=== PATIENT | female | born 1970 | race African-American/Black ===

== ENCOUNTER 2017-02-19 15:00 | Emergency (ER) | payer MEDICARE, MEDICAID ==
--- NOTE | 2017-02-19 15:51 | ER Document Report ---
ED Medical Screen (RME) - General Chief Complaint: Arm Pain Stated Complaint: LEFT ARM PAIN Time Seen by Provider: 02/19/17 15:47 Mode of Arrival: Ambulatory Information source: Patient Notes: 46-year-old female with end-stage renal disease with an AV shunt in her left arm who was last dialyzed on Wednesday. Patient presents to the emergency room with sharp pain to the left shoulder and arm. Patient denies any fever. The patient states that the pain started approximately a day to day and a half ago. She states that it is worse with movement and palpation of the arm. TRAVEL OUTSIDE OF THE [place] IN LAST 30 DAYS: No - Related Data Allergies/Adverse Reactions: No Known Allergies Allergy (Unverified 02/19/17 15:07) Past Medical History - Social History Frequency of alcohol use: None Drug Abuse: None - Past Medical History Cardiac Medical History: Reports: Hx Congestive Heart Failure, Hx Hypertension Endocrine Medical History: Reports: Hx Diabetes Mellitus Type 2 Renal/ Medical History: Reports: Hx End Stage Renal Disease. Denies: Hx Peritoneal Dialysis Physical Exam - Vital signs Vitals: Temp Pulse Resp BP Pulse Ox 97.7 F 81 16 147/73 H 95 02/19/17 15:06 02/19/17 15:06 02/19/17 15:06 02/19/17 15:06 02/19/17 15:06 Course - Vital Signs Vital signs: Temp Pulse Resp BP Pulse Ox 97.7 F 81 16 147/73 H 95 02/19/17 15:06 02/19/17 15:06 02/19/17 15:06 02/19/17 15:06 02/19/17 15:06
--- NOTE | 2017-02-19 16:35 | ER Document Report ---
ED Extremity Problem, Upper - General Mode of Arrival: Ambulatory Information source: Patient TRAVEL OUTSIDE OF THE [place] IN LAST 30 DAYS: No - HPI Patient complains to provider of: Pain <HUY KIM - Last Filed: 02/19/17 19:55> <CHINO GARCIAS - Last Filed: 02/19/17 21:47> - General Chief Complaint: Arm Pain Stated Complaint: LEFT ARM PAIN Time Seen by Provider: 02/19/17 15:47 Notes: Patient is a 46-year-old female with end-stage renal disease presenting to the emergency department for sharp pain to her left shoulder and arm. Patient has an AV shunt in her left arm and was last dialyzed on Wednesday. Patient denies any fever. Patient's pain was onset yesterday and worsened today. Patient's pain is exacerbated with movement and her pain is worse in her shoulder than her arm. Patient has no known drug allergies. (HUY KIM) - Related Data Allergies/Adverse Reactions: No Known Allergies Allergy (Verified 02/19/17 19:27) Past Medical History - General Information source: Patient - Social History Smoking Status: Former Smoker Cigarette use (# per day): No Chew tobacco use (# tins/day): No Frequency of alcohol use: None Drug Abuse: None Family History: None Patient has suicidal ideation: No Patient has homicidal ideation: No - Past Medical History Cardiac Medical History: Reports: Hx Congestive Heart Failure, Hx Hypertension Endocrine Medical History: Reports: Hx Diabetes Mellitus Type 2 Renal/ Medical History: Reports: Hx End Stage Renal Disease Surgical Hx: Negative <HUY KIM - Last Filed: 02/19/17 19:55> Review of Systems - Review of Systems Constitutional: No symptoms reported EENT: No symptoms reported Cardiovascular: No symptoms reported Respiratory: No symptoms reported Gastrointestinal: No symptoms reported Genitourinary: No symptoms reported Female Genitourinary: No symptoms reported Musculoskeletal: See HPI, Muscle pain Skin: No symptoms reported Hematologic/Lymphatic: No symptoms reported Neurological/Psychological: No symptoms reported -: Yes All other systems reviewed and negative <HUY KIM - Last Filed: 02/19/17 19:55> Physical Exam - Vital signs Interpretation: Normal <HUY KIM - Last Filed: 02/19/17 19:55> <CHINO GARCIAS - Last Filed: 02/19/17 21:47> - Vital signs Vitals: Temp Pulse Resp BP Pulse Ox 97.7 F 81 16 147/73 H 95 02/19/17 15:06 02/19/17 15:06 02/19/17 15:06 02/19/17 15:06 02/19/17 15:06 - Notes Notes: GENERAL: Alert, interacts well. No acute distress. HEAD: Normocephalic, atraumatic. EYES: Appear normal. Pupils equal, round, and reactive to light. ENT: Moist mucus membranes, tongue midline. NECK: Full range of motion. Supple. Trachea midline. LUNGS: Clear to auscultation bilaterally, no wheezes, rales, or rhonchi. No respiratory distress. HEART: Regular rate and rhythm. No murmurs, gallops, or rubs. ABDOMEN: Soft, non-tender. Non-distended. Normal bowel sounds. EXTREMITIES: Tenderness to palpation over the left humerus and left shoulder. Positive bruit in the left arm. Pain with range of motion to the left shoulder. No edema. NEUROLOGICAL: Alert and oriented x3. Normal speech. No focal neurological deficits. GSC 15. PSYCH: Normal affect, normal mood. SKIN: Warm, dry, normal turgor. No rashes or lesions noted. (HUY KIM) Course - Laboratory Result Diagrams: 02/19/17 18:43 02/19/17 18:43 <HUY KIM - Last Filed: 02/19/17 19:55> - Laboratory Result Diagrams: 02/19/17 18:43 02/19/17 18:43 - Diagnostic Test Radiology reviewed: Reports reviewed <CHINO GARCIAS - Last Filed: 02/19/17 21:47> - Re-evaluation Re-evalutation: 02/19/17 19:15 Reevaluated patient at this time. Discussed imaging and Doppler study results with patient. (HUY KIM) 02/19/17 Patient with no acute findings on imaging. No DVT. Fistula is functioning well. Patient has reproducible pain. Blood work is at baseline. Patient will be discharged home with pain medication. She is to follow-up with her doctor. Return if any worsening or concerning symptoms. Stable for discharge. (CHINO GARCIAS) - Vital Signs Vital signs: Temp Pulse Resp BP Pulse Ox 97.6 F 81 20 147/84 H 97 02/19/17 20:18 02/19/17 20:18 02/19/17 20:18 02/19/17 20:18 02/19/17 20:18 - Laboratory Laboratory results interpreted by me: 02/19/17 02/19/17 02/19/17 18:43 18:43 18:43 WBC 10.9 H Hgb 11.3 L Hct 35.5 L MCHC 31.9 L RDW 14.3 H Seg Neutrophils % 80.2 H Lymphocytes % 10.0 L Absolute Neutrophils 8.7 H PT 16.7 H Potassium 5.8 H Carbon Dioxide 16 L Anion Gap 25 H BUN 102 H Creatinine 13.25 H Est GFR ( Amer) 4 L Est GFR (Non-Af Amer) 3 L Calcium 8.1 L Direct Bilirubin 0.7 H AST 41 H Alkaline Phosphatase 172 H Total Protein 9.0 H Discharge <HUY KIM - Last Filed: 02/19/17 19:55> <CHINO GARCIAS - Last Filed: 02/19/17 21:47> - Discharge Clinical Impression: Shoulder pain, left Qualifiers: Chronicity: acute Qualified Code(s): M25.512 - Pain in left shoulder Condition: Stable Disposition: HOME, SELF-CARE Instructions: Arm Pain, Nonspecific ([facility]), Shoulder Injury ([facility]) Additional Instructions: Please go to dialysis as scheduled in the morning. Prescriptions: Ondansetron [Zofran Odt 4 mg Tablet] 1 - 2 tab PO Q4H PRN #15 tab.rapdis PRN Reason: For Nausea/Vomiting Oxycodone HCl/Acetaminophen [Percocet 5-325 mg Tablet] 1 - 2 tab PO Q4H PRN #15 tablet PRN Reason: Referrals: ANGELA WOLFE MD [Primary Care Provider] - Follow up in 3-5 days Scribe Attestation: 02/19/17 21:47 I personally performed the services described in the documentation, reviewed and edited the documentation which was dictated to the scribe in my presence, and it accurately records my words and actions. (CHINO GARCIAS) Scribe Documentation - Scribe Written by Scribe:: Tammie Daily, 02/19/2017 19:02 acting as scribe for :: Parag <HUY KIM - Last Filed: 02/19/17 19:55>
--- NOTE | 2017-02-19 17:00 | RADIOLOGY REPORT (SQ) ---
EXAM DESCRIPTION: CHEST SINGLE VIEW COMPLETED DATE/TIME: 02/19/2017 4:50 pm REASON FOR STUDY: pain COMPARISON: October 2009 EXAM PARAMETERS: NUMBER OF VIEWS: One view. TECHNIQUE: Single frontal radiographic view of the chest acquired. RADIATION DOSE: NA LIMITATIONS: Patient has made a shallow inspiration. FINDINGS: LUNGS AND PLEURA: No opacities, masses or pneumothorax. No pleural effusion. MEDIASTINUM AND HILAR STRUCTURES: No masses. Contour normal. HEART AND VASCULAR STRUCTURES: The cardiac silhouette is enlarged and unchanged in configuration. Th ere is pulmonary vascular congestion. BONES: No acute findings. HARDWARE: None in the chest. OTHER: No other significant finding. IMPRESSION: Cardiomegaly with pulmonary vascular congestion. Other findings as noted above. TECHNICAL DOCUMENTATION: JOB ID: [id number]
--- NOTE | 2017-02-19 17:01 | RADIOLOGY REPORT (SQ) ---
EXAM DESCRIPTION: HUMERUS LEFT COMPLETED DATE/TIME: 02/19/2017 4:50 pm REASON FOR STUDY: left arm pain COMPARISON: None. NUMBER OF VIEWS: Two views. TECHNIQUE: Two radiographic images were acquired of the left humerus to include elbow and shoulder i n at least one projection. LIMITATIONS: None. FINDINGS: MINERALIZATION: Normal. BONES: No acute fracture or dislocation. No worrisome bone lesions. SOFT TISSUES: No obvious swelling or foreign body. OTHER: No other significant finding. IMPRESSION: NEGATIVE STUDY OF THE LEFT HUMERUS. NO RADIOGRAPHIC EVIDENCE OF ACUTE INJURY. TECHNICAL DOCUMENTATION: JOB ID: [id number] [employer]- All Rights Reserved
[2017-02-19] MEDS ORDERED: OXYCODONE-ACETAMINOPHEN 5-325 MG TABLET PO ONE (17:24)
--- NOTE | 2017-02-19 18:32 | RADIOLOGY REPORT (SQ) ---
EXAM DESCRIPTION: VENOUS UNILATERAL UPPER COMPLETED DATE/TIME: 02/19/2017 6:19 pm REASON FOR STUDY: left arm pain COMPARISON: None. TECHNIQUE: Dynamic and static rm scale and color images acquired of the left arm venous system. Se lected spectral images acquired with additional compression and augmentation maneuvers. The contralat eral subclavian vein and internal jugular vein were also imaged. Images stored on PACS. LIMITATIONS: None. FINDINGS: INTERNAL JUGULAR VEIN: Normal phasicity, compression, augmentation. No visualized echogeni c material on rm scale. No defects on color images. Comparison opposite side normal. SUBCLAVIAN VEIN: Normal compression, augmentation. No visualized echogenic material on rm scale. No defects on color images. AXILLARY VEIN: Normal compression, augmentation. No visualized echogenic material on rm scale. No d efects on color images. BRACHIAL VEIN: Normal compression, augmentation. No visualized echogenic material on rm scale. No d efects on color images. BASILIC VEIN: Normal compression, augmentation. No visualized echogenic material on rm scale. No de fects on color images. CEPHALIC VEIN: Normal compression, augmentation. No visualized echogenic material on rm scale. No d efects on color images. OTHER: Brachiocephalic AV fistula is patent. Brachial artery proximal to the fistula measures 2.3 m/ sec. The radial and ulnar arteries measure 0.4 m/sec and in 0.2 m/sec respectively. CONTRALATERAL SUBCLAVIAN VEIN AND INTERNAL JUGULAR VEIN: Normal phasicity, compression and augmentation. No visualized echogenic material on rm scale. No de fects on color images. IMPRESSION: No evidence for DVT.Brachiocephalic AV fistula is patent. TECHNICAL DOCUMENTATION: JOB ID: [id number] [employer]- All Rights Reserved
[2017-02-19] MEDS ORDERED: ONDANSETRON 4 MG TAB.RAPDIS PO ONE (18:38)
[2017-02-19 18:52] LABS: ABSOLUTE BASOPHILS # (AUTO) 0.1 10^3/uL (0.0-0.2); ABSOLUTE EOSINOPHILS # (AUTO) 0.2 10^3/uL (0.0-0.6); ABSOLUTE LYMPHOCYTES (AUTO) 1.1 10^3/uL (0.5-4.7); ABSOLUTE MONOCYTES (AUTO) 0.7 10^3/uL (0.1-1.4); ABSOLUTE NEUT (AUTO) 8.7 10^3/uL (1.7-8.2); BASOPHILS % (AUTO) 1.4 % (0-2); HEMATOCRIT 35.5 % (36.0-47.0); HEMOGLOBIN 11.3 g/dL (12.0-15.5); HGB HCT DIFFERENCE -1.6; MEAN CORPUSCULAR HEMOGLOBIN 29.9 pg (27.0-33.4); MEAN CORPUSCULAR HGB CONC 31.9 g/dL (32.0-36.0); MEAN CORPUSCULAR VOLUME 94 fl (80-97); MONOCYTES % (AUTO) 6.4 % (3-13); RED BLOOD COUNT 3.79 10^6/uL (3.72-5.28); RED CELL DISTRIBUTION WIDTH 14.3 % (11.5-14.0); SEGMENTED NEUTROPHILS % (AUTO) 80.2 % (42-78); WHITE BLOOD COUNT 10.9 10^3/uL (4.0-10.5)
[2017-02-19 19:05] LABS: PARTIAL THROMBOPLASTIN TIME 35.2 SEC (23.5-35.8); PROTHROMBIN TIME 16.7 SEC (11.4-15.4)
[2017-02-19 19:07] LABS: ALANINE AMINOTRANSFERASE 34 U/L (9-52); ALBUMIN 4.5 g/dL (3.5-5.0); ALKALINE PHOSPHATASE 172 U/L (38-126); ASPARTATE AMINO TRANSFERASE 41 U/L (14-36); BILIRUBIN,DIRECT 0.7 mg/dL (0.0-0.4); BILIRUBIN,TOTAL 0.7 mg/dL (0.2-1.3); BLOOD UREA NITROGEN 102 mg/dL (7-20); CALCIUM 8.1 mg/dL (8.4-10.2); CHLORIDE 98 mmol/L (98-107); GLUCOSE 98 mg/dL (75-110); POTASSIUM 5.8 mmol/L (3.6-5.0)
--- NOTE | 2017-02-19 19:12 | EKG REPORT ---
SEVERITY:- ABNORMAL ECG - SINUS RHYTHM LEFT AXIS DEVIATION ABNORMAL T, CONSIDER ISCHEMIA, LATERAL LEADS : Confirmed by: Bubba Brito MD 19-Feb-2017 19:11:49
[2017-02-19 19:13] LABS: CREATININE RESULT 13.25 mg/dL (0.52-1.25)
[2017-02-19 19:15] LABS: CARBON DIOXIDE 16 mmol/L (22-30); SODIUM 139.2 mmol/L (137-145)
[2017-02-19 19:16] LABS: ANION GAP 25 (5-19)
[2017-02-19 20:21] VITALS: BP 147/84
== END 2017-02-19 20:30 | disposition home or self-care (01) ==
LOC: ER 15:00
DX: M25.512 Pain in left shoulder (principal); M79.602 Pain in left arm; I13.2 Hypertensive heart and chronic kidney disease with heart failure and with stage 5 chronic kidney disease, or end stage renal disease; E11.22 Type 2 diabetes mellitus with diabetic chronic kidney disease; N18.6 End stage renal disease; I50.9 Heart failure, unspecified; Z99.2 Dependence on renal dialysis; Z87.891 Personal history of nicotine dependence
CPT/HCPCS: 93005; 99284; 36415; 85025; 85610; 85730; 80053; 84484; 93971; 71010; 73060; 93010; A9270 ×2; S0119

== ENCOUNTER 2017-05-07 18:06 | Emergency (ER) | payer MEDICARE, MEDICAID ==
--- NOTE | 2017-05-07 18:47 | ER Document Report ---
ED Medical Screen (RME) - General Chief Complaint: Urinary Problem Stated Complaint: LEG PAIN Time Seen by Provider: 05/07/17 18:40 Notes: This 46-year-old dialysis patient reports blood in the urine for 1 month, chronic bilateral lower leg pain for which she goes to physical therapy, decreasing urine output over time, and when I tried to find out specifically why she came to the emergency room today, she stated "today my stomach kind of hurts". She is concerned that it may be her gallbladder giving her trouble, however she did have a laparoscopic cholecystectomy perhaps a month ago in [place]. She indicates the pain is all the way across her mid abdomen. I have greeted and performed a rapid initial assessment of this patient. A comprehensive ED assessment and evaluation of the patient, analysis of test results and completion of the medical decision making process will be conducted by additional ED providers. TRAVEL OUTSIDE OF THE [place] IN LAST 30 DAYS: No - Related Data Allergies/Adverse Reactions: No Known Allergies Allergy (Verified 05/07/17 18:11) Past Medical History - Social History Chew tobacco use (# tins/day): No Frequency of alcohol use: None Drug Abuse: None - Past Medical History Cardiac Medical History: Reports: Hx Congestive Heart Failure, Hx Hypertension Endocrine Medical History: Reports: Hx Diabetes Mellitus Type 2 Renal/ Medical History: Reports: Hx End Stage Renal Disease. Denies: Hx Peritoneal Dialysis Past Surgical History: Reports: Hx Cholecystectomy Physical Exam - Vital signs Vitals: Temp Pulse Resp BP Pulse Ox 98.4 F 89 18 126/64 H 97 05/07/17 18:08 05/07/17 18:08 05/07/17 18:08 05/07/17 18:08 05/07/17 18:08 Course - Vital Signs Vital signs: Temp Pulse Resp BP Pulse Ox 98.4 F 89 18 126/64 H 97 05/07/17 18:08 05/07/17 18:08 05/07/17 18:08 05/07/17 18:08 05/07/17 18:08
--- NOTE | 2017-05-07 19:43 | ER Document Report ---
ED General - General Chief Complaint: Urinary Problem Stated Complaint: LEG PAIN Time Seen by Provider: 05/07/17 18:40 Notes: Patient is a 46-year-old female with past medical history of chronic kidney disease with dialysis dependence who presents with a multitude of vague complaints. Patient is a very difficult historian has difficulty explaining why she came to the emergency department today. She complains of bilateral lower extremity pain which has been present for at least the past 3-4 months and she is currently following with a primary care doctor for this complaint. She states this is not why she came to the emergency department. She also complains of hematuria although it is very difficult to determine whether or not she actually means hematuria versus vaginal bleeding or rectal bleeding. She simply states "it happens every time I go to the bathroom". When I try to clarify with the patient whether or not she means she is having blood in her urine versus vaginal bleeding or rectal bleeding she appears confused and is unable to clarify which of the sources of bleeding she believes is occurring. She denies a history of similar symptoms in the past. This is been ongoing for at least the past 6 weeks. Nothing is new or different today. She does note that she has of lower abdominal cramping pain that is dull, mild and constant. Nothing improves or worsens that pain. She only makes urine approximately 1-2 times daily and does not feel she will build urinate tonight. She is uncertain when her last menstrual period was. TRAVEL OUTSIDE OF THE [place] IN LAST 30 DAYS: No - Related Data Allergies/Adverse Reactions: No Known Allergies Allergy (Verified 05/07/17 18:11) Past Medical History - General Information source: Patient - Social History Smoking Status: Former Smoker Chew tobacco use (# tins/day): No Frequency of alcohol use: None Drug Abuse: None Lives with: Spouse/Significant other Family History: Reviewed & Not Pertinent - Past Medical History Cardiac Medical History: Reports: Hx Congestive Heart Failure, Hx Hypertension Endocrine Medical History: Reports: Hx Diabetes Mellitus Type 2 Renal/ Medical History: Reports: Hx End Stage Renal Disease. Denies: Hx Peritoneal Dialysis Past Surgical History: Reports: Hx Cholecystectomy Review of Systems - Review of Systems Notes: Constitutional: Negative for fever. HENT: Negative for sore throat. Eyes: Negative for visual changes. Cardiovascular: Negative for chest pain. Respiratory: Negative for shortness of breath. Gastrointestinal: Positive for lower abdominal pain Genitourinary: Positive for possible vaginal bleeding versus hematuria Musculoskeletal: Negative for back pain. Skin: Negative for rash. Neurological: Negative for headaches, weakness or numbness. 10 point ROS negative except as marked above and in HPI. Physical Exam - Vital signs Vitals: Temp Pulse Resp BP Pulse Ox 98.4 F 89 18 126/64 H 97 05/07/17 18:08 05/07/17 18:08 05/07/17 18:08 05/07/17 18:08 05/07/17 18:08 Interpretation: Normal Notes: PHYSICAL EXAMINATION: GENERAL: Well-appearing, well-nourished and in no acute distress. HEAD: Atraumatic, normocephalic. EYES: Pupils equal round and reactive to light, extraocular movements intact, sclera anicteric, conjunctiva are normal. ENT: nares patent, oropharynx clear without exudates. Moist mucous membranes. NECK: Normal range of motion, supple without lymphadenopathy LUNGS: Breath sounds clear to auscultation bilaterally and equal. No wheezes rales or rhonchi. HEART: Regular rate and rhythm without murmurs ABDOMEN: Soft, mild tenderness in the suprapubic region otherwise no focal abdominal tenderness, rebound or guarding. EXTREMITIES: Normal range of motion, no pitting or edema. No cyanosis. NEUROLOGICAL: No focal neurological deficits. Moves all extremities spontaneously and on command. PSYCH: Normal mood, normal affect. SKIN: Warm, Dry, normal turgor, no rashes or lesions noted. Course - Re-evaluation Re-evalutation: 05/07/17 19:42 Patient presents with multiple complaints none of which appear to be an acute life-threatening emergency. Patient is unable to clarify for me the source of her bleeding but I suspect based on her history is likely vaginal she makes minimal urine and likely will be unable to provide a urine sample here in the emergency department due to her oliguria. Will proceed with a pelvic examination to better clarify the source of bleeding as well as a vaginal ultrasound. Will also obtain basic laboratories to evaluate for any degree of anemia. 05/07/17 21:06 Patient has not been able to urinate and I expect that she will be unable to do so she makes minimal to no urine through the day. The source of her bleeding is not from her urethra. Pelvic exam demonstrates a mild amount of vaginal bleeding. Transvaginal ultrasound was completed to evaluate for possible mass and is noted to be normal. Given patient's elevated risk for a hypercoagulable state at baseline secondary to her dialysis dependence and chronic kidney disease, I am not comfortable starting an estrogen based hormone therapy to regulate her cycle at this time. I have been referred to the [facility] for definitive management. The remainder of her laboratories are at her baseline. No evidence of significant anemia. She remains hemodynamic within normal limits. At this time will discharge with return precautions and follow-up recommendations. Verbal discharge instructions given a the bedside and opportunity for questions given. Medication warnings reviewed. Patient is in agreement with this plan and has verbalized understanding of return precautions and the need for primary care follow-up in the next 24-72 hours. - Vital Signs Vital signs: Temp Pulse Resp BP Pulse Ox 98.4 F 89 18 126/64 H 97 05/07/17 18:08 05/07/17 18:08 05/07/17 18:08 05/07/17 18:08 05/07/17 18:08 - Laboratory Result Diagrams: 05/07/17 19:54 05/07/17 19:54 Laboratory results interpreted by me: 05/07/17 05/07/17 19:54 19:54 Hgb 11.6 L Hct 34.3 L RDW 14.8 H Plt Count 148 L Chloride 95 L BUN 58 H Creatinine 8.20 H Est GFR ( Amer) 6 L Est GFR (Non-Af Amer) 5 L Glucose 123 H Direct Bilirubin 0.7 H Alkaline Phosphatase 166 H Total Protein 8.8 H Discharge - Discharge Clinical Impression: Dysfunctional uterine bleeding Condition: Good Disposition: HOME, SELF-CARE Additional Instructions: You were seen today for dysfunctional uterine bleeding. This is when you have vaginal bleeding and abdominal cramping off of your normal menstrual cycle. You need to follow-up with [facility] or your primary care physician the next 1-3 days. Return immediately if you worsening pain, you began bleeding through more than 2 pads per hour for more than 3 hours, you pass out, have persistent vomiting, develop a fever greater than 100.4F, or any other symptoms that are concerning to you. Referrals: NAMRATA KING MD [ACTIVE STAFF] - Follow up as needed
[2017-05-07 20:04] LABS: ABSOLUTE BASOPHILS # (AUTO) 0.1 10^3/uL (0.0-0.2); ABSOLUTE EOSINOPHILS # (AUTO) 0.2 10^3/uL (0.0-0.6); ABSOLUTE LYMPHOCYTES (AUTO) 1.6 10^3/uL (0.5-4.7); ABSOLUTE MONOCYTES (AUTO) 0.9 10^3/uL (0.1-1.4); ABSOLUTE NEUT (AUTO) 6.3 10^3/uL (1.7-8.2); BASOPHILS % (AUTO) 1.2 % (0-2); EOSINOPHILS % (AUTO) 2.3 % (0-6); HEMATOCRIT 34.3 % (36.0-47.0); HEMOGLOBIN 11.6 g/dL (12.0-15.5); HGB HCT DIFFERENCE 0.5; LYMPHOCYTES % (AUTO) 17.1 % (13-45); MEAN CORPUSCULAR HEMOGLOBIN 30.7 pg (27.0-33.4); MEAN CORPUSCULAR HGB CONC 33.9 g/dL (32.0-36.0); MEAN CORPUSCULAR VOLUME 91 fl (80-97); MONOCYTES % (AUTO) 9.6 % (3-13); RED BLOOD COUNT 3.79 10^6/uL (3.72-5.28); RED CELL DISTRIBUTION WIDTH 14.8 % (11.5-14.0); SEGMENTED NEUTROPHILS % (AUTO) 69.8 % (42-78); WHITE BLOOD COUNT 9.1 10^3/uL (4.0-10.5)
[2017-05-07 20:20] LABS: ALANINE AMINOTRANSFERASE 25 U/L (9-52); ALBUMIN 4.4 g/dL (3.5-5.0); ALKALINE PHOSPHATASE 166 U/L (38-126); ANION GAP 19 (5-19); ASPARTATE AMINO TRANSFERASE 26 U/L (14-36); BILIRUBIN,DIRECT 0.7 mg/dL (0.0-0.4); BILIRUBIN,TOTAL 0.7 mg/dL (0.2-1.3); BLOOD UREA NITROGEN 58 mg/dL (7-20); CALCIUM 9.1 mg/dL (8.4-10.2); CARBON DIOXIDE 25 mmol/L (22-30); CHLORIDE 95 mmol/L (98-107); GLUCOSE 123 mg/dL (75-110); LIPASE 141.8 U/L (23-300); SODIUM 138.8 mmol/L (137-145); TOTAL PROTEIN 8.8 g/dL (6.3-8.2)
--- NOTE | 2017-05-07 20:44 | RADIOLOGY REPORT (SQ) ---
EXAM DESCRIPTION: U/S NON OB PEL TV W/DOPPLER COMPLETED DATE/TIME: 05/07/2017 8:36 pm REASON FOR STUDY: vaginal bleeding, persistent, eval mass COMPARISON: None. TECHNIQUE: Dynamic and static grayscale images acquired of the pelvis via transvaginal approach and recorded on PACS. Additional selected color Doppler and spectral images recorded. LIMITATIONS: None. FINDINGS: UTERUS: Contour normal. No mass. ENDOMETRIAL STRIPE: No focal or generalized thickening. No masses. CERVIX: No nabothian cysts. RIGHT OVARY: No abnormal masses. RIGHT OVARY DOPPLER: Normal arterial vascular flow without evidence for torsion. LEFT OVARY: Ovary not visualized. LEFT OVARY DOPPLER: Ovary not visualized. FREE FLUID: None noted. OTHER: No other significant finding. MEASUREMENTS: UTERUS: 12.3 x 4.5 x 2.4 cm ENDOMETRIAL STRIPE: 4 mm. RIGHT OVARY: 3.1 x 3.3 x 5.0 cm. LEFT OVARY: Not visualized. IMPRESSION: NORMAL TRANSVAGINAL PELVIC ULTRASOUND. LEFT OVARY NOT VISUALIZED. TECHNICAL DOCUMENTATION: JOB ID: [id number]- All Rights Reserved
[2017-05-07 21:17] VITALS: BP 122/71
[2017-05-07] MEDS ORDERED: MORPHINE SULFATE IR 15 MG TABLET PO ONE (21:23)
== END 2017-05-07 21:29 | disposition home or self-care (01) ==
LOC: ER 18:06
DX: N93.8 Other specified abnormal uterine and vaginal bleeding (principal); R10.30 Lower abdominal pain, unspecified; M79.604 Pain in right leg; M79.605 Pain in left leg; I12.0 Hypertensive chronic kidney disease with stage 5 chronic kidney disease or end stage renal disease; E11.22 Type 2 diabetes mellitus with diabetic chronic kidney disease; N18.6 End stage renal disease; Z99.2 Dependence on renal dialysis
CPT/HCPCS: 99284; 36415; 83690; 85025; 80053; 76830; 93976; A9270

== ENCOUNTER 2017-10-03 15:09 | Emergency (ER) | payer MEDICARE, MEDICAID ==
--- NOTE | 2017-10-03 15:16 | ER Document Report ---
ED General - General Mode of Arrival: Medic Information source: Patient TRAVEL OUTSIDE OF THE [place] IN LAST 30 DAYS: No <MATILDAHUGH A - Last Filed: 10/03/17 18:47> <ANGELA LITTLE - Last Filed: 10/03/17 19:00> - General Chief Complaint: Altered Mental Status Stated Complaint: bowel obstruction Time Seen by Provider: 10/03/17 15:15 - HPI Notes: 46-year-old female with a history of chronic kidney disease with dialysis dependence who presents with , they have EMS history of abdominal pain. Her EMS she was lethargic and difficult to arouse, that she vomited 3 times today. Patient is a poor historian. Patient reports she has right upper and left upper quadrant pain. Patient appears to be confused at time of interview. Patient reports that she did not go to her dialysis appointment yesterday. Patient is unable to see how long she has been having the abdominal pain for. Unable to give a exact rate of her pain. Patient is speaking in partial sentences. (HUGH GREY) - Related Data Allergies/Adverse Reactions: No Known Allergies Allergy (Verified 05/07/17 18:11) Past Medical History - General Information source: Patient - Social History Smoking Status: Unknown if Ever Smoked Family History: Reviewed & Not Pertinent - Past Medical History Cardiac Medical History: Reports: Hx Congestive Heart Failure, Hx Hypertension Endocrine Medical History: Reports: Hx Diabetes Mellitus Type 2 Renal/ Medical History: Reports: Hx End Stage Renal Disease. Denies: Hx Peritoneal Dialysis Past Surgical History: Reports: Hx Cholecystectomy <MATILDAHUGH A - Last Filed: 10/03/17 18:47> Review of Systems - Review of Systems Constitutional: No symptoms reported EENT: No symptoms reported Cardiovascular: No symptoms reported Respiratory: No symptoms reported Gastrointestinal: See HPI Genitourinary: No symptoms reported Female Genitourinary: No symptoms reported Musculoskeletal: No symptoms reported Skin: No symptoms reported Hematologic/Lymphatic: No symptoms reported Neurological/Psychological: See HPI, Confusion <MATILDAHUGH A - Last Filed: 10/03/17 18:47> Physical Exam <HUGH GREY - Last Filed: 10/03/17 18:47> <ANGELA LITTLE - Last Filed: 10/03/17 19:00> - Vital signs Vitals: Temp Resp BP Pulse Ox 97.8 F 22 H 155/95 H 100 10/03/17 15:15 10/03/17 15:15 10/03/17 15:15 10/03/17 15:15 - Notes Notes: PHYSICAL EXAMINATION: GENERAL: Well-appearing, well-nourished and in no acute distress. HEAD: Atraumatic, normocephalic. EYES: Pupils equal round and reactive to light, extraocular movements intact, conjunctiva are normal. ENT: Nares patent, oropharynx clear without exudates. Moist mucous membranes. NECK: Normal range of motion, supple without lymphadenopathy LUNGS: Breath sounds clear to auscultation bilaterally and equal. No wheezes rales or rhonchi. HEART: Regular rate and rhythm without murmurs ABDOMEN: RUQ, RLQ tenderness on palpation. No guarding, no rebound. No masses appreciated. Female : deferred Musculoskeletal: Normal range of motion, no pitting or edema. No cyanosis. NEUROLOGICAL: Unable to determine the president, month. Able to list the year and she is at the present time . speech clear, normal gait. Normal sensory, motor exams PSYCH: Normal mood, normal affect. SKIN: Warm, Dry, normal turgor, no rashes or lesions noted. (HUGH GREY) Course - EKG Interpretation by Me EKG shows normal: Sinus rhythm Rate: Normal When compared to previous EKG there are: Previous EKG unavailable <HUGH GREY - Last Filed: 10/03/17 18:47> <ANGELA LITTLE - Last Filed: 10/03/17 19:00> - Re-evaluation Re-evalutation: Patient unable to tell me the month, president could tell me the year and that there are at the hospital. Pain CT of the head, negative for any acute findings. Chest x-ray shows cardiomegaly with venous congestion. labs have been delayed in being drawn due to not being able to obtain access due to excessive scarring, unable to access left arm due to left AV fistula. The abdomen pelvis without contrast shows noted hepatomegaly and mild ascites. 1847 -IV access obtained in right IJ, labs were obtained at that time. still awaiting for urinalysis. (HUGH GREY) - Vital Signs Vital signs: Temp Pulse Resp BP Pulse Ox 97.8 F 82 15 155/95 H 100 10/03/17 15:15 10/03/17 15:52 10/03/17 16:00 10/03/17 15:52 10/03/17 16:00 Procedures - Additional Procedures EXT. JUGULAR V. CANNULATION Time performed: 18:40 Additional Procedures: IV insertion <ANGELA LITTLE - Last Filed: 10/03/17 19:00> - Additional Procedures EXT. JUGULAR V. CANNULATION Notes: 10/03/17 18:59 R. EXTERNAL JUGULAR VEIN CANNULATED WITH 18ga ANGIOCATH, LABS DRAWN, CANNULA FLUSHED & SECURED. PATIENT TOLERATED WELL. (ANGELA LITTLE) Discharge <HUGH GREY - Last Filed: 10/03/17 18:47> <ANGELA LITTLE - Last Filed: 10/03/17 19:00> - Discharge Referrals: KAREN ASTORGA PA-C [Primary Care Provider] - Follow up as needed
[2017-10-03] MEDS ORDERED: NORMAL SALINE 1000 ML 1,000 ML IV PRN (15:19)
[2017-10-03] MEDS ORDERED: PROMETHAZINE HCL INJ 25 MG/1 ML VIAL IV ONE (15:20)
--- NOTE | 2017-10-03 16:29 | RADIOLOGY REPORT (SQ) ---
EXAM DESCRIPTION: CT HEAD WITHOUT COMPLETED DATE/TIME: 10/03/2017 4:11 pm REASON FOR STUDY: AMS COMPARISON: None. TECHNIQUE: Axial images acquired through the brain without intravenous contrast. Images reviewed wi th bone, brain and subdural windows. Images stored on PACS. All CT scanners at this facility use dose modulation, iterative reconstruction, and/or weight based d osing when appropriate to reduce radiation dose to as low as reasonably achievable (ALARA). [facility]: Dose Right [facility]: CareDose [facility]: Dose Right [facility]: Teradose 4D [facility]: Smart [place] RADIATION DOSE: CT Rad equipment meets quality standard of care and radiation dose reduction techniq ues were employed. CTDIvol: 64.6 mGy. DLP: 1292 mGy-cm. mGy. LIMITATIONS: None. FINDINGS: VENTRICLES: Normal size and contour. CEREBRUM: No masses. No hemorrhage. No midline shift. No evidence for acute infarction. Normal gra y/white matter differentiation. No areas of low density in the white matter. CEREBELLUM: No masses. No hemorrhage. No alteration of density. No evidence for acute infarction. EXTRAAXIAL SPACES: No fluid collections. No masses. ORBITS AND GLOBE: No intra- or extraconal masses. Normal contour of globe without masses. CALVARIUM: No fracture. PARANASAL SINUSES: No fluid or mucosal thickening. SOFT TISSUES: No mass or hematoma. OTHER: No other significant finding. IMPRESSION: No acute intracranial findings. EVIDENCE OF ACUTE STROKE: NO. COMMENT: Quality ID # [id number]: Final reports with documentation of one or more dose reduction techniques (e.g., Automated exposure control, adjustment of the mA and/or kV according to patient size, use of iterative reconstruction technique) TECHNICAL DOCUMENTATION: JOB ID: [id number] [place]-72 2010 [employer]- All Rights Reserved
--- NOTE | 2017-10-03 16:55 | RADIOLOGY REPORT (SQ) ---
EXAM DESCRIPTION: CHEST SINGLE VIEW COMPLETED DATE/TIME: 10/03/2017 4:44 pm REASON FOR STUDY: lethargy COMPARISON: 02/19/2017. NUMBER OF VIEWS: One view. TECHNIQUE: Single frontal radiographic view of the chest acquired. LIMITATIONS: None. FINDINGS: LUNGS AND PLEURA: No opacities, masses or pneumothorax. No pleural effusion. MEDIASTINUM AND HILAR STRUCTURES: No masses. Contour normal. HEART AND VASCULAR STRUCTURES: Cardiac enlargement with mild central vascular congestion. BONES: No acute findings. HARDWARE: None in the chest. OTHER: No other significant finding. IMPRESSION: Cardiac enlargement with mild central vascular congestion. TECHNICAL DOCUMENTATION: JOB ID: [id number] [employer]- All Rights Reserved
--- NOTE | 2017-10-03 17:50 | RADIOLOGY REPORT (SQ) ---
EXAM DESCRIPTION: CT ABD/PELVIS NO ORAL OR IV COMPLETED DATE/TIME: 10/03/2017 5:38 pm REASON FOR STUDY: RLQ RUQ abd pain COMPARISON: 2010. TECHNIQUE: CT scan of the abdomen and pelvis performed without intravenous or oral contrast. Images reviewed with lung, soft tissue, and bone windows. Reconstructed coronal and sagittal MPR images revi ewed. All images stored on PACS. All CT scanners at this facility use dose modulation, iterative reconstruction, and/or weight based d osing when appropriate to reduce radiation dose to as low as reasonably achievable (ALARA). [facility]: Dose Right [facility]: CareDose [facility]: Dose Right [facility]: Teradose 4D [facility]: Smart [place] RADIATION DOSE: CT Rad equipment meets quality standard of care and radiation dose reduction techniq ues were employed. CTDIvol: 19.8 mGy. DLP: 1059 mGy-cm.mGy. LIMITATIONS: None. FINDINGS: LOWER CHEST: Cardiomegaly with trace pleural fluid suggested on the right. Motion artifac t and subsegmental atelectasis. NON-CONTRASTED LIVER, SPLEEN, ADRENALS: Hepatosplenomegaly. Spleen 14 cm craniocaudal. Liver up to almost 23 cm craniocaudal. Trace perihepatic ascites. No adrenal mass. PANCREAS: No masses. No peripancreatic inflammatory changes. GALLBLADDER: No identified stones by CT criteria. No inflammatory changes to suggest cholecystitis. RIGHT KIDNEY AND URETER: Vascular calcification. No gross mass or obstruction. LEFT KIDNEY AND URETER: Vascular calcification. No gross mass or obstruction. AORTA AND RETROPERITONEUM: Dense aortic and branch vessel atherosclerotic calcification. No aneurysm . No retroperitoneal mass. BOWEL AND PERITONEAL CAVITY: No obvious masses or inflammatory changes. No free fluid. APPENDIX: Not reliably identified. No evidence of appendicitis. PELVIS, BLADDER, AND ABDOMINAL WALL:No abnormal masses. No free fluid. Bladder normal. BONES: No significant findings. OTHER: No other significant finding. IMPRESSION: 1. Hepatomegaly and mild ascites. 2. Cardiomegaly with trace pleural fluid. TECHNICAL DOCUMENTATION: JOB ID: [id number] Quality ID # [id number]: Final reports with documentation of one or more dose reduction techniques (e.g., Au tomated exposure control, adjustment of the mA and/or kV according to patient size, use of iterative reconstruction technique) 2010 [employer]- All Rights Reserved
--- NOTE | 2017-10-03 18:33 | EKG REPORT ---
SEVERITY:- ABNORMAL ECG - SINUS RHYTHM LEFT AXIS DEVIATION ABNORMAL T, CONSIDER ISCHEMIA, LATERAL LEADS BORDERLINE PROLONGED QT INTERVAL : Confirmed by: Merna Ontiveros 03-Oct-2017 18:32:53
[2017-10-03 19:08] LABS: ABSOLUTE BASOPHILS # (AUTO) 0.1 10^3/uL (0.0-0.2); ABSOLUTE EOSINOPHILS # (AUTO) 0.1 10^3/uL (0.0-0.6); ABSOLUTE LYMPHOCYTES (AUTO) 0.7 10^3/uL (0.5-4.7); ABSOLUTE MONOCYTES (AUTO) 0.8 10^3/uL (0.1-1.4); ABSOLUTE NEUT (AUTO) 4.8 10^3/uL (1.7-8.2); BASOPHILS % (AUTO) 1.2 % (0-2); HEMATOCRIT 26.5 % (36.0-47.0); HEMOGLOBIN 8.6 g/dL (12.0-15.5); MEAN CORPUSCULAR HEMOGLOBIN 30.1 pg (27.0-33.4); MEAN CORPUSCULAR HGB CONC 32.5 g/dL (32.0-36.0); MEAN CORPUSCULAR VOLUME 93 fl (80-97); MONOCYTES % (AUTO) 12.7 % (3-13); PLATELET COUNT 175 10^3/uL (150-450); RED BLOOD COUNT 2.87 10^6/uL (3.72-5.28); RED CELL DISTRIBUTION WIDTH 17.3 % (11.5-14.0); SEGMENTED NEUTROPHILS % (AUTO) 73.1 % (42-78); TOTAL CELLS COUNTED % (AUTO) 100 %; WHITE BLOOD COUNT 6.6 10^3/uL (4.0-10.5)
[2017-10-03 19:36] LABS: ALANINE AMINOTRANSFERASE 19 U/L (9-52); ALKALINE PHOSPHATASE 178 U/L (38-126); ANION GAP 16 (5-19); ASPARTATE AMINO TRANSFERASE 21 U/L (14-36); BILIRUBIN,DIRECT 1.7 mg/dL (0.0-0.4); BILIRUBIN,TOTAL 1.9 mg/dL (0.2-1.3); BLOOD UREA NITROGEN 45 mg/dL (7-20); C-REACTIVE PROTEIN 34.8 mg/L (<10.0); CALCIUM 9.3 mg/dL (8.4-10.2); CARBON DIOXIDE 24 mmol/L (22-30); CHLORIDE 96 mmol/L (98-107); CREATINE KINASE 60 U/L (30-135); GLUCOSE 90 mg/dL (75-110); LIPASE 36.7 U/L (23-300); POTASSIUM 4.1 mmol/L (3.6-5.0); SODIUM 135.7 mmol/L (137-145); TOTAL PROTEIN 7.9 g/dL (6.3-8.2)
[2017-10-03 19:37] LABS: ACETAMINOPHEN < 10 ug/mL (10-30); SALICYLATE < 1.0 mg/dL (2.0-20.0)
[2017-10-03 19:40] LABS: TROPONIN I 0.026 ng/mL
--- NOTE | 2017-10-03 21:30 | RADIOLOGY REPORT (SQ) ---
EXAM DESCRIPTION: U/S ABDOMEN LTD W/DOPPLER COMPLETED DATE/TIME: 10/03/2017 9:16 pm REASON FOR STUDY: elevated bili NV abdominal pain COMPARISON: CT from earlier. TECHNIQUE: Dynamic and static grayscale images acquired of the abdomen and recorded on PACS. Additio nal selected color Doppler and spectral images recorded. LIMITATIONS: None. FINDINGS: PANCREAS: Not seen. LIVER: No masses. Echotexture normal. LIVER VASCULATURE: Incidental cyst measuring just over 5 cm. No worrisome lesion. GALLBLADDER: No stones. Normal wall thickness. No pericholecystic fluid. ULTRASOUND-DETECTED LAMA'S SIGN: Negative. INTRAHEPATIC DUCTS AND COMMON DUCT: CBD and intrahepatic ducts normal caliber. No filling defects. INFERIOR VENA CAVA: Normal flow. AORTA: No aneurysm. RIGHT KIDNEY: Normal size. Normal echogenicity. No solid or suspicious masses. No hydronephrosis. No calcifications. PERITONEAL AND RIGHT PLEURAL SPACE: No ascites or effusions. OTHER: No other significant findings. IMPRESSION: No acute or suspicious right upper quadrant abnormality. Normal gallbladder. No duct d ilatation. TECHNICAL DOCUMENTATION: JOB ID: [id number] [employer]- All Rights Reserved
[2017-10-03] MEDS ORDERED: ONDANSETRON HCL INJ/PF 4 MG/2 ML SDV IV ONE (21:46)
--- NOTE | 2017-10-03 21:46 | EKG REPORT ---
SEVERITY:- ABNORMAL ECG - SINUS RHYTHM BORDERLINE LEFT AXIS DEVIATION ABNORMAL T, CONSIDER ISCHEMIA, LATERAL LEADS : Confirmed by: Merna Ontiveros 03-Oct-2017 21:46:09
[2017-10-04] MEDS ORDERED: PROMETHAZINE HCL 25 MG SUPP.RECT PR ONE (00:25)
[2017-10-04 05:37] LABS: ANION GAP 17 (5-19); BLOOD UREA NITROGEN 49 mg/dL (7-20); CALCIUM 9.4 mg/dL (8.4-10.2); CARBON DIOXIDE 24 mmol/L (22-30); CHLORIDE 96 mmol/L (98-107); GLUCOSE 83 mg/dL (75-110); POTASSIUM 4.3 mmol/L (3.6-5.0); SODIUM 137.3 mmol/L (137-145)
[2017-10-04] MEDS ORDERED: METOCLOPRAMIDE HCL INJ/PF 10 MG/2 ML SDV IV ONE (08:31)
[2017-10-04 13:20] VITALS: BP 120/64
== END 2017-10-04 13:32 | disposition home or self-care (01) ==
LOC: ER 15:09
DX: R10.84 Generalized abdominal pain (principal); G89.29 Other chronic pain; R11.2 Nausea with vomiting, unspecified; R16.0 Hepatomegaly, not elsewhere classified; R18.8 Other ascites; I12.0 Hypertensive chronic kidney disease with stage 5 chronic kidney disease or end stage renal disease; E11.22 Type 2 diabetes mellitus with diabetic chronic kidney disease; N18.6 End stage renal disease; Z99.2 Dependence on renal dialysis; Z91.15 Patient's noncompliance with renal dialysis; R41.0 Disorientation, unspecified; I51.7 Cardiomegaly; L90.5 Scar conditions and fibrosis of skin; Z90.49 Acquired absence of other specified parts of digestive tract
CPT/HCPCS: 93005; 99285; 96374; 96375; 36415; 87040; 82962; 82140; 82550; 83605; 83690; 80307 ×2; 85025; 86140; 87077; 80048; 80053; 84484; 87186; 83880; 71045; 76705; 93976; 70450; 74176; 93010; J2765; A9270; J2405; C1751; J3490

== ENCOUNTER 2017-10-11 01:09 | Emergency (ER) | payer MEDICARE, MEDICAID ==
--- NOTE | 2017-10-11 01:29 | ER Document Report ---
ED General - General Stated Complaint: NAUSEA Time Seen by Provider: 10/11/17 01:14 Notes: Patient is a 46-year-old female who is apparently sent in by her brother who is her support clerk. He sent her here because he wants her to be sent to a snf. Patient's primary care doctors I follow papers a snf and I just went here back to be placed in snf. She has history of end-stage renal disease. She had dialysis yesterday. She says dialysis went normally. She is chronic abdominal pain and body pain which she says is unchanged. She has chronic nausea which again is unchanged. She denies any new symptoms whatsoever. She denies any fevers. She denies any chest pain. TRAVEL OUTSIDE OF THE [place] IN LAST 30 DAYS: No - Related Data Allergies/Adverse Reactions: No Known Allergies Allergy (Verified 10/04/17 05:32) Past Medical History - Social History Smoking Status: Unknown if Ever Smoked Frequency of alcohol use: None Drug Abuse: None Family History: Reviewed & Not Pertinent - Past Medical History Cardiac Medical History: Reports: Hx Congestive Heart Failure, Hx Hypertension Endocrine Medical History: Reports: Hx Diabetes Mellitus Type 2 Renal/ Medical History: Reports: Hx End Stage Renal Disease. Denies: Hx Peritoneal Dialysis Past Surgical History: Reports: Hx Cholecystectomy Review of Systems - Review of Systems Notes: My Normal Review Basic REVIEW OF SYSTEMS: CONSTITUTIONAL : Denies fever, chills, or sweats. Denies recent illness. EENT: Denies eye, ear, throat, or mouth pain or symptoms. Denies nasal or sinus congestion. RESPIRATORY: Intermittent difficulty breathing which patient says is unchanged and she says she has felt this way for over a year. GASTROINTESTINAL: Chronic abdominal pain. Some nausea. GENITOURINARY: Has dialysis Wednesday. Hand Rug Cleaner is Dr. Ivan. MUSCULOSKELETAL: Fistula right upper extremity. SKIN: Denies rash or skin lesions. NEUROLOGICAL: Denies altered mental status or loss of consciousness. Denies headache. Denies weakness or paralysis or loss of use of either side. Denies problems with gait or speech. Denies sensory or motor loss. ALL OTHER SYSTEMS REVIEWED AND NEGATIVE. Physical Exam - Vital signs Vitals: Temp Pulse Resp BP Pulse Ox 97.5 F 93 20 168/90 H 99 10/11/17 01:29 10/11/17 01:29 10/11/17 01:29 10/11/17 01:29 10/11/17 01:29 - Notes Notes: General Appearance: Well nourished, alert, cooperative, no acute distress, mild obvious discomfort. Went into the room the patient is resting comfortably not appear to be in any pain. When I start asking her if she has pain she starts moaning and says she has pain everywhere even though she appeared to not be in any pain whatsoever when I entered the room. Vitals: reviewed, See vital signs table. Head: no swelling or tenderness to the head Eyes: PERRL, EOMI, Conjuctiva clear Mouth: No decreasd moisture Lungs: No wheezing, No rales, No rhonci, No accessory muscle use, good air exchange bilaterally. Heart: Normal rate, Regular rythm, No murmur, no rub Abdomen: Normal BS, soft, No rigidity, mild diffuse abdominal tenderness palpation. Extremities: Patient has a right lower extremity amputation. Left lower extremity has just trace edema. Patient complains of pain no matter where I touch over her extremities. Skin: warm, dry, appropriate color, no rash Neuro: speech clear, oriented x 3, normal affect, responds appropriately to questions. Patient is able answer all my questions appropriately. She has no obvious cranial nerve deficits on exam. She is able to move her upper extremities her left lower extremity without difficulty. Course - Re-evaluation Re-evalutation: 10/11/17 03:10 Patient laboratory evaluation is unremarkable. Since she has been here she has been resting comfortably in bed without any concerns or complaints. The only time she has complaints is 1 you ask about pain and that she starts moaning saying she has pain but as soon as you take your attention away from that question she again looks like she is completely pain-free and looks well. She is in no distress. She has no difficulty breathing. Her lung reid are clear. I did call and speak with her brother using phone number [phone]. Her brother says that during the day she is fine to check she sleeps in a day but that night when she is awake she says that she has pain and and says she has difficulty breathing and wants come to the ER. The brother himself feels that she most likely start again attention as at nighttime there is no on awake and she he says that she is trying to keep them up. The mother says there is a socially responsible investment adviser that in conjunction with the patient's physician is trying to get her snf placement. The patient herself is also aware of this and told me this herself. I informed her brother at this time I do not have anything that would be an admittable diagnosis for her. She is clinically stable and is well-appearing. I feel she is safe to be discharged back home. Patient's brother agrees with plan and she will be discharged back to his care. Dictation of this chart was performed using voice recognition software; therefore, there may be some unintended grammatical errors. - Vital Signs Vital signs: Temp Pulse Resp BP Pulse Ox 97.5 F 93 20 168/90 H 99 10/11/17 01:29 10/11/17 01:29 10/11/17 01:29 10/11/17 01:29 10/11/17 01:29 - Laboratory Result Diagrams: 10/11/17 02:15 10/11/17 02:15 Laboratory results interpreted by me: 10/11/17 10/11/17 02:15 02:15 RBC 3.41 L Hgb 10.2 L Hct 31.7 L RDW 17.2 H Seg Neutrophils % 78.8 H Lymphocytes % 10.0 L Chloride 92 L Anion Gap 22 H BUN 23 H Creatinine 6.75 H Est GFR ( Amer) 8 L Est GFR (Non-Af Amer) 7 L Glucose 113 H Total Bilirubin 1.7 H Direct Bilirubin 1.5 H Alkaline Phosphatase 160 H Total Protein 8.8 H Discharge - Discharge Clinical Impression: Abdominal pain, chronic, generalized Condition: Good Disposition: HOME, SELF-CARE Additional Instructions: Please follow up with your doctor in 2-3 days for reevaluation. Please return to the ER if you have fevers,difficulty breathing, or feel unwell.
[2017-10-11 02:41] LABS: ABSOLUTE BASOPHILS # (AUTO) 0.1 10^3/uL (0.0-0.2); ABSOLUTE EOSINOPHILS # (AUTO) 0.1 10^3/uL (0.0-0.6); ABSOLUTE LYMPHOCYTES (AUTO) 0.7 10^3/uL (0.5-4.7); ABSOLUTE MONOCYTES (AUTO) 0.6 10^3/uL (0.1-1.4); ABSOLUTE NEUT (AUTO) 5.8 10^3/uL (1.7-8.2); ALANINE AMINOTRANSFERASE 20 U/L (9-52); ALBUMIN 4.6 g/dL (3.5-5.0); ALKALINE PHOSPHATASE 160 U/L (38-126); ASPARTATE AMINO TRANSFERASE 21 U/L (14-36); BASOPHILS % (AUTO) 1.2 % (0-2); BILIRUBIN,DIRECT 1.5 mg/dL (0.0-0.4); BILIRUBIN,TOTAL 1.7 mg/dL (0.2-1.3); BLOOD UREA NITROGEN 23 mg/dL (7-20); CALCIUM 9.8 mg/dL (8.4-10.2); EOSINOPHILS % (AUTO) 1.6 % (0-6); GLUCOSE 113 mg/dL (75-110); HEMATOCRIT 31.7 % (36.0-47.0); HEMOGLOBIN 10.2 g/dL (12.0-15.5); MEAN CORPUSCULAR HEMOGLOBIN 29.9 pg (27.0-33.4); MEAN CORPUSCULAR HGB CONC 32.2 g/dL (32.0-36.0); MEAN CORPUSCULAR VOLUME 93 fl (80-97); MONOCYTES % (AUTO) 8.4 % (3-13); PLATELET COUNT 186 10^3/uL (150-450); RED BLOOD COUNT 3.41 10^6/uL (3.72-5.28); RED CELL DISTRIBUTION WIDTH 17.2 % (11.5-14.0); SEGMENTED NEUTROPHILS % (AUTO) 78.8 % (42-78); TOTAL CELLS COUNTED % (AUTO) 100 %; TOTAL PROTEIN 8.8 g/dL (6.3-8.2); WHITE BLOOD COUNT 7.4 10^3/uL (4.0-10.5)
[2017-10-11 02:56] LABS: ANION GAP 22 (5-19)
[2017-10-11 02:57] LABS: CARBON DIOXIDE 26 mmol/L (22-30); CHLORIDE 92 mmol/L (98-107); POTASSIUM 3.8 mmol/L (3.6-5.0)
[2017-10-11] MEDS ORDERED: ACETAMINOPHEN 325 MG TABLET PO ONE (05:17)
[2017-10-11] MEDS ORDERED: ONDANSETRON 4 MG TAB.RAPDIS PO ONE (05:17)
--- NOTE | 2017-10-11 06:44 | RADIOLOGY REPORT (SQ) ---
EXAM DESCRIPTION: CHEST SINGLE VIEW COMPLETED DATE/TIME: 10/11/2017 1:48 am REASON FOR STUDY: dyspnea COMPARISON: AP chest 10/03/2017, 02/19/2017, 10/29/2009 EXAM PARAMETERS: NUMBER OF VIEWS: One view. TECHNIQUE: Single frontal radiographic view of the chest acquired. RADIATION DOSE: NA LIMITATIONS: None. FINDINGS: LUNGS AND PLEURA: No opacities, masses or pneumothorax. No pleural effusion. MEDIASTINUM AND HILAR STRUCTURES: No masses. Contour normal. HEART AND VASCULAR STRUCTURES: Stable marked cardiomegaly. BONES: No acute findings. HARDWARE: None in the chest. OTHER: No other significant finding. IMPRESSION: Marked cardiomegaly. No pulmonary edema or pleural effusions TECHNICAL DOCUMENTATION: JOB ID: [id number] [employer]- All Rights Reserved Reading location - IP/workstation name: [email or web address]
[2017-10-11 08:11] VITALS: BP 156/89
== END 2017-10-11 08:10 | disposition home or self-care (01) ==
LOC: ER 01:09
DX: G89.29 Other chronic pain (principal); R10.84 Generalized abdominal pain; I12.0 Hypertensive chronic kidney disease with stage 5 chronic kidney disease or end stage renal disease; E11.22 Type 2 diabetes mellitus with diabetic chronic kidney disease; N18.6 End stage renal disease; Z99.2 Dependence on renal dialysis; R11.0 Nausea; Z90.49 Acquired absence of other specified parts of digestive tract
CPT/HCPCS: 99285; 36415; 85025; 80053; 71045; A9270 ×2; S0119

== ENCOUNTER 2017-10-13 04:49 | Emergency (ER) | payer MEDICARE, MEDICAID ==
[2017-10-13] MEDS ORDERED: HYDROXYZINE PAMOATE 50 MG CAPSULE PO ONE (05:19)
[2017-10-13] MEDS ORDERED: PREDNISONE 20 MG TABLET PO ONE (05:21)
--- NOTE | 2017-10-13 05:27 | ER Document Report ---
ED Skin Rash/Insect Bite/Abscs - General Chief Complaint: Rash Stated Complaint: POSSIBLE RASH Time Seen by Provider: 10/13/17 04:54 Mode of Arrival: Ambulatory Information source: Patient Cannot obtain history due to: Mentally challenged TRAVEL OUTSIDE OF THE [place] IN LAST 30 DAYS: No - HPI Patient complains to provider of: Skin rash/lesion. No: Tender/swollen area, Insect bite, Spider bite, Insect sting Onset: This morning Onset/Duration: Gradual Quality of pain: Burning Notes: Patient is a 46-year-old female presents emergency department with report of rash onset yesterday by report on the extremities and trunk region that is causing the patient not to be able to sleep due to itching. By report, no family members have had a similar rash, but the patient does have a history of end-stage renal disease and goes to dialysis regularly. The patient denies any difficulty breathing or chest pain or fever or cough. She is unaware of any new medications. - Related Data Allergies/Adverse Reactions: No Known Allergies Allergy (Verified 10/04/17 05:32) Past Medical History - General Information source: Patient - Social History Smoking Status: Never Smoker Frequency of alcohol use: None Drug Abuse: None Lives with: Family Family History: Reviewed & Not Pertinent - Past Medical History Cardiac Medical History: Reports: Hx Congestive Heart Failure, Hx Hypertension Endocrine Medical History: Reports: Hx Diabetes Mellitus Type 2 Renal/ Medical History: Reports: Hx End Stage Renal Disease. Denies: Hx Peritoneal Dialysis Past Surgical History: Reports: Hx Cholecystectomy Review of Systems - Review of Systems Notes: REVIEW OF SYSTEMS: CONSTITUTIONAL : Denies fever, chills, or sweats. Denies recent illness. EENT: Denies eye, ear, throat, or mouth pain or symptoms. Denies nasal or sinus congestion or discharge. Denies throat, tongue, or mouth swelling or difficulty swallowing. CARDIOVASCULAR: Denies chest pain. Denies palpitations or racing or irregular heart beat. Denies ankle edema. RESPIRATORY: Denies cough, cold, or chest congestion. Denies shortness of breath, difficulty breathing, or wheezing. GASTROINTESTINAL: Denies abdominal pain or distention. Denies nausea, vomiting , or diarrhea. Denies blood in vomitus, stools, or per rectum. Denies black, tarry stools. Denies constipation. GENITOURINARY: Denies difficulty urinating, painful urination, burning, frequency, blood in urine, or discharge. FEMALE GENITOURINARY: Denies vaginal bleeding, heavy or abnormal periods, irregular periods. Denies vaginal discharge or odor. MUSCULOSKELETAL: Denies back or neck pain or stiffness. Denies joint pain or swelling. SKIN: Reports skin rash on the patient. HEMATOLOGIC : Denies easy bruising or bleeding. LYMPHATIC: Denies swollen, enlarged glands. NEUROLOGICAL: Denies confusion or altered mental status. Denies passing out or loss of consciousness. Denies dizziness or lightheadedness. Denies headache. Denies weakness or paralysis or loss of use of either side. Denies problems with gait or speech. Denies sensory loss, numbness, or tingling. Denies seizures. PSYCHIATRIC: Denies anxiety or stress. Denies depression, suicidal ideation, or homicidal ideation. ALL OTHER SYSTEMS REVIEWED AND NEGATIVE. Dictation was performed using [employer] voice recognition software Physical Exam - Vital signs Vitals: Temp Pulse Resp BP Pulse Ox 98.5 F 90 20 147/84 H 100 10/13/17 05:17 10/13/17 05:17 10/13/17 05:17 10/13/17 05:17 10/13/17 05:17 - Notes Notes: PHYSICAL EXAMINATION: GENERAL: Well-appearing, well-nourished and in no acute distress. HEAD: Atraumatic, normocephalic. EYES: Pupils equal round and reactive to light, extraocular movements intact, conjunctiva are normal. ENT: Nares patent, oropharynx clear without exudates. Moist mucous membranes. NECK: Normal range of motion, supple without lymphadenopathy LUNGS: Breath sounds clear to auscultation bilaterally and equal. No wheezes rales or rhonchi. HEART: Regular rate and rhythm without murmurs ABDOMEN: Soft, nontender, nondistended abdomen. No guarding, no rebound. No masses appreciated. Obese. Female : deferred Musculoskeletal: Normal range of motion, no pitting or edema. No cyanosis. Right BKA. NEUROLOGICAL: Cranial nerves grossly intact. Normal speech, normal gait. Normal sensory, motor exams PSYCH: Normal mood, normal affect. SKIN: Warm, Dry, normal turgor, no rashes or lesions noted. Stage II decubitus 1.5 cm right heel without evidence for infection. Patient has what appears to be scabies lesions on both elbows and underneath the breast regions and scattered along the lower abdomen. There is no evidence for cellulitis. There is no purulence or drainage or evidence for abscess. No discharge or vesicular component to these papular areas with very minimal erythema. Course - Re-evaluation Re-evalutation: 10/13/17 06:18 Patient was requesting medication for pain, mentioning Percocet by name. Likewise I contacted the patient's family at home and was speaking with the patient's [id number] who also requested medications for pain for the patient , as well as making a mention of needing pain medications for herself. Patient was given Tylenol. Findings fit for scabies, and the patient will need appropriate exposure control in the household and other family members may need treatment. No evidence for Infectious etiology or systemic abnormality or complications from end-stage renal disease. - Vital Signs Vital signs: Temp Pulse Resp BP Pulse Ox 98.5 F 90 20 147/84 H 100 10/13/17 05:17 10/13/17 05:17 10/13/17 05:17 10/13/17 05:17 10/13/17 05:17 Discharge - Discharge Clinical Impression: Scabies Condition: Stable Disposition: HOME, SELF-CARE Instructions: Scabies ([facility]) Additional Instructions: Apply Elimite cream from head to toe (avoid eyes, nose, mouth) and wash off after 12 hours. Repeat in one week. The house and possibly other family members also need treatment for scabies. Take Hydroxyzine as needed for itching. Cut fingernails closely to prevent spread of the scabies. Prescriptions: Hydroxyzine HCl 50 mg PO Q6HP PRN #30 tablet PRN Reason: Permethrin [Elimite] 60 gm TP ONCE PRN #1 cream.gm. PRN Reason:
[2017-10-13] MEDS ORDERED: ACETAMINOPHEN 325 MG TABLET PO ONE (05:52)
[2017-10-13 09:51] VITALS: BP 138/72
== END 2017-10-13 09:51 | disposition home or self-care (01) ==
LOC: ER 04:49
DX: B86 Scabies (principal); I12.0 Hypertensive chronic kidney disease with stage 5 chronic kidney disease or end stage renal disease; N18.6 End stage renal disease; Z99.2 Dependence on renal dialysis; I50.9 Heart failure, unspecified
CPT/HCPCS: 99283; A9270 ×3; J7512

== ENCOUNTER 2017-10-16 20:17 | Emergency (ER) | payer MEDICARE, MEDICAID ==
--- NOTE | 2017-10-16 23:02 | ER Document Report ---
ED General - General Chief Complaint: Abdominal Distention Stated Complaint: LEG PAIN Time Seen by Provider: 10/16/17 22:07 Cannot obtain history due to: Mentally challenged Notes: Patient is a 46-year-old female well-known to me who presents for the fourth time since 10/03 with complaints of abdominal pain and leg pain. Patient has a history of chronic abdominal pain and leg pain and does note to me today that it is the same as usual. She describes it as a constant, throbbing, generalized abdominal pain. Nothing improves or worsens the pain. She states that this pain is been present "forever". She also complains of bilateral lower extremity pain. She again notes that this is been present "forever. When initially go to assess the patient she is sleeping soundly and have to wake her to do my assessment. History is otherwise limited secondary to patient 's baseline cognitive impairment. TRAVEL OUTSIDE OF THE [place] IN LAST 30 DAYS: No - Related Data Allergies/Adverse Reactions: No Known Allergies Allergy (Verified 10/16/17 22:23) Past Medical History - General Information source: Patient, [facility] Records - Social History Smoking Status: Never Smoker Frequency of alcohol use: None Drug Abuse: None Lives with: Family Family History: Reviewed & Not Pertinent - Past Medical History Cardiac Medical History: Reports: Hx Congestive Heart Failure, Hx Hypertension Endocrine Medical History: Reports: Hx Diabetes Mellitus Type 2 Renal/ Medical History: Reports: Hx End Stage Renal Disease. Denies: Hx Peritoneal Dialysis Past Surgical History: Reports: Hx Cholecystectomy Review of Systems - Review of Systems Notes: Constitutional: Negative for fever. HENT: Negative for sore throat. Eyes: Negative for visual changes. Cardiovascular: Negative for chest pain. Respiratory: Negative for shortness of breath. Gastrointestinal: Positive for chronic abdominal pain Genitourinary: Negative for dysuria. Musculoskeletal: Positive for bilateral lower extremity pain Skin: Negative for rash. Neurological: Negative for headaches, weakness or numbness. 10 point ROS negative except as marked above and in HPI. Physical Exam - Vital signs Vitals: Temp Pulse Resp BP Pulse Ox 99.0 F 103 H 20 163/80 H 96 10/16/17 20:27 10/16/17 20:27 10/16/17 20:27 10/16/17 20:27 10/16/17 20:27 Interpretation: Tachycardic - Resolved at time of my assessment Notes: PHYSICAL EXAMINATION: GENERAL: Chronically ill in appearance but no different than prior assessments. Appears in no distress. HEAD: Atraumatic, normocephalic. EYES: Pupils equal round and reactive to light, extraocular movements intact, sclera anicteric, conjunctiva are normal. ENT: nares patent, oropharynx clear without exudates. Moderately dry mucous membranes. NECK: Normal range of motion, supple without lymphadenopathy LUNGS: Breath sounds clear to auscultation bilaterally and equal. No wheezes rales or rhonchi. HEART: Regular rate and rhythm without murmurs ABDOMEN: Soft, generalized abdominal tenderness to palpation without any focality. No rebound or guarding. EXTREMITIES: Trace edema in the left lower extremity, right BKA, no cyanosis. NEUROLOGICAL: No focal neurological deficits. Moves all extremities spontaneously and on command. PSYCH: Baseline impaired cognitive functioning. Anxious SKIN: Warm, Dry, normal turgor, no rashes or lesions noted. Course - Re-evaluation Re-evalutation: 10/16/17 22:58 Patient presents with her chronic abdominal pain and chronic leg pain. Patient is well known to me and most staff here in the ED. She chronically has abdominal pain and leg pain, admits that nothing is new or different today. In the span of the last 10 days patient has had a CT of abdomen pelvis, and ultrasound of her gallbladder, 4 sets of laboratories all of which have been unremarkable without any evidence of acute pathology. I do not see an indication to repeat labs or imaging today as this has already been done in some combination 4 times in ten days without any evidence of worrisome pathology. The patient's vitals are within acceptable limits. She does have mild hypertension. She is no longer tachycardic at time of my reassessment. I do not suspect acute appendicitis, mesenteric ischemia, bowel perforation, bowel obstruction, or any other life-threatening pathology based on her repeatedly normal assessments and the fact the patient is sleeping when I go to assess her. She only complains of abdominal pain approximately 1 to minutes after waking up. At this time will discharge with return precautions and follow -up recommendations. Verbal discharge instructions given a the bedside and opportunity for questions given. Medication warnings reviewed. Patient is in agreement with this plan and has verbalized understanding of return precautions and the need for primary care follow-up in the next 24-72 hours. - Vital Signs Vital signs: Temp Pulse Resp BP Pulse Ox 99.1 F 96 16 152/84 H 95 10/16/17 23:14 10/16/17 23:14 10/16/17 23:14 10/16/17 23:14 10/16/17 23:14 - EKG Interpretation by Me Additional EKG results interpreted by me: 10/16/17 23:05 Sinus tachycardia. Rate 103. No ST elevations or depressions. T-wave inversions in V6 unchanged from prior. Discharge - Discharge Clinical Impression: Chronic generalized abdominal pain Chronic leg pain Qualifiers: Laterality: bilateral Qualified Code(s): M79.604 - Pain in right leg Condition: Stable Disposition: HOME, SELF-CARE Additional Instructions: Please return to the emergency room immediately if you experience any concerning symptoms including high fevers, severe headache, chest pain, difficulty breathing, abdominal pain, slurred speech, numbness or weakness in your arms or legs, or any other symptom that concerns you. Referrals: KAREN ASTORGA PA-C [Primary Care Provider] - Follow up as needed
[2017-10-16] MEDS ORDERED: HALOPERIDOL 2 MG TABLET PO ONE (23:05)
[2017-10-16 23:16] VITALS: BP 152/84
--- NOTE | 2017-10-17 07:39 | EKG REPORT ---
SEVERITY:- ABNORMAL ECG - SINUS TACHYCARDIA LEFT AXIS DEVIATION ABNORMAL T, CONSIDER ISCHEMIA, LATERAL LEADS : Confirmed by: Bubba Brito MD 17-Oct-2017 07:38:39
== END 2017-10-16 23:40 | disposition home or self-care (01) ==
LOC: ER 20:17
DX: G89.29 Other chronic pain (principal); R10.84 Generalized abdominal pain; M79.604 Pain in right leg; M79.605 Pain in left leg; I12.0 Hypertensive chronic kidney disease with stage 5 chronic kidney disease or end stage renal disease; E11.22 Type 2 diabetes mellitus with diabetic chronic kidney disease; N18.6 End stage renal disease; R00.0 Tachycardia, unspecified
CPT/HCPCS: 93005; 99284; 93010; A9270; J3490

== ENCOUNTER → 2017-12-01 | Outpatient (CLI) | payer MEDICARE, MEDICAID ==
--- NOTE | 2017-12-02 07:45 | XCELERA REPORT ---
[address] [address] Lower Extremity Arterial Evaluation Name: MICKIE SHARP Age: 47 yrs Gender: Female : 1970 Patient Status: Outpatient Patient Location: Study Date: 12/01/2017 10:58 AM Procedure: A color flow and duplex scan of the lower extremity arteries was performed on the left with velocity and waveform analysis. Reason For Study: LEFT LEG PVD Ordering Physician: SENA KAYE Performed By: Salvatore Wilson Measurements and Calculations Right Left CLAIMS ADJUDICATOR PSV 131.2 cm/sec Prox PFA PSV -228.8 cm/sec Prox SFA PSV 9.2 cm/sec Mid SFA PSV 18.9 cm/sec Dist SFA PSV -108.7 cm/sec Prox Pop A PSV 65.3 cm/sec Dist SADE PSV 32.0 cm/sec Dist PER DIEM REGISTERED NURSE PSV 18.7 cm/sec Kaiden Pedis PSV 46.0 cm/sec Left Side Arterial Evaluation Normal velocity and triphasic waveforms noted in the Common Femoral artery. Increased velocity in the Deep Femoral. Monophasic from the Femoral to the infrageniculate vessels. With reduced velocities. 50-99 % stenosis at the Femoral artery. Ankle Brachial index was not done, pain. Interpretation Summary Severe hemodynamically significant lesions in the left lower extremity only, on duplex imaging, at rest. : SENA KAYE > Sena Kaye
== END ==
LOC: SP 10:24
PROVIDERS: ATTEND Surgery
DX: I73.9 Peripheral vascular disease, unspecified (principal)
CPT/HCPCS: 93926

== ENCOUNTER → 2017-12-06 | Outpatient (CLI) | payer MEDICARE, MEDICAID ==
--- NOTE | 2017-12-06 10:04 | RADIOLOGY REPORT (SQ) ---
EXAM DESCRIPTION: CT LT LOWER EXTREMITY WITHOUT COMPLETED DATE/TIME: 12/06/2017 8:52 am REASON FOR STUDY: M86.172 OTHER ACUTE OSTEOMYELITIS, LEFT ANKLE AND FOOT M86.172 OTHER ACUTE OSTEOM YELITIS, LEFT ANKLE AND FOOT COMPARISON: None. TECHNIQUE: Axial imaging performed through the left foot and ankle with reformatted coronal and sagi ttal imaging windowed for bone and soft tissues. Images saved to PACS. 3D IMAGING: Were 3D images as MIP, SSD, or volume rendering performed at the work station? Yes. All CT scanners at this facility use dose modulation, iterative reconstruction, and/or weight based d osing when appropriate to reduce radiation dose to as low as reasonably achievable (ALARA). [facility]: Dose Right [facility]: CareDose [facility]: Dose Right [facility]: Teradose 4D [facility]: GreenWizard LIMITATIONS: None. RADIATION DOSE: CT Rad equipment meets quality standard of care and radiation dose reduction techniq ues were employed. CTDIvol: 4.6 mGy. DLP: 136 mGy-cm. mGy. FINDINGS: SOFT TISSUES: Diffuse subcutaneous edema with forefoot cellulitis dependent portion of the left heel. Diffuse vascular calcifications. BONES: No active periosteal reaction. No cortical breakthrough. MINERALIZATION: Osteopenia. OTHER: No other significant finding. IMPRESSION: Peripheral vascular disease and cellulitis. No evidence of osteomyelitis. TECHNICAL DOCUMENTATION: JOB ID: [id number] Quality ID # [id number]: Final reports with documentation of one or more dose reduction techniques (e.g., Au tomated exposure control, adjustment of the mA and/or kV according to patient size, use of iterative reconstruction technique) 2010 [employer]- All Rights Reserved Reading location - IP/workstation name: [email or web address]
== END ==
LOC: RAD 08:46
PROVIDERS: ATTEND Nurse Practitioner Acute Care
DX: M86.172 Other acute osteomyelitis, left ankle and foot (principal); I73.9 Peripheral vascular disease, unspecified; L03.116 Cellulitis of left lower limb

== ENCOUNTER 2018-10-17 07:01 | Emergency (ER) | payer MEDICARE, MEDICAID ==
--- NOTE | 2018-10-17 07:23 | ER Document Report ---
ED General - General Stated Complaint: VOMITING Time Seen by Provider: 10/17/18 07:09 Primary Care Provider: Marjorie IVAN MD [Primary Care Provider] - Follow up as needed TRAVEL OUTSIDE OF THE [place] IN LAST 30 DAYS: No - HPI Notes: Patient is a 47-year-old female that presents to the emergency department for chief complaint of nausea vomiting and body pain. Patient reports 3 days of nausea and vomiting. She denies any diarrhea or constipation. She states she has recently moved from [facility] and has not had her dialysis since Wednesday, 6 days ago. Patient states that her muscles hurt diffusely across her body. She does have a rash which she states is unchanged and has been there for the last 6 years. She denies any associated fevers or chills. She denies any chest pain or difficulty breathing. Patient states she has seen Dr. Ivan when she was at [place] previously and is in the process of getting all of her dialysis set up in [place]. Past Medical History: End-stage renal disease on dialysis, congestive heart failure Past Surgical History: Right BKA Social History: Denies tobacco and drug use Family History: Reviewed and noncontributory for presenting illness Allergies: Reviewed, see documented allergy list. REVIEW OF SYSTEMS: CONSTITUTIONAL : No fever No chills No diaphoresis No recent illness EENT: No vision changes No congestion No sore throat CARDIOVASCULAR: No chest pain No palpitations RESPIRATORY: No shortness of breath No cough No difficulty breathing GASTROINTESTINAL: abdominal pain nausea vomiting No diarrhea GENITOURINARY: No dysuria No hematuria No difficulty urinating MUSCULOSKELETAL: No back pain leg pain arm pain SKIN: No rashes No lesions LYMPHATIC: No swollen, enlarged glands. NEUROLOGICAL: No lightheadedness No headache No weakness No paresthesias PSYCHIATRIC: No anxiety No depression PHYSICAL EXAMINATION: Vital signs reviewed, nursing noted reviewed. GENERAL: Well-appearing, well-nourished and in no acute distress. HEAD: Atraumatic, normocephalic. EYES: Eyes appear normal, extraocular movements intact, sclera anicteric, conjunctiva are normal. ENT: nares patent, oropharynx clear without exudates. Moist mucous membranes. NECK: Normal range of motion, supple without lymphadenopathy LUNGS: Breath sounds clear to auscultation bilaterally and equal. No wheezes rales or rhonchi. HEART: Regular rate and rhythm without murmurs ABDOMEN: Soft, nontender, normoactive bowel sounds. No rebound, guarding, or rigidity. No masses appreciated. EXTREMITIES: Diffuse tenderness in upper and lower extremities. +2 pitting edema in lower extremities. Left upper extremity fistula with normal bruit and thrill NEUROLOGICAL: No focal neurological deficits. Moves all extremities spontaneously Motor and sensory grossly intact on exam. PSYCH: Normal mood, normal affect. SKIN: Warm, Dry, normal turgor, diffuse macular rash on face and entire body that is dry with no erythema or drainage - Related Data Allergies/Adverse Reactions: No Known Allergies Allergy (Verified 10/16/17 22:23) Past Medical History - Social History Smoking Status: Never Smoker Family History: CAD, DM, Hypertension, Reviewed & Not Pertinent - Past Medical History Cardiac Medical History: Reports: Hx Congestive Heart Failure, Hx Hypercholesterolemia, Hx Hypertension Denies: Hx Coronary Artery Disease, Hx Heart Attack Pulmonary Medical History: Reports: Hx Asthma Denies: Hx Bronchitis, Hx COPD, Hx Pneumonia Neurological Medical History: Denies: Hx Cerebrovascular Accident, Hx Seizures Endocrine Medical History: Reports: Hx Diabetes Mellitus Type 1, Hx Diabetes Mellitus Type 2 Renal/ Medical History: Reports: Hx End Stage Renal Disease, Hx Hemodialysis. Denies: Hx Peritoneal Dialysis Musculoskeletal Medical History: Denies Hx Arthritis Past Surgical History: Reports: Hx Cholecystectomy, Hx Orthopedic Surgery - Right BKA, Hx Vascular Surgery - fistula placement, Other - Amputation right lower extremity - Immunizations Hx Diphtheria, Pertussis, Tetanus Vaccination: Yes Physical Exam - Vital signs Vitals: Pulse Ox 97 10/17/18 07:07 Course - Re-evaluation Re-evalutation: 10/17/18 07:22 Vitals reviewed. Nursing notes reviewed. Patient placed on telemetry monitoring. Her EKG was reviewed and shows new T wave inversions and V2 through V6, and aVL compared to prior. 10/17/18 09:21 Patient's EKG changes were discussed with Dr. Thompson. He believes these T wave inversions and slight depression are chronic for her and are more pronounced today because of her acute bradycardia. Her troponin has been previously elevated and is at her baseline. She is complaining of pain all over but not specifically chest pain. She did receive aspirin while in the emergency room. He does not feel any further cardiac evaluation is indicated for her given EKG and presentation. I did discuss patient's care with Dr. Ivan who states we are unable to provide dialysis at this facility today. Patient will be transferred to [facility] for dialysis and treatment of her hyperkalemia. 10/17/18 10:28 Patient's care was discussed with Dr. Hassan, nephrology at [facility] who will arrange for patient to receive dialysis today. Patient will be admitted to Dr. Hobson, hospitalist, for further management. Patient in agreement with plan of care and stable for transportation Laboratory 10/17/18 10/17/18 10/17/18 07:37 07:37 07:37 WBC 8.9 RBC 2.99 L Hgb 9.6 L Hct 28.9 L MCV 97 MCH 32.1 MCHC 33.2 RDW 14.8 H Plt Count 181 Seg Neutrophils % 79.6 H Lymphocytes % 10.0 L Monocytes % 7.7 Eosinophils % 1.6 Basophils % 1.1 Absolute Neutrophils 7.1 Absolute Lymphocytes 0.9 Absolute Monocytes 0.7 Absolute Eosinophils 0.1 Absolute Basophils 0.1 VBG pH 7.35 VBG pCO2 45.4 VBG HCO3 24.4 VBG Base Excess -1.4 Sodium 142.1 Potassium 5.9 H Chloride 99 Carbon Dioxide 25 Anion Gap 18 BUN 68 H Creatinine 10.94 H Est GFR ( Amer) 5 L Est GFR (Non-Af Amer) 4 L Glucose 98 Calcium 8.9 Total Bilirubin 1.7 H Direct Bilirubin 1.5 H Neonat Total Bilirubin Not Reportable Neonat Direct Bilirubin Not Reportable Neonat Indirect Bili Not Reportable AST 27 ALT 11 Alkaline Phosphatase 222 H Troponin I Total Protein 8.6 H Albumin 4.5 Lipase 33.6 10/17/18 07:37 WBC RBC Hgb Hct MCV MCH MCHC RDW Plt Count Seg Neutrophils % Lymphocytes % Monocytes % Eosinophils % Basophils % Absolute Neutrophils Absolute Lymphocytes Absolute Monocytes Absolute Eosinophils Absolute Basophils VBG pH VBG pCO2 VBG HCO3 VBG Base Excess Sodium Potassium Chloride Carbon Dioxide Anion Gap BUN Creatinine Est GFR ( Amer) Est GFR (Non-Af Amer) Glucose Calcium Total Bilirubin Direct Bilirubin Neonat Total Bilirubin Neonat Direct Bilirubin Neonat Indirect Bili AST ALT Alkaline Phosphatase Troponin I 0.064 Total Protein Albumin Lipase Chest X-Ray 10/17/18 07:10 IMPRESSION: No acute findings. Moderate cardiac enlargement. - Vital Signs Vital signs: Temp Pulse Resp BP Pulse Ox 98.4 F 20 146/75 H 98 10/17/18 09:00 10/17/18 10:01 10/17/18 10:01 10/17/18 10:01 - Laboratory Result Diagrams: 10/17/18 07:37 10/17/18 07:37 Laboratory results interpreted by me: 10/17/18 10/17/18 07:37 07:37 RBC 2.99 L Hgb 9.6 L Hct 28.9 L RDW 14.8 H Seg Neutrophils % 79.6 H Lymphocytes % 10.0 L Potassium 5.9 H BUN 68 H Creatinine 10.94 H Est GFR ( Amer) 5 L Est GFR (Non-Af Amer) 4 L Total Bilirubin 1.7 H Direct Bilirubin 1.5 H Alkaline Phosphatase 222 H Total Protein 8.6 H - EKG Interpretation by Me Additional EKG results interpreted by me: 10/17/18 07:23 Interpreted by myself 0713: Normal sinus rhythm, rate 76, left axis, T wave inversions V2 through V6, aVF, aVL, lead II, no ST elevation Discharge - Discharge Clinical Impression: Hyperkalemia, Acute electrocardiogram changes, Myalgia, Nausea Condition: Stable Disposition: [facility] Referrals: Marjorie IVAN MD [Primary Care Provider] - Follow up as needed
[2018-10-17] MEDS ORDERED: CALCIUM GLUCONATE 1000 MG/10 ML INJ IV ONE (07:25)
--- NOTE | 2018-10-17 07:55 | RADIOLOGY REPORT (SQ) ---
EXAM DESCRIPTION: XR CHEST 1 VIEW COMPLETED DATE/TME: 10/17/2018 07:10 CLINICAL HISTORY: 47 years Female, cough COMPARISON: 02/19/17 NUMBER OF VIEWS/TECHNIQUE: 1/AP FINDINGS: Adequate lung volume, clear parenchyma, moderately enlarged cardiac silhouette, and intact bony thorax. IMPRESSION: No acute findings. Moderate cardiac enlargement.
[2018-10-17 08:05] LABS: VENOUS BLOOD BASE EXCESS -1.4 mmol/L; VENOUS BLOOD HCO3 24.4 mmol/L (20-32); VENOUS BLOOD PCO2 45.4 mmHg (35-63); VENOUS BLOOD PH 7.35 (7.30-7.42)
[2018-10-17 08:15] LABS: ABSOLUTE BASOPHILS # (AUTO) 0.1 10^3/uL (0.0-0.2); ABSOLUTE EOSINOPHILS # (AUTO) 0.1 10^3/uL (0.0-0.6); ABSOLUTE LYMPHOCYTES (AUTO) 0.9 10^3/uL (0.5-4.7); ABSOLUTE MONOCYTES (AUTO) 0.7 10^3/uL (0.1-1.4); ABSOLUTE NEUT (AUTO) 7.1 10^3/uL (1.7-8.2); BASOPHILS % (AUTO) 1.1 % (0-2); EOSINOPHILS % (AUTO) 1.6 % (0-6); HEMATOCRIT 28.9 % (36.0-47.0); HEMOGLOBIN 9.6 g/dL (12.0-15.5); MEAN CORPUSCULAR HEMOGLOBIN 32.1 pg (27.0-33.4); MEAN CORPUSCULAR HGB CONC 33.2 g/dL (32.0-36.0); MEAN CORPUSCULAR VOLUME 97 fl (80-97); MONOCYTES % (AUTO) 7.7 % (3-13); PLATELET COUNT 181 10^3/uL (150-450); RED BLOOD COUNT 2.99 10^6/uL (3.72-5.28); RED CELL DISTRIBUTION WIDTH 14.8 % (11.5-14.0); SEGMENTED NEUTROPHILS % (AUTO) 79.6 % (42-78); TOTAL CELLS COUNTED % (AUTO) 100 %; WHITE BLOOD COUNT 8.9 10^3/uL (4.0-10.5)
[2018-10-17 08:22] LABS: ALANINE AMINOTRANSFERASE 11 U/L (9-52); ALBUMIN 4.5 g/dL (3.5-5.0); ALKALINE PHOSPHATASE 222 U/L (38-126); ANION GAP 18 (5-19); ASPARTATE AMINO TRANSFERASE 27 U/L (14-36); BILIRUBIN,DIRECT 1.5 mg/dL (0.0-0.4); BILIRUBIN,TOTAL 1.7 mg/dL (0.2-1.3); BLOOD UREA NITROGEN 68 mg/dL (7-20); CALCIUM 8.9 mg/dL (8.4-10.2); CARBON DIOXIDE 25 mmol/L (22-30); CHLORIDE 99 mmol/L (98-107); GLUCOSE 98 mg/dL (75-110); LIPASE 33.6 U/L (23-300); SODIUM 142.1 mmol/L (137-145); TOTAL PROTEIN 8.6 g/dL (6.3-8.2)
[2018-10-17 08:26] LABS: POTASSIUM 5.9 mmol/L (3.6-5.0)
[2018-10-17] MEDS ORDERED: SODIUM POLYSTYRENE SULFONATE 15 GM/60 ML PO ONE (08:41)
[2018-10-17] MEDS ORDERED: ASPIRIN 81 MG TABLET, CHEWABLE PO ONE (08:41)
[2018-10-17] MEDS ORDERED: PROMETHAZINE HCL INJ 25 MG/1 ML VIAL IV ONE (08:41)
[2018-10-17] MEDS ORDERED: MORPHINE SULFATE 10 MG/ML INJ IV ONE ×2 (08:41→19:14)
[2018-10-17] MEDS ORDERED: DEXTROSE 50%-WATER 25 GM/50 ML DISP.SYRIN IV ONE (08:41)
[2018-10-17] MEDS ORDERED: INSULIN REG, HUMAN 100 UNIT/ML 3 ML VIAL (PYX) SUBCUT ONE (08:41)
[2018-10-17] MEDS ORDERED: ALBUTEROL SULFATE 0.083% NEB 2.5 MG/3 ML AMPUL NEB ONE (09:28)
--- NOTE | 2018-10-17 12:59 | EKG REPORT ---
SEVERITY:- ABNORMAL ECG - SINUS ARRHYTHMIA, RATE 60-87 LEFT AXIS DEVIATION ABNORMAL T, CONSIDER ISCHEMIA, LATERAL LEADS : Confirmed by: Joslyn Thompson MD 17-Oct-2018 12:58:52
--- NOTE | 2018-10-17 21:44 | EKG REPORT ---
SEVERITY:- ABNORMAL ECG - SINUS RHYTHM BORDERLINE LEFT AXIS DEVIATION ABNORMAL T, CONSIDER ISCHEMIA, LATERAL LEADS BORDERLINE PROLONGED QT INTERVAL : Confirmed by: Joslyn Thompson MD 17-Oct-2018 21:44:07
[2018-10-17] MEDS ORDERED: DIPHENHYDRAMINE HCL 50 MG/ML VIAL IV ONE (22:29)
[2018-10-17] MEDS: HYDROCODONE/ACETAMINOPHEN 5-325 MG TABLET PO PRN (22:43)
[2018-10-18 02:27] LABS: ANION GAP 17 (5-19); BLOOD UREA NITROGEN 73 mg/dL (7-20); CALCIUM 8.6 mg/dL (8.4-10.2); CARBON DIOXIDE 23 mmol/L (22-30); CHLORIDE 101 mmol/L (98-107); GLUCOSE 109 mg/dL (75-110); POTASSIUM 5.3 mmol/L (3.6-5.0)
[2018-10-18 08:14] LABS: ABSOLUTE BASOPHILS # (AUTO) 0.1 10^3/uL (0.0-0.2); ABSOLUTE EOSINOPHILS # (AUTO) 0.2 10^3/uL (0.0-0.6); ABSOLUTE LYMPHOCYTES (AUTO) 0.6 10^3/uL (0.5-4.7); ABSOLUTE MONOCYTES (AUTO) 0.6 10^3/uL (0.1-1.4); ABSOLUTE NEUT (AUTO) 6.3 10^3/uL (1.7-8.2); EOSINOPHILS % (AUTO) 2.5 % (0-6); HEMATOCRIT 30.1 % (36.0-47.0); HEMOGLOBIN 10.1 g/dL (12.0-15.5); LYMPHOCYTES % (AUTO) 7.6 % (13-45); MEAN CORPUSCULAR HEMOGLOBIN 31.8 pg (27.0-33.4); MEAN CORPUSCULAR HGB CONC 33.6 g/dL (32.0-36.0); MEAN CORPUSCULAR VOLUME 95 fl (80-97); MONOCYTES % (AUTO) 7.7 % (3-13); PLATELET COUNT 166 10^3/uL (150-450); RED BLOOD COUNT 3.17 10^6/uL (3.72-5.28); RED CELL DISTRIBUTION WIDTH 14.7 % (11.5-14.0); SEGMENTED NEUTROPHILS % (AUTO) 81.2 % (42-78); TOTAL CELLS COUNTED % (AUTO) 100 %; WHITE BLOOD COUNT 7.8 10^3/uL (4.0-10.5)
[2018-10-18 08:28] LABS: ALANINE AMINOTRANSFERASE 22 U/L (9-52); ALBUMIN 4.5 g/dL (3.5-5.0); ALKALINE PHOSPHATASE 212 U/L (38-126); ANION GAP 19 (5-19); ASPARTATE AMINO TRANSFERASE 26 U/L (14-36); BILIRUBIN,DIRECT 1.3 mg/dL (0.0-0.4); BILIRUBIN,TOTAL 1.5 mg/dL (0.2-1.3); BLOOD UREA NITROGEN 77 mg/dL (7-20); CALCIUM 8.6 mg/dL (8.4-10.2); CARBON DIOXIDE 25 mmol/L (22-30); CHLORIDE 98 mmol/L (98-107); GLUCOSE 84 mg/dL (75-110); POTASSIUM 5.9 mmol/L (3.6-5.0); TOTAL PROTEIN 8.4 g/dL (6.3-8.2)
--- NOTE | 2018-10-18 10:25 | EKG REPORT ---
SEVERITY:- ABNORMAL ECG - SINUS RHYTHM LEFT AXIS DEVIATION ABNORMAL T, CONSIDER ISCHEMIA, LATERAL LEADS BORDERLINE PROLONGED QT INTERVAL : Confirmed by: Joslyn Thompson MD 18-Oct-2018 10:24:26
[2018-10-18] MEDS ORDERED: INSULIN REG, HUMAN 100 UNIT/ML 3 ML VIAL (PYX) IV ONE (13:40)
[2018-10-18] MEDS ORDERED: SODIUM POLYSTYRENE SULFONATE 15 GM/60 ML NG ONE (13:40)
[2018-10-18] MEDS ORDERED: DEXTROSE 50%-WATER 25 GM/50 ML DISP.SYRIN IV ONE (13:40)
--- NOTE | 2018-10-18 13:42 | ER Document Report ---
Doctor's Note Notes: 10/18/18 13:41 Patient interviewed and examined. She primarily came here because she was nauseous and vomiting. She is no longer nauseated or vomiting. She is eating and drinking here. She understands she needs dialysis. I understand she is awaiting a bed for that. Heart is regular rate and rhythm, lungs are clear to auscultation bilaterally. AV fistula in left arm, palpable thrill. Neurovascularly intact. Plan here is to continue to monitor. Her potassium is elevated again at 5.9. We did attempt multiple times to obtain her outpatient dialysis today and were unsuccessful. Will treat with Kayexalate, insulin, glucose. We are in contact with Dr. Ivan to set up outpatient dialysis for tomorrow morning or to transfer the patient as necessary.
[2018-10-18] MEDS: HYDROCODONE/ACETAMINOPHEN 5-325 MG TABLET PO PRN ×2 (15:20→22:27)
[2018-10-18] MEDS ORDERED: LIDOCAINE 1% INJ-PF (10 MG/ML) 30 ML SDV ONE ×2 (17:08→17:35)
--- NOTE | 2018-10-18 17:36 | PDOC CONSULTATION ---
Consultation Consult Date: 10/18/18 Consult reason:: need IV acess History of Present Illness Admission Date/PCP: Marjorie RAVI MD Patient complains of: need IV access History of Present Illness: MICKIE SHARP is a 47 year old female with ESRD, on HD, with hyperkalemia, in need ov IV access for the administration of IV insulin and meds. Past Medical History Cardiac Medical History: Reports: Congestive Heart Failure, Hyperlipidema, Hypertension Denies: Coronary Artery Disease, Myocardial Infarction Pulmonary Medical History: Reports: Asthma Denies: Bronchitis, Chronic Obstructive Pulmonary Disease (COPD), Pneumonia Neurological Medical History: Denies: Seizures Endocrine Medical History: Reports: Diabetes Mellitus Type 1, Diabetes Mellitus Type 2 Renal/ Medical History: Reports: End Stage Renal Disease Musculoskeltal Medical History: Denies: Arthritis Hematology: Reports: Anemia Past Surgical History Past Surgical History: Reports: Cholecystectomy, Orthopedic Surgery - Right BKA, Vascular Surgery - fistula placement, Other - Amputation right lower extremity Social History Smoking Status: Never Smoker Frequency of Alcohol Use: None Hx Recreational Drug Use: No Drugs: None Hx Prescription Drug Abuse: No Family History Family History: CAD, DM, Hypertension, Reviewed & Not Pertinent Parental Family History Reviewed: No Children Family History Reviewed: No Sibling(s) Family History Reviewed.: No Medication/Allergy Home Medications: Ondansetron [Zofran Odt 4 mg Tablet] 1 - 2 tab PO Q4H PRN #15 tab.rapdis 02/19/17 Oxycodone HCl/Acetaminophen [Percocet 5-325 mg Tablet] 1 - 2 tab PO Q4H PRN #15 tablet 02/19/17 Albuterol Sulfate [Proair HFA] 1 puff IH Q4HP PRN 08/26/17 Amlodipine Besylate [Norvasc 5 mg Tablet] 5 mg PO DAILY 08/26/17 Aspirin [Aspirin 81 mg Chewable Tablet] 81 mg PO DAILY 08/26/17 Carvedilol [Coreg 25 mg Tablet] 25 mg PO Q12 08/26/17 Cyclobenzaprine HCl [Flexeril 5 mg Tablet] 5 mg PO TID 08/26/17 Diazepam [Valium 5 mg Tablet] 5 mg PO BID 08/26/17 Folic Acid/Vitamin B Comp W-C [Renavit Tablet] 0.8 mg PO DAILY 08/26/17 Gabapentin [Neurontin 100 mg Capsule] 100 mg PO Q8 08/26/17 Medroxyprogesterone Acet [Provera 10 mg Tablet] 10 mg PO DAILY 08/26/17 Ondansetron HCl [Zofran 4 mg Tablet] 4 mg PO BIDP PRN 08/26/17 Sevelamer HCl [Renagel] 2,400 mg PO MEALS 08/26/17 Sevelamer HCl [Renagel] 800 mg PO ASDIR PRN 08/26/17 Hydromorphone HCl [Dilaudid 2 mg Tablet] 1 mg PO Q8 PRN 3 Days #7 tablet 08/31/17 Neomy Sulf/Polymyx B Sulf/Hc [Cortisporin Ear Suspension] 4 drop OT QID #1 bottle 09/12/17 Famotidine [Pepcid 20 mg Tablet] 20 mg PO BID #12 tablet 10/08/17 Ondansetron [Zofran Odt 4 mg Tablet] 1 - 2 tab PO Q4H PRN #15 tab.rapdis 10/08/17 Hydroxyzine HCl 50 mg PO Q6HP PRN #30 tablet 10/13/17 Permethrin [Elimite] 60 gm TP ONCE PRN #1 cream.gm. 10/13/17 Allergies/Adverse Reactions: No Known Allergies Allergy (Verified 10/16/17 22:23) Physical Exam Vital Signs: Temp Pulse Resp BP Pulse Ox 97.9 F 16 124/78 96 10/17/18 14:20 10/18/18 16:00 10/18/18 11:38 10/18/18 16:00 Intake & Output 10/17/18 10/18/18 10/19/18 06:59 06:59 06:59 Weight 104.5 kg General appearance: PRESENT: no acute distress Head exam: PRESENT: atraumatic Eye exam: PRESENT: EOMI Mouth exam: PRESENT: neck supple Teeth exam: PRESENT: poor dentation Neck exam: PRESENT: full ROM Respiratory exam: PRESENT: clear to auscultation ezequiel Cardiovascular exam: PRESENT: RRR GI/Abdominal exam: PRESENT: soft, other - obese Extremities exam: PRESENT: full ROM Musculoskeletal exam: PRESENT: full ROM, other - R BKA Results Laboratory Results: 10/18/18 07:53 10/18/18 07:53 10/17/18 10/18/1819 20:42 07:53 07:53 WBC 7.8 RBC 3.17 L Hgb 10.1 L Hct 30.1 L MCV 95 MCH 31.8 MCHC 33.6 RDW 14.7 H Plt Count 166 Seg Neutrophils % 81.2 H Lymphocytes % 7.6 L Monocytes % 7.7 Eosinophils % 2.5 Basophils % 1.0 Absolute Neutrophils 6.3 Absolute Lymphocytes 0.6 Absolute Monocytes 0.6 Absolute Eosinophils 0.2 Absolute Basophils 0.1 Sodium 141.0 142.0 Potassium 5.3 H 5.9 H Chloride 101 98 Carbon Dioxide 23 25 Anion Gap 17 19 BUN 73 H 77 H Creatinine 11.64 H 12.06 H Est GFR ( Amer) 4 L 4 L Est GFR (Non-Af Amer) 4 L 3 L Glucose 109 84 Calcium 8.6 8.6 Total Bilirubin 1.5 H AST 26 ALT 22 Alkaline Phosphatase 212 H Total Protein 8.4 H Albumin 4.5 10/17/18 10/17/18 07:37 20:42 Troponin I 0.064 NT-Pro-B Natriuret Pep [id number] H Impressions: Chest X-Ray 10/17/18 07:10 IMPRESSION: No acute findings. Moderate cardiac enlargement. Assessment & Plan - Diagnosis (1) Need for intravenous access Is this a current diagnosis for this admission?: Yes - Plan Summary Plan Summary: A/ patient with ESRD on HD with hyperkalemia patient in need of IV access for meds/fluids P/ insertion of either subclavian or femoral vein CVL Procedure, risks, benefits, d/w patient, she understands and decides to proceed.
--- NOTE | 2018-10-18 18:14 | Operative Report ---
Nonrecallable Operative Report DATE OF SURGERY: 10/18/18 PREOPERATIVE DIAGNOSIS: need IV access. ESRD om HD. hyperkalemia POSTOPERATIVE DIAGNOSIS: same OPERATION: 1) Attempted right subclavian vein CVL placement. 2) Placement of left femoral vein CVL SURGEON: TIARA LAM ANESTHESIA: Local - 20 mL 1% lidocaine TISSUE REMOVED OR ALTERED: n/a COMPLICATIONS: none ESTIMATED BLOOD LOSS: < 10 mL INTRAOPERATIVE FINDINGS: blockage @ 20 mc at junction R SCV/SVC PROCEDURE: see dictation
[2018-10-18 19:28] LABS: ALANINE AMINOTRANSFERASE 21 U/L (9-52); ALBUMIN 4.3 g/dL (3.5-5.0); ALKALINE PHOSPHATASE 203 U/L (38-126); ASPARTATE AMINO TRANSFERASE 24 U/L (14-36); BILIRUBIN,DIRECT 1.1 mg/dL (0.0-0.4); BILIRUBIN,TOTAL 1.2 mg/dL (0.2-1.3); BLOOD UREA NITROGEN 78 mg/dL (7-20); CARBON DIOXIDE 22 mmol/L (22-30); CHLORIDE 97 mmol/L (98-107); GLUCOSE 97 mg/dL (75-110)
[2018-10-18 19:34] LABS: SODIUM 140.5 mmol/L (137-145)
[2018-10-18 19:38] LABS: ANION GAP 22 (5-19); POTASSIUM 4.8 mmol/L (3.6-5.0)
--- NOTE | 2018-10-19 01:13 | OPERATIVE REPORT E ---
Operative Report NAME: MICKIE SHARP : 1970 AGE: 47Y DATE OF SURGERY: 10/18/2018 ROOM: PREOPERATIVE DIAGNOSES: 1. End-stage renal disease on hemodialysis. 2. Need IV access for the administration of medication/drugs. POSTOPERATIVE DIAGNOSES: 1. End-stage renal disease on hemodialysis. 2. Need IV access for the administration of medication/drugs. PROCEDURE: 1. Attempted right subclavian central intravenous line. 2. Placement of left femoral vein central venous line. SURGEON: TIARA LAM M.D. INSPECTOR CONVEYOR LINE: None. BLOOD LOSS: Bleeding minimal. COMPLICATION: None. ANESTHESIA: Local, about 20 mL of 1% lidocaine without epinephrine. INDICATION AND FINDINGS: This is a 47-year-old -[place] female with end-stage renal disease for hemodialysis. In need of IV access because of her hyperkalemia for administration of medications to lower her potassium. DESCRIPTION OF PROCEDURE: The procedure was done in the emergency room. The patient was placed on an emergency room stretcher in the supine Trendelenburg position. The right side of the neck and chest prepped and draped in the usual fashion. The area just below the mid clavicle was infiltrated with lidocaine and the area just below the mid clavicle was then approached with #16 gauge with identification of the subclavian vein, a good blood return. A guidewire was inserted, however, this could not be advanced further than 20 cm. At this point the guidewire was withdrawn and reinserted; however, despite several attempts, it could not be advanced. At this point the needle was withdrawn, it was re-inserted again with good blood return from the right subclavian vein but the guidewire was advanced could not be advanced further 20 cm. At this point the procedure was aborted. The left groin was prepped and draped in the usual fashion. The left femoral artery could be palpated and following this, just near to this, the area was infiltrated with lidocaine. A 16 gauge needle was then use to easily cannulate the left superficial femoral vein. Guidewire was inserted through a needle, it was advanced in the superficial and deep femoral vein up to the iliac vein. The needle was removed. The insertion point of the guidewire dilated with a tissue dilator. This was then removed and triple-lumen catheter was inserted over the guidewire into the superficial and deep femoral vein in the external iliac vein. The guidewire was removed. The port to the triple-lumen catheter was then aspirated and flushed with normal saline without difficulty. The catheter was secured to the skin with sterile sutures, sterile dressings applied. DICTATING PHYSICIAN: TIARA LAM M.D. [id number] PHY#: [id number] ID: [id number] JOB#: [id number] ACCT: [id number] cc:TIARA LAM M.D. > MTDD
[2018-10-19] MEDS ORDERED: DIPHENHYDRAMINE HCL 25 MG CAPSULE PO ONE (03:31)
[2018-10-19 06:56] LABS: ALANINE AMINOTRANSFERASE 25 U/L (9-52); ALBUMIN 4.2 g/dL (3.5-5.0); ALKALINE PHOSPHATASE 200 U/L (38-126); ASPARTATE AMINO TRANSFERASE 22 U/L (14-36); BILIRUBIN,DIRECT 1.1 mg/dL (0.0-0.4); BILIRUBIN,TOTAL 1.2 mg/dL (0.2-1.3); BLOOD UREA NITROGEN 87 mg/dL (7-20); CALCIUM 7.4 mg/dL (8.4-10.2); GLUCOSE 121 mg/dL (75-110); POTASSIUM 5.4 mmol/L (3.6-5.0); TOTAL PROTEIN 7.8 g/dL (6.3-8.2)
[2018-10-19 07:02] LABS: ANION GAP 18 (5-19); CARBON DIOXIDE 24 mmol/L (22-30); CHLORIDE 99 mmol/L (98-107); SODIUM 141.1 mmol/L (137-145)
[2018-10-19 09:43] VITALS: BP 145/60
[2018-10-19] MEDS ORDERED: ACETAMINOPHEN 325 MG TABLET PO ONE (09:43)
--- NOTE | 2018-10-19 09:49 | ER Document Report ---
Doctor's Note Notes: 10/19/18 09:47 Patient interviewed and examined. She complains of chronic pain from her skin problems. She no longer has any nausea or vomiting. Ate breakfast this morning without difficulties. No pain at her central line site. She understands she is going to be transported to dialysis today. It was explained to her that she will be back on her normal Wednesday schedule after that. She asked for something for pain for her skin, but has no other acute complaints or concerns. Labs reviewed. Potassium only mildly elevated at 5.4. She will be dialyzed within the next 2 hours, no need for intervention at this time. Heart is regular rate and rhythm, lungs are clear to auscultation bilaterally. Abdomen is soft, nontender. Plan is to discharge patient. She will have transportation to outpatient dialysis, arranged by Dr. Ivan. She will resume her normal dialysis schedule after that. She is to return to the ED with worsening or new concerning symptoms.
== END 2018-10-19 10:45 | disposition home health service (06) ==
LOC: ER 07:01
DX: R11.2 Nausea with vomiting, unspecified (principal); E87.5 Hyperkalemia; M79.10 Myalgia, unspecified site; R94.31 Abnormal electrocardiogram [ECG] [EKG]; E78.00 Pure hypercholesterolemia, unspecified; E11.22 Type 2 diabetes mellitus with diabetic chronic kidney disease; I13.2 Hypertensive heart and chronic kidney disease with heart failure and with stage 5 chronic kidney disease, or end stage renal disease; N18.6 End stage renal disease; Z99.2 Dependence on renal dialysis; Z89.511 Acquired absence of right leg below knee
CPT/HCPCS: 93005 ×2; 96376; 99285; 96374; 96375; 36415; 82962; 83690; 85025; 80048; 80053; 84484; 82803; 83880; 71045; 93010 ×2; 36556; C1751; A9270 ×6; J0610; J3490; J1200; J2270; J2550; J1815

== ENCOUNTER 2018-10-23 03:55 | Emergency (ER) | payer MEDICARE, MEDICAID ==
[2018-10-23] MEDS ORDERED: OXYCODONE HCL IR 5 MG TABLET PO ONE (04:55)
[2018-10-23] MEDS ORDERED: ONDANSETRON 4 MG TAB.RAPDIS PO ONE (04:55)
--- NOTE | 2018-10-23 05:51 | RADIOLOGY REPORT (SQ) ---
EXAM DESCRIPTION: XR LUMBAR SPINE ANTEROPOSTERIOR, LATERAL, AND OBLIQUES COMPLETED DATE/TME: 10/23/2018 04:54 CLINICAL HISTORY: 47 years, Female, pain COMPARISON: None. NUMBER OF VIEWS: 5 TECHNIQUE: 5 view lumbar spine LIMITATIONS: None. FINDINGS: 5 lumbar type vertebral bodies. Height and alignment is preserved. Extensive vascular calcifications. Disc spaces in the lumbar spine are preserved. Sacroiliac joints are preserved. IMPRESSION: Vascular calcifications. Unremarkable lumbar spine copyright 2010 [employer]- All Rights Reserved
--- NOTE | 2018-10-23 06:02 | ER Document Report ---
HPI - HPI Patient complains to provider of: Lower back pain Time Seen by Provider: 10/23/18 04:34 Pain Level: 5 Context: Patient is a 47-year-old female presents to the emergency department for generalized lower back pain. Patient states on Wednesday she was trying to help herself from her bed onto her wheelchair when she slipped falling onto her lower back. Patient's to evaluate for your head, neck, upper back, loss of consciousness. Patient states she has had intermittent pain in her lower back since which is why she presents to the emergency department. Patient states at times the pain is "so severe I want to throw up." Past medical history: Renal failure with dialysis, right [id number] amputation, congestive heart failure Allergies: None Patient has dialysis Wednesday, Wednesday, Wednesday - CONSTITUTIONAL Constitutional: DENIES: Fever, Chills - REPRODUCTIVE Reproductive: DENIES: : Past Medical History - General Information source: Patient - Social History Smoking Status: Never Smoker Family History: CAD, DM, Hypertension, Reviewed & Not Pertinent Patient has suicidal ideation: No Patient has homicidal ideation: No - Past Medical History Cardiac Medical History: Reports: Hx Congestive Heart Failure, Hx Hypercholesterolemia, Hx Hypertension Denies: Hx Coronary Artery Disease, Hx Heart Attack Pulmonary Medical History: Reports: Hx Asthma Denies: Hx Bronchitis, Hx COPD, Hx Pneumonia Neurological Medical History: Denies: Hx Cerebrovascular Accident, Hx Seizures Endocrine Medical History: Reports: Hx Diabetes Mellitus Type 1, Hx Diabetes Mellitus Type 2 Renal/ Medical History: Reports: Hx End Stage Renal Disease, Hx Hemodialysis. Denies: Hx Peritoneal Dialysis Musculoskeletal Medical History: Denies Hx Arthritis Past Surgical History: Reports: Hx Cholecystectomy, Hx Orthopedic Surgery - Right BKA, Hx Vascular Surgery - fistula placement, Other - Amputation right lower extremity - Immunizations Hx Diphtheria, Pertussis, Tetanus Vaccination: Yes Vertical Provider Document - CONSTITUTIONAL Agree With Documented VS: Yes Notes: GENERAL: Alert, interacts well. No acute distress. HEAD: Normocephalic, atraumatic. EYES: Pupils equal, round, and reactive to light. Extraocular movements intact. ENT: Oral mucosa moist, tongue midline. NECK: Full range of motion. Supple. Trachea midline. LUNGS: Clear to auscultation bilaterally, no wheezes, rales, or rhonchi. No respiratory distress. HEART: Regular rate and rhythm. No murmur ABDOMEN: Soft, non-tender. Non-distended. Bowel sounds present in all 4 quadrants. EXTREMITIES: Moves all 3 extremities spontaneously. No edema. No cyanosis. Capillary refill less than 2 seconds bilateral upper extremities and left lower extremity. PMS present left lower extremity. BACK: no cervical, thoracic midline tenderness. No saddle anesthesia, normal distal neurovascular exam. Patient has pain lumbar spinal and paraspinal bilaterally. No CVA tenderness noted NEUROLOGICAL: Alert and oriented x3. Normal speech. cranial nerves II through XII grossly intact PSYCH: Normal affect, normal mood. SKIN: Warm, dry, normal turgor. - INFECTION CONTROL TRAVEL OUTSIDE OF THE [place] IN LAST 30 DAYS: No Course - Re-evaluation Re-evalutation: Patient's x-rays revealed no signs of abnormalities. Patient continues to deny any urinary or bowel incontinence or urinary retention. States she is a dialysis patient but has been able to urinate "my normal." Discussed with patient [id number] Tylenol for generalized pain and to follow-up with her primary care provider. Patient voices understanding is stable for discharge. - Vital Signs Vital signs: Temp Pulse Resp BP Pulse Ox 98.4 F 78 18 122/62 98 10/23/18 03:58 10/23/18 03:58 10/23/18 03:58 10/23/18 03:58 10/23/18 03:58 Discharge - Discharge Clinical Impression: Lumbar back pain Condition: Stable Disposition: HOME, SELF-CARE Instructions: Muscle Strain ([facility]), Low Back Pain ([facility]), Warm Packs ([facility]) Additional Instructions: As we discussed you have been seen and treated in the emergency department for an injury to your lower back. Your x-rays revealed no signs of abnormalities at this time. Please make sure you follow-up with your primary care provider or return to the emergency room for any other concerning symptoms. Referrals: Marjorie RAVI MD [Primary Care Provider] - Follow up as needed
[2018-10-23 06:33] VITALS: BP 124/66
== END 2018-10-23 06:33 | disposition home or self-care (01) ==
LOC: ER 03:55
DX: M54.5 Low back pain (principal); E78.00 Pure hypercholesterolemia, unspecified; E11.22 Type 2 diabetes mellitus with diabetic chronic kidney disease; I13.2 Hypertensive heart and chronic kidney disease with heart failure and with stage 5 chronic kidney disease, or end stage renal disease; I50.9 Heart failure, unspecified; N18.6 End stage renal disease; Z99.2 Dependence on renal dialysis; Z89.511 Acquired absence of right leg below knee; Z90.49 Acquired absence of other specified parts of digestive tract
CPT/HCPCS: 99283; 72110; A9270 ×2; S0119

== ENCOUNTER 2018-10-23 07:08 | Emergency (ER) | payer MEDICARE, MEDICAID ==
[2018-10-23 07:19] VITALS: BP 138/74
--- NOTE | 2018-10-23 08:16 | ER Document Report ---
ED ENT - General Chief Complaint: Nose Bleed Stated Complaint: NOSE BLEED Time Seen by Provider: 10/23/18 08:06 Primary Care Provider: Marjorie RAVI MD [Primary Care Provider] - Follow up as needed Mode of Arrival: Wheelchair Information source: Patient Notes: Patient is a 47-year-old female who was just discharged from this emergency department, in the That we paid for for her to go home when she started to have a small amount of blood come from her nose and so she asked if the cabdriver could bring her back. Patient is no longer bleeding, is holding a piece of gauze with only specks of blood on it. She was not seen here for nosebleed prior, rather for back pain after fall and had negative x-rays. She was given oxycodone just a few hours ago and states that she is still hurting. She denies any radiation down her legs of the pain, numbness or tingling, loss of bladder or bowel function. TRAVEL OUTSIDE OF THE [place] IN LAST 30 DAYS: No - Related Data Allergies/Adverse Reactions: No Known Allergies Allergy (Verified 10/23/18 07:11) Past Medical History - General Information source: Patient - Social History Smoking Status: Never Smoker Frequency of alcohol use: None Drug Abuse: None Family History: CAD, DM, Hypertension, Reviewed & Not Pertinent Patient has suicidal ideation: No Patient has homicidal ideation: No - Past Medical History Cardiac Medical History: Reports: Hx Congestive Heart Failure, Hx Hypercholesterolemia, Hx Hypertension Denies: Hx Coronary Artery Disease, Hx Heart Attack Pulmonary Medical History: Reports: Hx Asthma Denies: Hx Bronchitis, Hx COPD, Hx Pneumonia Neurological Medical History: Denies: Hx Cerebrovascular Accident, Hx Seizures Endocrine Medical History: Reports: Hx Diabetes Mellitus Type 1, Hx Diabetes Mellitus Type 2 Renal/ Medical History: Reports: Hx End Stage Renal Disease, Hx Hemodialysis. Denies: Hx Peritoneal Dialysis Musculoskeletal Medical History: Denies Hx Arthritis Past Surgical History: Reports: Hx Cholecystectomy, Hx Orthopedic Surgery - Right BKA, Hx Vascular Surgery - fistula placement, Other - Amputation right lower extremity - Immunizations Hx Diphtheria, Pertussis, Tetanus Vaccination: Yes Review of Systems - Review of Systems Constitutional: No symptoms reported EENT: See HPI Cardiovascular: No symptoms reported Respiratory: No symptoms reported Gastrointestinal: No symptoms reported Genitourinary: No symptoms reported Female Genitourinary: No symptoms reported Musculoskeletal: See HPI Skin: No symptoms reported Hematologic/Lymphatic: No symptoms reported Neurological/Psychological: No symptoms reported Physical Exam - Vital signs Vitals: Temp Pulse Resp BP Pulse Ox 97.9 F 83 16 138/74 H 99 10/23/18 07:17 10/23/18 07:17 10/23/18 07:17 10/23/18 07:17 10/23/18 07:17 - Notes Notes: PHYSICAL EXAMINATION: GENERAL: Appears much older than stated age, sitting in wheelchair, sleeping, in no acute distress. HEAD: Atraumatic, normocephalic. EYES: Pupils equal round and reactive to light, extraocular movements intact, sclera anicteric, conjunctiva are normal. ENT: ear canals without erythema or foreign body, TMs pearly jane with good bony landmarks, nares with small amount of dried blood in left nare, no active bleeding, no hematoma to either nare, oropharynx clear without exudates. Moist mucous membranes. NECK: Normal range of motion, supple without lymphadenopathy LUNGS: CTAB and equal. No wheezes rales or rhonchi. HEART: Regular rate and rhythm without murmurs ABDOMEN: Soft, no tenderness. No guarding, no rebound BACK: no vertebral tenderness, normal ROM but with pain to the lumbar area GI/: no CVA tenderness EXTREMITIES: Normal range of motion, no pitting edema. No cyanosis. NEUROLOGICAL: Cranial nerves grossly intact. Normal sensory/motor exams. PSYCH: Normal mood, normal affect. SKIN: Warm, Dry, normal turgor, no rashes or lesions noted Course - Re-evaluation Re-evalutation: 10/23/18 08:35 Patient takes a baby aspirin, otherwise no blood thinners. patient needs no intervention at this time, patient is stable for discharge. 10/23/18 08:35 - Vital Signs Vital signs: Temp Pulse Resp BP Pulse Ox 97.9 F 83 16 138/74 H 99 10/23/18 07:17 10/23/18 07:17 10/23/18 07:17 10/23/18 07:17 10/23/18 07:17 Discharge - Discharge Clinical Impression: Bleeding nose Condition: Stable Disposition: HOME, SELF-CARE Additional Instructions: Return immediately for any new or worsening symptoms. Follow up with primary care provider, call tomorrow to make followup appointment. Referrals: Marjorie RAVI MD [Primary Care Provider] - Follow up as needed
== END 2018-10-23 08:29 | disposition home or self-care (01) ==
LOC: ER 07:08
DX: R04.0 Epistaxis (principal); I50.9 Heart failure, unspecified; E11.22 Type 2 diabetes mellitus with diabetic chronic kidney disease; I13.2 Hypertensive heart and chronic kidney disease with heart failure and with stage 5 chronic kidney disease, or end stage renal disease; N18.6 End stage renal disease; Z99.2 Dependence on renal dialysis; E78.00 Pure hypercholesterolemia, unspecified; Z90.49 Acquired absence of other specified parts of digestive tract; Z89.511 Acquired absence of right leg below knee; Z79.82 Long term (current) use of aspirin
CPT/HCPCS: 99283

== ENCOUNTER 2018-11-04 00:46 | Emergency (ER) | payer MEDICARE, MEDICAID ==
[2018-11-04] MEDS ORDERED: FENTANYL CITRATE INJ/PF 100 MCG/2 ML AMPUL IV ONE (02:17)
[2018-11-04] MEDS ORDERED: ONDANSETRON HCL INJ/PF 4 MG/2 ML SDV IV ONE (02:17)
--- NOTE | 2018-11-04 02:18 | ER Document Report ---
ED General - General Chief Complaint: Abdominal Pain Stated Complaint: ABDOMINAL PAIN Time Seen by Provider: 11/04/18 01:54 Primary Care Provider: Marjorie RAVI MD [ACTIVE STAFF] - Follow up in 3-5 days Notes: Patient is a 47-year-old female with end-stage renal disease on dialysis that presents to the emergency department for chief complaint of abdominal cramping, nausea, vomiting and diarrhea. Patient reports that her symptoms started on Wednesday, mainly with diarrhea, and it progressed over the past several days, where she has had dry heaving, denies any blood in the stool or vomit. She did go to dialysis on Wednesday, she is due to go today on Wednesday. She denies having any chest pain, shortness of breath, difficulty breathing. Currently rates her pain as a 10/10, constant and aching in nature. Past Medical History: End-stage renal disease on dialysis, hypertension, peripheral vascular disease Past Surgical History: Right [id number] amputation, AV fistula Social History: Denies tobacco, alcohol or drug use. Family History: Reviewed and noncontributory for presenting illness Allergies: Reviewed, see documented allergy list. REVIEW OF SYSTEMS: Other than noted above, the 12 point review of systems was reviewed with the patient and were negative, all pertinent findings are included in the HPI. PHYSICAL EXAMINATION: Vital signs reviewed, nursing noted reviewed. GENERAL: Patient appears uncomfortable, wailing in the bed HEAD: Atraumatic, normocephalic. EYES: Eyes appear normal, extraocular movements intact, sclera anicteric, conjunctiva are normal. ENT: nares patent, oropharynx clear without exudates. Moist mucous membranes. NECK: Normal range of motion, supple without lymphadenopathy LUNGS: Breath sounds clear to auscultation bilaterally and equal. No wheezes rales or rhonchi. HEART: Regular rate and rhythm without murmurs ABDOMEN: Soft, obese, diffuse mild tenderness throughout, normoactive bowel sounds. No rebound, guarding, or rigidity. No masses appreciated. EXTREMITIES: Nontender, good range of motion, left lower extremity edema, chronic and unchanged per patient, AV fistula in the left upper extremity, positive bruit and thrill NEUROLOGICAL: No focal neurological deficits. Moves all extremities spontaneously Motor and sensory grossly intact on exam. PSYCH: Patient appears anxious, but answering questions appropriately SKIN: Warm, Dry, normal turgor, patient has calcinosis cutis, chronic for the patient TRAVEL OUTSIDE OF THE [place] IN LAST 30 DAYS: No - Related Data Allergies/Adverse Reactions: No Known Allergies Allergy (Verified 10/23/18 07:11) Past Medical History - Social History Smoking Status: Never Smoker Family History: CAD, DM, Hypertension, Reviewed & Not Pertinent - Past Medical History Cardiac Medical History: Reports: Hx Congestive Heart Failure, Hx Hypercholesterolemia, Hx Hypertension Denies: Hx Coronary Artery Disease, Hx Heart Attack Pulmonary Medical History: Reports: Hx Asthma Denies: Hx Bronchitis, Hx COPD, Hx Pneumonia Neurological Medical History: Denies: Hx Cerebrovascular Accident, Hx Seizures Endocrine Medical History: Reports: Hx Diabetes Mellitus Type 1, Hx Diabetes Mellitus Type 2 Renal/ Medical History: Reports: Hx End Stage Renal Disease, Hx Hemodialysis. Denies: Hx Peritoneal Dialysis Musculoskeletal Medical History: Denies Hx Arthritis Past Surgical History: Reports: Hx Cholecystectomy, Hx Orthopedic Surgery - Right BKA, Hx Vascular Surgery - fistula placement, Other - Amputation right lower extremity - Immunizations Hx Diphtheria, Pertussis, Tetanus Vaccination: Yes Physical Exam - Vital signs Vitals: Temp Pulse Resp BP Pulse Ox 97.3 F 84 18 135/83 H 98 11/04/18 01:09 11/04/18 01:09 11/04/18 01:09 11/04/18 01:09 11/04/18 01:09 Course - Re-evaluation Re-evalutation: Patient seen and examined vital signs reviewed. Laboratory data and imaging were ordered as appropriate for the patient's presenting symptoms and complaint, with consideration of any critical or life threatening conditions that may be associated with their obtained history and exam as noted above. Patient was treated with IV fentanyl, and Zofran, she was also ordered an amp of sodium bicarbonate, after blood work came back demonstrated a potassium mildly elevated at 5.3, and mild metabolic acidosis with a bicarb of 20, patient is due for dialysis today The rest the patient's blood work was consistent with her baseline The patient was re-evaluated and was improved, was asking to eat, and asking for a cab to get her home, will discharge the patient home, she will need dialysis today, and patient plans on going today at 11 AM, given a prescription for Zofran and tramadol advised to follow-up with her primary care Evaluation was most consistent with abdominal pain, mild hyperkalemia Results were discussed with the patient at this point, after careful consideration I feel that that patient can be discharged from the emergency department, the patient was educated treatments and reasons to return to the emergency department based on their presumed diagnosis as noted above, they were advised to followup with a primary care physician in 2-3 days. Patient was agreeable to plan of care. *Note is created using voice recognition software and may contain spelling, syntax or grammatical errors. Laboratory 11/04/18 11/04/18 03:24 03:24 WBC 8.5 RBC 3.10 L Hgb 9.7 L Hct 29.5 L MCV 95 MCH 31.4 MCHC 32.9 RDW 14.6 H Plt Count 150 Seg Neutrophils % 78.5 H Lymphocytes % 9.6 L Monocytes % 8.5 Eosinophils % 2.1 Basophils % 1.3 Absolute Neutrophils 6.6 Absolute Lymphocytes 0.8 Absolute Monocytes 0.7 Absolute Eosinophils 0.2 Absolute Basophils 0.1 Sodium 138.8 Potassium 5.3 H Chloride 102 Carbon Dioxide 20 L Anion Gap 17 BUN 58 H Creatinine 7.44 H Est GFR ( Amer) 7 L Est GFR (Non-Af Amer) 6 L Glucose 121 H Calcium 8.2 L Total Bilirubin 1.2 Direct Bilirubin 1.1 H Neonat Total Bilirubin Not Reportable Neonat Direct Bilirubin Not Reportable Neonat Indirect Bili Not Reportable AST 49 H ALT 34 Alkaline Phosphatase 214 H Total Protein 8.0 Albumin 3.8 Lipase 150.8 - Vital Signs Vital signs: Temp Pulse Resp BP Pulse Ox 97.3 F 84 18 135/83 H 98 11/04/18 01:09 11/04/18 01:09 11/04/18 01:09 11/04/18 01:09 11/04/18 01:09 - Laboratory Result Diagrams: 11/04/18 03:24 11/04/18 03:24 Laboratory results interpreted by me: 11/04/18 11/04/18 03:24 03:24 RBC 3.10 L Hgb 9.7 L Hct 29.5 L RDW 14.6 H Seg Neutrophils % 78.5 H Lymphocytes % 9.6 L Potassium 5.3 H Carbon Dioxide 20 L BUN 58 H Creatinine 7.44 H Est GFR ( Amer) 7 L Est GFR (Non-Af Amer) 6 L Glucose 121 H Calcium 8.2 L Direct Bilirubin 1.1 H AST 49 H Alkaline Phosphatase 214 H Procedures - Additional Procedures IV insertion Additional Procedures: IV insertion Notes: Ultrasound-guided IV was placed by myself, and the right antecubital fossa, p atient tolerated the procedure well. Discharge - Discharge Clinical Impression: Hyperkalemia, ESRD (end stage renal disease) Abdominal pain Qualifiers: Abdominal location: unspecified location Qualified Code(s): R10.9 - Unspecified abdominal pain Condition: Stable Disposition: HOME, SELF-CARE Instructions: Abdominal Pain ([facility]) Additional Instructions: Please go to your dialysis appointment today, he can take the medication as prescribed for pain, and the medication for nausea. Please follow-up with your primary care physician, if you have persistent pain or sign improving, please return to the emergency department sooner. Prescriptions: Ondansetron [Zofran Odt 4 mg Tablet] 1 tab PO Q8H PRN #15 tab.rapdis PRN Reason: For Nausea/Vomiting RX: Tramadol HCl [Ultram] 50 mg PO Q8H PRN #8 tablet PRN Reason: general pain Referrals: Marjorie RAVI MD [ACTIVE STAFF] - Follow up in 3-5 days
[2018-11-04 03:55] LABS: ABSOLUTE BASOPHILS # (AUTO) 0.1 10^3/uL (0.0-0.2); ABSOLUTE EOSINOPHILS # (AUTO) 0.2 10^3/uL (0.0-0.6); ABSOLUTE LYMPHOCYTES (AUTO) 0.8 10^3/uL (0.5-4.7); ABSOLUTE MONOCYTES (AUTO) 0.7 10^3/uL (0.1-1.4); ABSOLUTE NEUT (AUTO) 6.6 10^3/uL (1.7-8.2); BASOPHILS % (AUTO) 1.3 % (0-2); EOSINOPHILS % (AUTO) 2.1 % (0-6); HEMATOCRIT 29.5 % (36.0-47.0); HEMOGLOBIN 9.7 g/dL (12.0-15.5); LYMPHOCYTES % (AUTO) 9.6 % (13-45); MEAN CORPUSCULAR HEMOGLOBIN 31.4 pg (27.0-33.4); MEAN CORPUSCULAR HGB CONC 32.9 g/dL (32.0-36.0); MEAN CORPUSCULAR VOLUME 95 fl (80-97); MONOCYTES % (AUTO) 8.5 % (3-13); PLATELET COUNT 150 10^3/uL (150-450); RED CELL DISTRIBUTION WIDTH 14.6 % (11.5-14.0); SEGMENTED NEUTROPHILS % (AUTO) 78.5 % (42-78); TOTAL CELLS COUNTED % (AUTO) 100 %; WHITE BLOOD COUNT 8.5 10^3/uL (4.0-10.5)
[2018-11-04 04:07] LABS: ALANINE AMINOTRANSFERASE 34 U/L (9-52); ALBUMIN 3.8 g/dL (3.5-5.0); ALKALINE PHOSPHATASE 214 U/L (38-126); ANION GAP 17 (5-19); ASPARTATE AMINO TRANSFERASE 49 U/L (14-36); BILIRUBIN,DIRECT 1.1 mg/dL (0.0-0.4); BILIRUBIN,TOTAL 1.2 mg/dL (0.2-1.3); BLOOD UREA NITROGEN 58 mg/dL (7-20); CALCIUM 8.2 mg/dL (8.4-10.2); CARBON DIOXIDE 20 mmol/L (22-30); CHLORIDE 102 mmol/L (98-107); GLUCOSE 121 mg/dL (75-110); LIPASE 150.8 U/L (23-300); POTASSIUM 5.3 mmol/L (3.6-5.0); SODIUM 138.8 mmol/L (137-145)
[2018-11-04] MEDS ORDERED: SODIUM BICARBONATE 8.4% INJ 50 MEQ/50 ML DISP.SYRIN IV ONE (04:11)
[2018-11-04 05:16] VITALS: BP 137/68
== END 2018-11-04 05:15 | disposition home or self-care (01) ==
LOC: ER 00:46
DX: R10.9 Unspecified abdominal pain (principal); R10.817 Generalized abdominal tenderness; R11.2 Nausea with vomiting, unspecified; R19.7 Diarrhea, unspecified; I12.0 Hypertensive chronic kidney disease with stage 5 chronic kidney disease or end stage renal disease; N18.6 End stage renal disease; E11.22 Type 2 diabetes mellitus with diabetic chronic kidney disease; Z99.2 Dependence on renal dialysis; E11.51 Type 2 diabetes mellitus with diabetic peripheral angiopathy without gangrene; J45.909 Unspecified asthma, uncomplicated; E87.5 Hyperkalemia; E87.2 Acidosis; Z90.49 Acquired absence of other specified parts of digestive tract
CPT/HCPCS: 99284; 96374; 96375; 36415; 83690; 85025; 80053; J3010; J3490; J2405

== ENCOUNTER 2018-12-14 11:41 | Inpatient (IN) | payer MEDICARE, MEDICAID ==
[2018-12-14] MEDS ORDERED: ONDANSETRON HCL INJ/PF 4 MG/2 ML SDV IV ONE (12:26)
--- NOTE | 2018-12-14 12:30 | ER Document Report ---
ED Medical Screen (RME) - General Chief Complaint: Abdominal Pain Stated Complaint: VOMITING/DIARRHEA Time Seen by Provider: 12/14/18 12:19 Mode of Arrival: Medic Information source: Patient TRAVEL OUTSIDE OF THE [place] IN LAST 30 DAYS: No - HPI Patient complains to provider of: DIARRHEA, ABDO PAIN Notes: 12/14/18 12:27 Patient arrives via EMS with complaints of abdominal pain and diarrhea. The patient is a dialysis patient. She is due for dialysis today. She has been having diarrhea for the last 3 months. No recent travel, no known sick contacts. Exam Patient in no distress, nontoxic-appearing. Patient with poor hygiene smells of stool. Mild generalized abdominal tenderness to palpation. Plan CBC, CMP, lipase, stool cultures, C. difficile, CT abdomen pelvis. An initial examination was made on the patient as part of the triage process, and it was determined a more comprehensive evaluation was necessary. Initial labs were ordered and patient was transferred to another provider in the ED who assumed care and finished evaluation and plan. - Related Data Allergies/Adverse Reactions: No Known Allergies Allergy (Verified 10/23/18 07:11) Past Medical History - Social History Chew tobacco use (# tins/day): No Frequency of alcohol use: None Drug Abuse: None - Past Medical History Cardiac Medical History: Reports: Hx Congestive Heart Failure, Hx Hypercholesterolemia, Hx Hypertension Denies: Hx Coronary Artery Disease, Hx Heart Attack Pulmonary Medical History: Reports: Hx Asthma Denies: Hx Bronchitis, Hx COPD, Hx Pneumonia Neurological Medical History: Denies: Hx Cerebrovascular Accident, Hx Seizures Endocrine Medical History: Reports: Hx Diabetes Mellitus Type 1, Hx Diabetes Mellitus Type 2 Renal/ Medical History: Reports: Hx End Stage Renal Disease, Hx Hemodialysis, Hx Peritoneal Dialysis Musculoskeltal Medical History: Denies Hx Arthritis Past Surgical History: Reports: Hx Cholecystectomy, Hx Orthopedic Surgery - Right BKA, Hx Vascular Surgery - fistula placement, Other - Amputation right lower extremity - Immunizations Hx Diphtheria, Pertussis, Tetanus Vaccination: Yes History of Influenza Vaccine for 05/2017 - 10/2017 Season: Yes Influenza Administration Date for 05/2017 - 10/2017 Season: 04/16/17 Physical Exam - Vital signs Vitals: Temp Pulse Resp BP Pulse Ox 97.9 F 84 20 127/67 H 96 12/14/18 11:55 12/14/18 11:55 12/14/18 11:55 12/14/18 11:55 12/14/18 11:55 Course - Vital Signs Vital signs: Temp Pulse Resp BP Pulse Ox 97.9 F 84 20 127/67 H 96 12/14/18 11:55 12/14/18 11:55 12/14/18 11:55 12/14/18 11:55 12/14/18 11:55
[2018-12-14 13:22] LABS: ABSOLUTE BASOPHILS # (AUTO) 0.1 10^3/uL (0.0-0.2); ABSOLUTE EOSINOPHILS # (AUTO) 0.1 10^3/uL (0.0-0.6); ABSOLUTE LYMPHOCYTES (AUTO) 0.9 10^3/uL (0.5-4.7); ABSOLUTE MONOCYTES (AUTO) 0.7 10^3/uL (0.1-1.4); ABSOLUTE NEUT (AUTO) 7.2 10^3/uL (1.7-8.2); BASOPHILS % (AUTO) 0.6 % (0-2); EOSINOPHILS % (AUTO) 1.2 % (0-6); HEMATOCRIT 32.6 % (36.0-47.0); HEMOGLOBIN 10.6 g/dL (12.0-15.5); LYMPHOCYTES % (AUTO) 9.9 % (13-45); MEAN CORPUSCULAR HEMOGLOBIN 31.5 pg (27.0-33.4); MEAN CORPUSCULAR HGB CONC 32.6 g/dL (32.0-36.0); MEAN CORPUSCULAR VOLUME 97 fl (80-97); MONOCYTES % (AUTO) 8.2 % (3-13); PLATELET COUNT 159 10^3/uL (150-450); RED BLOOD COUNT 3.37 10^6/uL (3.72-5.28); RED CELL DISTRIBUTION WIDTH 15.2 % (11.5-14.0); SEGMENTED NEUTROPHILS % (AUTO) 80.1 % (42-78); TOTAL CELLS COUNTED % (AUTO) 100 %
[2018-12-14 13:43] LABS: ALANINE AMINOTRANSFERASE 26 U/L (9-52); ALBUMIN 4.2 g/dL (3.5-5.0); ALKALINE PHOSPHATASE 247 U/L (38-126); ASPARTATE AMINO TRANSFERASE 34 U/L (14-36); BILIRUBIN,DIRECT 1.6 mg/dL (0.0-0.4); BILIRUBIN,TOTAL 1.8 mg/dL (0.2-1.3); BLOOD UREA NITROGEN 67 mg/dL (7-20); CALCIUM 8.5 mg/dL (8.4-10.2); CARBON DIOXIDE 25 mmol/L (22-30); GLUCOSE 111 mg/dL (75-110); LIPASE 192.4 U/L (23-300); POTASSIUM 5.1 mmol/L (3.6-5.0); TOTAL PROTEIN 8.5 g/dL (6.3-8.2)
[2018-12-14 13:51] LABS: ANION GAP 19 (5-19); CHLORIDE 101 mmol/L (98-107); SODIUM 144.5 mmol/L (137-145)
--- NOTE | 2018-12-14 18:02 | ER Document Report ---
ED General - General Chief Complaint: Abdominal Pain Stated Complaint: VOMITING/DIARRHEA Time Seen by Provider: 12/14/18 12:19 Mode of Arrival: Medic Notes: Patient is a 48-year-old female with history of end-stage renal disease on dialysis that presents to the emergency department for chief complaint of abdominal pain, nausea, vomiting and diarrhea. Patient reports she is been having some the symptoms over the past few months, but her abdomen pain seemingly got worse today so she decided come the department. She states she is continued to have watery diarrhea, to the point where she is unable to get to dialysis today. She states the pain is mainly in her epigastric region right upper quadrant. She states prior to 3 months ago, she has not really had this pain. She denies any fevers, chills, night sweats, but has had several episodes of nausea vomiting, currently rates her pain as 9 out of 10, and describes it as an ache. Past Medical History: End-stage renal disease on dialysis, hypertension, hype rlipidemia, diabetes Past Surgical History: Dialysis fistula, right below the knee amputation Social History: Denies current tobacco, alcohol or drug use. Family History: Reviewed and noncontributory for presenting illness Allergies: Reviewed, see documented allergy list. REVIEW OF SYSTEMS: Other than noted above, the 12 point review of systems was reviewed with the patient and were negative, all pertinent findings are included in the HPI. PHYSICAL EXAMINATION: Vital signs reviewed, nursing noted reviewed. GENERAL: Patient appears uncomfortable on exam, but in no immediate distress. HEAD: Atraumatic, normocephalic. EYES: Eyes appear normal, extraocular movements intact, sclera anicteric, conjunctiva are normal. ENT: nares patent, oropharynx clear without exudates. Moist mucous membranes. NECK: Normal range of motion, supple without lymphadenopathy LUNGS: Breath sounds clear to auscultation bilaterally and equal. No wheezes rales or rhonchi. HEART: Regular rate and rhythm without murmurs ABDOMEN: Soft, tenderness to palpation in the right upper quadrant and epigastric region of the abdomen, normoactive bowel sounds. No rebound, guarding, or rigidity. No masses appreciated. EXTREMITIES: Right below-knee amputation, pulses intact distally bilaterally, otherwise range of motion is good, nontender to palpate NEUROLOGICAL: No focal neurological deficits. Moves all extremities spontaneously Motor and sensory grossly intact on exam. PSYCH: Normal mood, normal affect. SKIN: Warm, Dry, normal turgor, patient has innumerable calcific lesions to the skin, that have been present for a long time and chronic for the patient. TRAVEL OUTSIDE OF THE [place] IN LAST 30 DAYS: No - Related Data Allergies/Adverse Reactions: No Known Allergies Allergy (Verified 10/23/18 07:11) Past Medical History - General Information source: Patient - Social History Smoking Status: Unknown if Ever Smoked Chew tobacco use (# tins/day): No Frequency of alcohol use: None Drug Abuse: None Family History: CAD, DM, Hypertension, Reviewed & Not Pertinent Patient has suicidal ideation: No Patient has homicidal ideation: No - Past Medical History Cardiac Medical History: Reports: Hx Congestive Heart Failure, Hx Hypercholest erolemia, Hx Hypertension Denies: Hx Coronary Artery Disease, Hx Heart Attack Pulmonary Medical History: Reports: Hx Asthma Denies: Hx Bronchitis, Hx COPD, Hx Pneumonia Neurological Medical History: Denies: Hx Cerebrovascular Accident, Hx Seizures Endocrine Medical History: Reports: Hx Diabetes Mellitus Type 1, Hx Diabetes Mellitus Type 2 Renal/ Medical History: Reports: Hx End Stage Renal Disease, Hx Hemodialysis, Hx Peritoneal Dialysis Musculoskeletal Medical History: Denies Hx Arthritis Past Surgical History: Reports: Hx Orthopedic Surgery - Right BKA, Hx Vascular Surgery - fistula placement, Other - Amputation right lower extremity - Immunizations Hx Diphtheria, Pertussis, Tetanus Vaccination: Yes Physical Exam - Vital signs Vitals: Temp Pulse Resp BP Pulse Ox 97.9 F 84 20 127/67 H 96 12/14/18 11:55 12/14/18 11:55 12/14/18 11:55 12/14/18 11:55 12/14/18 11:55 Course - Re-evaluation Re-evalutation: Patient seen and examined vital signs reviewed. Laboratory data and imaging were ordered as appropriate for the patient's presenting symptoms and complaint, with consideration of any critical or life threatening conditions that may be associated with their obtained history and exam as noted above. Patient was treated with IV Zofran, IM Bentyl, and was given a small dose of IV fentanyl. Fluids were withheld as the patient is on dialysis. Results were reviewed when available and demonstrated slightly elevated bilirubin, alk phos is elevated but this appears to be chronic for this patient, she had no leukocytosis, CT of the abdomen and pelvis demonstrated possible mild thickness of the gallbladder, ultrasound was obtained afterwards, demonstrated some mild pericholecystic fluid, gallbladder wall thickening, and a common bile duct just over 6 mm. I did discuss this case with the general surgeon, Dr. Rivera, who came to see the patient, and recommended getting HIDA scan in the morning, and possible surgery tomorrow depending on the results. The patient was re-evaluated and was stable, still complaining of some pain, she was asking to eat, but I told her that she needs to be n.p.o. after midnight for possible surgery tomorrow. I did discuss this case with the field coil winder on- call, who states she will see her in the morning, and possible dialysis tomorrow, particular she is due to have surgery. Evaluation was most consistent with right upper quadrant abdominal pain, nausea, vomiting diarrhea, possible chronic cholecystitis. Results were discussed with the patient at this point after careful considera tion I feel that that patient should be admitted to the hospital. This was discussed with the patient that it is in the best interest for their care to be admitted for further evaluation and management. Patient agreed with this plan of care. A call was placed to the admitted physician, Dr. Pierce who graciously accepted the patient onto their service. *Note is created using voice recognition software and may contain spelling, syntax or grammatical errors. Laboratory 12/14/18 12/14/18 13:18 13:18 WBC 9.0 RBC 3.37 L Hgb 10.6 L Hct 32.6 L MCV 97 MCH 31.5 MCHC 32.6 RDW 15.2 H Plt Count 159 Seg Neutrophils % 80.1 H Lymphocytes % 9.9 L Monocytes % 8.2 Eosinophils % 1.2 Basophils % 0.6 Absolute Neutrophils 7.2 Absolute Lymphocytes 0.9 Absolute Monocytes 0.7 Absolute Eosinophils 0.1 Absolute Basophils 0.1 Sodium 144.5 Potassium 5.1 H Chloride 101 Carbon Dioxide 25 Anion Gap 19 BUN 67 H Creatinine 9.54 H Est GFR ( Amer) 5 L Est GFR (Non-Af Amer) 4 L Glucose 111 H Calcium 8.5 Total Bilirubin 1.8 H Direct Bilirubin 1.6 H Neonat Total Bilirubin Not Reportable Neonat Direct Bilirubin Not Reportable Neonat Indirect Bili Not Reportable AST 34 ALT 26 Alkaline Phosphatase 247 H Total Protein 8.5 H Albumin 4.2 Lipase 192.4 Abdomen/Pelvis CT 12/14/18 18:03 IMPRESSION: 1. Relatively chronic changes to include cardiomegaly and mild ascites with hepatosplenomegaly. Detailed as above. 2. Gallbladder is slightly thick-walled but this may be of no clinical si gnificance depending on clinical presentation (can be seen with liver disease and ascites in the absence of inflammatory process). If warranted, consider ultrasound. 3. Pronounced atherosclerosis. Abdomen Ultrasound 12/14/18 18:38 IMPRESSION: Coarsened echotexture to the liver suggesting cirrhotic change. No gallstones. The gallbladder wall is mildly thickened and there is a trace of pericholecystic fluid. However, there is also a small volume of ascites. The patient had pain with palpation over the right upper quadrant. Atrophic appearance to the right kidney copyright 2010 [employer]- All Rights Reserved - Vital Signs Vital signs: Temp Pulse Resp BP Pulse Ox 97.9 F 84 20 127/67 H 96 12/14/18 11:55 12/14/18 11:55 12/14/18 11:55 12/14/18 11:55 12/14/18 11:55 - Laboratory Result Diagrams: 12/14/18 13:18 12/14/18 13:18 Laboratory results interpreted by me: 12/14/18 12/14/18 13:18 13:18 RBC 3.37 L Hgb 10.6 L Hct 32.6 L RDW 15.2 H Seg Neutrophils % 80.1 H Lymphocytes % 9.9 L Potassium 5.1 H BUN 67 H Creatinine 9.54 H Est GFR ( Amer) 5 L Est GFR (Non-Af Amer) 4 L Glucose 111 H Total Bilirubin 1.8 H Direct Bilirubin 1.6 H Alkaline Phosphatase 247 H Total Protein 8.5 H - EKG Interpretation by Me Additional EKG results interpreted by me: EKG demonstrates sinus rhythm with a ventricular rate of 81 bpm, left axis deviation, QTC 469 ms, T wave inversions in 1, aVL, V4, V5 and V6, this is compared with prior EKG from 10/18/2017, without significant change. Discharge - Discharge Clinical Impression: Nausea vomiting and diarrhea, Hyperbilirubinemia, ESRD (end stage renal disease) on dialysis Abdominal pain Qualifiers: Abdominal location: right upper quadrant Qualified Code(s): R10.11 - Right upper quadrant pain Condition: Stable Disposition: ADMITTED INPATIENT Admitting Provider: Stan (Hospitalist) Unit Admitted: Medical Floor
[2018-12-14] MEDS ORDERED: DICYCLOMINE HCL INJ 20 MG/2 ML AMPULE IM ONE (18:03)
--- NOTE | 2018-12-14 18:35 | RADIOLOGY REPORT (SQ) ---
EXAM DESCRIPTION: CT ABD/PELVIS NO ORAL OR IV COMPLETED DATE/TIME: 12/14/2018 6:22 pm REASON FOR STUDY: abdominal pain COMPARISON: 10/03/2017 TECHNIQUE: CT scan of the abdomen and pelvis performed without intravenous or oral contrast. Images reviewed with lung, soft tissue, and bone windows. Reconstructed coronal and sagittal MPR images revi ewed. All images stored on PACS. All CT scanners at this facility use dose modulation, iterative reconstruction, and/or weight based d osing when appropriate to reduce radiation dose to as low as reasonably achievable (ALARA). [facility]: Dose Right [facility]: CareDose [facility]: Dose Right [facility]: Teradose 4D [facility]: Mevio RADIATION DOSE: mGy. LIMITATIONS: None. FINDINGS: LOWER CHEST: Cardiomegaly. Mild motion artifact. NON-CONTRASTED LIVER, SPLEEN, ADRENALS: No focal solid liver lesions detected. 24 cm craniocaudal, e nlarged. Mild perihepatic fluid. Probable loculated fluid in the falciform ligament. This is chron ic. Splenomegaly, 15 cm craniocaudal. No adrenal mass detected. PANCREAS: No masses. No peripancreatic inflammatory changes. GALLBLADDER: Possibly thick-walled, no calcified stones. RIGHT KIDNEY AND URETER: Heavy arterial calcification. No obstruction or mass. LEFT KIDNEY AND URETER: Similar findings to the right kidney. AORTA AND RETROPERITONEUM: Dense aortic calcification and calcified branch arteries. No aneurysm det ected. No retroperitoneal mass. BOWEL AND PERITONEAL CAVITY: No evidence of mechanical bowel obstruction. Mild ascites. No abnormal gas collections. APPENDIX: Not visualized. PELVIS, BLADDER, AND ABDOMINAL WALL:Mild free fluid. No pelvic mass identified. Regional heavy jamar rial calcification. BONES: No significant findings. OTHER: No other significant finding. IMPRESSION: 1. Relatively chronic changes to include cardiomegaly and mild ascites with hepatosplenomegaly. Deta iled as above. 2. Gallbladder is slightly thick-walled but this may be of no clinical significance depending on clin ical presentation (can be seen with liver disease and ascites in the absence of inflammatory process) . If warranted, consider ultrasound. 3. Pronounced atherosclerosis. TECHNICAL DOCUMENTATION: JOB ID: [id number] Quality ID # [id number]: Final reports with documentation of one or more dose reduction techniques (e.g., Au tomated exposure control, adjustment of the mA and/or kV according to patient size, use of iterative reconstruction technique) 2010 [employer]- All Rights Reserved Reading location - IP/workstation name: [email or web address]
--- NOTE | 2018-12-14 22:04 | RADIOLOGY REPORT (SQ) ---
EXAM DESCRIPTION: US ABDOMEN LIMITED COMPLETED DATE/TME: 12/14/2018 18:38 CLINICAL HISTORY: 48 years, Female, abdominal pain COMPARISON: CT from today's date TECHNIQUE: Limited right upper quadrant ultrasound LIMITATIONS: None. FINDINGS: Coarsened echotexture to the liver suggesting cirrhotic change. No gallstones. The patient had pain with palpation over the right upper quadrant. The gallbladder wall is mildly thickened at 4 mm. Trace of pericholecystic fluid. Simple appearing hepatic cyst noted measuring 6 x 5 cm. CBD measures 6.2 mm. Visualized pancreas, abdominal aorta, inferior vena cava, are unremarkable. Atrophic appearance to the right kidney. Small amount of ascites. IMPRESSION: Coarsened echotexture to the liver suggesting cirrhotic change. No gallstones. The gallbladder wall is mildly thickened and there is a trace of pericholecystic fluid. However, there is also a small volume of ascites. The patient had pain with palpation over the right upper quadrant. Atrophic appearance to the right kidney copyright 2010 [employer]- All Rights Reserved
[2018-12-14] MEDS ORDERED: FENTANYL CITRATE INJ/PF 100 MCG/2 ML AMPUL IV ONE (22:11)
--- NOTE | 2018-12-14 22:50 | PDOC CONSULTATION ---
Consultation Consult Date: 12/14/18 Consult reason:: r/o cholecystitis History of Present Illness Admission Date/PCP: 12/14/18 22:17 History of Present Illness: MICKIE SHARP is a 48 year old female with history of end-stage renal disease on dialysis that presents to the emergency department for chief complaint of abdominal pain, nausea, vomiting and diarrhea. Patient reports she is been having some the symptoms over the past few months, but her abdomen pain seemingly got worse today so she decided come the department. She states she is continued to have watery diarrhea she was not able to go to dialysis today and came to the er for her epigastric pain denies fatty food intolerance. denies radiation of the pain ct scan done in er and ultrasound done in er both neg for gallstones, and question of mild gallbladder wall thickening tender in epigastrium during ultz. Past Medical History Cardiac Medical History: Reports: Congestive Heart Failure, Hyperlipidema, Hype rtension Denies: Coronary Artery Disease, Myocardial Infarction Pulmonary Medical History: Reports: Asthma Denies: Bronchitis, Chronic Obstructive Pulmonary Disease (COPD), Pneumonia Neurological Medical History: Denies: Seizures Endocrine Medical History: Reports: Diabetes Mellitus Type 1, Diabetes Mellitus Type 2 Renal/ Medical History: Reports: End Stage Renal Disease Musculoskeltal Medical History: Denies: Arthritis Hematology: Reports: Anemia Past Surgical History Past Surgical History: Reports: Orthopedic Surgery - Right BKA, Vascular Surgery - fistula placement, Other - Amputation right lower extremity Social History Smoking Status: Unknown if Ever Smoked Frequency of Alcohol Use: None Hx Recreational Drug Use: No Drugs: None Hx Prescription Drug Abuse: No Family History Family History: CAD, DM, Hypertension, Reviewed & Not Pertinent Parental Family History Reviewed: No Children Family History Reviewed: NA Sibling(s) Family History Reviewed.: NA Medication/Allergy Home Medications: Ondansetron [Zofran Odt 4 mg Tablet] 1 - 2 tab PO Q4H PRN #15 tab.rapdis 02/19/17 Oxycodone HCl/Acetaminophen [Percocet 5-325 mg Tablet] 1 - 2 tab PO Q4H PRN #15 tablet 02/19/17 Albuterol Sulfate [Proair HFA] 1 puff IH Q4HP PRN 08/26/17 Amlodipine Besylate [Norvasc 5 mg Tablet] 5 mg PO DAILY 08/26/17 Aspirin [Aspirin 81 mg Chewable Tablet] 81 mg PO DAILY 08/26/17 Carvedilol [Coreg 25 mg Tablet] 25 mg PO Q12 08/26/17 Cyclobenzaprine HCl [Flexeril 5 mg Tablet] 5 mg PO TID 08/26/17 Diazepam [Valium 5 mg Tablet] 5 mg PO BID 08/26/17 Folic Acid/Vitamin B Comp W-C [Renavit Tablet] 0.8 mg PO DAILY 08/26/17 Gabapentin [Neurontin 100 mg Capsule] 100 mg PO Q8 08/26/17 Medroxyprogesterone Acet [Provera 10 mg Tablet] 10 mg PO DAILY 08/26/17 Ondansetron HCl [Zofran 4 mg Tablet] 4 mg PO BIDP PRN 08/26/17 Sevelamer HCl [Renagel] 2,400 mg PO MEALS 08/26/17 Sevelamer HCl [Renagel] 800 mg PO ASDIR PRN 08/26/17 Hydromorphone HCl [Dilaudid 2 mg Tablet] 1 mg PO Q8 PRN 3 Days #7 tablet 8 Neomy Sulf/Polymyx B Sulf/Hc [Cortisporin Ear Suspension] 4 drop OT QID #1 bottle 09/12/17 Famotidine [Pepcid 20 mg Tablet] 20 mg PO BID #12 tablet 10/08/17 Ondansetron [Zofran Odt 4 mg Tablet] 1 - 2 tab PO Q4H PRN #15 tab.rapdis 10/08/17 Hydroxyzine HCl 50 mg PO Q6HP PRN #30 tablet 10/13/17 Permethrin [Elimite] 60 gm TP ONCE PRN #1 cream.gm. 10/13/17 Ondansetron [Zofran Odt 4 mg Tablet] 1 tab PO Q8H PRN #15 tab.rapdis 11/04/18 Tramadol HCl [Ultram] 50 mg PO Q8H PRN #8 tablet 11/04/18 Allergies/Adverse Reactions: No Known Allergies Allergy (Verified 10/23/18 07:11) Review of Systems Constitutional: PRESENT: fatigue, weakness Eyes: ABSENT: visual disturbances Ears: ABSENT: hearing changes Breasts: PRESENT: other - no masses Cardiovascular: ABSENT: chest pain, dyspnea on exertion, edema, orthropnea, palpitations Respiratory: ABSENT: cough, hemoptysis Gastrointestinal: PRESENT: abdominal pain, diarrhea, nausea, vomiting Genitourinary: ABSENT: dysuria, hematuria Integumentary: PRESENT: lesions, pruritus, rash Neurological: ABSENT: abnormal gait, abnormal speech, confusion, dizziness, focal weakness, syncope Psychiatric: ABSENT: anxiety, depression, homidical ideation, suicidal ideation Endocrine: ABSENT: cold intolerance, heat intolerance, polydipsia, polyuria Hematologic/Lymphatic: ABSENT: easy bleeding, easy bruising Allergic/Immunologic: PRESENT: as per HPI Physical Exam Vital Signs: Temp Pulse Resp BP Pulse Ox 97.9 F 84 20 127/67 H 96 12/14/18 11:55 12/14/18 11:55 12/14/18 11:55 12/14/18 11:55 12/14/18 11:55 Intake & Output 12/13/18 12/14/18 12/15/18 06:59 06:59 06:59 Weight 90.2 kg General appearance: PRESENT: mild distress, obese Head exam: PRESENT: atraumatic Eye exam: PRESENT: conjunctiva pink, EOMI Ear exam: PRESENT: normal external ear exam Mouth exam: PRESENT: moist Teeth exam: PRESENT: poor dentation Neck exam: PRESENT: full ROM Respiratory exam: PRESENT: clear to auscultation ezequiel Cardiovascular exam: PRESENT: RRR Pulses: PRESENT: normal radial pulses, normal femoral pulses Musculoskeletal exam: PRESENT: other - 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 Neurological exam: PRESENT: alert, awake, oriented to person, oriented to place Psychiatric exam: PRESENT: anxious Skin exam: PRESENT: rash, other - 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 Results Laboratory Results: 12/14/18 13:18 12/14/18 13:18 12/14/18 12/14/18 13:18 13:18 WBC 9.0 RBC 3.37 L Hgb 10.6 L Hct 32.6 L MCV 97 MCH 31.5 MCHC 32.6 RDW 15.2 H Plt Count 159 Seg Neutrophils % 80.1 H Lymphocytes % 9.9 L Monocytes % 8.2 Eosinophils % 1.2 Basophils % 0.6 Absolute Neutrophils 7.2 Absolute Lymphocytes 0.9 Absolute Monocytes 0.7 Absolute Eosinophils 0.1 Absolute Basophils 0.1 Sodium 144.5 Potassium 5.1 H Chloride 101 Carbon Dioxide 25 Anion Gap 19 BUN 67 H Creatinine 9.54 H Est GFR ( Amer) 5 L Est GFR (Non-Af Amer) 4 L Glucose 111 H Calcium 8.5 Total Bilirubin 1.8 H AST 34 ALT 26 Alkaline Phosphatase 247 H Total Protein 8.5 H Albumin 4.2 Lipase 192.4 Impressions: Abdomen/Pelvis CT 12/14/18 18:03 IMPRESSION: 1. Relatively chronic changes to include cardiomegaly and mild ascites with hepatosplenomegaly. Detailed as above. 2. Gallbladder is slightly thick-walled but this may be of no clinical significance depending on clinical presentation (can be seen with liver disease and ascites in the absence of inflammatory process). If warranted, consider ultrasound. 3. Pronounced atherosclerosis. Abdomen Ultrasound 12/14/18 18:38 IMPRESSION: Coarsened echotexture to the liver suggesting cirrhotic change. No gallstones. The gallbladder wall is mildly thickened and there is a trace of pericholecystic fluid. However, there is also a small volume of ascites. The patient had pain with palpation over the right upper quadrant. Atrophic appearance to the right kidney copyright 2011 [employer]- All Rights Reserved Assessment & Plan - Diagnosis (1) Abdominal pain Qualifiers: Abdominal location: right upper quadrant Qualified Code(s): R10.11 - Right upper quadrant pain (2) Diabetes Qualifiers: Diabetes mellitus type: type 1 - Plan Summary Plan Summary: impression- 1.abdominal pain unclear etiol pt with diarrhea, nausea, vomiting' ct and ultz equivocal for cholecystitis min gallbladder wall thickening, no significant pericholecystic fluid 2. hyperkalemia 3.ESRD recommend, HIDA scan pt will be admitted to hospital for dialysis and obtain hida scan in am surgery will follow.
--- NOTE | 2018-12-14 22:58 | EKG REPORT ---
SEVERITY:- ABNORMAL ECG - SINUS RHYTHM LEFT AXIS DEVIATION ABNORMAL T, CONSIDER ISCHEMIA, LATERAL LEADS : Confirmed by: Merna Ontiveros 14-Dec-2018 22:57:29
[2018-12-15] MEDS ORDERED: MAGNESIUM HYDROXIDE SUSP 30 ML UDCUP PO PRN (01:06)
[2018-12-15] MEDS ORDERED: GLUCAGON,HUMAN RECOMB 1 MG INJ SUBCUT PRN (01:06)
[2018-12-15] MEDS ORDERED: DEXTROSE 50%-WATER 25 GM/50 ML DISP.SYRIN IV PRN ×2 (01:06)
[2018-12-15] MEDS ORDERED: ONDANSETRON HCL INJ/PF 4 MG/2 ML SDV IV PRN (01:06)
[2018-12-15] MEDS ORDERED: DEXTROSE 40% GEL 15 GM TUBE PO PRN ×2 (01:06)
[2018-12-15] MEDS ORDERED: MAG HYDROX/AL HYDROX/SIMETH SUSP 30 ML UDCUP PO PRN (01:06)
[2018-12-15] MEDS ORDERED: RINGERS SOLUTION,LACTATED 1,000 ML IV PRN (01:06)
[2018-12-15] MEDS ORDERED: MORPHINE SULFATE 10 MG/ML INJ IV PRN (02:52)
--- NOTE | 2018-12-15 04:27 | PDOC H&P ---
History of Present Illness Admission Date/PCP: 12/14/18 22:17 Patient complains of: Abdominal pain History of Present Illness: MICKIE SHARP is a 48 year old female who presented to the emergency room with a 3-month history of abdominal pain. Patient admits to increasingly more numerous and more severe episodes of right upper quadrant abdominal pain lasting for several hours and being of moderate to severe intensity accompanied by mild to moderate dyspepsia and moderate to severe loose stools/diarrhea without evidence of melena or hematochezia. She has not identified any aggravating or ameliorating factors for her abdominal pain and diarrhea. She denies similar episodes prior to the onset 3 months ago. The patient's most recent episode caused her to miss her dialysis appointment on the day of admission. That she presented to the emergency room where she was found to have an elevated alkaline phosphatase with abdominal ultrasound and CT scan scan findings consistent with a thickened gallbladder wall but with no evidence of cholelithiasis. A surgical consultation with Dr. Rivera was obtained by the emergency room physician and he feels that the patient should be admitted and have a HIDA scan performed to determine the need for surgery. Dr. Yang was also contacted by the emergency room physician and is willing to see the patient tomorrow and perform inpatient dialysis as necessary. Patient will therefore be admitted to the hospital for further evaluation and treatment. Past Medical History Cardiac Medical History: Reports: Congestive Heart Failure, Hyperlipidema, Hypertension Denies: Coronary Artery Disease, Myocardial Infarction Pulmonary Medical History: Reports: Asthma Denies: Bronchitis, Chronic Obstructive Pulmonary Disease (COPD), Pneumonia Neurological Medical History: Denies: Seizures Endocrine Medical History: Reports: Diabetes Mellitus Type 1, Obesity Denies: Diabetes Mellitus Type 2, Hyperthyroidism, Hypothyroidism Renal/ Medical History: Reports: Chronic Kidney Disease, End Stage Renal Disease - On on hemodialysis 3 days/week Denies: Nephrolithiasis Malignancy Medical History: Reports: None GI Medical History: Denies: Cirrhosis, Hepatitis Musculoskeltal Medical History: Denies: Arthritis, Gout Skin Medical History: Denies: Eczema, Psoriasis Psychiatric Medical History: Reports: Other - Diagnosed once with scabies, but the rash does not go away. Denies: Alcohol Dependency, Substance Abuse, Tobacco Dependency Traumatic Medical History: Reports: None Hematology: Reports: Anemia - Chronic anemia of end-stage renal disease Denies: Bleeding Tendencies Infectious Medical History: Reports: None Past Surgical History Past Surgical History: Reports: Orthopedic Surgery - Right BKA, Vascular Surgery - fistula placement for hemodialysis Social History Information Source: Patient Lives with: Spouse/Significant other Smoking Status: Former Smoker Frequency of Alcohol Use: None Hx Recreational Drug Use: No Drugs: None Hx Prescription Drug Abuse: No - Advance Directive Resuscitation Status: Full Code Surrogate healthcare decision maker:: Damon Longo Family History Family History: CAD, DM, Hypertension Parental Family History Reviewed: Yes Children Family History Reviewed: No Sibling(s) Family History Reviewed.: Yes Medication/Allergy Home Medications: Ondansetron [Zofran Odt 4 mg Tablet] 1 - 2 tab PO Q4H PRN #15 tab.rapdis 02/19/17 Oxycodone HCl/Acetaminophen [Percocet 5-325 mg Tablet] 1 - 2 tab PO Q4H PRN #15 tablet 02/19/17 Albuterol Sulfate [Proair HFA] 1 puff IH Q4HP PRN 08/26/17 Amlodipine Besylate [Norvasc 5 mg Tablet] 5 mg PO DAILY 08/26/17 Aspirin [Aspirin 81 mg Chewable Tablet] 81 mg PO DAILY 08/26/17 Carvedilol [Coreg 25 mg Tablet] 25 mg PO Q12 08/26/17 Cyclobenzaprine HCl [Flexeril 5 mg Tablet] 5 mg PO TID 08/26/17 Diazepam [Valium 5 mg Tablet] 5 mg PO BID 08/26/17 Folic Acid/Vitamin B Comp W-C [Renavit Tablet] 0.8 mg PO DAILY 08/26/17 Gabapentin [Neurontin 100 mg Capsule] 100 mg PO Q8 08/26/17 Medroxyprogesterone Acet [Provera 10 mg Tablet] 10 mg PO DAILY 08/26/17 Ondansetron HCl [Zofran 4 mg Tablet] 4 mg PO BIDP PRN 08/26/17 Sevelamer HCl [Renagel] 2,400 mg PO MEALS 08/26/17 Sevelamer HCl [Renagel] 800 mg PO ASDIR PRN 08/26/17 Hydromorphone HCl [Dilaudid 2 mg Tablet] 1 mg PO Q8 PRN 3 Days #7 tablet 08/31/17 Neomy Sulf/Polymyx B Sulf/Hc [Cortisporin Ear Suspension] 4 drop OT QID #1 bottle 09/12/17 Famotidine [Pepcid 20 mg Tablet] 20 mg PO BID #12 tablet 10/08/17 Ondansetron [Zofran Odt 4 mg Tablet] 1 - 2 tab PO Q4H PRN #15 tab.rapdis 10/08/17 Hydroxyzine HCl 50 mg PO Q6HP PRN #30 tablet 10/13/17 Permethrin [Elimite] 60 gm TP ONCE PRN #1 cream.gm. 10/13/17 Ondansetron [Zofran Odt 4 mg Tablet] 1 tab PO Q8H PRN #15 tab.rapdis 11/04/18 Tramadol HCl [Ultram] 50 mg PO Q8H PRN #8 tablet 11/04/18 Allergies/Adverse Reactions: No Known Allergies Allergy (Verified 10/23/18 07:11) Review of Systems Constitutional: ABSENT: anorexia, chills, fever(s) Eyes: ABSENT: visual disturbances, other - Eye pain Ears: ABSENT: hearing changes, other - Ear pain Nose, Mouth, and Throat: ABSENT: mouth pain, sore throat Cardiovascular: ABSENT: chest pain, palpitations Respiratory: ABSENT: cough, dyspnea Gastrointestinal: PRESENT: as per HPI, abdominal pain, diarrhea. ABSENT: constipation, hematochezia, melena, nausea, vomiting Genitourinary: PRESENT: other - End-stage renal disease on hemodialysis 3 times weekly. ABSENT: dysuria, hematuria Musculoskeletal: ABSENT: back pain, joint swelling, muscle weakness Integumentary: PRESENT: rash - Chronic rash over all extremities and torso. ABSENT: pruritus Neurological: ABSENT: confusion, convulsions, focal weakness, memory loss, syncope Psychiatric: ABSENT: anxiety, depression Endocrine: ABSENT: cold intolerance, heat intolerance Hematologic/Lymphatic: ABSENT: easy bleeding, easy bruising Physical Exam Vital Signs: Temp Pulse Resp BP Pulse Ox 97.9 F 84 20 127/67 H 96 12/14/18 11:55 12/14/18 11:55 12/14/18 11:55 12/14/18 11:55 12/14/18 11:55 Intake & Output 12/12/18 12/13/18 12/14/18 23:59 23:59 23:59 Weight 90.2 kg General appearance: PRESENT: no acute distress, cooperative, obese Head exam: PRESENT: atraumatic, normocephalic Eye exam: ABSENT: conjunctival injection, scleral icterus Ear exam: PRESENT: normal external ear exam. ABSENT: bleeding, drainage Mouth exam: PRESENT: dry mucosa, neck supple Neck exam: ABSENT: thyromegaly, tracheal deviation Respiratory exam: PRESENT: clear to auscultation ezequiel, symmetrical, unlabored Cardiovascular exam: PRESENT: RRR. ABSENT: clicks, gallop, rubs Pulses: PRESENT: normal radial pulses, normal dorsalis pedis pul Vascular exam: PRESENT: normal capillary refill. ABSENT: pallor GI/Abdominal exam: PRESENT: normal bowel sounds, soft, tenderness - Epigastric and right upper quadrant with moderate tenderness on deep palpation Rectal exam: PRESENT: deferred Extremities exam: PRESENT: other - Status post right BKA. ABSENT: joint swelling, pedal edema Musculoskeletal exam: ABSENT: deformity, dislocation, tenderness Neurological exam: PRESENT: alert, oriented to person, oriented to place, oriented to time, oriented to situation, CN II-XII grossly intact. ABSENT: motor sensory deficit Psychiatric exam: PRESENT: appropriate affect, normal mood Skin exam: PRESENT: dry, intact, rash - Chronic appearing papular rash with a generalized distribution on all extremities and the torso with a slightly scaly eczematous upper surface of the papules noted., warm. ABSENT: jaundice, urticaria Results Laboratory Results: 12/14/18 13:18 12/14/18 13:18 12/14/18 12/14/18 13:18 13:18 WBC 9.0 RBC 3.37 L Hgb 10.6 L Hct 32.6 L MCV 97 MCH 31.5 MCHC 32.6 RDW 15.2 H Plt Count 159 Seg Neutrophils % 80.1 H Lymphocytes % 9.9 L Monocytes % 8.2 Eosinophils % 1.2 Basophils % 0.6 Absolute Neutrophils 7.2 Absolute Lymphocytes 0.9 Absolute Monocytes 0.7 Absolute Eosinophils 0.1 Absolute Basophils 0.1 Sodium 144.5 Potassium 5.1 H Chloride 101 Carbon Dioxide 25 Anion Gap 19 BUN 67 H Creatinine 9.54 H Est GFR ( Amer) 5 L Est GFR (Non-Af Amer) 4 L Glucose 111 H Calcium 8.5 Total Bilirubin 1.8 H AST 34 ALT 26 Alkaline Phosphatase 247 H Total Protein 8.5 H Albumin 4.2 Lipase 192.4 Impressions: Abdomen/Pelvis CT 12/14/18 18:03 IMPRESSION: 1. Relatively chronic changes to include cardiomegaly and mild ascites with hepatosplenomegaly. Detailed as above. 2. Gallbladder is slightly thick-walled but this may be of no clinical significance depending on clinical presentation (can be seen with liver disease and ascites in the absence of inflammatory process). If warranted, consider ultrasound. 3. Pronounced atherosclerosis. Abdomen Ultrasound 12/14/18 18:38 IMPRESSION: Coarsened echotexture to the liver suggesting cirrhotic change. No gallstones. The gallbladder wall is mildly thickened and there is a trace of pericholecystic fluid. However, there is also a small volume of ascites. The patient had pain with palpation over the right upper quadrant. Atrophic appearance to the right kidney copyright 2011 [employer]- All Rights Reserved Assessment and Plan - Diagnosis (1) Abdominal pain Qualifiers: Abdominal location: right upper quadrant Qualified Code(s): R10.11 - Right upper quadrant pain Is this a current diagnosis for this admission?: Yes Plan: Patient requires further evaluation of her abdominal pain to include a HIDA scan to evaluate for gallbladder dysfunction. Daily CBC and metabolic profile studies will be obtained to follow her abdominal pain. Her pain will be treated with morphine sulfate 3 to 7.5 mg IV every 2 hours as needed on a sliding scale basis for pain. (2) Diabetes mellitus type 1 Qualifiers: Diabetes mellitus complication status: with unspecified complications Qualified Code(s): E10.8 - Type 1 diabetes mellitus with unspecified complications Is this a current diagnosis for this admission?: Yes Plan: Patient will be continued on her current diabetic regiment for initial therapy. Hemoglobin A1c will be obtained to evaluate the efficacy of her current therapy and appropriate changes will be made if required. (3) ESRD (end stage renal disease) Is this a current diagnosis for this admission?: Yes Plan: Patient will require inpatient dialysis tomorrow, as she missed her dialysis session today. Dr. Yang will be consulted for nephrology. (4) Hypertension Qualifiers: Hypertension type: unspecified Qualified Code(s): I10 - Essential (primary) hypertension Is this a current diagnosis for this admission?: Yes Plan: Patient be continued on her usual antihypertensive medical regimen. Her vital signs were monitored closely during her hospital course and changes will be made only as required. (5) Papular eczema Is this a current diagnosis for this admission?: Yes Plan: Patient has an extensive papular eczema and does not seem to have significant symptoms due to the problem. I would like to treat the probable symptomatic basis only. - Time Time Spent with patient: 25-34 minutes Medications reviewed and adjusted accordingly: Yes Anticipated discharge: Home - Inpatient Certification Based on my medical assessment, after consideration of the patient's comorbidities, presenting symptoms, or acuity I expect that the services needed warrant INPATIENT care.: Yes I certify that my determination is in accordance with my understanding of Medicare's requirements for reasonable and necessary INPATIENT services [42 CFR 412.3e].: Yes Medical Necessity: Significant Comorbidiites Make Outpatient Treatment Too R isky, Need Close Monitoring Due to Risk of Patient Decompensation, Need For IV Fluids, Need for Pain Control, Need for Surgery - Possible, Risk of Complication if Not Cared For in Hospital, Risk of Diagnosis Which Will Require Inpatient Eval/Care/Monitoring
[2018-12-15] MEDS: MORPHINE SULFATE 10 MG/ML INJ IV PRN ×3 (04:58→14:48)
[2018-12-15] MEDS: HEPARIN SOD (PORCINE) 5,000 UNIT/ML 1 ML SYRINGE SUBCUT SCH ×3 (04:59→22:49)
[2018-12-15] MEDS ORDERED: FAMOTIDINE INJ/PF 20 MG/2 ML SDV IV SCH (10:00)
[2018-12-15 10:13] LABS: ALANINE AMINOTRANSFERASE 21 U/L (9-52); ALBUMIN 4.1 g/dL (3.5-5.0); ALKALINE PHOSPHATASE 222 U/L (38-126); ASPARTATE AMINO TRANSFERASE 31 U/L (14-36); BILIRUBIN,DIRECT 1.4 mg/dL (0.0-0.4); BILIRUBIN,TOTAL 1.7 mg/dL (0.2-1.3); BLOOD UREA NITROGEN 77 mg/dL (7-20); CALCIUM 8.4 mg/dL (8.4-10.2); CARBON DIOXIDE 22 mmol/L (22-30); CHLORIDE 101 mmol/L (98-107); GLUCOSE 95 mg/dL (75-110); POTASSIUM 5.3 mmol/L (3.6-5.0); SODIUM 144.3 mmol/L (137-145); TOTAL PROTEIN 8.1 g/dL (6.3-8.2)
[2018-12-15 10:16] LABS: ANION GAP 21 (5-19)
--- NOTE | 2018-12-15 10:28 | PDOC CONSULTATION ---
Consultation Consult Date: 12/15/18 Attending physician:: DINA WEST Consult reason:: I was asked to see the patient to supervised dialysis in a patient who has ESRD and has missed dialysis yesterday with borderline hyperkalemia on presentation. History of Present Illness Admission Date/PCP: 12/14/18 22:17 History of Present Illness: MICKIE SHARP is a 48 year old female with history of ESRD on maintenance hemodialysis, hypertension, diabetes mellitus type 1, who presented to the emergency room yesterday because of progressively worsening right upper quadrant abdominal pain. She states that she is been experiencing this abdominal pain for 3 months but nothing has been done so far. She has seen her primary care physician for this. There is no history of melena no hematochezia. She also has nausea and vomiting. She denies any fever. In the emergency room she had a CT scan of the abdomen and abdominal ultrasound which showed gallbladder thickening. Surgery was consulted care of Dr. Rivera who recommended HIDA scan. This is scheduled to be done today. Patient has missed her dialysis yesterday because of above symptoms. Her last dialysis treatment was last Wednesday, 4 days ago. Currently she said she has slight shortness of breath but comfortable with oxygen with nasal cannula. Yesterday her potassium was 5.1, bicarbonate of 25 with BUN of 67 and creatinine of 9.54. Of note the patient just returned back to [place] about a month ago. She usually do her dialysis at [facility]. Today's labs showed creatinine of 10.67, BUN of 77 and potassium of 5.3 with bicarbonate of 22. Past Medical History Cardiac Medical History: Reports: CHF-Diastolic, Hyperlipidemia, Hypertension- primary Pulmonary Medical History: Reports: Asthma Endocrine Medical History: Reports: Diabetes Mellitus Type 1, Obesity Complications of Diabetes: Reports: None Renal/ Medical History: Reports: End Stage Renal Disease - On on hemodialysis 3 days/week Psychiatric Medical History: Reports: Other - Diagnosed once with scabies, but the rash does not go away. Hematology Medical History: Reports Anemia of Chronic Kidney Disease Past Surgical History Past Surgical History: Reports: Dialysis Access Surgery AVF, Orthopedic Surgery - Right BKA Social History Information Source: Patient, [facility] Records Lives with: Spouse/Significant other Smoking Status: Former Smoker Frequency of Alcohol Use: None Hx Recreational Drug Use: No Drugs: None Hx Prescription Drug Abuse: No - Advance Directive Resuscitation Status: Full Code Family History Family History: CAD, DM, Hypertension Parental Family History Reviewed: Yes Children Family History Reviewed: Yes Sibling(s) Family History Reviewed.: Yes Medication/Allergy Home Medications: Carvedilol [Coreg 25 mg Tablet] 25 mg PO Q12 12/15/18 Gabapentin [Neurontin 100 mg Capsule] 100 mg PO Q8 12/15/18 Hydromorphone HCl [Dilaudid 2 mg Tablet] 2 mg PO Q4HP PRN 12/15/18 Hydroxyzine HCl [Atarax 50 mg Tablet] 50 mg PO QIDP PRN 12/15/18 Allergies/Adverse Reactions: No Known Allergies Allergy (Verified 10/23/18 07:11) Review of Systems All systems: reviewed and no additional remarkable complaints except as stated Review of Systems: Constitutional: ABSENT: chills, fatigue, fever(s), headache(s), weight gain, weight loss Eyes: ABSENT: visual disturbances Ears: ABSENT: hearing changes Cardiovascular: ABSENT: chest pain, dyspnea on exertion, edema, orthropnea, palpitations Respiratory: ABSENT: cough, dyspnea, hemoptysis Gastrointestinal: ABSENT: constipation, hematemesis, hematochezia; admits abdominal pain, diarrhea nausea, and vomiting Genitourinary: ABSENT: dysuria, hematuria Musculoskeletal: ABSENT: joint swelling Integumentary: ABSENT: rash, wounds; admits pruritus and chronic skin lesions on her back and extremities Neurological: ABSENT: abnormal gait, abnormal speech, confusion, dizziness, focal weakness, numbness, syncope Psychiatric: ABSENT: anxiety, depression Endocrine: ABSENT: cold intolerance, heat intolerance, polydipsia, polyuria Hematologic/Lymphatic: ABSENT: easy bleeding, easy bruising, lymphadenopathy Physical Exam Vital Signs: Temp Pulse Resp BP Pulse Ox 98.0 F 81 18 128/73 H 94 12/15/18 08:00 12/15/18 08:00 12/15/18 08:00 12/15/18 08:00 12/15/18 08:00 Intake & Output 12/14/18 12/15/18 12/16/18 06:59 06:59 06:59 Weight 98.6 kg Exam: General appearance: No acute distress, cooperative, well-developed, well- nourished Head exam: PRESENT: atraumatic, normocephalic Eye exam: PRESENT: Conjunctiva slightly pale, EOMI, PERRLA. ABSENT: conjunctival injection, scleral icterus Mouth exam: PRESENT: moist, neck supple, tongue midline Neck exam: PRESENT: full ROM. ABSENT: carotid bruit, JVD, lymphadenopathy, thyromegaly Respiratory exam: PRESENT: Diminished breath clear to auscultation bilaterally. ABSENT: rales, rhonchi, stridor, wheezes Cardiovascular exam: PRESENT: RRR, +S1, +S2. ABSENT: systolic murmur Pulses: PRESENT: normal radial pulses, normal dorsalis pedis pulses GI/Abdominal exam: PRESENT: normal bowel sounds, soft. Positive diffuse t enderness however it is mostly severe on the right upper quadrant area of very mild palpation. ABSENT: guarding, mass Rectal exam: Deferred Extremities exam: PRESENT: full ROM. Right BKA ABSENT: calf tenderness, pedal edema Musculoskeletal: PRESENT: full ROM. ABSENT: deformity Neurological exam: PRESENT: alert, Awake, Oriented to person, Oriented to place, Oriented to time, reflexes normal, CN II-XII grossly intact. ABSENT: motor sensory deficit Psychiatric exam: PRESENT: appropriate affect, normal mood. ABSENT: homicidal ideation, suicidal ideation Skin exam: PRESENT: intact, dry, warm. She has chronic multiple papular nodular lesions on her upper and lower extremities as well as her back Results Laboratory Results: 12/14/18 13:18 12/14/18 13:18 12/14/18 12/14/18 13:18 13:18 WBC 9.0 RBC 3.37 L Hgb 10.6 L Hct 32.6 L MCV 97 MCH 31.5 MCHC 32.6 RDW 15.2 H Plt Count 159 Seg Neutrophils % 80.1 H Lymphocytes % 9.9 L Monocytes % 8.2 Eosinophils % 1.2 Basophils % 0.6 Absolute Neutrophils 7.2 Absolute Lymphocytes 0.9 Absolute Monocytes 0.7 Absolute Eosinophils 0.1 Absolute Basophils 0.1 Sodium 144.5 Potassium 5.1 H Chloride 101 Carbon Dioxide 25 Anion Gap 19 BUN 67 H Creatinine 9.54 H Est GFR ( Amer) 5 L Est GFR (Non-Af Amer) 4 L Glucose 111 H Calcium 8.5 Total Bilirubin 1.8 H AST 34 ALT 26 Alkaline Phosphatase 247 H Total Protein 8.5 H Albumin 4.2 Lipase 192.4 Labs- All tests 24 hr 12/14/18 12/14/1819 13:18 13:18 13:18 WBC 9.0 RBC 3.37 L Hgb 10.6 L Hct 32.6 L MCV 97 MCH 31.5 MCHC 32.6 RDW 15.2 H Plt Count 159 Seg Neutrophils % 80.1 H Lymphocytes % 9.9 L Monocytes % 8.2 Eosinophils % 1.2 Basophils % 0.6 Absolute Neutrophils 7.2 Absolute Lymphocytes 0.9 Absolute Monocytes 0.7 Absolute Eosinophils 0.1 Absolute Basophils 0.1 Sodium 144.5 Potassium 5.1 H Chloride 101 Carbon Dioxide 25 Anion Gap 19 BUN 67 H Creatinine 9.54 H Est GFR ( Amer) 5 L Est GFR (Non-Af Amer) 4 L Glucose 111 H POC Glucose Hemoglobin A1c % 5.4 Calcium 8.5 Total Bilirubin 1.8 H Direct Bilirubin 1.6 H Neonat Total Bilirubin Not Reportable Neonat Direct Bilirubin Not Reportable Neonat Indirect Bili Not Reportable AST 34 ALT 26 Alkaline Phosphatase 247 H Total Protein 8.5 H Albumin 4.2 Lipase 192.4 12/15/18 12/15/18 00:58 09:21 WBC RBC Hgb Hct MCV MCH MCHC RDW Plt Count Seg Neutrophils % Lymphocytes % Monocytes % Eosinophils % Basophils % Absolute Neutrophils Absolute Lymphocytes Absolute Monocytes Absolute Eosinophils Absolute Basophils Sodium 144.3 Potassium 5.3 H Chloride 101 Carbon Dioxide 22 Anion Gap 21 H BUN 77 H Creatinine 10.67 H Est GFR ( Amer) 5 L Est GFR (Non-Af Amer) 4 L Glucose 95 POC Glucose 117 H Hemoglobin A1c % Calcium 8.4 Total Bilirubin 1.7 H Direct Bilirubin 1.4 H Neonat Total Bilirubin Not Reportable Neonat Direct Bilirubin Not Reportable Neonat Indirect Bili Not Reportable AST 31 ALT 21 Alkaline Phosphatase 222 H Total Protein 8.1 Albumin 4.1 Lipase Impressions: Abdomen/Pelvis CT 12/14/18 18:03 IMPRESSION: 1. Relatively chronic changes to include cardiomegaly and mild ascites with hepatosplenomegaly. Detailed as above. 2. Gallbladder is slightly thick-walled but this may be of no clinical significance depending on clinical presentation (can be seen with liver disease and ascites in the absence of inflammatory process). If warranted, consider ultrasound. 3. Pronounced atherosclerosis. Abdomen Ultrasound 12/14/18 18:38 IMPRESSION: Coarsened echotexture to the liver suggesting cirrhotic change. No gallstones. The gallbladder wall is mildly thickened and there is a trace of pericholecystic fluid. However, there is also a small volume of ascites. The patient had pain with palpation over the right upper quadrant. Atrophic appearance to the right kidney copyright 2011 [employer]- All Rights Reserved Assessment & Plan - Diagnosis (1) Abdominal pain Qualifiers: Abdominal location: right upper quadrant Qualified Code(s): R10.11 - Right upper quadrant pain Is this a current diagnosis for this admission?: Yes Plan: She is still being worked up for the etiology. HIDA scan scheduled this morning. Surgery was consulted. (2) ESRD (end stage renal disease) Is this a current diagnosis for this admission?: Yes Plan: Patient missed her dialysis yesterday. Patient does not need any urgent hemodialysis treatment today. We will plan for her hemodialysis treatment tomorrow. (3) Hyperkalemia Is this a current diagnosis for this admission?: Yes Plan: Mild. No intervention needed at this time. (4) Anemia in chronic kidney disease (CKD) Is this a current diagnosis for this admission?: Yes (5) Diabetes mellitus type 1 Qualifiers: Diabetes mellitus complication status: with unspecified complications Qualified Code(s): E10.8 - Type 1 diabetes mellitus with unspecified complications Is this a current diagnosis for this admission?: Yes (6) Hypertension Qualifiers: Hypertension type: unspecified Qualified Code(s): I10 - Essential (primary) hypertension Is this a current diagnosis for this admission?: Yes Plan: Well-controlled. (7) Papular eczema Is this a current diagnosis for this admission?: Yes Plan: These are chronic lesions. According to the patient she has had skin biopsy but unknown for specific results. - Notes Notes: Thank you very much for this consultation. We will follow the patient with you. - Time Time Spent: 50 to 70 Minutes
[2018-12-15] MEDS: PANTOPRAZOLE SODIUM 40 MG VIAL IV SCH ×2 (11:05→22:49)
--- NOTE | 2018-12-15 12:05 | RADIOLOGY REPORT (SQ) ---
EXAM DESCRIPTION: NM HIDA SCAN COMPLETED DATE/TIME: 12/15/2018 11:02 am REASON FOR STUDY: RUQ pain COMPARISON: CT abdomen and pelvis 12/14/2018, 10/03/2017 Abdominal ultrasound 12/14/2018, 10/03/2017 RADIONUCLIDE AND DOSE: DOSAGE RADIONUCLIDE: 4.9 millicuries Tc99m Mebrofenin. DOSAGE MORPHINE: Not required. The route of agent administration: Intravenous TECHNIQUE: Serial imaging right upper quadrant up to 40 minutes following injection of radionuclide. Patient imaged AP and Right Lateral. LIMITATIONS: Please note that the patient was in too much pain to continue this study with dynamic p ost CCK imaging. Static hepatic biliary imaging up to 40 minutes was obtained. FINDINGS: LIVER: There is homogeneous liver uptake which persists up to 40 minutes. This indicates diffuse hepatocellular disease. INTRA-HEPATIC BILE DUCTS: Normal visualization COMMON BILE DUCT: Normal visualization GALLBLADDER: Normal visualization OTHER: No other significant finding. IMPRESSION: No scintigraphic evidence of cystic duct or common duct obstruction. Persistent hepatobiliary uptake in the liver and 40 minutes indicating hepatocellular dysfunction. TECHNICAL DOCUMENTATION: JOB ID: [id number] [employer]- All Rights Reserved Reading location - IP/workstation name: [email or web address]
[2018-12-15] MEDS ORDERED: NORMAL SALINE 1000 ML 1,000 ML IV PRN (12:16)
--- NOTE | 2018-12-15 13:45 | PDOC PROGRESS REPORT ---
Subjective Progress Note for:: 12/15/18 Subjective:: Patient complains of abdominal pain for weeks if not months. Patient returned from HIDA scan which showed no evidence of gallbladder dysfunction; there was retained tracer in the liver after 40 minutes suggesting hepatocellular dysfunction. Reason For Visit: ABDOMINAL PAIN Physical Exam Vital Signs: Temp Pulse Resp BP Pulse Ox 98.6 F 79 16 117/71 95 12/15/18 12:57 12/15/18 12:57 12/15/18 12:57 12/15/18 12:57 12/15/18 12:57 Intake & Output 12/14/18 12/15/18 12/16/18 06:59 06:59 06:59 Weight 98.6 kg General appearance: PRESENT: other - Patient is very difficult to assess; she is very excitable. There may be an element of cognitive and hearing impairment GI/Abdominal exam: PRESENT: other - The abdomen is diffusely tender; no rigidity; multiple calcinosis deposits. Results Laboratory Results: 12/14/18 13:18 12/15/18 09:21 12/14/18 12/15/18 13:18 09:21 Sodium 144.5 144.3 Potassium 5.1 H 5.3 H Chloride 101 101 Carbon Dioxide 25 22 Anion Gap 19 21 H BUN 67 H 77 H Creatinine 9.54 H 10.67 H Est GFR ( Amer) 5 L 5 L Est GFR (Non-Af Amer) 4 L 4 L Glucose 111 H 95 Calcium 8.5 8.4 Total Bilirubin 1.8 H 1.7 H AST 34 31 ALT 26 21 Alkaline Phosphatase 247 H 222 H Total Protein 8.5 H 8.1 Albumin 4.2 4.1 Lipase 192.4 Impressions: Abdomen/Pelvis CT 12/14/18 18:03 IMPRESSION: 1. Relatively chronic changes to include cardiomegaly and mild ascites with hepatosplenomegaly. Detailed as above. 2. Gallbladder is slightly thick-walled but this may be of no clinical significance depending on clinical presentation (can be seen with liver disease and ascites in the absence of inflammatory process). If warranted, consider ultrasound. 3. Pronounced atherosclerosis. Abdomen Ultrasound 12/14/18 18:38 IMPRESSION: Coarsened echotexture to the liver suggesting cirrhotic change. No gallstones. The gallbladder wall is mildly thickened and there is a trace of pericholecystic fluid. However, there is also a small volume of ascites. The patient had pain with palpation over the right upper quadrant. Atrophic appearance to the right kidney copyright 2011 [employer]- All Rights Reserved Hepatobiliary Scan Nuclear Medicine 12/15/18 00:00 IMPRESSION: No scintigraphic evidence of cystic duct or common duct obstruction. Persistent hepatobiliary uptake in the liver and 40 minutes indicating hepatocellular dysfunction. Assessment & Plan - Diagnosis (1) Abdominal pain Is this a current diagnosis for this admission?: Yes Plan: Impression: Subacute abdominal pain, poorly localized; extensive gastroenterologic work-up does not specifically localize a diseased organ. Gallbladder ultrasound suggested possible gallbladder wall thickening; HIDA scan demonstrates gallbladder functioning satisfactorily: Suspect mildly elevated LFTs secondary to hepatocellular dysfunction Recommendation: 1. No firm indication to remove the gallbladder at this time 2. Discussed with for histology; surgery will sign off; reconsult if needed.
[2018-12-15] MEDS: DOCUSATE SODIUM 100 MG CAPSULE PO SCH ×2 (14:44→18:00)
[2018-12-15] MEDS ORDERED: LEVETIRACETAM 500 MG/NACL-ISO 500 MG/100 ML RTUPB IV ONE (21:00)
--- NOTE | 2018-12-15 21:26 | PDOC PROGRESS REPORT ---
Subjective Progress Note for:: 12/15/18 Subjective:: The patient is sitting in the bed complaining of pain. She appears to be hard of hearing. She is somewhat restless consistent with her complaints. Reason For Visit: ABDOMINAL PAIN Physical Exam Vital Signs: Temp Pulse Resp BP Pulse Ox 98.6 F 79 16 117/71 95 12/15/18 12:57 12/15/18 12:57 12/15/18 12:57 12/15/18 12:57 12/15/18 12:57 Intake & Output 12/14/18 12/15/18 12/16/18 06:59 06:59 06:59 Weight 98.6 kg General appearance: PRESENT: mild distress, obese, well-developed Head exam: PRESENT: atraumatic, normocephalic Eye exam: PRESENT: conjunctiva pale Ear exam: PRESENT: normal external ear exam Respiratory exam: PRESENT: clear to auscultation ezequiel, symmetrical, unlabored. ABSENT: accessory muscle use, rales, rhonchi, wheezes Cardiovascular exam: PRESENT: RRR, +S1, +S2 GI/Abdominal exam: PRESENT: normal bowel sounds, soft, tenderness - Diffuse nonl ocalized tenderness across the abdomen. Rectal exam: PRESENT: deferred Gentrourinary exam: PRESENT: other Extremities exam: PRESENT: other - Right below-knee amputation Neurological exam: PRESENT: alert, awake, oriented to person, oriented to place, oriented to situation, other - Somewhat hard of hearing Psychiatric exam: PRESENT: anxious, flat affect. ABSENT: agitated Focused psych exam: PRESENT: restlessness. ABSENT: delusional Skin exam: PRESENT: other - Confluent hyperpigmented macular rash with occasional scaling diffusely present over extremities and torso. Results Laboratory Results: 12/14/18 13:18 12/15/18 09:21 12/15/18 09:21 Sodium 144.3 Potassium 5.3 H Chloride 101 Carbon Dioxide 22 Anion Gap 21 H BUN 77 H Creatinine 10.67 H Est GFR ( Amer) 5 L Est GFR (Non-Af Amer) 4 L Glucose 95 Calcium 8.4 Total Bilirubin 1.7 H AST 31 ALT 21 Alkaline Phosphatase 222 H Total Protein 8.1 Albumin 4.1 Impressions: Abdomen/Pelvis CT 12/14/18 18:03 IMPRESSION: 1. Relatively chronic changes to include cardiomegaly and mild ascites with hepatosplenomegaly. Detailed as above. 2. Gallbladder is slightly thick-walled but this may be of no clinical significance depending on clinical presentation (can be seen with liver disease and ascites in the absence of inflammatory process). If warranted, consider ultrasound. 3. Pronounced atherosclerosis. Abdomen Ultrasound 12/14/18 18:38 IMPRESSION: Coarsened echotexture to the liver suggesting cirrhotic change. No gallstones. The gallbladder wall is mildly thickened and there is a trace of pericholecystic fluid. However, there is also a small volume of ascites. The patient had pain with palpation over the right upper quadrant. Atrophic appearance to the right kidney copyright 2010 [employer]- All Rights Reserved Hepatobiliary Scan Nuclear Medicine 12/15/18 00:00 IMPRESSION: No scintigraphic evidence of cystic duct or common duct obstruction. Persistent hepatobiliary uptake in the liver and 40 minutes indicating hepa tocellular dysfunction. Assessment and Plan - Diagnosis (1) Abdominal pain Qualifiers: Abdominal location: generalized Qualified Code(s): R10.84 - Generalized abdominal pain Is this a current diagnosis for this admission?: Yes Plan: The patient did have a HIDA scan. It was negative for evidence of cholecystitis. There was cirrhotic change in the liver on ultrasound. Continue symptomatic treatment. (2) Diabetes mellitus type 1 Qualifiers: Diabetes mellitus complication status: with unspecified complications Qualified Code(s): E10.8 - Type 1 diabetes mellitus with unspecified complications Is this a current diagnosis for this admission?: Yes Plan: The patient is not on insulin. Her sugars in fact have been normal. We will continue fingersticks. We will loosen the restrictions on her diet but continue to monitor glucose levels. (3) ESRD (end stage renal disease) Is this a current diagnosis for this admission?: Yes Plan: The patient was seen by Dr. Yang. She had hemodialysis today. She will continue on Wednesday, Wednesday and Wednesday dialysis while an inpatient. (4) Anemia Qualifiers: Chronic kidney disease stage: on chronic dialysis Is this a current diagnosis for this admission?: Yes Plan: Patient's hemoglobin was 10.6. At this point she is not on erythropoietin. Continue to monitor hemoglobin. (5) Hypertension Qualifiers: Hypertension type: unspecified Qualified Code(s): I10 - Essential (primary) hypertension Is this a current diagnosis for this admission?: Yes Plan: Continue current antihypertensive regimen. (6) Papular eczema Is this a current diagnosis for this admission?: Yes Plan: Supportive care at this time. Patient does not complain of significant pruritus. Continue to monitor. (7) Seizure Is this a current diagnosis for this admission?: Yes Plan: Shortly after rounding I was contacted by the nurse. The patient exhibited seizure activity with tremulousness, eyes rolling into the back of the head and excess saliva. She exhibited a post ictal state. I started the patient on Keppra 500 mg daily with evening dosing and this will avoid the need for postdialysis doses. In addition I have ordered an EEG. She is on Dilaudid at home as well as gabapentin. She is getting morphine and so it is unlikely that it is related to medication withdrawal. Await results of the EEG. - Time Time Spent with patient: 25-34 minutes Medications reviewed and adjusted accordingly: Yes Anticipated discharge: Home
[2018-12-15] MEDS: CARVEDILOL 12.5 MG TABLET PO SCH (22:48)
[2018-12-15] MEDS: GABAPENTIN 100 MG CAPSULE PO SCH (22:49)
[2018-12-16] MEDS ORDERED: NORMAL SALINE 1000 ML 1,000 ML IV PRN (05:00)
[2018-12-16] MEDS: HEPARIN SOD (PORCINE) 5,000 UNIT/ML 1 ML SYRINGE SUBCUT SCH ×3 (06:07→21:52)
[2018-12-16] MEDS: GABAPENTIN 100 MG CAPSULE PO SCH ×3 (06:09→21:58)
[2018-12-16 06:50] LABS: ABSOLUTE BASOPHILS # (AUTO) 0.1 10^3/uL (0.0-0.2); ABSOLUTE EOSINOPHILS # (AUTO) 0.1 10^3/uL (0.0-0.6); ABSOLUTE LYMPHOCYTES (AUTO) 0.9 10^3/uL (0.5-4.7); ABSOLUTE MONOCYTES (AUTO) 0.6 10^3/uL (0.1-1.4); BASOPHILS % (AUTO) 1.1 % (0-2); EOSINOPHILS % (AUTO) 1.9 % (0-6); HEMATOCRIT 27.9 % (36.0-47.0); HEMOGLOBIN 9.2 g/dL (12.0-15.5); LYMPHOCYTES % (AUTO) 11.8 % (13-45); MEAN CORPUSCULAR HEMOGLOBIN 31.7 pg (27.0-33.4); MEAN CORPUSCULAR VOLUME 96 fl (80-97); MONOCYTES % (AUTO) 7.4 % (3-13); PLATELET COUNT 146 10^3/uL (150-450); RED CELL DISTRIBUTION WIDTH 15.4 % (11.5-14.0); SEGMENTED NEUTROPHILS % (AUTO) 77.8 % (42-78); TOTAL CELLS COUNTED % (AUTO) 100 %; WHITE BLOOD COUNT 7.7 10^3/uL (4.0-10.5)
[2018-12-16 07:24] LABS: ALANINE AMINOTRANSFERASE 25 U/L (9-52); ALBUMIN 3.8 g/dL (3.5-5.0); ALKALINE PHOSPHATASE 194 U/L (38-126); AMYLASE 81 U/L (30-110); ASPARTATE AMINO TRANSFERASE 25 U/L (14-36); BILIRUBIN,DIRECT 1.3 mg/dL (0.0-0.4); BILIRUBIN,TOTAL 1.3 mg/dL (0.2-1.3); BLOOD UREA NITROGEN 86 mg/dL (7-20); CALCIUM 7.5 mg/dL (8.4-10.2); GLUCOSE 94 mg/dL (75-110); POTASSIUM 5.7 mmol/L (3.6-5.0); TOTAL PROTEIN 7.6 g/dL (6.3-8.2)
[2018-12-16 07:28] LABS: CARBON DIOXIDE 19 mmol/L (22-30); CHLORIDE 98 mmol/L (98-107); SODIUM 137.5 mmol/L (137-145)
[2018-12-16 07:33] LABS: FREE T3 3.56 pg/mL (2.77-5.27); FREE T4 (FREE THYROXINE) 1.46 ng/dL (0.78-2.19)
[2018-12-16 07:34] LABS: ANION GAP 21 (5-19)
[2018-12-16 07:47] LABS: THYROID STIMULATING HORMONE 2.16 uIU/mL (0.47-4.68)
--- NOTE | 2018-12-16 09:45 | PDOC PROGRESS REPORT ---
Subjective Progress Note for:: 12/16/18 Subjective:: I am seeing the patient during dialysis this morning. She is sleepy but comfortable and tolerating dialysis well. She said her abdomen is still sore. This morning she denies any nausea and her pain. She said she had a couple bites of applesauce before dialysis. Last night she said she ate salad and she was able to keep them down. Her HIDA scan was negative so surgery has actually signed off and no surgical intervention is planned. Currently she is stable on dialysis so far no problems. Patient also informed me that she had skin biopsy of her skin lesions at one of the dermatology clinic here in [place] about a month or so ago. We will try to obtain the skin biopsy report. Reason For Visit: ABDOMINAL PAIN Physical Exam Vital Signs: Temp Pulse Resp BP Pulse Ox 97.7 F 86 16 111/67 96 12/15/18 15:30 12/15/18 15:30 12/15/18 15:30 12/15/18 15:30 12/15/18 15:30 Intake & Output 12/15/18 12/16/18 12/17/18 06:59 06:59 06:59 Intake Total 1558 Balance 1558 Weight 98.6 kg 99.7 kg Vitals on dialysis: Blood pressure one 1/56, heart rate of 63, blood flow rate of 450 mL/min and dialysate flow rate of 800 mL/min. Exam: General appearance: PRESENT: no acute distress, cooperative, well-developed, well-nourished Head exam: PRESENT: atraumatic, normocephalic Eye exam: PRESENT: conjunctiva slightly pale, PERRLA. ABSENT: scleral icterus Neck exam: ABSENT: JVD Respiratory exam: PRESENT: Diminished breath sounds. ABSENT: crackles, rales, rhonchi, unlabored, wheezes Cardiovascular exam: PRESENT: Regular rate rhythm -+S1, +S2. ABSENT: diastolic murmur, systolic murmur GI/Abdominal exam: PRESENT: normal bowel sounds, soft. ABSENT: guarding, mass, tenderness Extremities exam: ABSENT: No edema however her skin is very tight on her left leg, right BKA Neurological exam: PRESENT: alert, awake, oriented to person, place and time. Skin exam: PRESENT: dry, warm, positive diffuse and multiple papular grayish lesions on upper and lower extremities as well as her back Results Laboratory Results: 12/16/18 05:55 12/16/18 05:55 12/15/18 12/16/18 12/16/18 09:21 05:55 05:55 WBC 7.7 RBC 2.90 L Hgb 9.2 L Hct 27.9 L MCV 96 MCH 31.7 MCHC 33.0 RDW 15.4 H Plt Count 146 L Seg Neutrophils % 77.8 Lymphocytes % 11.8 L Monocytes % 7.4 Eosinophils % 1.9 Basophils % 1.1 Absolute Neutrophils 6.0 Absolute Lymphocytes 0.9 Absolute Monocytes 0.6 Absolute Eosinophils 0.1 Absolute Basophils 0.1 Sodium 144.3 137.5 Potassium 5.3 H 5.7 H Chloride 101 98 Carbon Dioxide 22 19 L Anion Gap 21 H 21 H BUN 77 H 86 H Creatinine 10.67 H 11.53 H Est GFR ( Amer) 5 L 4 L Est GFR (Non-Af Amer) 4 L 4 L Glucose 95 94 Calcium 8.4 7.5 L Magnesium 2.2 Total Bilirubin 1.7 H 1.3 AST 31 25 ALT 21 25 Alkaline Phosphatase 222 H 194 H Total Protein 8.1 7.6 Albumin 4.1 3.8 Amylase 81 Lipase 70.0 TSH Free T4 Free T3 pg/mL 12/16/18 05:55 WBC RBC Hgb Hct MCV MCH MCHC RDW Plt Count Seg Neutrophils % Lymphocytes % Monocytes % Eosinophils % Basophils % Absolute Neutrophils Absolute Lymphocytes Absolute Monocytes Absolute Eosinophils Absolute Basophils Sodium Potassium Chloride Carbon Dioxide Anion Gap BUN Creatinine Est GFR ( Amer) Est GFR (Non-Af Amer) Glucose Calcium Magnesium Total Bilirubin AST ALT Alkaline Phosphatase Total Protein Albumin Amylase Lipase TSH 2.16 Free T4 1.46 Free T3 pg/mL 3.56 Impressions: Abdomen/Pelvis CT 12/14/18 18:03 IMPRESSION: 1. Relatively chronic changes to include cardiomegaly and mild ascites with hepatosplenomegaly. Detailed as above. 2. Gallbladder is slightly thick-walled but this may be of no clinical significance depending on clinical presentation (can be seen with liver disease and ascites in the absence of inflammatory process). If warranted, consider ultrasound. 3. Pronounced atherosclerosis. Abdomen Ultrasound 12/14/18 18:38 IMPRESSION: Coarsened echotexture to the liver suggesting cirrhotic change. No gallstones. The gallbladder wall is mildly thickened and there is a trace of pericholecystic fluid. However, there is also a small volume of ascites. The patient had pain with palpation over the right upper quadrant. Atrophic appearance to the right kidney copyright 2011 [employer]- All Rights Reserved Hepatobiliary Scan Nuclear Medicine 12/15/18 00:00 IMPRESSION: No scintigraphic evidence of cystic duct or common duct obstruction. Persistent hepatobiliary uptake in the liver and 40 minutes indicating hepatocel lular dysfunction. Assessment & Plan - Diagnosis (1) ESRD (end stage renal disease) Is this a current diagnosis for this admission?: Yes Plan: We will do dialysis today for 3 hours, using the patient's AV fistula, with 2 potassium bath with 3.0 calcium, blood flow rate of 450 mL per minute, dialysate flow rate of 800 mL per minute, ultrafiltration 3 L as tolerated, no heparin and Procrit with 20,000 units during dialysis intravenously. Patient will be monitored throughout dialysis treatment and adjust therapy accordingly. (2) Abdominal pain Qualifiers: Abdominal location: generalized Qualified Code(s): R10.84 - Generalized abdominal pain Is this a current diagnosis for this admission?: Yes Plan: HIDA scan is negative. No surgical intervention planned. Clinically slowly improving. (3) Hyperkalemia Is this a current diagnosis for this admission?: Yes Plan: Dialysis today. (4) Anemia in chronic kidney disease (CKD) Is this a current diagnosis for this admission?: Yes Plan: Procrit will be given today at 20,000 units during dialysis. (5) Diabetes mellitus type 1 Qualifiers: Diabetes mellitus complication status: with unspecified complications Qu alified Code(s): E10.8 - Type 1 diabetes mellitus with unspecified complications Is this a current diagnosis for this admission?: Yes (6) Hypertension Qualifiers: Hypertension type: unspecified Qualified Code(s): I10 - Essential (primary) hypertension Is this a current diagnosis for this admission?: Yes (7) Papular eczema Is this a current diagnosis for this admission?: Yes Plan: We will try to get skin biopsy report. (8) Hypocalcemia Is this a current diagnosis for this admission?: Yes Plan: We will use a higher calcium bath during dialysis today. Monitor calcium level and replace with additional calcium if necessary after dialysis. - Time Time with patient: 15-25 minutes
[2018-12-16] MEDS: CARVEDILOL 12.5 MG TABLET PO SCH ×2 (10:00→21:51)
[2018-12-16] MEDS ORDERED: EPOETIN ALFA INJ 20000 UNIT/1 ML VIAL (RENAL) IV ONE (11:00)
[2018-12-16] MEDS: DOCUSATE SODIUM 100 MG CAPSULE PO SCH ×2 (15:19→18:00)
[2018-12-16] MEDS: PANTOPRAZOLE SODIUM 40 MG VIAL IV SCH ×2 (15:32→21:58)
[2018-12-16] MEDS: MORPHINE SULFATE 10 MG/ML INJ IV PRN ×2 (15:32→22:03)
--- NOTE | 2018-12-16 17:11 | NEURO WORKBENCH EEG REPORT ---
EEG Report Patient: Ivania Geronimo ID: [id number] Referring Doctor: Han Bojorquez Date: 12/16/2018 Reason for study: Evaluate Epileptiform activity Medications: Coreg, Colace, Procrit, Gabapentin, Ataraxx, Keppra, Morphine, Zofran, Protonix History: This is a 48 year old female with a history of HTN, CHF, Hypercholesterolemia, ESRD, and Anemia. This EEG was requested for evaluation of epileptiform activity. EEG Interpretation: This EEG was recorded during wakefulness and drowsiness. The awake EEG is characterized by a background of predominantly diffuse 8-10 Hz alpha and lower amplitude beta activity with prominent global myogenic artifact obscuring the record. There is a posterior dominant rhythm (PDR) of approximately 8-9 Hz. There are lower amplitudes in the right temporal-occipital and right parietal- occipital regions. Photic stimulation resulted in no significant photic driving, and there was no epileptiform activity elicited with photic stimulation. There were several brief periods lasting approximately 1 second of mixed delta- theta activity which was typically global, but more rarely more prominent on the over the left central region. This most likely represented a hypnogogic hypersynchrony or a drowsy phenomenon. There was no clear stage I or stage II sleep recorded. There were no epileptiform abnormalities (no sharp waves and no spikes). There were no seizures. The EKG showed a regular rhythm with typically 65-80 beats per minute, and rare ectopic beats not able to be further characterized well on a one channel EKG. EEG Impression: This EEG is within mildly abnormal due to mildly lower amplitudes in the right temporal-occipital and right parietal-occipital regions which is of unclear etiology. Amplitude asymmetries can be noted due to technical etiologies such as asymmetric scalp electrode placement. However, clinical correlation is needed and evaluation with imaging such as MRI of the brain may be considered. The minimal slowing noted was most likely consistent with a drowsiness. Note that there were significant limitations to the interpretation of this EEG due to very frequent and prominent, often rather global, myogenic artifact obscuring the recording. There was no epileptiform activity or seizures. A single normal routine EEG does not rule out the possibility of epilepsy. If there is high clinical suspicion for epilepsy, then additional EEG evaluation should be considered with a sleep- deprived EEG or more prolonged EEG monitoring. There were rare ectopic heart beats noted on the limited EKG. Clinical correlation and further work-up should be considered. INTERPRETING NEUROLOGIST: Micheal Tate MD [facility]ITALTeresa
[2018-12-16] MEDS: LEVETIRACETAM 500 MG/NACL-ISO 500 MG/100 ML RTUPB IV SCH (17:57)
[2018-12-16] MEDS ORDERED: LEVETIRACETAM 500 MG/NACL-ISO 500 MG/100 ML RTUPB IV SCH (18:00)
[2018-12-17] MEDS: HEPARIN SOD (PORCINE) 5,000 UNIT/ML 1 ML SYRINGE SUBCUT SCH ×3 (05:25→21:47)
[2018-12-17] MEDS: PANTOPRAZOLE SODIUM 40 MG VIAL IV SCH ×2 (09:45→21:47)
[2018-12-17] MEDS: DOCUSATE SODIUM 100 MG CAPSULE PO SCH ×2 (09:45→17:23)
[2018-12-17] MEDS: CARVEDILOL 12.5 MG TABLET PO SCH ×2 (09:46→21:47)
[2018-12-17] MEDS: MORPHINE SULFATE 10 MG/ML INJ IV PRN (11:10)
[2018-12-17] MEDS ORDERED: TRIAMCINOLONE ACETONIDE 0.1% CREAM 15 GM TOP PRN (12:26)
[2018-12-17] MEDS ORDERED: MORPHINE SULFATE 10 MG/ML INJ IV PRN ×3 (12:33→12:35)
[2018-12-17] MEDS: GABAPENTIN 100 MG CAPSULE PO SCH ×3 (12:50→21:46)
[2018-12-17] MEDS: HYDROXYZINE HCL 10 MG TABLET PO PRN ×2 (15:04→21:58)
[2018-12-17] MEDS: LEVETIRACETAM 500 MG/NACL-ISO 500 MG/100 ML RTUPB IV SCH (17:22)
[2018-12-17 18:05] LABS: ABSOLUTE BASOPHILS # (AUTO) 0.1 10^3/uL (0.0-0.2); ABSOLUTE EOSINOPHILS # (AUTO) 0.1 10^3/uL (0.0-0.6); ABSOLUTE LYMPHOCYTES (AUTO) 0.7 10^3/uL (0.5-4.7); ABSOLUTE MONOCYTES (AUTO) 0.8 10^3/uL (0.1-1.4); ABSOLUTE NEUT (AUTO) 5.8 10^3/uL (1.7-8.2); BASOPHILS % (AUTO) 0.7 % (0-2); EOSINOPHILS % (AUTO) 1.2 % (0-6); HEMATOCRIT 31.5 % (36.0-47.0); HEMOGLOBIN 10.3 g/dL (12.0-15.5); LYMPHOCYTES % (AUTO) 9.7 % (13-45); MEAN CORPUSCULAR HEMOGLOBIN 31.5 pg (27.0-33.4); MEAN CORPUSCULAR HGB CONC 32.7 g/dL (32.0-36.0); MEAN CORPUSCULAR VOLUME 96 fl (80-97); MONOCYTES % (AUTO) 10.3 % (3-13); PLATELET COUNT 159 10^3/uL (150-450); RED BLOOD COUNT 3.27 10^6/uL (3.72-5.28); RED CELL DISTRIBUTION WIDTH 15.4 % (11.5-14.0); SEGMENTED NEUTROPHILS % (AUTO) 78.1 % (42-78); TOTAL CELLS COUNTED % (AUTO) 100 %; WHITE BLOOD COUNT 7.5 10^3/uL (4.0-10.5)
[2018-12-17 18:22] LABS: ALANINE AMINOTRANSFERASE 23 U/L (9-52); ALBUMIN 4.1 g/dL (3.5-5.0); ALKALINE PHOSPHATASE 245 U/L (38-126); AMYLASE 80 U/L (30-110); ANION GAP 18 (5-19); ASPARTATE AMINO TRANSFERASE 23 U/L (14-36); BILIRUBIN,DIRECT 1.3 mg/dL (0.0-0.4); BILIRUBIN,TOTAL 1.4 mg/dL (0.2-1.3); BLOOD UREA NITROGEN 61 mg/dL (7-20); CALCIUM 7.9 mg/dL (8.4-10.2); CARBON DIOXIDE 24 mmol/L (22-30); CHLORIDE 99 mmol/L (98-107); GLUCOSE 176 mg/dL (75-110); LIPASE 70.5 U/L (23-300); SODIUM 140.7 mmol/L (137-145); TOTAL PROTEIN 8.4 g/dL (6.3-8.2)
--- NOTE | 2018-12-17 20:13 | PDOC PROGRESS REPORT ---
Subjective Progress Note for:: 12/16/18 Subjective:: The patient reports a significant amount of fecal incontinence at the end of dialysis this morning. She was quite embarrassed. In fact she states that she feels like she has to move her bowels at the time of this encounter. Reason For Visit: ABDOMINAL PAIN Physical Exam Vital Signs: Temp Pulse Resp BP Pulse Ox 97.9 F 74 18 111/56 L 98 12/16/18 17:07 12/16/18 17:07 12/16/18 17:07 12/16/18 17:07 12/16/18 17:07 Intake & Output 12/16/18 12/17/18 12/18/18 06:59 06:59 06:59 Intake Total 1558 1482 Output Total 3200 Balance 1558 -1718 Weight 99.7 kg 100 kg General appearance: PRESENT: cooperative, mild distress, morbidly obese, well- developed Head exam: PRESENT: atraumatic, normocephalic Eye exam: PRESENT: conjunctiva pale Ear exam: PRESENT: normal external ear exam Mouth exam: PRESENT: moist, tongue midline Teeth exam: PRESENT: poor dentation Respiratory exam: PRESENT: clear to auscultation ezequiel, symmetrical, unlabored. ABSENT: accessory muscle use, rales, rhonchi, wheezes Cardiovascular exam: PRESENT: RRR, +S1, +S2 GI/Abdominal exam: PRESENT: distended, guarding, normal bowel sounds, soft, tenderness - Diffuse nonfocal tenderness Rectal exam: PRESENT: deferred Gentrourinary exam: ABSENT: indwelling catheter Extremities exam: PRESENT: other - Right below-knee amputation. ABSENT: pedal edema Neurological exam: PRESENT: alert, awake, oriented to person, oriented to place, oriented to situation, other - Patient with hearing loss and developmental delay Psychiatric exam: PRESENT: flat affect. ABSENT: agitated, anxious Focused psych exam: ABSENT: delusional, restlessness Skin exam: PRESENT: other - Diffuse pigmented papular eruption over all body surfaces. Results Laboratory Results: 12/16/18 05:55 12/16/18 05:55 Impressions: Abdomen/Pelvis CT 12/14/18 18:03 IMPRESSION: 1. Relatively chronic changes to include cardiomegaly and mild ascites with hepatosplenomegaly. Detailed as above. 2. Gallbladder is slightly thick-walled but this may be of no clinical significance depending on clinical presentation (can be seen with liver disease and ascites in the absence of inflammatory process). If warranted, consider ultrasound. 3. Pronounced atherosclerosis. Abdomen Ultrasound 12/14/18 18:38 IMPRESSION: Coarsened echotexture to the liver suggesting cirrhotic change. No gallstones. The gallbladder wall is mildly thickened and there is a trace of pericholecystic fluid. However, there is also a small volume of ascites. The patient had pain with palpation over the right upper quadrant. Atrophic appearance to the right kidney copyright 2011 [employer]- All Rights Reserved Hepatobiliary Scan Nuclear Medicine 12/15/18 00:00 IMPRESSION: No scintigraphic evidence of cystic duct or common duct obstruction. Persistent hepatobiliary uptake in the liver and 40 minutes indicating hepatocellular dysfunction. Assessment and Plan - Diagnosis (1) Abdominal pain Qualifiers: Abdominal location: generalized Qualified Code(s): R10.84 - Generalized abdominal pain Is this a current diagnosis for this admission?: Yes Plan: Still unsure of etiology. They have not been able to collect a stool for C. difficile. She could have irritable bowel but this would not explain the coarse texture of the liver. She may benefit from outpatient evaluation by gastroenterology. Still not sure of the etiology for the distention and pain. (2) Diabetes mellitus type 1 Qualifiers: Diabetes mellitus complication status: with unspecified complications Qualified Code(s): E10.8 - Type 1 diabetes mellitus with unspecified complicati ons Is this a current diagnosis for this admission?: Yes Plan: The patient's glucose levels have been stable. She is not on insulin. And katelyn g to discontinue the Accu-Cheks and reflex glucose and dextrose supplements. (3) ESRD (end stage renal disease) Is this a current diagnosis for this admission?: Yes Plan: Continuing hemodialysis on Wednesday, Wednesday and Wednesday. (4) Anemia Qualifiers: Chronic kidney disease stage: on chronic dialysis Is this a current diagnosis for this admission?: Yes Plan: Management per nephrology. Hemoglobin appears to be stable. (5) Hypertension Qualifiers: Hypertension type: unspecified Qualified Code(s): I10 - Essential (primary) hypertension Is this a current diagnosis for this admission?: Yes Plan: Blood pressures have been good. We will continue her carvedilol at this time. (6) Papular eczema Is this a current diagnosis for this admission?: Yes Plan: Unsure of the etiology. Possibly related to her abnormal hepatic texture. Have sent off an PINO with reflex to check for autoimmune illnesses. (7) Seizure Is this a current diagnosis for this admission?: Yes Plan: The patient is now on Keppra 500 mg daily. The clinical presentation, per the nurses report, clearly suggest seizure including a postictal period. The EEG was not typical of seizure. I am going to continue the Keppra for the time being. - Time Time Spent with patient: 15-24 minutes Medications reviewed and adjusted accordingly: Yes
--- NOTE | 2018-12-17 20:24 | PDOC PROGRESS REPORT ---
Subjective Progress Note for:: 12/17/18 Subjective:: The nurses report that some of the papules on the patient's are bleeding. They also report slight hematuria. The patient is oliguric. The patient also complains about intense itching from her rash. Reason For Visit: ABDOMINAL PAIN Physical Exam Vital Signs: Temp Pulse Resp BP Pulse Ox 97.9 F 74 18 111/56 L 98 12/16/18 17:07 12/16/18 17:07 12/16/18 17:07 12/16/18 17:07 12/16/18 17:07 Intake & Output 12/16/18 12/17/18 12/18/18 06:59 06:59 06:59 Intake Total 1558 1482 Output Total 3200 Balance 1558 -1718 Weight 99.7 kg 100 kg General appearance: PRESENT: cooperative, hard of hearing, mild distress, morbidly obese Head exam: PRESENT: atraumatic, normocephalic Teeth exam: PRESENT: poor dentation Respiratory exam: PRESENT: clear to auscultation ezequiel, symmetrical, unlabored. ABSENT: rales, rhonchi, tachypnea, wheezes Cardiovascular exam: PRESENT: RRR, +S1, +S2 GI/Abdominal exam: PRESENT: distended, guarding, normal bowel sounds, soft, tenderness Gentrourinary exam: ABSENT: indwelling catheter Extremities exam: ABSENT: pedal edema Neurological exam: PRESENT: alert, awake, oriented to person, oriented to place, oriented to situation Psychiatric exam: PRESENT: flat affect. ABSENT: agitated, anxious Skin exam: PRESENT: other - It was difficult to position the patient to directly review the bleeding lesions. There are some excoriations as the patient complains about pruritus. Results Laboratory Results: 12/16/18 05:55 12/16/18 05:55 Impressions: Abdomen/Pelvis CT 12/14/18 18:03 IMPRESSION: 1. Relatively chronic changes to include cardiomegaly and mild ascites with hepatosplenomegaly. Detailed as above. 2. Gallbladder is slightly thick-walled but this may be of no clinical significance depending on clinical presentation (can be seen with liver disease and ascites in the absence of inflammatory process). If warranted, consider ultrasound. 3. Pronounced atherosclerosis. Abdomen Ultrasound 12/14/18 18:38 IMPRESSION: Coarsened echotexture to the liver suggesting cirrhotic change. No gallstones. The gallbladder wall is mildly thickened and there is a trace of pericholecystic fluid. However, there is also a small volume of ascites. The patient had pain with palpation over the right upper quadrant. Atrophic appearance to the right kidney copyright 2011 [employer]- All Rights Reserved Hepatobiliary Scan Nuclear Medicine 12/15/18 00:00 IMPRESSION: No scintigraphic evidence of cystic duct or common duct obstruction. Persistent hepatobiliary uptake in the liver and 40 minutes indicating hepatocellular dysfunction. Assessment and Plan - Diagnosis (1) Abdominal pain Qualifiers: Abdominal location: generalized Qualified Code(s): R10.84 - Generalized abdominal pain Is this a current diagnosis for this admission?: Yes Plan: Still unsure of the etiology. Will order some autoimmune studies as a work-up for the coarse liver texture. (2) ESRD (end stage renal disease) Is this a current diagnosis for this admission?: Yes Plan: Continue hemodialysis (3) Anemia Qualifiers: Chronic kidney disease stage: on chronic dialysis Is this a current diagnosis for this admission?: Yes Plan: Improved with erythropoietin (4) Hypertension Qualifiers: Hypertension type: unspecified Qualified Code(s): I10 - Essential (primary) hypertension Is this a current diagnosis for this admission?: Yes Plan: Blood pressures have been stable. No change in current regimen. (5) Papular eczema Is this a current diagnosis for this admission?: Yes Plan: Because of the intense pruritus I have ordered topical steroid cream. Dermatology notes have not arrived yet. (6) Seizure Is this a current diagnosis for this admission?: Yes Plan: Continue Keppra for the time being. The clinical event does suggest a seizure episode despite the negative EEG. (7) Diabetes mellitus type 1 Qualifiers: Diabetes mellitus complication status: with unspecified complications Qualified Code(s): E10.8 - Type 1 diabetes mellitus with unspecified complications Is this a current diagnosis for this admission?: No Plan: The patient has normal glucose readings without supplemental insulin. Clearly she does not have type 1 diabetes mellitus. - Time Time Spent with patient: 15-24 minutes Medications reviewed and adjusted accordingly: Yes
[2018-12-18 04:12] LABS: ABSOLUTE BASOPHILS # (AUTO) 0.1 10^3/uL (0.0-0.2); ABSOLUTE EOSINOPHILS # (AUTO) 0.1 10^3/uL (0.0-0.6); ABSOLUTE LYMPHOCYTES (AUTO) 0.9 10^3/uL (0.5-4.7); ABSOLUTE MONOCYTES (AUTO) 0.8 10^3/uL (0.1-1.4); ABSOLUTE NEUT (AUTO) 5.5 10^3/uL (1.7-8.2); EOSINOPHILS % (AUTO) 1.8 % (0-6); HEMATOCRIT 27.5 % (36.0-47.0); LYMPHOCYTES % (AUTO) 12.1 % (13-45); MEAN CORPUSCULAR HEMOGLOBIN 31.4 pg (27.0-33.4); MEAN CORPUSCULAR HGB CONC 32.7 g/dL (32.0-36.0); MEAN CORPUSCULAR VOLUME 96 fl (80-97); MONOCYTES % (AUTO) 10.7 % (3-13); PLATELET COUNT 132 10^3/uL (150-450); RED BLOOD COUNT 2.86 10^6/uL (3.72-5.28); RED CELL DISTRIBUTION WIDTH 15.1 % (11.5-14.0); SEGMENTED NEUTROPHILS % (AUTO) 74.4 % (42-78); TOTAL CELLS COUNTED % (AUTO) 100 %; WHITE BLOOD COUNT 7.4 10^3/uL (4.0-10.5)
[2018-12-18 04:40] LABS: ALANINE AMINOTRANSFERASE 19 U/L (9-52); ALBUMIN 3.5 g/dL (3.5-5.0); ALKALINE PHOSPHATASE 215 U/L (38-126); ANION GAP 19 (5-19); ASPARTATE AMINO TRANSFERASE 23 U/L (14-36); BILIRUBIN,DIRECT 1.2 mg/dL (0.0-0.4); BILIRUBIN,TOTAL 1.2 mg/dL (0.2-1.3); BLOOD UREA NITROGEN 66 mg/dL (7-20); CALCIUM 7.3 mg/dL (8.4-10.2); CARBON DIOXIDE 22 mmol/L (22-30); CHLORIDE 100 mmol/L (98-107); GLUCOSE 145 mg/dL (75-110); POTASSIUM 5.3 mmol/L (3.6-5.0); SODIUM 140.5 mmol/L (137-145); TOTAL PROTEIN 7.1 g/dL (6.3-8.2)
[2018-12-18] MEDS: HEPARIN SOD (PORCINE) 5,000 UNIT/ML 1 ML SYRINGE SUBCUT SCH (06:38)
[2018-12-18] MEDS: CARVEDILOL 12.5 MG TABLET PO SCH (11:27)
[2018-12-18] MEDS: GABAPENTIN 100 MG CAPSULE PO SCH (11:30)
[2018-12-18] MEDS: DOCUSATE SODIUM 100 MG CAPSULE PO SCH (11:31)
[2018-12-18 13:26] VITALS: BP 109/47
--- NOTE | 2018-12-18 16:47 | PDOC DISCHARGE SUMMARY ---
General - Admit/Disc Date/PCP Admission Date/Primary Care Provider: 12/14/18 22:17 Discharge Date: 12/18/18 - Discharge Diagnosis (1) Abdominal pain Is this a current diagnosis for this admission?: Yes Summary: The etiology of the patient's abdominal pain is not clear. HIDA scan was normal. Diagnostic imaging reveals hepatomegaly with coarse liver texture. The patient's total bilirubin and alkaline phosphatase were elevated on admission. Transaminases were normal. Surgery felt that there is no indication for cholecystectomy. The patient was still having abdominal pain but this is been going on for 3 months. She is sitting on the edge of the bed and I told her that she would need to see a rental sales representative to help figure out the etiology of her pain. They reported diarrhea and we are waiting for to obtain a specimen for C. difficile but the patient began passing formed stool. This makes the possibility of C. difficile extremely unlikely. The patient certainly could have an irritable bowel but this would require GI work-up as well. There is no indication of bowel swelling on the imaging studies. The patient has been eating fairly well. The exact etiology of her discomfort is unclear but anatomical abnormalities are present as outlined above. She should see gastroenterology as an outpatient. (2) ESRD (end stage renal disease) Is this a current diagnosis for this admission?: Yes Summary: The patient has end-stage renal disease and as an outpatient on Wednesday, and Wednesday. The patient has been receiving hemodialysis at this facility on Wednesday, Wednesday and Wednesday. Her BUN and creatinine are elevated with depressed GFR and poor urine output consistent with her diagnosis. She will return to her outpatient dialysis slot. (3) Anemia Is this a current diagnosis for this admission?: Yes Summary: She has anemia related to her chronic kidney disease. She received erythropoietin during her stay. (4) Hypertension Is this a current diagnosis for this admission?: Yes Summary: She is currently on carvedilol. Blood pressure is reasonably controlled. No changes to her treatment regimen. (5) Papular eczema Is this a current diagnosis for this admission?: Yes Summary: The patient has a pigmented papular eruption that is confluent over her body. She states that she has been to the deburr technician. She reports that the deburr technician told her it was related to her kidney disease. She is extremely pruritic. Moisturizer does not help. I ordered triamcinolone cream yesterday. She did not seem to feel that it was effective but it was only one day. I pr ovided prescriptions for Westcort hydrocortisone cream and EMLA cream as an outpatient. The hydrocortisone was ordered to be applied 3 times a day with the EMLA cream as needed. I did suggest that the EMLA cream to use for extreme itching. I suggested that the patient return to the deburr technician for other treatment suggestions. (6) Seizure Is this a current diagnosis for this admission?: Yes Summary: The nurse described an episode consistent with seizure 2 days ago. Keppra was administered. An EEG was performed but was negative for epileptiform activity. The patient would benefit from neurology follow-up as an outpatient. (7) Diabetes mellitus type 1 Is this a current diagnosis for this admission?: No Summary: During her stay the patient's glucoses were well controlled without any use of insulin. - Additional Information Resuscitation Status: Full Code Prescriptions: Hydrocortisone Valerate [Westcort] 15 gm TP Q8H PRN #45 cream.gm. PRN Reason: Lidocaine/Prilocaine [Emla Cream] 30 gm TP Q8H PRN #30 cream.gm. PRN Reason: Itching Home Medications: Carvedilol [Coreg 25 mg Tablet] 25 mg PO Q12 12/15/18 Gabapentin [Neurontin 100 mg Capsule] 100 mg PO Q8 12/15/18 Hydromorphone HCl [Dilaudid 2 mg Tablet] 2 mg PO Q4HP PRN 12/15/18 Hydroxyzine HCl [Atarax 50 mg Tablet] 50 mg PO QIDP PRN 12/15/18 Hydrocortisone Valerate [Westcort] 15 gm TP Q8H PRN #45 cream.gm. 12/18/18 Lidocaine/Prilocaine [Emla Cream] 30 gm TP Q8H PRN #30 cream.gm. 12/18/18 Ondansetron [Zofran Odt 4 mg Tablet] 1 - 2 tab PO Q4H PRN #15 tab.rapdis 12/18/18 History of Present Illness Patient complains of: Abdominal pain History of Present Illness: MICKIE SHARP is a 48 year old female who presents to the emergency room with a 3-month history of abdominal pain. Lately the episodes have been close together and the pain is been more severe. The pain is moderate to severe and is associated with dyspepsia and loose stools. Imaging in the emergency department revealed a thickened gallbladder wall and hepatomegaly with coarse texture. The patient is a hemodialysis patient and receives outpatient dialysis on Wednesday, and Wednesday. She is referred to the hospital service for admission for further work-up of the abdomen. Hospital Course Hospital Course: Follow-up with dermatology for rash try EMLA and triamcinolone or Benadryl Need to see a rental sales representative for changes in the liver. These are likely causing the pain. Gallbladder negative. The patient was seen by general surgery. She had a negative HIDA scan and so cholecystectomy was not indicated. She did have hepatomegaly with abnormal liver texture. It is difficult to know the exact etiology or when this process started. She did have an 6 mildly elevated bilirubin as well as an elevated alkaline phosphatase. Lipase was normal. She did not have an elevated white blood cell count. With the diarrhea and abdominal pain there was concern for C. difficile. It was difficult to obtain a specimen and the patient's stool began to be formed. The patient's rash seems to be more bothersome for her than anything else. The patient is stable. There is no risk of C. difficile. Gastroenterology is not available on the inpatient setting at this time. After discussion with the patient it is my plan to discharge her to home. She will continue with her current dialysis schedule. She should see a rental sales representative as well as her primary care physician. Physical Exam Vital Signs: Temp Pulse Resp BP Pulse Ox 98.4 F 61 18 110/45 L 100 12/18/18 08:00 12/18/18 08:00 12/18/18 08:00 12/18/18 08:00 12/18/18 08:00 Intake & Output 12/17/18 12/18/18 12/19/18 06:59 06:59 06:59 Intake Total 1482 1798 Output Total 3200 Balance -1718 1798 Weight 100 kg 100.2 kg General appearance: PRESENT: cooperative, mild distress - Constantly scratching her arms., well-developed Head exam: PRESENT: normocephalic Eye exam: PRESENT: conjunctiva pale Ear exam: PRESENT: normal external ear exam Mouth exam: PRESENT: moist, tongue midline Respiratory exam: PRESENT: clear to auscultation ezequiel, symmetrical, unlabored. ABSENT: rales, rhonchi, wheezes Cardiovascular exam: PRESENT: RRR, +S1, +S2 GI/Abdominal exam: PRESENT: normal bowel sounds, soft, tenderness - The patient reports diffuse nonfocal tenderness.. ABSENT: distended, guarding Rectal exam: PRESENT: deferred, other - Formed stool reported by nursing. Extremities exam: PRESENT: other - Old right below-knee amputation Neurological exam: PRESENT: alert, awake, oriented to person, oriented to place, oriented to situation, motor sensory deficit - Hard of hearing Psychiatric exam: PRESENT: anxious, other - Delayed development Skin exam: PRESENT: other - Chronic pigmented papular eruption covering the entire body. Results Laboratory Results: 12/18/18 03:47 12/18/18 03:47 12/17/18 12/17/18 12/18/18 17:45 17:45 03:47 WBC 7.5 7.4 RBC 3.27 L 2.86 L Hgb 10.3 L 9.0 L Hct 31.5 L 27.5 L MCV 96 96 MCH 31.5 31.4 MCHC 32.7 32.7 RDW 15.4 H 15.1 H Plt Count 159 132 L Seg Neutrophils % 78.1 H 74.4 Lymphocytes % 9.7 L 12.1 L Monocytes % 10.3 10.7 Eosinophils % 1.2 1.8 Basophils % 0.7 1.0 Absolute Neutrophils 5.8 5.5 Absolute Lymphocytes 0.7 0.9 Absolute Monocytes 0.8 0.8 Absolute Eosinophils 0.1 0.1 Absolute Basophils 0.1 0.1 Sodium 140.7 Potassium 5.0 Chloride 99 Carbon Dioxide 24 Anion Gap 18 BUN 61 H Creatinine 8.90 H Est GFR ( Amer) 6 L Est GFR (Non-Af Amer) 5 L Glucose 176 H Calcium 7.9 L Magnesium 2.2 Total Bilirubin 1.4 H AST 23 ALT 23 Alkaline Phosphatase 245 H Total Protein 8.4 H Albumin 4.1 Amylase 80 Lipase 70.5 12/18/18 03:47 WBC RBC Hgb Hct MCV MCH MCHC RDW Plt Count Seg Neutrophils % Lymphocytes % Monocytes % Eosinophils % Basophils % Absolute Neutrophils Absolute Lymphocytes Absolute Monocytes Absolute Eosinophils Absolute Basophils Sodium 140.5 Potassium 5.3 H Chloride 100 Carbon Dioxide 22 Anion Gap 19 BUN 66 H Creatinine 9.65 H Est GFR ( Amer) 5 L Est GFR (Non-Af Amer) 4 L Glucose 145 H Calcium 7.3 L Magnesium 2.2 Total Bilirubin 1.2 AST 23 ALT 19 Alkaline Phosphatase 215 H Total Protein 7.1 Albumin 3.5 Amylase Lipase Impressions: Abdomen/Pelvis CT 12/14/18 18:03 IMPRESSION: 1. Relatively chronic changes to include cardiomegaly and mild ascites with hepatosplenomegaly. Detailed as above. 2. Gallbladder is slightly thick-walled but this may be of no clinical significance depending on clinical presentation (can be seen with liver disease and ascites in the absence of inflammatory process). If warranted, consider ultrasound. 3. Pronounced atherosclerosis. Abdomen Ultrasound 12/14/18 18:38 IMPRESSION: Coarsened echotexture to the liver suggesting cirrhotic change. No gallstones. The gallbladder wall is mildly thickened and there is a trace of pericholecystic fluid. However, there is also a small volume of ascites. The patient had pain with palpation over the right upper quadrant. Atrophic appearance to the right kidney copyright 2011 [employer]- All Rights Reserved Hepatobiliary Scan Nuclear Medicine 12/15/18 00:00 IMPRESSION: No scintigraphic evidence of cystic duct or common duct obstruction. Persistent hepatobiliary uptake in the liver and 40 minutes indicating hepatocellular dysfunction. Qualifiers - * PATIENT BEING DISCHARGED WITH ANY OF THE FOLLOWING DIAGNOSIS: No Acute Heart Failure Is this a Heart Failure Patient?: No Plan Discharge Plan: As outlined above Time Spent: Greater than 30 Minutes
[2018-12-19 13:45] LABS: ANTINUCLEAR ANTIBODIES Negative (Negative)
== END 2018-12-18 13:30 | disposition home health service (06) | DRG 391 ==
LOC: ER 11:41 → EH 22:17 → 4N 12-15 01:35
PROVIDERS: ADMIT Emergency Medicine; ATTEND Emergency Medicine
PROC: 5A1D70Z Performance of Urinary Filtration, Intermittent, Less than 6 Hours Per Day (ICD-10-PCS; principal; 2018-12-16)
DX: R10.11 Right upper quadrant pain (principal); N18.6 End stage renal disease; I13.2 Hypertensive heart and chronic kidney disease with heart failure and with stage 5 chronic kidney disease, or end stage renal disease; I50.30 Unspecified diastolic (congestive) heart failure; Z68.41 Body mass index [BMI] 40.0-44.9, adult; E10.22 Type 1 diabetes mellitus with diabetic chronic kidney disease; R56.9 Unspecified convulsions; R16.0 Hepatomegaly, not elsewhere classified; E87.5 Hyperkalemia; E83.51 Hypocalcemia; E66.01 Morbid (severe) obesity due to excess calories; D63.1 Anemia in chronic kidney disease; L30.9 Dermatitis, unspecified; H91.90 Unspecified hearing loss, unspecified ear; J45.909 Unspecified asthma, uncomplicated; L94.2 Calcinosis cutis; R62.50 Unspecified lack of expected normal physiological development in childhood; R19.7 Diarrhea, unspecified; R10.84 Generalized abdominal pain; R11.2 Nausea with vomiting, unspecified; E78.5 Hyperlipidemia, unspecified; Z99.2 Dependence on renal dialysis; Z89.511 Acquired absence of right leg below knee; Z87.891 Personal history of nicotine dependence; Z83.3 Family history of diabetes mellitus; Z82.49 Family history of ischemic heart disease and other diseases of the circulatory system; Z79.82 Long term (current) use of aspirin
CPT/HCPCS: 36415; 74176; 76705; 78226; 80048; 80053; 80076; 82150; 82962; 83036; 83690; 83735; 84439; 84443; 84481; 85025; 86038; 93005; 93010; 95819; 96372; 96374; 99285; A9537; J0500; J1644; J1953; J2270; J2405; J3010; J3490; J7030; Q4081; Q9969; S0164

== ENCOUNTER 2018-12-18 13:52 | Emergency (ER) | payer MEDICARE, MEDICAID ==
[2018-12-18] MEDS ORDERED: ONDANSETRON 4 MG TAB.RAPDIS PO ONE (14:06)
--- NOTE | 2018-12-18 14:51 | ER Document Report ---
ED General - General Chief Complaint: Nausea Stated Complaint: UNRESPONSIVE Time Seen by Provider: 12/18/18 14:07 Primary Care Provider: BRITTANY JAUREGUI [Primary Care Provider] - Follow up as needed Mode of Arrival: Wheelchair Information source: Patient, Relative, [facility] Records Notes: 48-year-old female with end-stage renal disease, chronic abdominal pain, chronic anemia, type 1 diabetes, history of seizures presents as a medical emergency from the hospital lobby after being discharged today. APC was taking the patient down to her relative who was taking her home when she had a reported episode of vomiting and then her eyes rolled to the back of her head and patient was placed in the car which drove around to the ER entrance. Patient was wheeled into the department and was alert, awake and speaking. Currently complaining of nausea.Patient was admitted on December 14, 2018. During her ED course she was evaluated by nephrology, surgery. She had a normal HIDA scan. She was started on Keppra after a witnessed seizure by the nurse. TRAVEL OUTSIDE OF THE [place] IN LAST 30 DAYS: No - HPI Onset: Just prior to arrival Onset/Duration: Sudden Quality of pain: No pain Severity: None Associated symptoms: Nausea, Vomiting Exacerbated by: Denies Relieved by: Denies Similar symptoms previously: Yes Recently seen / treated by doctor: Yes - Recently discharged today - Related Data Allergies/Adverse Reactions: No Known Allergies Allergy (Verified 10/23/18 07:11) Past Medical History - General Information source: Patient, [facility] Records - Social History Smoking Status: Former Smoker Frequency of alcohol use: None Drug Abuse: None Lives with: Family Family History: CAD, DM, Hypertension Patient has suicidal ideation: No Patient has homicidal ideation: No - Past Medical History Cardiac Medical History: Reports: Hx Congestive Heart Failure, Hx Hypercholesterolemia, Hx Hypertension Denies: Hx Coronary Artery Disease, Hx Heart Attack Pulmonary Medical History: Reports: Hx Asthma Denies: Hx Bronchitis, Hx COPD, Hx Pneumonia Neurological Medical History: Denies: Hx Cerebrovascular Accident, Hx Seizures Endocrine Medical History: Reports: Hx Diabetes Mellitus Type 1. Denies: Hx Diabetes Mellitus Type 2, Hx Hyperthyroidism, Hx Hypothyroidism Renal/ Medical History: Reports: Hx End Stage Renal Disease - On on hemodialysis 3 days/week, Hx Hemodialysis, Hx Peritoneal Dialysis GI Medical History: Denies: Hx Cirrhosis, Hx Hepatitis Musculoskeletal Medical History: Denies Hx Arthritis, Denies Hx Gout Skin Medical History: Denies Hx Eczema, Denies Hx Psoriasis Infectious Medical History: Denies: Hx Hepatitis Past Surgical History: Reports: Hx Cholecystectomy, Hx Orthopedic Surgery - Right BKA, Hx Vascular Surgery - fistula placement for hemodialysis, Other - Amputation right lower extremity - Immunizations Hx Diphtheria, Pertussis, Tetanus Vaccination: Yes Review of Systems - Review of Systems Notes: REVIEW OF SYSTEMS: CONSTITUTIONAL : Denies fever, chills, or sweats. Denies recent illness. Denies weight loss, recent hospitalizations. EENT: Denies visual changes, eye pain. Denies sore throat, oral lesions, difficulty swallowing. CARDIOVASCULAR: Denies chest pain. Denies palpitations. Denies lower extremity edema. RESPIRATORY: Denies cough. Denies shortness of breath, wheezing. GASTROINTESTINAL: Denies abdominal pain or distention. +nausea, vomiting, denies diarrhea. Denies blood in vomitus, stools, or per rectum. Denies black, tarry stools. Denies constipation. GENITOURINARY: Denies difficulty urinating, painful urination, frequency, blood in urine, or vaginal discharge. MUSCULOSKELETAL: Denies back or neck pain or stiffness. Denies joint pain or swelling. SKIN: Denies rash, lesions or sores. HEMATOLOGIC : Denies easy bruising or bleeding. LYMPHATIC: Denies swollen glands. NEUROLOGICAL: Denies confusion or altered mental status. Denies loss of consciousness. Denies dizziness or lightheadedness. Denies headache. Denies weakness or paralysis. Denies problems difficulty with ambulation, slurred speech. Denies sensory loss, numbness, or tingling. Denies seizures. PSYCHIATRIC: Denies anxiety or stress. Denies depression, suicidal ideation, or homicidal ideation. Denies visual or auditory hallucinations. Physical Exam - Vital signs Vitals: Temp Pulse Resp BP Pulse Ox 98.2 F 60 18 96/53 L 90 L 12/18/18 13:59 12/18/18 13:59 12/18/18 13:59 12/18/18 13:59 12/18/18 13:59 - Notes Notes: PHYSICAL EXAMINATION: GENERAL: Well-appearing, well-nourished and in no acute distress. HEAD: Atraumatic, normocephalic. EYES: Pupils equal round and reactive to light, extraocular movements intact, conjunctiva are normal. ENT: Nares patent, oropharynx clear without exudates. Moist mucous membranes. NECK: Normal range of motion, supple without lymphadenopathy LUNGS: Breath sounds clear to auscultation bilaterally and equal. No wheezes rales or rhonchi. HEART: Regular rate and rhythm without murmurs ABDOMEN: Soft, nontender, nondistended abdomen. No guarding, no rebound. No masses appreciated. Female : deferred Musculoskeletal: Normal range of motion, no pitting or edema. No cyanosis. Right BKA NEUROLOGICAL: Cranial nerves grossly intact. Normal speech, normal gait. Normal sensory, motor exams. And O x3 PSYCH: Normal mood, normal affect. SKIN: Warm, Dry, normal turgor, no rashes or lesions noted. Course - Re-evaluation Re-evalutation: 12/18/18 17:26 Temp Pulse Resp BP Pulse Ox 98.2 F 60 18 105/68 90 L 12/18/18 13:59 12/18/18 13:59 12/18/18 13:59 12/18/18 14:45 12/18/18 13:59 48-year-old female with multiple medical problems presents as a medical emergency from the front [facility] of the hospital after being discharged after a 4- day admission. Upon my exam patient is alert, awake. Blood glucose 135. Complaining of nausea which Zofran was administered. Previous medical records and nursing notes reviewed. Hospital course reviewed. History of Present Illness Patient complains of: Abdominal pain History of Present Illness: MICKIE SHARP is a 48 year old female who presents to the emergency room with a 3-month history of abdominal pain. Lately the episodes have been close together and the pain is been more severe. The pain is moderate to severe and is associated with dyspepsia and loose stools. Imaging in the emergency department revealed a thickened gallbladder wall and hepatomegaly with coarse texture. The patient is a hemodialysis patient and receives outpatient dialysis on Wednesday, and Wednesday. She is referred to the hospital service for admission for further work-up of the abdomen. Hospital Course Hospital Course: Follow-up with dermatology for rash try EMLA and triamcinolone or Benadryl Need to see a community service officer coordinator for changes in the liver. These are likely causing the pain. Gallbladder negative. The patient was seen by general surgery. She had a negative HIDA scan and so cholecystectomy was not indicated. She did have hepatomegaly with abnormal liver texture. It is difficult to know the exact etiology or when this process started. She did have an 6 mildly elevated bilirubin as well as an elevated alkaline phosphatase. Lipase was normal. She did not have an elevated white blood cell count. With the diarrhea and abdominal pain there was concern for C. difficile. It was difficult to obtain a specimen and the patient's stool began to be formed. The patient's rash seems to be more bothersome for her than anything else. The patient is stable. There is no risk of C. difficile. Gastroenterology is not available on the inpatient setting at this time. After discussion with the patient it is my plan to discharge her to home. She will c ontinue with her current dialysis schedule. She should see a community service officer coordinator as well as her primary care physician. Patient was discharged home with recommendations to continue the medication pa tient was placed on during her hospital admission. Patient was evaluated and treated as appropriate for the patient's presenting symptoms and complaint, with consideration of any critical or life threatening conditions that may be associated with their obtained history and exam as noted above. All results were discussed with patient and her family member who is at the bedside. Patient provided the opportunity to ask questions, and express concerns. Patient was educated on treatments based on their presumed diagnosis as noted above. At this time we will discharge the patient with return prec autions and follow-up recommendations. Verbal discharge instructions given a the bedside. Medication warnings reviewed. Patient is in agreement with this plan and has verbalized understanding of return precautions. After careful consideration I feel that that patient can be safely discharged from the emergency department, they were advised to followup with a primary care physician in 2-3 days. Dictation on this chart was performed using voice recognition software and may result in unintended grammatical, spelling, syntax or errors. - Vital Signs Vital signs: Temp Pulse Resp BP Pulse Ox 98.2 F 60 18 105/68 90 L 12/18/18 13:59 12/18/18 13:59 12/18/18 13:59 12/18/18 14:45 12/18/18 13:59 Discharge - Discharge Clinical Impression: Nausea & vomiting Qualifiers: Vomiting type: unspecified Vomiting Intractability: non-intractable Qualified Code(s): R11.2 - Nausea with vomiting, unspecified Condition: Good Disposition: HOME, SELF-CARE Instructions: Vomiting ([facility]) Additional Instructions: Follow up with your [id number] hours for further care or return to the ED IMMEDIATELY if symptoms worsen or you have any concerns. If you cannot afford to follow up with your primary care physician a list of low cost clinics have been provided at the end of your discharge papers as well. Most prescribed medications have multiple side effects. The safest thing to do is when filling your prescription speak to your pharmacist regarding possible interactions with your normal home medications and over the counter medications such as Ibuprofen, Tylenol, Benadryl. If you experience any symptoms that cause you discomfort or concern you should discontinue the medication immediately and return to the emergency room or call your primary care physician. Prescriptions: Ondansetron [Zofran Odt 4 mg Tablet] 1 - 2 tab PO Q4H PRN #15 tab.rapdis PRN Reason: For Nausea/Vomiting Referrals: LOCALMD,NO [Primary Care Provider] - Follow up as needed
[2018-12-18 14:56] VITALS: BP 105/68
== END 2018-12-18 14:56 | disposition home or self-care (01) ==
LOC: ER 13:52
DX: R11.2 Nausea with vomiting, unspecified (principal); I13.2 Hypertensive heart and chronic kidney disease with heart failure and with stage 5 chronic kidney disease, or end stage renal disease; E10.22 Type 1 diabetes mellitus with diabetic chronic kidney disease; N18.6 End stage renal disease; I50.9 Heart failure, unspecified; Z99.2 Dependence on renal dialysis; Z87.891 Personal history of nicotine dependence; J45.909 Unspecified asthma, uncomplicated
CPT/HCPCS: 99284; 82962; A9270; S0119

== ENCOUNTER 2019-01-04 18:12 | Emergency (ER) | payer MEDICARE, MEDICAID ==
[2019-01-04] MEDS ORDERED: ONDANSETRON HCL INJ/PF 4 MG/2 ML SDV IV ONE (19:28)
--- NOTE | 2019-01-04 19:33 | ER Document Report ---
Addendum entered and electronically signed by GERTRUDIS SCHULER PA-C 01/04/19 19:35: Course - Re-evaluation Re-evalutation: 01/04/19 19:35 Pt was admitted to the hospital at the beginning of the month and came back to the ED after discharge on the . See notes. - Vital Signs Vital signs: Temp Pulse Resp BP Pulse Ox 98 F 77 22 H 132/62 H 94 01/04/19 18:17 01/04/19 18:17 01/04/19 19:22 01/04/19 18:17 01/04/19 18:17 Original Note: ED Medical Screen (RME) - General Chief Complaint: Vomiting/Diarrhea Stated Complaint: VOMITING/DIARRHEA Time Seen by Provider: 01/04/19 19:27 Primary Care Provider: BRITTANY JAUREGUI [Primary Care Provider] - Follow up as needed TRAVEL OUTSIDE OF THE [place] IN LAST 30 DAYS: No - HPI Notes: 01/04/19 19:29 Patient is a 48-year-old female with a history of congestive heart failure, hypertension, end-stage renal disease and on dialysis every Wednesday/Wednesday/Wednesday who presents complaining of nausea, vomiting, diarrhea, intermittent abdominal pains over the past 1 to 2 months. Patient states that she has not had dialysis completed in the last 4 to 5 days. Patient states that she has weakness associated. Denies TAFOYA, fever, neck pain, URI, CP, SOB, or rash. Patient states that she does not produce any urine. I have treated and performed a rapid initial assessment of this patient. A comprehensive ED assessment and evaluation of the patient, analysis of test results and completion of medical decision making process will be conducted by additional ED providers. PHYSICAL EXAMINATION: GENERAL: Well-appearing, well-nourished and in no acute distress. A&Ox4. Answers questions appropriately. LUNGS: diminished b/l. HEART: Regular rate and rhythm without murmurs, rubs, gallops. - Related Data Allergies/Adverse Reactions: No Known Allergies Allergy (Verified 01/04/19 18:13) Past Medical History - Past Medical History Cardiac Medical History: Reports: Hx Congestive Heart Failure, Hx Hypercholesterolemia, Hx Hypertension Denies: Hx Coronary Artery Disease, Hx Heart Attack Pulmonary Medical History: Reports: Hx Asthma Denies: Hx Bronchitis, Hx COPD, Hx Pneumonia Neurological Medical History: Denies: Hx Cerebrovascular Accident, Hx Seizures Endocrine Medical History: Reports: Hx Diabetes Mellitus Type 1. Denies: Hx Diabetes Mellitus Type 2, Hx Hyperthyroidism, Hx Hypothyroidism Renal/ Medical History: Reports: Hx End Stage Renal Disease - On on hemodialysis 3 days/week, Hx Hemodialysis, Hx Peritoneal Dialysis GI Medical History: Denies: Hx Cirrhosis, Hx Hepatitis Musculoskeltal Medical History: Denies Hx Arthritis, Denies Hx Gout Skin Medical History: Denies Hx Eczema, Denies Hx Psoriasis Infectious Medical History: Denies: Hx Hepatitis Past Surgical History: Reports: Hx Cholecystectomy, Hx Orthopedic Surgery - Right BKA, Hx Vascular Surgery - fistula placement for hemodialysis, Other - Amputation right lower extremity - Immunizations Hx Diphtheria, Pertussis, Tetanus Vaccination: Yes History of Influenza Vaccine for 05/2017 - 10/2017 Season: Yes Influenza Administration Date for 05/2017 - 10/2017 Season: 04/16/17 Physical Exam - Vital signs Vitals: Temp Pulse Resp BP Pulse Ox 98 F 77 24 H 132/62 H 94 01/04/19 18:17 01/04/19 18:17 01/04/19 18:17 01/04/19 18:17 01/04/19 18:17 Course - Vital Signs Vital signs: Temp Pulse Resp BP Pulse Ox 98 F 77 24 H 132/62 H 94 01/04/19 18:17 01/04/19 18:17 01/04/19 18:17 01/04/19 18:17 01/04/19 18:17 Doctor's Discharge - Discharge Referrals: LOCALMD,NO [Primary Care Provider] - Follow up as needed
[2019-01-04] MEDS ORDERED: ONDANSETRON 4 MG TAB.RAPDIS PO ONE (20:26)
[2019-01-04 21:23] LABS: ABSOLUTE BASOPHILS # (AUTO) 0.1 10^3/uL (0.0-0.2); ABSOLUTE EOSINOPHILS # (AUTO) 0.1 10^3/uL (0.0-0.6); ABSOLUTE LYMPHOCYTES (AUTO) 0.8 10^3/uL (0.5-4.7); ABSOLUTE MONOCYTES (AUTO) 0.4 10^3/uL (0.1-1.4); ABSOLUTE NEUT (AUTO) 4.7 10^3/uL (1.7-8.2); BASOPHILS % (AUTO) 1.4 % (0-2); EOSINOPHILS % (AUTO) 1.8 % (0-6); HEMATOCRIT 31.4 % (36.0-47.0); HEMOGLOBIN 10.3 g/dL (12.0-15.5); LYMPHOCYTES % (AUTO) 12.3 % (13-45); MEAN CORPUSCULAR HEMOGLOBIN 31.4 pg (27.0-33.4); MEAN CORPUSCULAR VOLUME 95 fl (80-97); MONOCYTES % (AUTO) 6.5 % (3-13); PLATELET COUNT 123 10^3/uL (150-450); RED BLOOD COUNT 3.29 10^6/uL (3.72-5.28); RED CELL DISTRIBUTION WIDTH 15.4 % (11.5-14.0); TOTAL CELLS COUNTED % (AUTO) 100 %; WHITE BLOOD COUNT 6.1 10^3/uL (4.0-10.5)
[2019-01-04 21:40] LABS: ALANINE AMINOTRANSFERASE 22 U/L (9-52); ALKALINE PHOSPHATASE 176 U/L (38-126); ASPARTATE AMINO TRANSFERASE 43 U/L (14-36); BILIRUBIN,DIRECT 1.2 mg/dL (0.0-0.4); BILIRUBIN,TOTAL 1.2 mg/dL (0.2-1.3); BLOOD UREA NITROGEN 91 mg/dL (7-20); CALCIUM 7.7 mg/dL (8.4-10.2); GLUCOSE 129 mg/dL (75-110); LIPASE 146.8 U/L (23-300); POTASSIUM 5.4 mmol/L (3.6-5.0); TOTAL PROTEIN 8.1 g/dL (6.3-8.2)
[2019-01-04 21:45] LABS: CARBON DIOXIDE 21 mmol/L (22-30); CHLORIDE 99 mmol/L (98-107); SODIUM 140.5 mmol/L (137-145)
[2019-01-04 21:46] LABS: ANION GAP 21 (5-19)
[2019-01-05] MEDS ORDERED: SODIUM BICARBONATE 8.4% INJ 50 MEQ/50 ML DISP.SYRIN IV ONE (00:21)
--- NOTE | 2019-01-05 00:21 | ER Document Report ---
ED General - General Chief Complaint: Vomiting/Diarrhea Stated Complaint: VOMITING/DIARRHEA Time Seen by Provider: 01/04/19 19:27 Primary Care Provider: RAMIRO QUINONES MD [ACTIVE STAFF] - Follow up in 3-5 days Marjorie RAVI MD [ACTIVE STAFF] - Follow up in 3-5 days Notes: Patient is a 48-year-old female with end-stage renal disease on dialysis and hypertension that presents to the emergency department for chief complaint of abdominal pain and diarrhea. Patient is complaining of chronic abdominal pain and diarrhea that is been going on for several months now, she is been seen in the emergency department multiple times for this and recently admitted for suspicion of possible gallbladder disease, and had a HIDA scan which was negative, she states that she has been having continued abdominal cramping, and states that food goes straight through her, denies any vomiting, but has been having watery diarrhea, she states that she missed her dialysis today, and only had half a session on Wednesday because she was having diarrhea at that time. She denies noting any fevers, chills, night sweats, chest pain, shortness of breath or difficulty breathing. She does report she tried taking Imodium without much improvement of her symptoms. She currently rates her pain as a 7 out of 10, describes it as an aching sensation in the epigastric region. She is however asking to eat food. Past Medical History: End-stage renal disease on dialysis, hypertension, hyperlipidemia, diabetes Past Surgical History: Dialysis fistula, right below the knee amputation Social History: Denies current tobacco, alcohol or drug use. Family History: Reviewed and noncontributory for presenting illness Allergies: Reviewed, see documented allergy list. REVIEW OF SYSTEMS: Other than noted above, the 12 point review of systems was reviewed with the patient and were negative, all pertinent findings are included in the HPI. PHYSICAL EXAMINATION: Vital signs reviewed, nursing noted reviewed. GENERAL: Patient appears uncomfortable on exam, but in no immediate distress. HEAD: Atraumatic, normocephalic. EYES: Eyes appear normal, extraocular movements intact, sclera anicteric, conjunctiva are normal. ENT: nares patent, oropharynx clear without exudates. Moist mucous membranes. NECK: Normal range of motion, supple without lymphadenopathy LUNGS: Breath sounds clear to auscultation bilaterally and equal. No wheezes rales or rhonchi. HEART: Regular rate and rhythm without murmurs ABDOMEN: Soft, tenderness to palpation in the right upper quadrant and epigastric region of the abdomen, normoactive bowel sounds. No rebound, guarding, or rigidity. No masses appreciated. EXTREMITIES: Right below-knee amputation, pulses intact distally bilaterally, otherwise range of motion is good, nontender to palpate NEUROLOGICAL: No focal neurological deficits. Moves all extremities spontaneously Motor and sensory grossly intact on exam. PSYCH: Normal mood, normal affect. SKIN: Warm, Dry, normal turgor, patient has innumerable calcific lesions to the skin, that have been present for a long time and chronic for the patient. TRAVEL OUTSIDE OF THE [place] IN LAST 30 DAYS: No - Related Data Allergies/Adverse Reactions: No Known Allergies Allergy (Verified 01/04/19 18:13) Past Medical History - Social History Smoking Status: Former Smoker Family History: CAD, DM, Hypertension Patient has suicidal ideation: No Patient has homicidal ideation: No - Past Medical History Cardiac Medical History: Reports: Hx Congestive Heart Failure, Hx Hypercholesterolemia, Hx Hypertension Denies: Hx Coronary Artery Disease, Hx Heart Attack Pulmonary Medical History: Reports: Hx Asthma Denies: Hx Bronchitis, Hx COPD, Hx Pneumonia Neurological Medical History: Denies: Hx Cerebrovascular Accident, Hx Seizures Endocrine Medical History: Reports: Hx Diabetes Mellitus Type 1. Denies: Hx Diabetes Mellitus Type 2, Hx Hyperthyroidism, Hx Hypothyroidism Renal/ Medical History: Reports: Hx End Stage Renal Disease - On on hemodialysis 3 days/week, Hx Hemodialysis, Hx Peritoneal Dialysis GI Medical History: Denies: Hx Cirrhosis, Hx Hepatitis Musculoskeletal Medical History: Denies Hx Arthritis, Denies Hx Gout Skin Medical History: Denies Hx Eczema, Denies Hx Psoriasis Infectious Medical History: Denies: Hx Hepatitis Past Surgical History: Reports: Hx Cholecystectomy, Hx Orthopedic Surgery - Right BKA, Hx Vascular Surgery - fistula placement for hemodialysis, Other - Amputation right lower extremity - Immunizations Hx Diphtheria, Pertussis, Tetanus Vaccination: Yes Physical Exam - Vital signs Vitals: Temp Pulse Resp BP Pulse Ox 98 F 77 24 H 132/62 H 94 01/04/19 18:17 01/04/19 18:17 01/04/19 18:17 01/04/19 18:17 01/04/19 18:17 Course - Re-evaluation Re-evalutation: Patient seen and examined vital signs reviewed. Laboratory data and/or imaging were ordered as appropriate for the patient's presenting symptoms and complaint, with consideration of any critical or life threatening conditions that may be associated with their obtained history and exam as noted above. Patient was treated with IV fentanyl, and Reglan, in triage she was ordered p.o. Zofran. Results were reviewed when available and demonstrated mild hyperkalemia 5.4, patient blood work is otherwise consistent with her prior labs, and essentially unchanged, patient was given a dose of IV sodium bicarbonate, and p.o. Veltassa. The patient was re-evaluated and was stable and improved Evaluation was most consistent with chronic abdominal pain and diarrhea, stool sample was sent off for C. difficile and stool cultures, however low likelihood of C. difficile, based on no leukocytosis, fever, and the fact that it has been chronic for several months. Patient was referred to gastroenterology, and advised follow-up with nephrology and advised not to miss her scheduled dialysis on Wednesday. Results were discussed with the patient at this point, after careful considerati on I feel that that patient can be discharged from the emergency department, the patient was educated treatments and reasons to return to the emergency department based on their presumed diagnosis as noted above, they were advised to followup with a primary care physician in 2-3 days. Patient was agreeable to plan of care. *Note is created using voice recognition software and may contain spelling, syntax or grammatical errors. Laboratory 01/04/19 01/04/19 01/04/19 20:07 21:06 21:06 WBC 6.1 RBC 3.29 L Hgb 10.3 L Hct 31.4 L MCV 95 MCH 31.4 MCHC 33.0 RDW 15.4 H Plt Count 123 L Seg Neutrophils % 78.0 Lymphocytes % 12.3 L Monocytes % 6.5 Eosinophils % 1.8 Basophils % 1.4 Absolute Neutrophils 4.7 Absolute Lymphocytes 0.8 Absolute Monocytes 0.4 Absolute Eosinophils 0.1 Absolute Basophils 0.1 Sodium 140.5 Potassium 5.4 H Chloride 99 Carbon Dioxide 21 L Anion Gap 21 H BUN 91 H Creatinine 11.94 H Est GFR ( Amer) 4 L Est GFR (Non-Af Amer) 3 L Glucose 129 H POC Glucose 161 H Calcium 7.7 L Total Bilirubin 1.2 Direct Bilirubin 1.2 H Neonat Total Bilirubin Not Reportable Neonat Direct Bilirubin Not Reportable Neonat Indirect Bili Not Reportable AST 43 H ALT 22 Alkaline Phosphatase 176 H Total Protein 8.1 Albumin 4.0 Lipase 146.8 - Vital Signs Vital signs: Temp Pulse Resp BP Pulse Ox 98 F 77 18 132/62 H 100 01/04/19 18:17 01/04/19 18:17 01/05/19 00:00 01/04/19 18:17 01/05/19 00:00 - Laboratory Result Diagrams: 01/04/19 21:06 01/04/19 21:06 Laboratory results interpreted by me: 01/04/19 01/04/19 01/04/19 20:07 21:06 21:06 RBC 3.29 L Hgb 10.3 L Hct 31.4 L RDW 15.4 H Plt Count 123 L Lymphocytes % 12.3 L Potassium 5.4 H Carbon Dioxide 21 L Anion Gap 21 H BUN 91 H Creatinine 11.94 H Est GFR ( Amer) 4 L Est GFR (Non-Af Amer) 3 L Glucose 129 H POC Glucose 161 H Calcium 7.7 L Direct Bilirubin 1.2 H AST 43 H Alkaline Phosphatase 176 H Discharge - Discharge Clinical Impression: Abdominal pain Qualifiers: Abdominal location: unspecified location Qualified Code(s): R10.9 - Unspecified abdominal pain Diarrhea Qualifiers: Diarrhea type: unspecified type Qualified Code(s): R19.7 - Diarrhea, u nspecified Condition: Stable Disposition: HOME, SELF-CARE Instructions: Abdominal Pain ([facility]), Diarrhea, Nonspecific ([facility]) Additional Instructions: Please follow-up with the concrete block maker, listed with your paperwork, please follow-up with dialysis and your kidney doctor as soon as possible as well, do not miss your session on Wednesday. Referrals: Marjorie RAVI MD [ACTIVE STAFF] - Follow up in 3-5 days RAMIRO QUINONES MD [ACTIVE STAFF] - Follow up in 3-5 days
[2019-01-05] MEDS ORDERED: METOCLOPRAMIDE HCL INJ/PF 10 MG/2 ML SDV IV ONE (00:22)
[2019-01-05] MEDS ORDERED: MORPHINE SULFATE 10 MG/ML INJ IV ONE (00:22)
[2019-01-05] MEDS ORDERED: FENTANYL CITRATE INJ/PF 100 MCG/2 ML AMPUL IV ONE (00:24)
[2019-01-05] MEDS ORDERED: PATIROMER 8.4 GM SUSP PACKET PO STA (00:54)
[2019-01-05] MEDS ORDERED: PATIROMER 8.4 GM SUSP PACKET ONE (01:26)
[2019-01-05 04:17] VITALS: BP 150/76
== END 2019-01-05 04:17 | disposition home or self-care (01) ==
LOC: ER 18:12
DX: R19.7 Diarrhea, unspecified (principal); R10.9 Unspecified abdominal pain; R10.811 Right upper quadrant abdominal tenderness; R10.816 Epigastric abdominal tenderness; I12.0 Hypertensive chronic kidney disease with stage 5 chronic kidney disease or end stage renal disease; E10.22 Type 1 diabetes mellitus with diabetic chronic kidney disease; N18.6 End stage renal disease; Z99.2 Dependence on renal dialysis; Z91.15 Patient's noncompliance with renal dialysis; E87.5 Hyperkalemia; L98.9 Disorder of the skin and subcutaneous tissue, unspecified; Z87.891 Personal history of nicotine dependence; J45.909 Unspecified asthma, uncomplicated
CPT/HCPCS: 99285; 36415; 87045; 87205; 82962; 83690; 85025; 80053; 87493; A9270; J3010; J2765; J3490 ×2; S0119

== ENCOUNTER 2019-01-09 19:42 | Emergency (ER) | payer MEDICARE, MEDICAID ==
[2019-01-09 21:02] LABS: ABSOLUTE BASOPHILS # (AUTO) 0.1 10^3/uL (0.0-0.2); ABSOLUTE EOSINOPHILS # (AUTO) 0.2 10^3/uL (0.0-0.6); ABSOLUTE LYMPHOCYTES (AUTO) 0.7 10^3/uL (0.5-4.7); ABSOLUTE MONOCYTES (AUTO) 0.7 10^3/uL (0.1-1.4); ABSOLUTE NEUT (AUTO) 6.2 10^3/uL (1.7-8.2); BASOPHILS % (AUTO) 1.4 % (0-2); EOSINOPHILS % (AUTO) 2.3 % (0-6); HEMATOCRIT 32.3 % (36.0-47.0); HEMOGLOBIN 10.5 g/dL (12.0-15.5); LYMPHOCYTES % (AUTO) 9.3 % (13-45); MEAN CORPUSCULAR HGB CONC 32.5 g/dL (32.0-36.0); MEAN CORPUSCULAR VOLUME 96 fl (80-97); MONOCYTES % (AUTO) 8.3 % (3-13); PLATELET COUNT 167 10^3/uL (150-450); RED BLOOD COUNT 3.38 10^6/uL (3.72-5.28); RED CELL DISTRIBUTION WIDTH 15.6 % (11.5-14.0); SEGMENTED NEUTROPHILS % (AUTO) 78.7 % (42-78); TOTAL CELLS COUNTED % (AUTO) 100 %; WHITE BLOOD COUNT 7.9 10^3/uL (4.0-10.5)
[2019-01-09 21:23] LABS: ALANINE AMINOTRANSFERASE 92 U/L (9-52); ALBUMIN 4.1 g/dL (3.5-5.0); ALKALINE PHOSPHATASE 197 U/L (38-126); ANION GAP 19 (5-19); ASPARTATE AMINO TRANSFERASE 126 U/L (14-36); BILIRUBIN,DIRECT 1.4 mg/dL (0.0-0.4); BILIRUBIN,TOTAL 1.4 mg/dL (0.2-1.3); BLOOD UREA NITROGEN 66 mg/dL (7-20); CALCIUM 8.2 mg/dL (8.4-10.2); CARBON DIOXIDE 23 mmol/L (22-30); CHLORIDE 99 mmol/L (98-107); GLUCOSE 118 mg/dL (75-110); POTASSIUM 5.4 mmol/L (3.6-5.0); SODIUM 140.5 mmol/L (137-145)
--- NOTE | 2019-01-09 23:16 | ER Document Report ---
ED General - General Chief Complaint: Pain All Over Stated Complaint: WEAKNESS Time Seen by Provider: 01/09/19 20:10 Notes: Patient is a 48-year-old female with past medical history of end-stage renal disease with dialysis dependence, presents with complaints of ongoing abdominal pain and daily diarrhea. The patient has been evaluated extensively for this issue without clear etiology being determined. Was seen in the emergency department less than 1 week ago for complaints of the same. Was hospitalized the beginning of the month for similar symptoms, had a reassuring work-up at that time. Patient states that she is coming in today as her pain is not any better and she continues to have diarrhea. States that she was having such fr equent diarrhea today at dialysis that she only completed 30 minutes of dialysis. The patient describes her abdominal pain as being primarily located in the epigastrium and is a cramping, aching, constant discomfort. Regards it is being severe. Nothing seems to improve or worsen her symptoms. She has not had a fever. She is following with her primary care doctor regarding this issue. TRAVEL OUTSIDE OF THE [place] IN LAST 30 DAYS: No - HPI Patient complains to provider of: Abdominal cramping Onset: Other - Several months Onset/Duration: Constant, Persistent Quality of pain: Cramping Severity: Severe Pain Level: 5 Associated symptoms: Diarrhea Exacerbated by: Denies Relieved by: Denies Similar symptoms previously: Yes Recently seen / treated by doctor: Yes - Related Data Allergies/Adverse Reactions: No Known Allergies Allergy (Verified 01/04/19 18:13) Past Medical History - General Information source: Patient - Social History Smoking Status: Never Smoker Chew tobacco use (# tins/day): No Frequency of alcohol use: None Drug Abuse: None Family History: CAD, DM, Hypertension Patient has suicidal ideation: No Patient has homicidal ideation: No - Past Medical History Cardiac Medical History: Reports: Hx Congestive Heart Failure, Hx Hypercholesterolemia, Hx Hypertension Denies: Hx Coronary Artery Disease, Hx Heart Attack Pulmonary Medical History: Reports: Hx Asthma Denies: Hx Bronchitis, Hx COPD, Hx Pneumonia Neurological Medical History: Denies: Hx Cerebrovascular Accident, Hx Seizures Endocrine Medical History: Reports: Hx Diabetes Mellitus Type 1. Denies: Hx Diabetes Mellitus Type 2, Hx Hyperthyroidism, Hx Hypothyroidism Renal/ Medical History: Reports: Hx End Stage Renal Disease - On on hemodialysis 3 days/week, Hx Hemodialysis. Denies: Hx Peritoneal Dialysis GI Medical History: Denies: Hx Cirrhosis, Hx Hepatitis Musculoskeletal Medical History: Denies Hx Arthritis, Denies Hx Gout Skin Medical History: Denies Hx Eczema, Denies Hx Psoriasis Infectious Medical History: Denies: Hx Hepatitis Past Surgical History: Reports: Hx Cholecystectomy, Hx Orthopedic Surgery - Right BKA, Hx Vascular Surgery - fistula placement for hemodialysis, Other - Amputation right lower extremity - Immunizations Hx Diphtheria, Pertussis, Tetanus Vaccination: Yes Review of Systems - Review of Systems Notes: Constitutional: Negative for fever. HENT: Negative for sore throat. Eyes: Negative for visual changes. Cardiovascular: Negative for chest pain. Respiratory: Negative for shortness of breath. Gastrointestinal: Positive for abdominal pain and diarrhea Genitourinary: Negative for dysuria. Musculoskeletal: Negative for back pain. Skin: Positive for rash. Neurological: Negative for headaches, weakness or numbness. 10 point ROS negative except as marked above and in HPI. Physical Exam - Vital signs Vitals: Resp BP Pulse Ox 21 H 126/70 H 98 01/09/19 19:59 01/09/19 19:59 01/09/19 19:59 Interpretation: Normal Notes: PHYSICAL EXAMINATION: GENERAL: Appears older than stated age, in no acute distress HEAD: Atraumatic, normocephalic. EYES: Pupils equal round and reactive to light, extraocular movements intact, sclera anicteric, conjunctiva are normal. ENT: nares patent, oropharynx clear without exudates. Moderately dry mucous membranes. NECK: Normal range of motion, supple without lymphadenopathy LUNGS: Breath sounds clear to auscultation bilaterally and equal. No wheezes rales or rhonchi. HEART: Regular rate and rhythm without murmurs ABDOMEN: Soft, nontender, normoactive bowel sounds. No guarding, no rebound. No masses appreciated. EXTREMITIES: Right BKA present, trace edema in the left lower extremity below the level of the knee no cyanosis. NEUROLOGICAL: No focal neurological deficits. Moves all extremities spontaneousl y and on command. PSYCH: Anxious SKIN: Warm, Dry, normal turgor, diffuse raised, skin colored lesions over the entirety of the body Course - Re-evaluation Re-evalutation: 01/09/19 22:56 Patient presents with a multitude of chronic complaints stating that she has had diarrhea on and off for 8 weeks, is complaining of diffuse rash that again has been long-term for months or greater and that she was not able to get dialysis today. The patient admits that all these things have been ongoing for quite some time but she came to the emergency department because she felt miserable and was hoping that we could give her something for pain. She denies fever or constitutional symptoms at home. Her exam is notable for diffuse rash which she has had long-term and is not new or different today. Her labs show potassium unchanged from previous assessments, bicarb normal. I have advised patient that she needs to go to dialysis as scheduled and that she does not currently meet criteria for emergency dialysis. I have advised that she needs to follow with her primary care physician regarding these long-term chronic issues. At this time will discharge with return precautions and follow-up recommendations. Verbal discharge instructions given a the bedside and opportunity for questions given. Medication warnings reviewed. Patient is in agreement with this plan and has verbalized understanding of return precautions and the need for primary care follow-up in the next 24-72 hours. 01/10/19 00:25 - Vital Signs Vital signs: Temp Pulse Resp BP Pulse Ox 98.4 F 83 12 140/85 H 98 01/10/19 00:42 01/09/19 20:00 01/10/19 00:41 01/10/19 00:42 01/10/19 00:41 - Laboratory Result Diagrams: 01/09/19 20:28 01/09/19 20:28 Laboratory results interpreted by me: 01/09/19 01/09/19 20:28 20:28 RBC 3.38 L Hgb 10.5 L Hct 32.3 L RDW 15.6 H Seg Neutrophils % 78.7 H Lymphocytes % 9.3 L Potassium 5.4 H BUN 66 H Creatinine 11.21 H Est GFR ( Amer) 4 L Est GFR (Non-Af Amer) 4 L Glucose 118 H Calcium 8.2 L Total Bilirubin 1.4 H Direct Bilirubin 1.4 H AST 126 H ALT 92 H Alkaline Phosphatase 197 H Discharge - Discharge Clinical Impression: ESRD (end stage renal disease), Chronic diarrhea, Total body pain Condition: Stable Disposition: HOME, SELF-CARE Additional Instructions: Please follow with your primary care doctor regarding your chronic concerns. Please return to the emergency room immediately if you experience any concerning symptoms including high fevers, severe headache, chest pain, difficulty breathing, abdominal pain, slurred speech, numbness or weakness in your arms or legs, or any other symptom that concerns you.
[2019-01-10] MEDS ORDERED: MORPHINE SULFATE IR 15 MG TABLET PO ONE (00:22)
[2019-01-10 00:46] VITALS: BP 140/85
--- NOTE | 2019-01-10 07:38 | EKG REPORT ---
SEVERITY:- ABNORMAL ECG - SINUS RHYTHM LEFT ANTERIOR FASCICULAR BLOCK ABNORMAL T, CONSIDER ISCHEMIA, LATERAL LEADS BORDERLINE PROLONGED QT INTERVAL : Confirmed by: Joslyn Thompson MD 10-Jan-2019 07:37:32
== END 2019-01-10 00:58 | disposition home or self-care (01) ==
LOC: ER 19:42
DX: R10.13 Epigastric pain (principal); R19.7 Diarrhea, unspecified; R21 Rash and other nonspecific skin eruption; I12.0 Hypertensive chronic kidney disease with stage 5 chronic kidney disease or end stage renal disease; E10.22 Type 1 diabetes mellitus with diabetic chronic kidney disease; N18.6 End stage renal disease; Z99.2 Dependence on renal dialysis; J45.909 Unspecified asthma, uncomplicated; Z90.49 Acquired absence of other specified parts of digestive tract
CPT/HCPCS: 93005; 99285; 36415; 85025; 80053; 93010; A9270

== ENCOUNTER 2019-01-17 23:23 | Emergency (ER) | payer MEDICARE, MEDICAID ==
[2019-01-18 03:26] LABS: ALANINE AMINOTRANSFERASE 30 U/L (9-52); ALBUMIN 4.2 g/dL (3.5-5.0); ALKALINE PHOSPHATASE 165 U/L (38-126); ASPARTATE AMINO TRANSFERASE 40 U/L (14-36); BILIRUBIN,DIRECT 1.2 mg/dL (0.0-0.4); BILIRUBIN,TOTAL 1.2 mg/dL (0.2-1.3); BLOOD UREA NITROGEN 99 mg/dL (7-20); CALCIUM 7.6 mg/dL (8.4-10.2); CARBON DIOXIDE 21 mmol/L (22-30); CHLORIDE 98 mmol/L (98-107); GLUCOSE 150 mg/dL (75-110); TOTAL PROTEIN 8.4 g/dL (6.3-8.2)
[2019-01-18 03:32] LABS: HEMATOCRIT 30.8 % (36.0-47.0); HEMOGLOBIN 10.2 g/dL (12.0-15.5); LYMPHOCYTES % (AUTO) 8.3 % (13-45); MEAN CORPUSCULAR HEMOGLOBIN 31.3 pg (27.0-33.4); MEAN CORPUSCULAR HGB CONC 33.2 g/dL (32.0-36.0); MEAN CORPUSCULAR VOLUME 94 fl (80-97); MONOCYTES % (AUTO) 5.9 % (3-13); PLATELET COUNT 106 10^3/uL (150-450); RED BLOOD COUNT 3.27 10^6/uL (3.72-5.28); RED CELL DISTRIBUTION WIDTH 15.8 % (11.5-14.0); SEGMENTED NEUTROPHILS % (AUTO) 82.9 % (42-78); WHITE BLOOD COUNT 6.9 10^3/uL (4.0-10.5)
[2019-01-18 03:33] LABS: ABSOLUTE BASOPHILS # (AUTO) 0.1 10^3/uL (0.0-0.2); ABSOLUTE EOSINOPHILS # (AUTO) 0.1 10^3/uL (0.0-0.6); ABSOLUTE LYMPHOCYTES (AUTO) 0.6 10^3/uL (0.5-4.7); ABSOLUTE MONOCYTES (AUTO) 0.4 10^3/uL (0.1-1.4); ABSOLUTE NEUT (AUTO) 5.7 10^3/uL (1.7-8.2); BASOPHILS % (AUTO) 1.1 % (0-2); EOSINOPHILS % (AUTO) 1.8 % (0-6); TOTAL CELLS COUNTED % (AUTO) 100 %
[2019-01-18 03:34] LABS: SODIUM 139.7 mmol/L (137-145)
[2019-01-18 03:36] LABS: ANION GAP 21 (5-19); POTASSIUM 6.9 mmol/L (3.6-5.0)
--- NOTE | 2019-01-18 03:37 | ER Document Report ---
ED General - General Chief Complaint: Nausea/Vomiting/Diarrhea Stated Complaint: VOMITING Time Seen by Provider: 01/17/19 23:44 TRAVEL OUTSIDE OF THE [place] IN LAST 30 DAYS: No - HPI Notes: Patient is a 48-year-old female with multiple medical issues, end-stage renal disease on dialysis Wednesday, who presents to the emergency department for evaluation of diarrhea. She states this started yesterday. She states now it is "uncontrollable." She denies any fevers. She has had some nausea but no emesis. She states she was so ill on Wednesday that she did not go to dialysis. She denies any chest pain or difficulty breathing. Has had intermittent cramping abdominal pain, mostly associated with the diarrhea. - Related Data Allergies/Adverse Reactions: No Known Allergies Allergy (Verified 01/04/19 18:13) Past Medical History - General Information source: Patient - Social History Smoking Status: Never Smoker Family History: CAD, DM, Hypertension Patient has suicidal ideation: No Patient has homicidal ideation: No - Past Medical History Cardiac Medical History: Reports: Hx Congestive Heart Failure, Hx Hypercholesterolemia, Hx Hypertension Denies: Hx Coronary Artery Disease, Hx Heart Attack Pulmonary Medical History: Reports: Hx Asthma Denies: Hx Bronchitis, Hx COPD, Hx Pneumonia Neurological Medical History: Denies: Hx Cerebrovascular Accident, Hx Seizures Endocrine Medical History: Reports: Hx Diabetes Mellitus Type 1. Denies: Hx D iabetes Mellitus Type 2, Hx Hyperthyroidism, Hx Hypothyroidism Renal/ Medical History: Reports: Hx End Stage Renal Disease - On on hemodialysis 3 days/week, Hx Hemodialysis, Hx Peritoneal Dialysis GI Medical History: Denies: Hx Cirrhosis, Hx Hepatitis Musculoskeletal Medical History: Denies Hx Arthritis, Denies Hx Gout Skin Medical History: Denies Hx Eczema, Denies Hx Psoriasis Infectious Medical History: Denies: Hx Hepatitis Past Surgical History: Reports: Hx Cholecystectomy, Hx Orthopedic Surgery - Right BKA, Hx Vascular Surgery - fistula placement for hemodialysis, Other - Amputation right lower extremity - Immunizations Hx Diphtheria, Pertussis, Tetanus Vaccination: Yes Review of Systems - Review of Systems Constitutional: Malaise, Weakness EENT: No symptoms reported Cardiovascular: No symptoms reported Respiratory: No symptoms reported Gastrointestinal: See HPI Female Genitourinary: No symptoms reported Musculoskeletal: No symptoms reported Skin: No symptoms reported Neurological/Psychological: No symptoms reported Physical Exam - Vital signs Vitals: Temp Resp BP 97.8 F 19 122/75 01/17/19 23:23 01/17/19 23:23 01/17/19 23:23 - Notes Notes: 48-year-old female that appears older than her stated age in no acute distress. Head is normocephalic and atraumatic. Pupils are equal round, reactive to light. Oral mucosa is moist. Is supple without meningeal signs. Heart is regular rate and rhythm, lungs are clear to oscillation bilaterally. Abdomen soft, nontender, normoactive bowel sounds. Right BKA. AV fistula and left arm with palpable thrill. Chronic papular and nodular skin rash noted without associated calor or induration. Course - Re-evaluation Re-evalutation: 01/18/19 04:28 Patient presents the emergency department for evaluation. She was placed on a cardiac rehab nurse. The importance of never missing dialysis was once again stressed with the patient. She did not have any further diarrhea while here. Despite multiple attempts, IV placement and obtaining a blood for labs very difficult. This provider did attempt right and left external jugular, for a total of 2/10, or a flash of blood was obtained but I was unable to cannulate the vessel. Eventually IV was established and laboratory investigations were sent to the lab. Unfortunately, these were hemolyzed multiple times. Eventually lab was able to obtain appropriate samples, and it was found that the patient was markedly hyperkalemic. She was administered calcium gluconate, insulin, glucose, Kayexalate. EKG was obtained. She did have a bradycardia as well as a widened QRS when compared to prior study. I am concerned this patient needs emergent dialysis. Awaiting news as to whether or not this facility has the capability of dialyzing this patient emergently. 01/18/19 05:10 I did verify with Dr. Yang that we are incapable of dialyzing this patient emergently at this time. I contacted [facility], was told that they are at fu ll capacity and I was not able to speak to a physician. I spoke to the transfer center at [facility], was notified by them that they did not have emergent dialysis capability at this time. Currently awaiting phone call back from [facility]. 01/18/19 05:[address] Gregory at [facility], she accepted the patient for transfer. I did repeat her IV calcium. 01/18/19 05:37 - Vital Signs Vital signs: Temp Pulse Resp BP Pulse Ox 97.8 F 11 L 99/42 L 95 01/17/19 23:23 01/18/19 05:01 01/18/19 05:01 01/18/19 05:01 - Laboratory Result Diagrams: 01/18/19 02:54 01/18/19 02:42 Laboratory results interpreted by me: 01/18/19 01/18/19 02:42 02:54 RBC 3.27 L Hgb 10.2 L Hct 30.8 L RDW 15.8 H Plt Count 106 L Seg Neutrophils % 82.9 H Lymphocytes % 8.3 L Potassium 6.9 H* Carbon Dioxide 21 L Anion Gap 21 H BUN 99 H Creatinine 12.90 H Est GFR ( Amer) 4 L Est GFR (Non-Af Amer) 3 L Glucose 150 H Calcium 7.6 L Direct Bilirubin 1.2 H AST 40 H Alkaline Phosphatase 165 H Total Protein 8.4 H - EKG Interpretation by Me Additional EKG results interpreted by me: 01/18/19 04:38 Sinus bradycardia with a rate of 50 bpm. Left axis deviation. Left anterior hemiblock. Widened QRS. Anterolateral T wave changes concerning for ischemia. T wave changes are unchanged. QRS widening and bradycardia are new compared to prior study on January 09, 2019. Critical Care Note - Critical Care Note Total time excluding time spent on procedures (mins): 40 Discharge - Discharge Clinical Impression: Hyperkalemia, ESRD (end stage renal disease) Condition: Stable Disposition: [facility] Admitting Provider: Dr. Gregory
[2019-01-18] MEDS ORDERED: DEXTROSE 50%-WATER 25 GM/50 ML DISP.SYRIN IV ONE (03:39)
[2019-01-18] MEDS ORDERED: INSULIN REG, HUMAN 100 UNIT/ML 3 ML VIAL (PYX) IV ONE (03:39)
[2019-01-18] MEDS ORDERED: CALCIUM GLUCONATE 1000 MG/10 ML INJ IV ONE ×2 (03:39→05:25)
[2019-01-18] MEDS ORDERED: SODIUM POLYSTYRENE SULFONATE 15 GM/60 ML PO ONE (03:50)
--- NOTE | 2019-01-18 07:33 | EKG REPORT ---
SEVERITY:- ABNORMAL ECG - SINUS RHYTHM LEFT ANTERIOR FASCICULAR BLOCK ABNORMAL T, CONSIDER ISCHEMIA ,ROZ LATERAL LEADS MIN CHANGE FROM 01/09/19 EKG : Confirmed by: Bubba Brito MD 18-Jan-2019 07:32:21
[2019-01-18 08:25] VITALS: BP 116/46
== END 2019-01-18 08:42 | disposition short-term general hospital (02) ==
LOC: ER 23:23
DX: E87.5 Hyperkalemia (principal); E10.22 Type 1 diabetes mellitus with diabetic chronic kidney disease; I13.2 Hypertensive heart and chronic kidney disease with heart failure and with stage 5 chronic kidney disease, or end stage renal disease; I50.9 Heart failure, unspecified; N18.6 End stage renal disease; R19.7 Diarrhea, unspecified; R11.2 Nausea with vomiting, unspecified; R53.81 Other malaise; Z99.2 Dependence on renal dialysis; E78.00 Pure hypercholesterolemia, unspecified; Z90.49 Acquired absence of other specified parts of digestive tract; Z89.511 Acquired absence of right leg below knee
CPT/HCPCS: 93005; 96376; 99291; 96374; 96375; 36415; 85025; 80053; 87324; 93010; J0610; J3490; A9270; J1815

== ENCOUNTER 2019-02-01 13:30 | Inpatient (IN) | payer MEDICARE, MEDICAID ==
--- NOTE | 2019-02-01 15:26 | ER Document Report ---
ED General - General Chief Complaint: Diarrhea Stated Complaint: NAUSEA Time Seen by Provider: 02/01/19 14:57 Mode of Arrival: Medic Information source: Patient Notes: This is a 48-year-old female with end-stage renal disease (hemodialysis Wednesday, Wednesday, Wednesday) who was brought in by EMS because of diarrhea for several weeks. Patient was having diarrhea and dialysis and answered to the ER because of this. They are also noted that the port had delayed bleeding but ultimately did stop. Currently, the patient states that she is unable to have a bowel movement at this time. There is no bleeding from her shunt. TRAVEL OUTSIDE OF THE [place] IN LAST 30 DAYS: No - HPI Onset: Just prior to arrival Onset/Duration: Sudden Quality of pain: No pain Severity: None Pain Level: Denies Associated symptoms: denies: Chest pain, Fever, Shortness of breath Exacerbated by: Denies Relieved by: Denies Similar symptoms previously: Yes Recently seen / treated by doctor: Yes - Related Data Allergies/Adverse Reactions: No Known Allergies Allergy (Verified 02/01/19 13:56) Past Medical History - General Information source: Patient - Social History Smoking Status: Never Smoker Cigarette use (# per day): No Chew tobacco use (# tins/day): No Frequency of alcohol use: None Drug Abuse: None Lives with: Family Family History: CAD, DM, Hypertension Patient has suicidal ideation: No Patient has homicidal ideation: No - Past Medical History Cardiac Medical History: Reports: Hx Congestive Heart Failure, Hx Hypercholesterolemia, Hx Hypertension Denies: Hx Coronary Artery Disease, Hx Heart Attack Pulmonary Medical History: Reports: Hx Asthma Denies: Hx Bronchitis, Hx COPD, Hx Pneumonia Neurological Medical History: Denies: Hx Cerebrovascular Accident, Hx Seizures Endocrine Medical History: Reports: Hx Diabetes Mellitus Type 1. Denies: Hx Di abetes Mellitus Type 2, Hx Hyperthyroidism, Hx Hypothyroidism Renal/ Medical History: Reports: Hx End Stage Renal Disease - On on hemodialysis 3 days/week, Hx Hemodialysis. Denies: Hx Peritoneal Dialysis GI Medical History: Denies: Hx Cirrhosis, Hx Hepatitis Musculoskeletal Medical History: Denies Hx Arthritis, Denies Hx Gout Skin Medical History: Denies Hx Eczema, Denies Hx Psoriasis Infectious Medical History: Denies: Hx Hepatitis Past Surgical History: Reports: Hx Cholecystectomy, Hx Orthopedic Surgery - Right BKA, Hx Vascular Surgery - fistula placement for hemodialysis, Other - Amputation right lower extremity - Immunizations Hx Diphtheria, Pertussis, Tetanus Vaccination: Yes Review of Systems - Review of Systems Constitutional: denies: Chills, Fever EENT: No symptoms reported Cardiovascular: See HPI Respiratory: No symptoms reported Gastrointestinal: No symptoms reported Genitourinary: No symptoms reported Female Genitourinary: No symptoms reported Musculoskeletal: No symptoms reported Skin: No symptoms reported Hematologic/Lymphatic: No symptoms reported Neurological/Psychological: No symptoms reported Physical Exam - Vital signs Vitals: Resp Pulse Ox 18 100 02/01/19 14:22 02/01/19 14:22 Notes: Physical exam: GENERAL: Patient is alert and oriented x3, no acute distress. HEAD: Atraumatic, normocephalic. EYES: Pupils equal round and reactive to light, extraocular movements intact, sclera anicteric, conjunctiva are normal. ENT: TMs normal, nares patent, oropharynx clear without exudates. Moist mucous membranes. NECK: Normal range of motion, supple without obvious mass or JVD. LUNGS: Breath sounds clear to auscultation bilaterally and equal. No wheezes rales or rhonchi. HEART: Regular rate and rhythm without murmurs, rubs or gallops. ABDOMEN: Soft, normoactive bowel sounds. No tenderness to palpation. No guarding, no rebound. No masses appreciated. EXTREMITIES: Left upper extremity shunt. No active bleeding. Right AKA. NEUROLOGICAL: Cranial nerves II through XII grossly intact. Normal speech, moving all extremities. PSYCH: Normal mood, normal affect. SKIN: Patient has chronic papular lesions to the upper extremities which is most likely related to her renal disease Course - Vital Signs Vital signs: Temp Pulse Resp BP Pulse Ox 33 H 156/124 H 99 02/01/19 15:05 02/01/19 15:05 02/01/19 15:05 - Laboratory Result Diagrams: 02/01/19 15:58 02/01/19 15:58 Laboratory results interpreted by me: 02/01/19 02/01/19 15:58 15:58 RBC 3.05 L Hgb 9.7 L Hct 29.4 L RDW 15.9 H Plt Count 132 L Seg Neutrophils % 78.8 H Lymphocytes % 8.6 L Potassium 5.1 H BUN 61 H Creatinine 8.80 H Est GFR ( Amer) 6 L Est GFR (Non-Af Amer) 5 L Glucose 117 H Calcium 8.2 L Direct Bilirubin 1.3 H Alkaline Phosphatase 227 H - Diagnostic Test Radiology reviewed: Image reviewed, Reports reviewed - Chest x-ray shows no obvious infiltrates. Discharge - Discharge Clinical Impression: Fluid overload Condition: Stable Disposition: ADMITTED OBSERVATION Admitting Provider: Stan (Hospitalist) Unit Admitted: Telemetry
[2019-02-01 16:20] LABS: ABSOLUTE BASOPHILS # (AUTO) 0.1 10^3/uL (0.0-0.2); ABSOLUTE EOSINOPHILS # (AUTO) 0.1 10^3/uL (0.0-0.6); ABSOLUTE LYMPHOCYTES (AUTO) 0.6 10^3/uL (0.5-4.7); ABSOLUTE MONOCYTES (AUTO) 0.7 10^3/uL (0.1-1.4); ABSOLUTE NEUT (AUTO) 5.6 10^3/uL (1.7-8.2); BASOPHILS % (AUTO) 1.2 % (0-2); EOSINOPHILS % (AUTO) 1.6 % (0-6); HEMATOCRIT 29.4 % (36.0-47.0); HEMOGLOBIN 9.7 g/dL (12.0-15.5); LYMPHOCYTES % (AUTO) 8.6 % (13-45); MEAN CORPUSCULAR HEMOGLOBIN 31.9 pg (27.0-33.4); MEAN CORPUSCULAR HGB CONC 33.1 g/dL (32.0-36.0); MEAN CORPUSCULAR VOLUME 97 fl (80-97); MONOCYTES % (AUTO) 9.8 % (3-13); PLATELET COUNT 132 10^3/uL (150-450); RED BLOOD COUNT 3.05 10^6/uL (3.72-5.28); RED CELL DISTRIBUTION WIDTH 15.9 % (11.5-14.0); SEGMENTED NEUTROPHILS % (AUTO) 78.8 % (42-78); TOTAL CELLS COUNTED % (AUTO) 100 %; WHITE BLOOD COUNT 7.1 10^3/uL (4.0-10.5)
[2019-02-01 16:42] LABS: ALANINE AMINOTRANSFERASE 21 U/L (9-52); ALKALINE PHOSPHATASE 227 U/L (38-126); ANION GAP 17 (5-19); ASPARTATE AMINO TRANSFERASE 36 U/L (14-36); BILIRUBIN,DIRECT 1.3 mg/dL (0.0-0.4); BILIRUBIN,TOTAL 1.3 mg/dL (0.2-1.3); BLOOD UREA NITROGEN 61 mg/dL (7-20); CALCIUM 8.2 mg/dL (8.4-10.2); CARBON DIOXIDE 22 mmol/L (22-30); CHLORIDE 100 mmol/L (98-107); GLUCOSE 117 mg/dL (75-110); POTASSIUM 5.1 mmol/L (3.6-5.0); SODIUM 138.8 mmol/L (137-145)
[2019-02-01] MEDS ORDERED: ONDANSETRON HCL INJ/PF 4 MG/2 ML SDV IV PRN (16:47)
--- NOTE | 2019-02-01 16:47 | PDOC H&P ---
History of Present Illness Admission Date/PCP: 02/01/19 16:34 History of Present Illness: MICKIE SHARP is a 48 year old black female patient with past medical history of type 2 diabetes mellitus, hypertension, hyperlipidemia, congestive heart failure, status post BKA, end-stage renal failure on hemodialysis, presented with chief complaint of diarrhea of several weeks and also she missed her dialysis today. Patient denies any fever, chills, chest pain, palpitation, diaphoresis. Though she has diarrhea she denied any nausea or vomiting. On exam the patient she complains of abdominal pain. EMS noted that the port has delayed bleeding but ultimately did stop. Past Medical History Cardiac Medical History: Reports: Congestive Heart Failure, Hyperlipidema, Hypertension Denies: Coronary Artery Disease, Myocardial Infarction Pulmonary Medical History: Reports: Asthma Denies: Bronchitis, Chronic Obstructive Pulmonary Disease (COPD), Pneumonia Neurological Medical History: Denies: Seizures Endocrine Medical History: Reports: Diabetes Mellitus Type 1 Denies: Diabetes Mellitus Type 2, Hyperthyroidism, Hypothyroidism Renal/ Medical History: Reports: End Stage Renal Disease - On on hemodialysis 3 days/week GI Medical History: Denies: Cirrhosis, Hepatitis Musculoskeltal Medical History: Denies: Arthritis, Gout Skin Medical History: Denies: Eczema, Psoriasis Hematology: Reports: Anemia - Chronic anemia of end-stage renal disease Denies: Bleeding Tendencies Past Surgical History Past Surgical History: Reports: Cholecystectomy, Orthopedic Surgery - Right BKA, Vascular Surgery - fistula placement for hemodialysis, Other - Amputation right lower extremity Social History Smoking Status: Unknown if Ever Smoked Frequency of Alcohol Use: None Hx Recreational Drug Use: No Drugs: None Hx Prescription Drug Abuse: No - Advance Directive Resuscitation Status: Full Code Family History Family History: CAD, DM, Hypertension Parental Family History Reviewed: Yes Children Family History Reviewed: Yes Sibling(s) Family History Reviewed.: Yes Medication/Allergy Allergies/Adverse Reactions: No Known Allergies Allergy (Verified 02/01/19 13:56) Review of Systems Constitutional: ABSENT: chills, fever(s), headache(s), weight gain, weight loss Eyes: ABSENT: visual disturbances Ears: ABSENT: hearing changes Cardiovascular: ABSENT: chest pain, dyspnea on exertion, edema, orthropnea, palpitations Respiratory: ABSENT: cough, hemoptysis Gastrointestinal: PRESENT: abdominal pain, diarrhea Genitourinary: ABSENT: dysuria, hematuria Musculoskeletal: ABSENT: joint swelling Integumentary: ABSENT: rash, wounds Neurological: ABSENT: abnormal gait, abnormal speech, confusion, dizziness, f ocal weakness, syncope Psychiatric: ABSENT: anxiety, depression, homidical ideation, suicidal ideation Endocrine: ABSENT: cold intolerance, heat intolerance, polydipsia, polyuria Hematologic/Lymphatic: ABSENT: easy bleeding, easy bruising Physical Exam Vital Signs: Temp Pulse Resp BP Pulse Ox 33 H 156/124 H 99 02/01/19 15:05 02/01/19 15:05 02/01/19 15:05 Intake & Output 01/31/19 02/01/19 02/02/19 06:59 06:59 06:59 Weight 108.3 kg General appearance: PRESENT: no acute distress, cooperative Eye exam: PRESENT: conjunctiva pink Neck exam: ABSENT: carotid bruit, JVD, lymphadenopathy, thyromegaly Respiratory exam: PRESENT: clear to auscultation ezequiel. ABSENT: rales, rhonchi, wheezes Cardiovascular exam: PRESENT: RRR. ABSENT: diastolic murmur, rubs, systolic murmur GI/Abdominal exam: PRESENT: normal bowel sounds, soft. ABSENT: distended, guarding, mass, organolmegaly, rebound, tenderness Extremities exam: PRESENT: other - Right BKA Neurological exam: PRESENT: alert, awake, oriented to person, oriented to place, oriented to time, oriented to situation Results Laboratory Results: 02/01/19 15:58 02/01/19 15:58 WBC 7.1 RBC 3.05 L Hgb 9.7 L Hct 29.4 L MCV 97 MCH 31.9 MCHC 33.1 RDW 15.9 H Plt Count 132 L Seg Neutrophils % 78.8 H Lymphocytes % 8.6 L Monocytes % 9.8 Eosinophils % 1.6 Basophils % 1.2 Absolute Neutrophils 5.6 Absolute Lymphocytes 0.6 Absolute Monocytes 0.7 Absolute Eosinophils 0.1 Absolute Basophils 0.1 Assessment and Plan - Diagnosis (1) Abdominal pain Qualifiers: Abdominal location: lower abdomen, unspecified Qualified Code(s): R10.30 - Lower abdominal pain, unspecified Is this a current diagnosis for this admission?: Yes Plan: We will manage her accordingly. (2) Missed dialysis Is this a current diagnosis for this admission?: Yes Plan: Dr. Yang has been consulted and patient scheduled for dialysis. (3) Type 2 diabetes mellitus Is this a current diagnosis for this admission?: Yes Plan: We will continue her home medication and put her on sliding scale. (4) Hypertension Qualifiers: Hypertension type: essential hypertension Qualified Code(s): I10 - Essential (primary) hypertension Is this a current diagnosis for this admission?: Yes Plan: Continue home medication. (5) Hyperlipidemia Qualifiers: Hyperlipidemia type: unspecified Qualified Code(s): E78.5 - Hyperlipidemia, unspecified Is this a current diagnosis for this admission?: Yes Plan: Continue home medication.
[2019-02-01] MEDS: OXYCODONE-ACETAMINOPHEN 5-325 MG TABLET PO PRN ×2 (17:45→23:42)
--- NOTE | 2019-02-01 18:05 | PDOC CONSULTATION ---
Consultation Consult Date: 02/01/19 Provider Consulted: CARYL MANN Consult reason:: I was asked to see the patient for emergency dialysis for fluid overload in a patient with ESRD. History of Present Illness Admission Date/PCP: 02/01/19 16:34 History of Present Illness: MICKIE SHARP is a 48 year old female with history of ESRD on maintenance hemodialysis 3 times a week, hypertension, diabetes mellitus type 1 who was brought in from the [facility] to the emergency room because of shortness of breath, and persistent diarrhea. Patient came to her usual dialysis schedule at [facility] today but after 20 minutes into dialysis the patient started having loose stools on her dialysis chair. The patient is also short of breath because she is 10 kg over her dry weight. So she requested to be brought to the emergency room. The patient states that she is having this diarrhea at least for the last month last night she had an episode of vomiting but not today. She has been short of breath and has not been able to be on her dry weight because she has been cutting her treatment short because of diarrhea. She said she just gets embarrassed whenever she gets accidents or diarrhea episodes while she is on dialysis so she just decides to catheter treatment short. She states that she did this 3 times for the past week including Wednesday. As a result she is swollen, short of breath and 10 kg above her dry weight. She says she has a therapist that comes into her house and also recommend that she needs some rehabilitation and would like some rehab placement. She describes her home situation while she lives with her brother and [id number]. She states that she does not have any help and nobody assists her in activities of daily living. Because she is an amputee she is very limited on mobility. The patient only had 20 minutes of dialysis treatment as mentioned above prior to bring her in to the emergency room. So when the emergency room provider called me I immediately arrange for urgent dialysis while in the emergency room. I am currently seeing the patient on dialysis. He seems to be comfortable with oxygen via nasal cannula. So far she has not had diarrhea since she has been here. At one point she was tearful about her social situation. So far she is tolerating dialysis and ultrafiltration and being closely monitored by our dialysis nurse. Past Medical History Cardiac Medical History: Reports: CHF-Diastolic, Hyperlipidemia, Hypertension- primary Pulmonary Medical History: Reports: Asthma Neurological Medical History: Denies: Seizures Endocrine Medical History: Reports: Diabetes Mellitus Type 1 Renal/ Medical History: Reports: End Stage Renal Disease - On on hemodialysis 3 days/week Skin Medical History: Reports: Other - Diffuse folliculitis by skin biopsy from her umbrella tipper machine done in 2019. Hematology Medical History: Reports Anemia of Chronic Kidney Disease Past Surgical History Past Surgical History: Reports: Cholecystectomy, Dialysis Access Surgery AVF, Orthopedic Surgery - Right BKA, Other - Amputation right lower extremity Social History Information Source: Patient Lives with: Family Smoking Status: Unknown if Ever Smoked Frequency of Alcohol Use: None Hx Recreational Drug Use: No Drugs: None Hx Prescription Drug Abuse: No - Advance Directive Resuscitation Status: Full Code Family History Family History: CAD, DM, Hypertension Parental Family History Reviewed: Yes Children Family History Reviewed: Yes Sibling(s) Family History Reviewed.: Yes Medication/Allergy Home Medications: Carvedilol [Coreg 25 mg Tablet] 25 mg PO Q12 02/01/19 Fluticasone Propionate [Flonase Nasal Seag[place] 50 Mcg/Seagrove 16 gm] 2 spray NASL DA RUTH 02/01/19 Gabapentin [Neurontin 100 mg Capsule] 100 mg PO Q8 02/01/19 Hydromorphone HCl [Dilaudid 2 mg Tablet] 2 mg PO Q6HP PRN 02/01/19 Hydroxyzine HCl [Atarax 50 mg Tablet] 50 mg PO QIDP PRN 02/01/19 Ondansetron [Zofran Odt 4 mg Tablet] 4 mg PO Q4HP PRN 02/01/19 Allergies/Adverse Reactions: No Known Allergies Allergy (Verified 02/01/19 13:56) Review of Systems All systems: reviewed and no additional remarkable complaints except as stated Review of Systems: Constitutional: ABSENT: chills, fatigue, fever(s), headache(s), weight gain, weight loss Eyes: ABSENT: visual disturbances Ears: ABSENT: hearing changes Cardiovascular: ABSENT: chest pain, dyspnea on exertion, edema, orthropnea, palpitations Respiratory: ABSENT: cough, hemoptysis; admits shortness of breath Gastrointestinal: ABSENT: abdominal pain, constipation, hematemesis, hematochezia, nausea; admits persistent diarrhea and periodic vomiting Genitourinary: ABSENT: dysuria, hematuria Musculoskeletal: ABSENT: joint swelling Integumentary: ABSENT: rash, wounds: Positive chronic folliculitis Neurological: ABSENT: abnormal gait, abnormal speech, confusion, dizziness, focal weakness, numbness, syncope Psychiatric: ABSENT: anxiety, depression Endocrine: ABSENT: cold intolerance, heat intolerance, polydipsia, polyuria Hematologic/Lymphatic: ABSENT: easy bleeding, easy bruising, lymphadenopathy Physical Exam Vital Signs: Temp Pulse Resp BP Pulse Ox 33 H 156/124 H 99 02/01/19 15:05 02/01/19 15:05 02/01/19 15:05 Intake & Output 01/31/19 02/01/19 02/02/19 06:59 06:59 06:59 Weight 108.3 kg Vitals during dialysis: Blood pressure 126/44, heart rate of 79, blood flow rate of 450 mL/min and dialysate flow rate of 800 ml/minute. Exam: General appearance: No acute distress, cooperative, well-developed, well- nourished Head exam: PRESENT: atraumatic, normocephalic Eye exam: PRESENT: Conjunctiva slightly pale, EOMI, PERRLA. ABSENT: conjunctival injection, scleral icterus Mouth exam: PRESENT: moist, neck supple, tongue midline Neck exam: PRESENT: full ROM. ABSENT: carotid bruit, JVD, lymphadenopathy, thyromegaly Respiratory exam: PRESENT: Diminished to auscultation bilaterally. ABSENT: rales, rhonchi, stridor, wheezes Cardiovascular exam: PRESENT: RRR, +S1, +S2. ABSENT: systolic murmur Pulses: PRESENT: normal radial pulses, normal dorsalis pedis pulses GI/Abdominal exam: PRESENT: normal bowel sounds, soft. ABSENT: guarding, mass, tenderness Rectal exam: Deferred Extremities exam: PRESENT: full ROM. Grade 2 bilateral pitting edema including the right BKA stump ABSENT: calf tenderness Musculoskeletal: PRESENT: full ROM. ABSENT: deformity Neurological exam: PRESENT: alert, Awake, Oriented to person, Oriented to place, Oriented to time, reflexes normal, CN II-XII grossly intact. ABSENT: motor sensory deficit Psychiatric exam: PRESENT: appropriate affect, normal mood. ABSENT: homicidal ideation, suicidal ideation Skin exam: PRESENT: intact, dry, warm. Positive diffuse folliculitis lesion on her upper,lower extremities and on her trunk area ABSENT: rash Results Laboratory Results: 02/01/19 15:58 02/01/19 15:58 02/01/19 02/01/19 15:58 15:58 WBC 7.1 RBC 3.05 L Hgb 9.7 L Hct 29.4 L MCV 97 MCH 31.9 MCHC 33.1 RDW 15.9 H Plt Count 132 L Seg Neutrophils % 78.8 H Lymphocytes % 8.6 L Monocytes % 9.8 Eosinophils % 1.6 Basophils % 1.2 Absolute Neutrophils 5.6 Absolute Lymphocytes 0.6 Absolute Monocytes 0.7 Absolute Eosinophils 0.1 Absolute Basophils 0.1 Sodium 138.8 Potassium 5.1 H Chloride 100 Carbon Dioxide 22 Anion Gap 17 BUN 61 H Creatinine 8.80 H Est GFR ( Amer) 6 L Est GFR (Non-Af Amer) 5 L Glucose 117 H Calcium 8.2 L Total Bilirubin 1.3 AST 36 ALT 21 Alkaline Phosphatase 227 H Total Protein 8.0 Albumin 4.0 Assessment & Plan - Diagnosis (1) Fluid overload Is this a current diagnosis for this admission?: Yes Plan: This is due to incomplete dialysis treatments because of diarrhea episode after regular routine dialysis treatment as an outpatient at [facility]. Currently patient is being dialyzed and we are trying for significant ultrafiltration if s he tolerates. Also had a discussion with patient regarding importance of staying in her treatment to prevent this situation. (2) ESRD (end stage renal disease) Is this a current diagnosis for this admission?: Yes Plan: We will do dialysis today for 3 hours, using the patient's AV fistula, with 2 potassium bath, blood flow rate of 450 mL per minute, dialysate flow rate of 800 mL per minute, ultrafiltration 4 to 5 L as tolerated, no heparin and hold off Procrit for now. Treatment plan discussed with our dialysis nurses who will be monitoring the patient throughout dialysis treatment. Ultrafiltration will be adjusted according to the patient's blood pressure. (3) Diarrhea Is this a current diagnosis for this admission?: Yes Plan: This certainly needs to be worked up and if possible treated since this prevents the patient from completing her dialysis treatments leading to fluid overload and current situation. Discussed this with Dr. Sorto. (4) Anemia in chronic kidney disease (CKD) Is this a current diagnosis for this admission?: Yes (5) Hypertension Qualifiers: Hypertension type: essential hypertension Qualified Code(s): I10 - Essential (primary) hypertension Is this a current diagnosis for this admission?: Yes (6) Diabetes mellitus type 1 Qualifiers: Diabetes mellitus complication status: with unspecified complications Is this a current diagnosis for this admission?: Yes - Notes Notes: Thank you very much for this consultation. - Time Time Spent: 50 to 70 Minutes
[2019-02-01] MEDS ORDERED: FAMOTIDINE 20 MG TABLET PO SCH (22:00)
[2019-02-01] MEDS: HEPARIN SOD (PORCINE) 5,000 UNIT/ML 1 ML SYRINGE SUBCUT SCH (22:34)
[2019-02-01] MEDS: TEMAZEPAM 15 MG CAPSULE PO PRN (23:42)
[2019-02-01] MEDS: FAMOTIDINE 20 MG TABLET PO SCH (23:42)
[2019-02-02] MEDS: HEPARIN SOD (PORCINE) 5,000 UNIT/ML 1 ML SYRINGE SUBCUT SCH ×3 (06:26→22:14)
[2019-02-02] MEDS: OXYCODONE-ACETAMINOPHEN 5-325 MG TABLET PO PRN ×3 (06:26→19:58)
[2019-02-02 06:27] LABS: ANION GAP 16 (5-19); BLOOD UREA NITROGEN 42 mg/dL (7-20); CARBON DIOXIDE 26 mmol/L (22-30); CHLORIDE 98 mmol/L (98-107); GLUCOSE 182 mg/dL (75-110); SODIUM 139.5 mmol/L (137-145)
[2019-02-02 06:32] LABS: POTASSIUM 4.1 mmol/L (3.6-5.0)
--- NOTE | 2019-02-02 17:01 | PDOC PROGRESS REPORT ---
Subjective Progress Note for:: 02/02/19 Subjective:: MICKIE SHARP is a 48 year old black female patient with past medical history of type 2 diabetes mellitus, hypertension, hyperlipidemia, congestive heart failure, status post BKA, end-stage renal failure on hemodialysis, presented with chief complaint of diarrhea of several weeks and also she missed her dialysis today. Patient denies any fever, chills, chest pain, palpitation, diaphoresis. Though she has diarrhea she denied any nausea or vomiting. On exam the patient she complains of abdominal pain. EMS noted that the port has delayed bleeding but ultimately did stop. Patient has associated shortness of breath and leg swelling which is most probably related to volume overload. 02/02/2019: This morning I seen patient sitting by the bedside. She complains of generalized weakness and shortness of breath. She stated that her home therapist recommended rehab placement. Patient has poor family and social support. Reason For Visit: MISSED DIALYSIS, ABDOMINAL PAIN Physical Exam Vital Signs: Temp Pulse Resp BP Pulse Ox 98.3 F 85 18 110/48 L 95 02/01/19 23:20 02/01/19 23:20 02/01/19 23:20 02/01/19 23:20 02/01/19 23:20 Intake & Output 02/01/19 02/02/19 02/03/19 06:59 06:59 06:59 Intake Total 720 Output Total 4900 Balance -4180 Weight 108.3 kg Results Laboratory Results: 02/01/19 15:58 02/02/19 04:25 02/02/19 04:25 Sodium 139.5 Potassium 4.1 D Chloride 98 Carbon Dioxide 26 Anion Gap 16 BUN 42 H Creatinine 6.59 H Est GFR ( Amer) 8 L Est GFR (Non-Af Amer) 7 L Glucose 182 H Calcium 8.0 L Assessment and Plan - Diagnosis (1) Fluid overload Is this a current diagnosis for this admission?: Yes Plan: Most probably missed dialysis. (2) Diarrhea Is this a current diagnosis for this admission?: Yes Plan: Stool for C. difficile colitis requested. (3) Abdominal pain Qualifiers: Abdominal location: lower abdomen, unspecified Qualified Code(s): R10.30 - Lower abdominal pain, unspecified Is this a current diagnosis for this admission?: Yes Plan: Improving (4) Missed dialysis Is this a current diagnosis for this admission?: Yes Plan: Dr. Yang has been consulted and patient scheduled for dialysis. (5) Type 2 diabetes mellitus Is this a current diagnosis for this admission?: Yes Plan: We will continue her home medication and put her on sliding scale. (6) Hypertension Qualifiers: Hypertension type: essential hypertension Qualified Code(s): I10 - Essential (primary) hypertension Is this a current diagnosis for this admission?: Yes Plan: Continue home medication. (7) Hyperlipidemia Qualifiers: Hyperlipidemia type: unspecified Qualified Code(s): E78.5 - Hyperlipidemia, unspecified Is this a current diagnosis for this admission?: Yes Plan: Continue home medication.
[2019-02-02] MEDS: FAMOTIDINE 20 MG TABLET PO SCH (22:14)
[2019-02-02] MEDS: TEMAZEPAM 15 MG CAPSULE PO PRN (22:14)
[2019-02-03] MEDS: ONDANSETRON HCL INJ/PF 4 MG/2 ML SDV IV PRN ×3 (00:07→22:29)
[2019-02-03] MEDS ORDERED: NORMAL SALINE 1000 ML 1,000 ML IV PRN (05:00)
[2019-02-03] MEDS ORDERED: EPOETIN ALFA INJ 20000 UNIT/1 ML VIAL (RENAL) IV PRN (05:00)
[2019-02-03 05:50] LABS: HEMATOCRIT 29.9 % (36.0-47.0); HEMOGLOBIN 9.8 g/dL (12.0-15.5); MEAN CORPUSCULAR HGB CONC 32.7 g/dL (32.0-36.0); MEAN CORPUSCULAR VOLUME 98 fl (80-97); PLATELET COUNT 136 10^3/uL (150-450); RED BLOOD COUNT 3.06 10^6/uL (3.72-5.28); RED CELL DISTRIBUTION WIDTH 15.7 % (11.5-14.0); WHITE BLOOD COUNT 6.4 10^3/uL (4.0-10.5)
[2019-02-03 06:06] LABS: BLOOD UREA NITROGEN 57 mg/dL (7-20); CALCIUM 8.2 mg/dL (8.4-10.2); GLUCOSE 154 mg/dL (75-110)
[2019-02-03 06:07] LABS: ANION GAP 16 (5-19); CARBON DIOXIDE 26 mmol/L (22-30); CHLORIDE 98 mmol/L (98-107); POTASSIUM 4.7 mmol/L (3.6-5.0)
[2019-02-03] MEDS: OXYCODONE-ACETAMINOPHEN 5-325 MG TABLET PO PRN ×3 (06:14→22:29)
[2019-02-03] MEDS: HEPARIN SOD (PORCINE) 5,000 UNIT/ML 1 ML SYRINGE SUBCUT SCH ×3 (06:15→22:30)
--- NOTE | 2019-02-03 09:06 | PDOC PROGRESS REPORT ---
Subjective Progress Note for:: 02/03/19 Subjective:: I am seeing the patient on dialysis this morning. She seems very comfortable she actually appears to be much better and stable on dialysis this morning. She has not had any more diarrhea. She said her last bout of diarrhea was 2 days ago when she was at [facility] dialysis unit prior to being transported to the emergency room. She denies any nausea or vomiting but she complains of some gas in her stomach. She is eating good. She is hoping for rehab placement. Reason For Visit: MISSED DIALYSIS, ABDOMINAL PAIN Physical Exam Vital Signs: Temp Pulse Resp BP Pulse Ox 97.8 F 76 20 131/59 H 99 02/03/19 04:22 02/03/19 04:22 02/03/19 04:22 02/03/19 04:22 02/03/19 04:22 Intake & Output 02/02/19 02/03/19 02/04/19 06:59 06:59 06:59 Intake Total 720 1498 Output Total 4900 0 Balance -4180 1498 Weight 108.3 kg 107.2 kg 101.5 kg Exam: General appearance: PRESENT: no acute distress, cooperative, well-developed, well-nourished Head exam: PRESENT: atraumatic, normocephalic Eye exam: PRESENT: conjunctiva pink, PERRLA. ABSENT: scleral icterus Neck exam: ABSENT: JVD Respiratory exam: PRESENT: Normal breath sounds. ABSENT: crackles, rales, rhonchi, unlabored, wheezes Cardiovascular exam: PRESENT: Regular rate rhythm -+S1, +S2. ABSENT: diastolic murmur, systolic murmur GI/Abdominal exam: PRESENT: normal bowel sounds, soft. ABSENT: guarding, mass, tenderness Extremities exam: Grade 2 left lower extremity edema greater than the right BKA stump. Neurological exam: PRESENT: alert, awake, oriented to person, place and time. Skin exam: PRESENT: dry, warm, positive folliculitis diffusely and almost generalized. Results Laboratory Results: 02/03/19 05:07 02/03/19 05:07 02/03/19 02/03/19 05:07 05:07 WBC 6.4 RBC 3.06 L Hgb 9.8 L Hct 29.9 L MCV 98 H MCH 32.0 MCHC 32.7 RDW 15.7 H Plt Count 136 L Sodium 140.0 Potassium 4.7 Chloride 98 Carbon Dioxide 26 Anion Gap 16 BUN 57 H Creatinine 8.33 H Est GFR ( Amer) 6 L Est GFR (Non-Af Amer) 5 L Glucose 154 H Calcium 8.2 L Assessment & Plan - Diagnosis (1) Fluid overload Is this a current diagnosis for this admission?: Yes Plan: Still needs significant ultrafiltration which we will try to do during his dialysis this morning. (2) ESRD (end stage renal disease) Is this a current diagnosis for this admission?: Yes Plan: We will do dialysis today for 3 hours, using the patient's left AV fistula, with 2 potassium bath, blood flow rate of 450 mL per minute, dialysate flow rate of 800 mL per minute, ultrafiltration 45 L as tolerated, no heparin and Procrit with 10,000 units during dialysis intravenously. Dialysis orders discussed with our dialysis nurses. Patient will be monitored throughout dialysis treatment. (3) Diarrhea Is this a current diagnosis for this admission?: Yes Plan: Improved and seems to be resolving. (4) Anemia in chronic kidney disease (CKD) Is this a current diagnosis for this admission?: Yes Plan: Procrit during dialysis to be given. (5) Hypertension Qualifiers: Hypertension type: essential hypertension Qualified Code(s): I10 - Essential (primary) hypertension Is this a current diagnosis for this admission?: Yes (6) Diabetes mellitus type 1 Qualifiers: Diabetes mellitus complication status: with unspecified complications Is this a current diagnosis for this admission?: Yes - Time Time with patient: 15-25 minutes
[2019-02-03] MEDS: EPOETIN ALFA 10,000 UNIT in SYRINGE, DISPOSABLE, 1 EACH IV PRN (10:06)
[2019-02-03] MEDS: TEMAZEPAM 15 MG CAPSULE PO PRN (22:29)
[2019-02-03] MEDS: FAMOTIDINE 20 MG TABLET PO SCH (22:29)
[2019-02-04] MEDS: ONDANSETRON HCL INJ/PF 4 MG/2 ML SDV IV PRN ×2 (04:25→21:58)
[2019-02-04] MEDS: OXYCODONE-ACETAMINOPHEN 5-325 MG TABLET PO PRN ×3 (04:26→21:58)
[2019-02-04] MEDS: HEPARIN SOD (PORCINE) 5,000 UNIT/ML 1 ML SYRINGE SUBCUT SCH ×3 (05:18→21:59)
[2019-02-04] MEDS ORDERED: CEFTRIAXONE 1 GM/D5W RTU 1 GM/50 ML RTUPB IV SCH (10:30)
[2019-02-04] MEDS ORDERED: CEFTRIAXONE SODIUM 1,000 MG in DEXTROSE 5%-WATER 50 ML IV SCH (11:30)
--- NOTE | 2019-02-04 12:17 | PDOC PROGRESS REPORT ---
Subjective Progress Note for:: 02/04/19 Subjective:: MICKIE SHARP is a 48 year old black female patient with past medical history of type 2 diabetes mellitus, hypertension, hyperlipidemia, congestive heart failure, status post BKA, end-stage renal failure on hemodialysis, presented with chief complaint of diarrhea of several weeks and also she missed her dialysis today. Patient denies any fever, chills, chest pain, palpitation, diaphoresis. Though she has diarrhea she denied any nausea or vomiting. On exam the patient she complains of abdominal pain. EMS noted that the port has delayed bleeding but ultimately did stop. Patient has associated shortness of breath and leg swelling which is most probably related to volume overload. 02/02/2019: This morning I seen patient sitting by the bedside. She complains of generalized weakness and shortness of breath. She stated that her home therapist recommended rehab placement. Patient has poor family and social support. 02/03/2019: Patient seen and examined at bedside. She is awake alert and cooperative. She is not in pain or distress. She eats well and tolerates well. Her leg edema is relatively improving. Currently patient has been awaiting p [facility] to [facility]. 02/04/2019: Patient seen sitting by the bedside. She is awake alert oriented. Complains of swelling on her right upper. On palpation she has tenderness swelling on her right upper arm medially which might be thrombosed AV fistula. Ultrasound of the right upper is requested. Also complains of foul-smelling urine. Reason For Visit: VOLUME OVERLOAD Physical Exam Vital Signs: Temp Pulse Resp BP Pulse Ox 98.3 F 82 20 107/38 L 100 02/04/19 07:58 02/04/19 07:58 02/03/19 20:04 02/04/19 07:58 02/04/19 07:58 Intake & Output 02/03/19 02/04/19 02/05/19 06:59 06:59 06:59 Intake Total 1498 970 Output Total 0 4000 Balance 1498 -3030 Weight 107.2 kg 98.2 kg General appearance: PRESENT: no acute distress Respiratory exam: PRESENT: clear to auscultation ezequiel. ABSENT: rales, rhonchi, wheezes Cardiovascular exam: PRESENT: RRR. ABSENT: diastolic murmur, rubs, systolic murmur GI/Abdominal exam: PRESENT: ascites Neurological exam: PRESENT: alert, awake, oriented to person, oriented to time, oriented to situation Results Laboratory Results: 02/03/19 05:07 02/03/19 05:07 Assessment and Plan - Diagnosis (1) Fluid overload Is this a current diagnosis for this admission?: Yes Plan: Improving with the dialysis. (2) Diarrhea Is this a current diagnosis for this admission?: Yes Plan: Has stopped (3) Abdominal pain Qualifiers: Abdominal location: lower abdomen, unspecified Qualified Code(s): R10.30 - Lower abdominal pain, unspecified Is this a current diagnosis for this admission?: Yes Plan: Improving (4) Missed dialysis Is this a current diagnosis for this admission?: Yes Plan: Dr. Yang has been consulted and patient scheduled for dialysis. (5) Type 2 diabetes mellitus Is this a current diagnosis for this admission?: Yes Plan: We will continue her home medication and put her on sliding scale. (6) Hypertension Qualifiers: Hypertension type: essential hypertension Qualified Code(s): I10 - Essential (primary) hypertension Is this a current diagnosis for this admission?: Yes Plan: Continue home medication. (7) Hyperlipidemia Qualifiers: Hyperlipidemia type: unspecified Qualified Code(s): E78.5 - Hyperlipidemia, unspecified Is this a current diagnosis for this admission?: Yes Plan: Continue home medication.
--- NOTE | 2019-02-04 14:06 | XCELERA REPORT ---
[address] [address] Upper Extremity Venous Evaluation Name: MICKIE SHARP Age: 48 yrs Gender: Female : 1970 Patient Status: [facility] Study Date: 02/04/2019 01:38 PM Procedure: Unilateral duplex scan of the right upper extremity veins was performed, including responses to compression and other maneuvers. Reason For Study: dvt RT arm Ordering Physician: GOOD ESPANA Performed By: Ten Sheets Right Side Venous Evaluation Normal vessel filling wall to wall, compression and augmentation as well as Colour flow down to the forearm veins. Interpretation Summary Normal compression, patency, spontaneous and phasic flow of the right upper extremity veins. : GOOD ESPANA > Jose Raul Genao
[2019-02-04] MEDS: TEMAZEPAM 15 MG CAPSULE PO PRN (21:59)
[2019-02-04] MEDS: FAMOTIDINE 20 MG TABLET PO SCH (21:59)
[2019-02-05] MEDS: HEPARIN SOD (PORCINE) 5,000 UNIT/ML 1 ML SYRINGE SUBCUT SCH ×3 (05:19→22:53)
[2019-02-05] MEDS: ONDANSETRON HCL INJ/PF 4 MG/2 ML SDV IV PRN ×3 (07:47→22:52)
[2019-02-05] MEDS: OXYCODONE-ACETAMINOPHEN 5-325 MG TABLET PO PRN ×3 (10:57→22:59)
--- NOTE | 2019-02-05 12:13 | PDOC PROGRESS REPORT ---
Subjective Progress Note for:: 02/05/19 Subjective:: MICKIE SHARP is a 48 year old black female patient with past medical history of type 2 diabetes mellitus, hypertension, hyperlipidemia, congestive heart failure, status post BKA, end-stage renal failure on hemodialysis, presented with chief complaint of diarrhea of several weeks and also she missed her dialysis today. Patient denies any fever, chills, chest pain, palpitation, diaphoresis. Though she has diarrhea she denied any nausea or vomiting. On exam the patient she complains of abdominal pain. EMS noted that the port has delayed bleeding but ultimately did stop. Patient has associated shortness of breath and leg swelling which is most probably related to volume overload. 02/02/2019: This morning I seen patient sitting by the bedside. She complains of generalized weakness and shortness of breath. She stated that her home therapist recommended rehab placement. Patient has poor family and social support. 02/03/2019: Patient seen and examined at bedside. She is awake alert and cooperative. She is not in pain or distress. She eats well and tolerates well. Her leg edema is relatively improving. Currently patient has been awaiting p [facility] to [facility]. 02/04/2019: Patient seen sitting by the bedside. She is awake alert oriented. Complains of swelling on her right upper. On palpation she has tenderness swelling on her right upper arm medially which might be thrombosed AV fistula. Ultrasound of the right upper is requested. Also complains of foul-smelling urine. 02/05/2019: Patient still complaining of right upper more swelling. Venous Doppler of the right upper is negative for DVT. Dr. Esteves consulted to evaluate the patient. Switched her ceftriaxone to cefazolin. Reason For Visit: VOLUME OVERLOAD Physical Exam Vital Signs: Temp Pulse Resp BP Pulse Ox 98.2 F 72 16 114/62 94 02/04/19 23:52 02/04/19 23:52 02/04/19 23:52 02/04/19 23:52 02/04/19 23:52 Intake & Output 02/04/19 02/05/19 02/06/19 06:59 06:59 06:59 Intake Total 970 1925 Output Total 4000 Balance -3030 1925 Weight 98.2 kg 98.2 kg Results Laboratory Results: 02/03/19 05:07 02/03/19 05:07 Assessment and Plan - Diagnosis (1) Cellulitis of right upper arm Is this a current diagnosis for this admission?: Yes Plan: DVT ruled out. Patient empirically started on cefazolin. Dr. Esteves will evaluate the patient. (2) Fluid overload Is this a current diagnosis for this admission?: Yes Plan: Improving with the dialysis. (3) Diarrhea Is this a current diagnosis for this admission?: Yes Plan: Has stopped (4) Abdominal pain Qualifiers: Abdominal location: lower abdomen, unspecified Qualified Code(s): R10.30 - Lower abdominal pain, unspecified Is this a current diagnosis for this admission?: Yes Plan: Improving (5) Missed dialysis Is this a current diagnosis for this admission?: Yes Plan: Dr. Yang has been consulted and patient scheduled for dialysis. (6) Type 2 diabetes mellitus Is this a current diagnosis for this admission?: Yes Plan: We will continue her home medication and put her on sliding scale. (7) Hypertension Qualifiers: Hypertension type: essential hypertension Qualified Code(s): I10 - Essential (primary) hypertension Is this a current diagnosis for this admission?: Yes Plan: Continue home medication. (8) Hyperlipidemia Qualifiers: Hyperlipidemia type: unspecified Qualified Code(s): E78.5 - Hyperlipidemia, unspecified Is this a current diagnosis for this admission?: Yes Plan: Continue home medication.
[2019-02-05] MEDS ORDERED: GLUCAGON,HUMAN RECOMB 1 MG INJ SUBCUT PRN (12:15)
[2019-02-05] MEDS ORDERED: DEXTROSE 40% GEL 15 GM TUBE PO PRN ×2 (12:15)
[2019-02-05] MEDS ORDERED: DEXTROSE 50%-WATER 25 GM/50 ML DISP.SYRIN IV PRN ×2 (12:15)
[2019-02-05] MEDS: CEFAZOLIN 2 GM/D5W RTU 2 GM/50 ML RTUPB IV SCH ×3 (12:57→23:01)
--- NOTE | 2019-02-05 21:00 | PDOC CONSULTATION ---
Consultation Consult Date: 02/05/19 Provider Consulted: SURGICAL SURGICALIST History of Present Illness Admission Date/PCP: 02/01/19 17:28 Patient complains of: right arm pain at old IV site History of Present Illness: MICKIE SHARP is a 48 year old female seen in consultation at the request of the hospitalist service. This is a patient who complains of right upper extremity pain at the medial antecubital fossa. The patient reports that she had an IV in this location several weeks ago on a previous hospital admission. Since that time it has become increasingly painful. She denies fevers or chills. She does report tenderness to palpation. The pain is sharp and stabbing. The pain is 6 out of 10. It is increasing. She denies purulent drainage. The pain does not radiate. She denies CP, SOB, N/V, dizziness, orthostasis, blurry vision, fatigue, or malaise. She is somewhat hard of hearing. Past Medical History Cardiac Medical History: Reports: Congestive Heart Failure, Hyperlipidema, Hypertension Denies: Coronary Artery Disease, Myocardial Infarction Pulmonary Medical History: Reports: Asthma Denies: Bronchitis, Chronic Obstructive Pulmonary Disease (COPD), Pneumonia Neurological Medical History: Denies: Seizures Endocrine Medical History: Reports: Diabetes Mellitus Type 1 Denies: Diabetes Mellitus Type 2, Hyperthyroidism, Hypothyroidism Renal/ Medical History: Reports: End Stage Renal Disease - On on hemodialysis 3 days/week GI Medical History: Denies: Cirrhosis, Hepatitis Musculoskeltal Medical History: Denies: Arthritis, Gout Skin Medical History: Reports: Other - Diffuse folliculitis by skin biopsy from her clinical nurse done in 2019. Denies: Eczema, Psoriasis Psychiatric Medical History: Denies: Depression Hematology: Reports: Anemia - Chronic anemia of end-stage renal disease Denies: Bleeding Tendencies Past Surgical History Past Surgical History: Reports: Cholecystectomy, Orthopedic Surgery - Right BKA, Vascular Surgery - fistula placement for hemodialysis, Other - Amputation right lower extremity Social History Lives with: Family Smoking Status: Never Smoker Frequency of Alcohol Use: None Hx Recreational Drug Use: No Drugs: None Hx Prescription Drug Abuse: No - Advance Directive Resuscitation Status: Full Code Family History Family History: CAD, DM, Hypertension Parental Family History Reviewed: Yes Children Family History Reviewed: Yes Sibling(s) Family History Reviewed.: Yes Medication/Allergy Home Medications: Carvedilol [Coreg 25 mg Tablet] 25 mg PO Q12 02/01/19 Fluticasone Propionate [Flonase Nasal Mabie 50 Mcg/Mabie 16 gm] 2 spray NASL DAILY 02/01/19 Gabapentin [Neurontin 100 mg Capsule] 100 mg PO Q8 02/01/19 Hydromorphone HCl [Dilaudid 2 mg Tablet] 2 mg PO Q6HP PRN 02/01/19 Hydroxyzine HCl [Atarax 50 mg Tablet] 50 mg PO QIDP PRN 02/01/19 Ondansetron [Zofran Odt 4 mg Tablet] 4 mg PO Q4HP PRN 02/01/19 Allergies/Adverse Reactions: No Known Allergies Allergy (Verified 02/01/19 13:56) Review of Systems Constitutional: ABSENT: anorexia, chills, fatigue, fever(s) Eyes: ABSENT: visual disturbances Ears: PRESENT: hearing changes Nose, Mouth, and Throat: ABSENT: sore throat Cardiovascular: ABSENT: chest pain, dyspnea on exertion Respiratory: ABSENT: cough, dyspnea Gastrointestinal: ABSENT: abdominal pain, hematemesis, hematochezia, melena, nausea, vomiting Musculoskeletal: ABSENT: back pain Integumentary: PRESENT: other - right arm with swollen and painful area at AC fossa. Neurological: ABSENT: confusion, convulsions, dizziness Psychiatric: ABSENT: anxiety, depression Endocrine: ABSENT: cold intolerance, heat intolerance Hematologic/Lymphatic: ABSENT: easy bleeding, easy bruising Physical Exam Vital Signs: Temp Pulse Resp BP Pulse Ox 98.3 F 71 16 121/66 98 02/05/19 19:46 02/05/19 19:46 02/05/19 19:46 02/05/19 19:46 02/05/19 19:46 Intake & Output 02/04/19 02/05/19 02/06/19 06:59 06:59 06:59 Intake Total 970 1925 1080 Output Total 4000 Balance -3030 1925 1080 Weight 98.2 kg 98.2 kg General appearance: PRESENT: obese Eye exam: PRESENT: EOMI, PERRLA. ABSENT: scleral icterus Mouth exam: PRESENT: moist, neck supple Neck exam: ABSENT: meningismus, tenderness, thyromegaly, tracheal deviation Respiratory exam: PRESENT: clear to auscultation ezequiel. ABSENT: chest wall tenderness Cardiovascular exam: PRESENT: RRR Pulses: PRESENT: normal radial pulses Vascular exam: PRESENT: normal capillary refill GI/Abdominal exam: PRESENT: soft. ABSENT: distended, tenderness Rectal exam: PRESENT: deferred Extremities exam: ABSENT: clubbing Neurological exam: PRESENT: alert, awake, oriented to person, oriented to place, oriented to time, oriented to situation Psychiatric exam: ABSENT: agitated, anxious, depressed Focused psych exam: ABSENT: delusional Skin exam: PRESENT: erythema - right upper extremity, other - indurated, fluctuant area of the right upper extremity Results Laboratory Results: 02/03/19 05:07 02/03/19 05:07 Assessment & Plan - Diagnosis (1) Abscess of arm, right Is this a current diagnosis for this admission?: Yes - Plan Summary Plan Summary: 48 y/o dialysis patient with a right upper extremity abscess. She has eaten to day. I have recommended incision and drainage in the OR due to the proximity to the antecubital fossa. NPO after midnight. Plan incision and drainage tomorrow. Risks/benefits discussed, informed consent obtained, and all questions answered.
[2019-02-05] MEDS: TEMAZEPAM 15 MG CAPSULE PO PRN (22:52)
[2019-02-05] MEDS: FAMOTIDINE 20 MG TABLET PO SCH (22:52)
[2019-02-06] MEDS ORDERED: NORMAL SALINE 1000 ML 1,000 ML IV PRN (05:00)
[2019-02-06] MEDS: CEFAZOLIN 2 GM/D5W RTU 2 GM/50 ML RTUPB IV SCH ×3 (05:07→22:43)
[2019-02-06] MEDS: ONDANSETRON HCL INJ/PF 4 MG/2 ML SDV IV PRN ×2 (05:07→16:55)
[2019-02-06] MEDS: HEPARIN SOD (PORCINE) 5,000 UNIT/ML 1 ML SYRINGE SUBCUT SCH ×3 (05:08→22:33)
[2019-02-06 06:03] LABS: HEMATOCRIT 30.3 % (36.0-47.0); MEAN CORPUSCULAR HEMOGLOBIN 31.9 pg (27.0-33.4); MEAN CORPUSCULAR HGB CONC 32.9 g/dL (32.0-36.0); MEAN CORPUSCULAR VOLUME 97 fl (80-97); PLATELET COUNT 135 10^3/uL (150-450); RED BLOOD COUNT 3.13 10^6/uL (3.72-5.28); RED CELL DISTRIBUTION WIDTH 16.2 % (11.5-14.0); WHITE BLOOD COUNT 7.9 10^3/uL (4.0-10.5)
[2019-02-06 06:36] LABS: ANION GAP 19 (5-19); BLOOD UREA NITROGEN 74 mg/dL (7-20); CALCIUM 8.2 mg/dL (8.4-10.2); CARBON DIOXIDE 23 mmol/L (22-30); CHLORIDE 97 mmol/L (98-107); GLUCOSE 109 mg/dL (75-110); POTASSIUM 5.4 mmol/L (3.6-5.0); SODIUM 139.2 mmol/L (137-145)
[2019-02-06] MEDS: EPOETIN ALFA 10,000 UNIT in SYRINGE, DISPOSABLE, 1 EACH IV PRN (10:00)
--- NOTE | 2019-02-06 13:57 | PDOC PROGRESS REPORT ---
Subjective Progress Note for:: 02/06/19 Subjective:: MICKIE SHARP is a 48 year old black female patient with past medical history of type 2 diabetes mellitus, hypertension, hyperlipidemia, congestive heart failure, status post BKA, end-stage renal failure on hemodialysis, presented with chief complaint of diarrhea of several weeks and also she missed her dialysis today. Patient denies any fever, chills, chest pain, palpitation, diaphoresis. Though she has diarrhea she denied any nausea or vomiting. On exam the patient she complains of abdominal pain. EMS noted that the port has delayed bleeding but ultimately did stop. Patient has associated shortness of breath and leg swelling which is most probably related to volume overload. 02/02/2019: This morning I seen patient sitting by the bedside. She complains of generalized weakness and shortness of breath. She stated that her home therapist recommended rehab placement. Patient has poor family and social support. 02/03/2019: Patient seen and examined at bedside. She is awake alert and cooperative. She is not in pain or distress. She eats well and tolerates well. Her leg edema is relatively improving. Currently patient has been awaiting [facility]. 02/04/2019: Patient seen sitting by the bedside. She is awake alert oriented. Complains of swelling on her right upper. On palpation she has tenderness swelling on her right upper arm medially which might be thrombosed AV fistula. Ultrasound of the right upper is requested. Also complains of foul-smelling urine. 02/05/2019: Patient still complaining of right upper more swelling. Venous Doppler of the right upper is negative for DVT. Dr. Esteves consulted to evaluate the patient. Switched her ceftriaxone to cefazolin. 02/06/2019: Patient seen and examined while she is getting hemodialysis. She is awake alert and oriented. Yesterday patient evaluated by Dr. Esteves who scheduled her for incision and drainage of right upper arm abscess. Patient has been getting cefazolin for the possible abscess and cellulitis and will adjust her antibiotics based on the culture results. Reason For Visit: VOLUME OVERLOAD Physical Exam Vital Signs: Temp Pulse Resp BP Pulse Ox 98.3 F 108 H 18 134/50 H 100 02/06/19 11:43 02/06/19 11:43 02/06/19 11:43 02/06/19 11:43 02/06/19 11:43 Intake & Output 02/05/19 02/06/19 02/07/19 06:59 06:59 06:59 Intake Total 19240 Output Total 4600 Balance 1924 1659 -4600 Weight 98.2 kg 98.2 kg Results Laboratory Results: 02/06/19 05:45 02/06/19 05:45 02/06/19 02/06/19 05:45 05:45 WBC 7.9 RBC 3.13 L Hgb 10.0 L Hct 30.3 L MCV 97 MCH 31.9 MCHC 32.9 RDW 16.2 H Plt Count 135 L Sodium 139.2 Potassium 5.4 H Chloride 97 L Carbon Dioxide 23 Anion Gap 19 BUN 74 H Creatinine 9.83 H Est GFR ( Amer) 5 L Est GFR (Non-Af Amer) 4 L Glucose 109 Calcium 8.2 L Assessment and Plan - Diagnosis (1) Rt upper arm cellulitis and abscess Is this a current diagnosis for this admission?: Yes Plan: She has been on cefazolin. Scheduled for incision and drainage of abscess (2) Fluid overload Is this a current diagnosis for this admission?: Yes Plan: Improving with the dialysis. (3) Diarrhea Is this a current diagnosis for this admission?: Yes Plan: Has stopped (4) Abdominal pain Qualifiers: Abdominal location: lower abdomen, unspecified Qualified Code(s): R10.30 - Lower abdominal pain, unspecified Is this a current diagnosis for this admission?: Yes Plan: Improving (5) Missed dialysis Is this a current diagnosis for this admission?: Yes Plan: Dr. Yang has been consulted and patient scheduled for dialysis. (6) Type 2 diabetes mellitus Is this a current diagnosis for this admission?: Yes Plan: We will continue her home medication and put her on sliding scale. (7) Hypertension Qualifiers: Hypertension type: essential hypertension Qualified Code(s): I10 - Essential (primary) hypertension Is this a current diagnosis for this admission?: Yes Plan: Continue home medication. (8) Hyperlipidemia Qualifiers: Hyperlipidemia type: unspecified Qualified Code(s): E78.5 - Hyperlipidemia, unspecified Is this a current diagnosis for this admission?: Yes Plan: Continue home medication.
[2019-02-06] MEDS: OXYCODONE-ACETAMINOPHEN 5-325 MG TABLET PO PRN ×2 (14:10→22:34)
--- NOTE | 2019-02-06 14:15 | PDOC PROGRESS REPORT ---
Subjective Progress Note for:: 02/06/19 Reason For Visit: Patient seen on dialysis. She is undergoing dialysis without any issues. Vital signs are stable. She denies any history of abdominal pains. Her diarrhea has apparently resolved. She also had some mild cellulitis of her left lower extremity and is on cefazolin for that. Besides that she is also been diagnosed with a right antecubital fossa abscess and is planned to have elective I&D postdialysis today. She denies any history of fever or chills. Labs and medications were reviewed. Dialysis orders were reviewed with the treating dialysis nurse. Physical Exam Vital Signs: Temp Pulse Resp BP Pulse Ox 98.3 F 108 H 18 134/50 H 100 02/06/19 11:43 02/06/19 11:43 02/06/19 11:43 02/06/19 11:43 02/06/19 11:43 Intake & Output 02/05/19 02/06/19 02/07/19 06:59 06:59 06:59 Intake Total 1925 1660 Output Total 4600 Balance 1925 1660 -4600 Weight 98.2 kg 98.2 kg General appearance: PRESENT: no acute distress Respiratory exam: PRESENT: clear to auscultation ezequiel. ABSENT: crackles Cardiovascular exam: PRESENT: +S1, +S2 GI/Abdominal exam: PRESENT: normal bowel sounds, soft. ABSENT: organomegaly, tenderness Extremities exam: ABSENT: pedal edema Neurological exam: PRESENT: alert, awake, oriented to person, oriented to place Psychiatric exam: PRESENT: anxious Skin exam: ABSENT: erythema, mottled, rash Results Laboratory Results: 02/06/19 05:45 02/06/19 05:45 02/06/19 02/06/19 05:45 05:45 WBC 7.9 RBC 3.13 L Hgb 10.0 L Hct 30.3 L MCV 97 MCH 31.9 MCHC 32.9 RDW 16.2 H Plt Count 135 L Sodium 139.2 Potassium 5.4 H Chloride 97 L Carbon Dioxide 23 Anion Gap 19 BUN 74 H Creatinine 9.83 H Est GFR ( Amer) 5 L Est GFR (Non-Af Amer) 4 L Glucose 109 Calcium 8.2 L Assessment & Plan - Diagnosis (1) Abdominal pain Qualifiers: Abdominal location: lower abdomen, unspecified Qualified Code(s): R10.30 - Lower abdominal pain, unspecified Is this a current diagnosis for this admission?: Yes Plan: Apparently resolved. (2) Abscess of arm, right Is this a current diagnosis for this admission?: Yes Plan: Currently on cefazolin. For I&D postdialysis. (3) Diarrhea Is this a current diagnosis for this admission?: Yes Plan: Apparently resolved. (4) Hypertension Qualifiers: Hypertension type: essential hypertension Qualified Code(s): I10 - Essential (primary) hypertension Is this a current diagnosis for this admission?: Yes Plan: Controlled. (5) Missed dialysis Is this a current diagnosis for this admission?: Yes Plan: Noncompliance has been a major factor for her not being able to ultrafiltrate during dialysis as an outpatient. (6) Type 2 diabetes mellitus Is this a current diagnosis for this admission?: Yes Plan: Advised tight control. (7) Anemia in chronic kidney disease (CKD) Is this a current diagnosis for this admission?: Yes Plan: Stable. No indications for Procrit on this dialysis today. Will monitor. (8) ESRD (end stage renal disease) Is this a current diagnosis for this admission?: Yes Plan: Patient currently undergoing dialysis without any issues. Dialysis is being supervised to ensure safe and smooth procedure. Vital signs are stable. Plan to remove approximately 2 L of fluid as tolerated. Dialysis orders were reviewed with the treating dialysis nurse.
[2019-02-06] MEDS ORDERED: FENTANYL CITRATE INJ/PF 100 MCG/2 ML AMPUL ONE (16:52)
[2019-02-06] MEDS ORDERED: MIDAZOLAM 2 MG/2 ML INJ ONE (16:52)
[2019-02-06] MEDS ORDERED: ONDANSETRON HCL INJ/PF 4 MG/2 ML SDV ONE (16:52)
[2019-02-06] MEDS ORDERED: PROPOFOL INJ 200 MG/20 ML VIAL IV ONE (16:52)
[2019-02-06] MEDS ORDERED: DIPHENHYDRAMINE HCL 50 MG/ML VIAL IV PRN ×2 (17:02→18:17)
[2019-02-06] MEDS ORDERED: PROMETHAZINE HCL INJ 25 MG/1 ML VIAL IV PRN ×3 (17:02→18:17)
[2019-02-06] MEDS ORDERED: FENTANYL CITRATE INJ/PF 100 MCG/2 ML AMPUL IV PRN ×6 (17:02→18:17)
[2019-02-06] MEDS ORDERED: MORPHINE SULFATE 10 MG/ML INJ IV PRN ×2 (17:02→18:17)
[2019-02-06] MEDS ORDERED: MEPERIDINE HCL/PF INJ 25 MG/1 ML DISP.SYRIN IV PRN ×2 (17:02→18:17)
[2019-02-06] MEDS ORDERED: CEFAZOLIN INJ 1 GM VIAL ONE (17:37)
[2019-02-06] MEDS ORDERED: LIDOCAINE 1% INJ-PF (10 MG/ML) 30 ML SDV ONE (17:37)
[2019-02-06] MEDS ORDERED: BUPIVACAINE HCL 0.25 % INJ/PF (2.5 MG/1 ML) 30 ML VIAL ONE (17:37)
[2019-02-06] MEDS ORDERED: ONDANSETRON HCL INJ/PF 4 MG/2 ML SDV IV PRN (18:17)
--- NOTE | 2019-02-06 18:33 | Operative Report ---
Nonrecallable Operative Report DATE OF SURGERY: 02/06/19 PREOPERATIVE DIAGNOSIS: right upper extremity abscess POSTOPERATIVE DIAGNOSIS: same OPERATION: incision and drainage of right upper extremity abscess SURGEON: DAO CALABRESE ANESTHESIA: LMAC TISSUE REMOVED OR ALTERED: 1. biopsy of indurated tissue. 2. wound culture COMPLICATIONS: none apparent ESTIMATED BLOOD LOSS: minimal PROCEDURE: Drains/implants: 4 x 4 gauze. Procedure in detail: After informed consent was obtained, the patient was brought to the operating room and laid in the supine position. The area of the right upper extremity was prepped and draped in a normal sterile fashion. The upper extremity was infiltrated with 1% lidocaine. There is a large amount of induration at the medial antecubital fossa. An incision was created over the area of maximal induration and fluctuance. A large amount of indurated tissue was found in the subcutaneous position. A small amount of inflammatory fluid was identified. A portion of the indurated fatty tissue was sent for biopsy due to its atypical visual appearance. A wound culture was taken from the deep tissues. At this time hemostasis was achieved using Bovie electrocautery. The wound was packed with a 4 x 4 gauze. A dressing was placed, and the procedure was concluded. All sponge, instrument, and needle counts were correct x2. Condition: Stable.
[2019-02-06] MEDS: FAMOTIDINE 20 MG TABLET PO SCH (22:34)
[2019-02-07] MEDS: CEFAZOLIN 2 GM/D5W RTU 2 GM/50 ML RTUPB IV SCH ×3 (00:28→11:21)
[2019-02-07] MEDS: ONDANSETRON HCL INJ/PF 4 MG/2 ML SDV IV PRN ×4 (00:28→23:01)
[2019-02-07] MEDS: HEPARIN SOD (PORCINE) 5,000 UNIT/ML 1 ML SYRINGE SUBCUT SCH ×3 (06:30→23:02)
[2019-02-07] MEDS: OXYCODONE-ACETAMINOPHEN 5-325 MG TABLET PO PRN ×3 (07:52→23:01)
--- NOTE | 2019-02-07 09:13 | PDOC PROGRESS REPORT ---
Subjective Progress Note for:: 02/07/19 Subjective:: No complaints Reason For Visit: VOLUME OVERLOAD Physical Exam Vital Signs: Temp Pulse Resp BP Pulse Ox 98.9 F 80 17 104/43 L 98 02/07/19 00:30 02/07/19 00:30 02/07/19 00:30 02/07/19 00:30 02/07/19 00:30 Intake & Output 02/06/19 02/07/19 02/08/19 06:59 06:59 06:59 Intake Total 1660 645 50 Output Total 4602 Balance 1660 -3957 50 Weight 98.2 kg 103 kg Extremities exam: PRESENT: other - Right arm wound appears very clean but surrounding region still has induration but no fluctuance. Results Laboratory Results: 02/06/19 05:45 02/06/19 05:45 Assessment & Plan - Diagnosis (1) Rt upper arm cellulitis and abscess Is this a current diagnosis for this admission?: Yes Plan: Wound appears very clean but still has surrounding induration. I do not see any further role for surgical intervention. Treat with antibiotics based on culture results for another week. May be treated as an outpatient in a couple of days if she continues to have improvement. Start daily wet-to-dry dressing changes. Follow-up at wound care clinic next week. Surgicalist service signing off. Please call for any concerns.
--- NOTE | 2019-02-07 12:46 | PDOC PROGRESS REPORT ---
Subjective Progress Note for:: 02/07/19 Subjective:: MICKIE SHARP is a 48 year old black female patient with past medical history of type 2 diabetes mellitus, hypertension, hyperlipidemia, congestive heart failure, status post BKA, end-stage renal failure on hemodialysis, presented with chief complaint of diarrhea of several weeks and also she missed her dialysis today. Patient denies any fever, chills, chest pain, palpitation, diaphoresis. Though she has diarrhea she denied any nausea or vomiting. On exam the patient she complains of abdominal pain. EMS noted that the port has delayed bleeding but ultimately did stop. Patient has associated shortness of breath and leg swelling which is most probably related to volume overload. 02/02/2019: This morning I seen patient sitting by the bedside. She complains of generalized weakness and shortness of breath. She stated that her home therapist recommended rehab placement. Patient has poor family and social support. 02/03/2019: Patient seen and examined at bedside. She is awake alert and cooperative. She is not in pain or distress. She eats well and tolerates well. Her leg edema is relatively improving. Currently patient has been awaiting p lacement to [facility]. 02/04/2019: Patient seen sitting by the bedside. She is awake alert oriented. Complains of swelling on her right upper. On palpation she has tenderness swelling on her right upper arm medially which might be thrombosed AV fistula. Ultrasound of the right upper is requested. Also complains of foul-smelling urine. 02/05/2019: Patient still complaining of right upper more swelling. Venous Doppler of the right upper is negative for DVT. Dr. Esteves consulted to evaluate the patient. Switched her ceftriaxone to cefazolin. 02/06/2019: Patient seen and examined while she is getting hemodialysis. She is awake alert and oriented. Yesterday patient evaluated by Dr. Esteves who scheduled her for incision and drainage of right upper arm abscess. Patient has been getting cefazolin for the possible abscess and cellulitis and will adjust her antibiotics based on the culture results. 02/07/2019: Patient seen while sitting on chair. She is awake alert and oriented. Steady she had incision and drainage on her right upper arm cellulitis and abscess. She has been on cefazolin. Her diarrhea has stopped. Currently patient has been awaiting placement to [facility]. Reason For Visit: VOLUME OVERLOAD Physical Exam Vital Signs: Temp Pulse Resp BP Pulse Ox 98.9 F 80 17 104/43 L 98 02/07/19 00:30 02/07/19 00:30 02/07/19 00:30 02/07/19 00:30 02/07/19 00:30 Intake & Output 02/06/19 02/07/19 02/08/19 06:59 06:59 06:59 Intake Total 1660 645 50 Output Total 4602 Balance 1660 -3957 50 Weight 98.2 kg 103 kg General appearance: PRESENT: no acute distress Head exam: PRESENT: atraumatic Neck exam: ABSENT: carotid bruit, JVD, lymphadenopathy, thyromegaly Respiratory exam: PRESENT: clear to auscultation ezequiel. ABSENT: rales, rhonchi, wheezes Cardiovascular exam: PRESENT: RRR. ABSENT: diastolic murmur, rubs, systolic murmur Skin exam: PRESENT: other - Diffuse chronic papular lesions all over her body. Results Laboratory Results: 02/06/19 05:45 02/06/19 05:45 Assessment and Plan - Diagnosis (1) Rt upper arm cellulitis and abscess Is this a current diagnosis for this admission?: Yes Plan: She has been on cefazolin. Patient had incision and drainage yesterday. We will adjust antibiotics as donor culture results. (2) Fluid overload Is this a current diagnosis for this admission?: Yes Plan: Improving with the dialysis. (3) Diarrhea Is this a current diagnosis for this admission?: Yes Plan: Has stopped (4) Abdominal pain Qualifiers: Abdominal location: lower abdomen, unspecified Qualified Code(s): R10.30 - Lower abdominal pain, unspecified Is this a current diagnosis for this admission?: Yes Plan: Improving (5) Missed dialysis Is this a current diagnosis for this admission?: Yes Plan: Dr. Yang has been consulted and patient scheduled for dialysis. (6) Type 2 diabetes mellitus Is this a current diagnosis for this admission?: Yes Plan: We will continue her home medication and put her on sliding scale. (7) Hypertension Qualifiers: Hypertension type: essential hypertension Qualified Code(s): I10 - Essential (primary) hypertension Is this a current diagnosis for this admission?: Yes Plan: Continue home medication. (8) Hyperlipidemia Qualifiers: Hyperlipidemia type: unspecified Qualified Code(s): E78.5 - Hyperlipidemia, unspecified Is this a current diagnosis for this admission?: Yes Plan: Continue home medication.
[2019-02-07] MEDS: TEMAZEPAM 15 MG CAPSULE PO PRN (23:01)
[2019-02-07] MEDS: FAMOTIDINE 20 MG TABLET PO SCH (23:02)
[2019-02-08] MEDS: HEPARIN SOD (PORCINE) 5,000 UNIT/ML 1 ML SYRINGE SUBCUT SCH ×2 (05:44→13:04)
[2019-02-08 06:24] LABS: HEMATOCRIT 30.2 % (36.0-47.0); MEAN CORPUSCULAR HEMOGLOBIN 32.2 pg (27.0-33.4); MEAN CORPUSCULAR HGB CONC 33.1 g/dL (32.0-36.0); MEAN CORPUSCULAR VOLUME 97 fl (80-97); PLATELET COUNT 144 10^3/uL (150-450); RED CELL DISTRIBUTION WIDTH 16.2 % (11.5-14.0); WHITE BLOOD COUNT 7.2 10^3/uL (4.0-10.5)
[2019-02-08 06:44] LABS: ANION GAP 18 (5-19); BLOOD UREA NITROGEN 59 mg/dL (7-20); CALCIUM 8.1 mg/dL (8.4-10.2); CARBON DIOXIDE 26 mmol/L (22-30); CHLORIDE 96 mmol/L (98-107); GLUCOSE 90 mg/dL (75-110); POTASSIUM 5.1 mmol/L (3.6-5.0); SODIUM 140.3 mmol/L (137-145)
[2019-02-08] MEDS: EPOETIN ALFA 10,000 UNIT in SYRINGE, DISPOSABLE, 1 EACH IV PRN (08:37)
[2019-02-08] MEDS ORDERED: CEFAZOLIN 1 GM/D5W RTU 1 GM/50 ML RTUPB IV SCH (12:00)
--- NOTE | 2019-02-08 14:26 | PDOC TRANSFER SUMMARY ---
General - Admit/Disc Date/PCP Admission Date/Primary Care Provider: 02/01/19 17:28 Discharge Date: 02/08/19 - Discharge Diagnosis (1) Rt upper arm cellulitis and abscess Is this a current diagnosis for this admission?: Yes Summary: The patient had incision and drainage of the lesion by Dr. Esteves. The wound culture has no growth at 48 hours. Despite this the patient will continue several more days of antibiotic therapy. Since she was on cefazolin I will place her on Keflex. Utilize gauze dressings secured with Kerlix and tape or Coban to keep the dressing in place. Do not apply undue tension. (2) Fluid overload Is this a current diagnosis for this admission?: Yes Summary: The patient did miss a dialysis appointment. She presented with volume overload. She has been dialyzed and in fact had her treatment today. She is feeling much better. Continue Wednesday and Wednesday dialysis. (3) Diarrhea Is this a current diagnosis for this admission?: Yes Summary: Diarrhea has resolved. She did have a stool submitted for culture. There were no polys noted on the specimen. Final results are still pending. As the diarrhea has subsided this is not likely a true infectious diarrhea. (4) Abdominal pain Is this a current diagnosis for this admission?: Yes Summary: Her lower abdominal pain has improved consistently during the admission. Continue symptom management. (5) Missed dialysis Is this a current diagnosis for this admission?: Yes Summary: This certainly contributed to the volume overload. Not she is back on dialysis she is greatly improved. Compliance has been an issue in the past. (6) Type 2 diabetes mellitus Is this a current diagnosis for this admission?: Yes Summary: Continue consistent carbohydrate diet as her fingersticks are excellent. (7) Hyperlipidemia Is this a current diagnosis for this admission?: Yes Summary: Continue current medication regimen (8) Hypertension Is this a current diagnosis for this admission?: Yes Summary: Blood pressures are variable but generally well controlled. She does have occasional hypotension. She is likely prone to hypotension during dialysis as well. - Additional Information Resuscitation Status: Full Code Prescriptions: Cefazolin 1 gm/D5w RTU [Ancef RTU 1 gm/D5w 50 ml Premix Bag] 1 gm IV ASDIR 7 Days #3 dose Oxycodone HCl/Acetaminophen [Percocet 5-325 mg Tablet] 1 tab PO Q6HP PRN 5 Days #10 tablet PRN Reason: Home Medications: Carvedilol [Coreg 25 mg Tablet] 25 mg PO Q12 02/01/19 Fluticasone Propionate [Flonase Nasal [place] 50 Mcg/[place] 16 gm] 2 spray NASL DAILY 02/01/19 Gabapentin [Neurontin 100 mg Capsule] 100 mg PO Q8 02/01/19 Hydroxyzine HCl [Atarax 50 mg Tablet] 50 mg PO QIDP PRN 02/01/19 Ondansetron [Zofran Odt 4 mg Tablet] 4 mg PO Q4HP PRN 02/01/19 Cefazolin 1 gm/D5w RTU [Ancef RTU 1 gm/D5w 50 ml Premix Bag] 1 gm IV ASDIR 7 Days #3 dose 02/08/19 Epoetin Lobo [Procrit Inj 20,000 Unit/1 ml Vial (Renal)] 10,000 unit IV .DIALYSIS PRN ml 02/08/19 Oxycodone HCl/Acetaminophen [Percocet 5-325 mg Tablet] 1 tab PO Q6HP PRN 5 Days #10 tablet 02/08/19 History of Present Illness Admission Date/PCP: 02/01/19 17:28 Patient complains of: Several weeks of diarrhea with abdominal pain History of Present Illness: MICKIE SHARP is a 48 year old female with a complex medical history including end-stage kidney disease on hemodialysis. She presented to the emergency depa rtment with lower abdominal pain as a result of several weeks of diarrhea. She denied fever, chills, nausea or vomiting. She had also missed her dialysis appointment that day. She was afebrile and did not have an elevated white blood cell count however she did have pain in her right arm. She was referred to the hospital service for admission. Hospital Course Hospital Course: The patient's hospital course was significant for the right arm abscess. Ult rasound ruled out a venous thrombosis. Dr. Esteves performed incision and drainage. She has been on antibiotic therapy. So far the culture from the lesion has not grown any bacteria however I will keep her on the cephalexin for several more days. The patient did miss her hemodialysis on the day of admission. She is back on her Wednesday, Wednesday and Wednesday schedule. Her volume overload has improved greatly. She feels quite comfortable with regard to breathing and reports being greatly improved from admission. The diarrhea did resolve. Stool was submitted but there were no white cells observed. Final results are pending but this is not likely a bacterial infection. The patient will be discharged to [facility] for therapy and ongoing recovery. Physical Exam Vital Signs: Temp Pulse Resp BP Pulse Ox 98.4 F 75 20 138/46 H 97 02/07/19 19:41 02/07/19 19:41 02/07/19 19:41 02/07/19 19:41 02/07/19 19:41 Intake & Output 02/07/19 02/08/19 02/09/19 06:59 06:59 06:59 Intake Total 645 2390 677 Output Total 4602 0 3200 Balance -3957 2390 -2523 Weight 103 kg 100.1 kg General appearance: PRESENT: no acute distress, cooperative, obese Head exam: PRESENT: atraumatic, normocephalic Eye exam: PRESENT: conjunctiva pale. ABSENT: scleral icterus Respiratory exam: PRESENT: clear to auscultation ezequiel, symmetrical, unlabored. ABSENT: rales, rhonchi, tachypnea, wheezes Cardiovascular exam: PRESENT: RRR, +S1, +S2 GI/Abdominal exam: PRESENT: normal bowel sounds, soft. ABSENT: tenderness Rectal exam: PRESENT: deferred Extremities exam: PRESENT: other - Right below-knee amputation Neurological exam: PRESENT: alert, awake, oriented to person, oriented to place, oriented to time, oriented to situation Psychiatric exam: PRESENT: appropriate affect, normal mood. ABSENT: agitated, anxious Focused psych exam: ABSENT: delusional, restlessness Results Laboratory Results: 02/08/19 05:33 02/08/19 05:33 02/08/19 02/08/19 05:33 05:33 WBC 7.2 RBC 3.10 L Hgb 10.0 L Hct 30.2 L MCV 97 MCH 32.2 MCHC 33.1 RDW 16.2 H Plt Count 144 L Sodium 140.3 Potassium 5.1 H Chloride 96 L Carbon Dioxide 26 Anion Gap 18 BUN 59 H Creatinine 9.39 H Est GFR ( Amer) 5 L Est GFR (Non-Af Amer) 5 L Glucose 90 Calcium 8.1 L Transfer Plan - Disposition Transfer Plan: Patient will transfer to [facility]. - Time Spent with Patient Time spent with patient: Greater than 30 Minutes Qualifiers - * PATIENT BEING DISCHARGED WITH ANY OF THE FOLLOWING DIAGNOSIS: No Acute Heart Failure - Is this a Heart Failure Patient?: No Plan Discharge Plan: Prescriptions for: Percocet 5/325 mg tablet dispense #10 tabs. Directions take 1 tab p.o. every 6 hours as needed for pain Cefazolin 1 g IV on Wednesday and Wednesday after dialysis. Dispense 3 doses. Time Spent: Greater than 30 Minutes
[2019-02-08 16:33] VITALS: BP 107/58
--- NOTE | 2019-02-08 17:13 | PDOC PROGRESS REPORT ---
Subjective Progress Note for:: 02/08/19 Reason For Visit: Patient seen on dialysis today. She is undergoing dialysis without any issues. Vital signs are stable. She denies any history of chest pain or shortness of breath. Labs and medications were reviewed with the patient and the treating dialysis nurse. Dialysis orders were reviewed with the treating dialysis nurse. Physical Exam Vital Signs: Temp Pulse Resp BP Pulse Ox 98.4 F 93 18 107/58 L 99 02/08/19 15:49 02/08/19 15:49 02/08/19 15:49 02/08/19 15:49 02/08/19 15:49 Intake & Output 02/07/19 02/08/19 02/09/19 06:59 06:59 06:59 Intake Total 645 2390 677 Output Total 4602 0 3200 Balance -3957 2390 -2523 Weight 103 kg 100.1 kg General appearance: PRESENT: no acute distress Respiratory exam: PRESENT: clear to auscultation ezequiel. ABSENT: crackles Cardiovascular exam: PRESENT: +S1, +S2 GI/Abdominal exam: PRESENT: normal bowel sounds, soft. ABSENT: organomegaly, tenderness Extremities exam: ABSENT: pedal edema Neurological exam: PRESENT: alert, awake, oriented to person, oriented to place Psychiatric exam: PRESENT: anxious Results Laboratory Results: 02/08/19 05:33 02/08/19 05:33 02/08/19 02/08/19 05:33 05:33 WBC 7.2 RBC 3.10 L Hgb 10.0 L Hct 30.2 L MCV 97 MCH 32.2 MCHC 33.1 RDW 16.2 H Plt Count 144 L Sodium 140.3 Potassium 5.1 H Chloride 96 L Carbon Dioxide 26 Anion Gap 18 BUN 59 H Creatinine 9.39 H Est GFR ( Amer) 5 L Est GFR (Non-Af Amer) 5 L Glucose 90 Calcium 8.1 L 02/06/19 08:50 Stool - Stool - Final 02/06/19 08:50 Stool - Stool Stool Culture - Final NO SALMONELLA, SHIGELLA, CAMPYLOBACTER, OR E.COLI 0157 RECOVERED. NEGATIVE FOR SHIGA TOXINS 1&2. Assessment & Plan - Diagnosis (1) ESRD (end stage renal disease) Is this a current diagnosis for this admission?: Yes Plan: Patient currently undergoing dialysis without any issues. Dialysis is being supervised to ensure safe and smooth procedure. Vital signs are stable. Plan to remove approximately 2 L of fluid as tolerated. Dialysis orders were reviewed with the treating dialysis nurse. (2) Abscess of arm, right Is this a current diagnosis for this admission?: Yes Plan: Status post I&D day before yesterday. Cultures so far negative. (3) Diarrhea Is this a current diagnosis for this admission?: Yes Plan: Apparently resolved.C. difficile negative. Bacterial cultures also negative. (4) Hypertension Qualifiers: Hypertension type: essential hypertension Qualified Code(s): I10 - Essential (primary) hypertension Is this a current diagnosis for this admission?: Yes Plan: Controlled. (5) Missed dialysis Is this a current diagnosis for this admission?: Yes Plan: Noncompliance has been a major factor for her not being able to ultrafiltrate during dialysis as an outpatient. (6) Type 2 diabetes mellitus Is this a current diagnosis for this admission?: Yes Plan: Advised tight control. (7) Anemia in chronic kidney disease (CKD) Is this a current diagnosis for this admission?: Yes Plan: Stable. No indications for Procrit on this dialysis today. Will monitor.
== END 2019-02-08 18:37 | DRG 640 ==
LOC: ER 13:30 → EH 16:34 → OBSVTOIN 17:28 → 5 22:32
PROVIDERS: ADMIT Internal Medicine; ATTEND Internal Medicine
PROC: 5A1D70Z Performance of Urinary Filtration, Intermittent, Less than 6 Hours Per Day (ICD-10-PCS; principal; 2019-02-01)
PROC: 5A1D70Z Performance of Urinary Filtration, Intermittent, Less than 6 Hours Per Day (ICD-10-PCS; 2019-02-03)
PROC: 5A1D70Z Performance of Urinary Filtration, Intermittent, Less than 6 Hours Per Day (ICD-10-PCS; 2019-02-06)
PROC: 0J9D3ZX Drainage of Right Upper Arm Subcutaneous Tissue and Fascia, Percutaneous Approach, Diagnostic (ICD-10-PCS; 2019-02-06)
PROC: 5A1D70Z Performance of Urinary Filtration, Intermittent, Less than 6 Hours Per Day (ICD-10-PCS; 2019-02-08)
DX: E87.70 Fluid overload, unspecified (principal); N18.6 End stage renal disease; L02.413 Cutaneous abscess of right upper limb; I13.2 Hypertensive heart and chronic kidney disease with heart failure and with stage 5 chronic kidney disease, or end stage renal disease; I50.32 Chronic diastolic (congestive) heart failure; L03.113 Cellulitis of right upper limb; R19.7 Diarrhea, unspecified; E78.5 Hyperlipidemia, unspecified; E66.9 Obesity, unspecified; E78.00 Pure hypercholesterolemia, unspecified; E10.22 Type 1 diabetes mellitus with diabetic chronic kidney disease; D63.1 Anemia in chronic kidney disease; Z99.2 Dependence on renal dialysis; Z91.15 Patient's noncompliance with renal dialysis; Z79.899 Other long term (current) drug therapy; Z89.511 Acquired absence of right leg below knee; Z83.3 Family history of diabetes mellitus; Z82.49 Family history of ischemic heart disease and other diseases of the circulatory system
CPT/HCPCS: 36415; 400; 80048; 80053; 82962; 83036; 85025; 85027; 87045; 87070; 87075; 87205; 88304; 93971; 99285; G0257; G0378; J0690; J0696; J1644; J2250; J2405; J2704; J3010; J3490; J7060; Q4081

== ENCOUNTER 2019-02-10 12:44 | Inpatient (IN) | payer MEDICARE, MEDICAID ==
[2019-02-10] MEDS ORDERED: KETOROLAC TROMETHAMINE INJ/PF 30 MG/1 ML SDV IV ONE (13:19)
--- NOTE | 2019-02-10 13:28 | ER Document Report ---
ED Blood Sugar Problem - General Chief Complaint: Low Blood Sugar Stated Complaint: ALTERED MENTAL STATUS Time Seen by Provider: 02/10/19 13:20 Mode of Arrival: Medic Information source: Patient TRAVEL OUTSIDE OF THE [place] IN LAST 30 DAYS: No - HPI Patient complains to provider of: hypoglycemia Onset: Just prior to arrival - pt is ESRD on HD q M/W/F who had near syncopal episode while on dialysis earlier today. FSBS was 44. She was given D50 and level increased to 309. There was also a question as to whether she may have aspirated as she had some coughing while she was eating during her treatment. She feels better at present. - Related Data Allergies/Adverse Reactions: No Known Allergies Allergy (Verified 02/01/19 13:56) Past Medical History - General Information source: Patient - Social History Smoking Status: Unknown if Ever Smoked Family History: CAD, DM, Hypertension - Past Medical History Cardiac Medical History: Reports: Hx Congestive Heart Failure, Hx Hypercholesterolemia, Hx Hypertension Denies: Hx Coronary Artery Disease, Hx Heart Attack Pulmonary Medical History: Reports: Hx Asthma Denies: Hx Bronchitis, Hx COPD, Hx Pneumonia Neurological Medical History: Denies: Hx Cerebrovascular Accident, Hx Seizures Endocrine Medical History: Reports: Hx Diabetes Mellitus Type 1. Denies: Hx Diabetes Mellitus Type 2, Hx Hyperthyroidism, Hx Hypothyroidism Renal/ Medical History: Reports: Hx End Stage Renal Disease - On on hemodialysis 3 days/week, Hx Hemodialysis. Denies: Hx Peritoneal Dialysis GI Medical History: Denies: Hx Cirrhosis, Hx Hepatitis Musculoskeletal Medical History: Denies Hx Arthritis, Denies Hx Gout Skin Medical History: Denies Hx Eczema, Denies Hx Psoriasis Psychiatric Medical History: Denies: Hx Depression Infectious Medical History: Denies: Hx Hepatitis Past Surgical History: Reports: Hx Cholecystectomy, Hx Orthopedic Surgery - Right BKA, Hx Vascular Surgery - fistula placement for hemodialysis, Other - Amputation right lower extremity - Immunizations Hx Diphtheria, Pertussis, Tetanus Vaccination: Yes Review of Systems - Review of Systems Constitutional: Weakness EENT: No symptoms reported Cardiovascular: No symptoms reported Respiratory: No symptoms reported Gastrointestinal: No symptoms reported Musculoskeletal: No symptoms reported Neurological/Psychological: See HPI, Weakness -: Yes All other systems reviewed and negative Physical Exam - General General appearance: Appears well In distress: None - HEENT Pupils: PERRL Mouth/Lips: Normal Mucous membranes: Normal Pharynx: Normal Neck: Normal - Respiratory Respiratory status: No respiratory distress Chest status: Nontender - Cardiovascular Rhythm: Regular Heart sounds: Normal auscultation - Abdominal Inspection: Normal Distension: No distension Bowel sounds: Normal Tenderness: Nontender Organomegaly: No organomegaly - Neurological Neuro grossly intact: Yes Cognition: Normal Orientation: AAOx4 Motor strength normal: LUE, RUE, LLE, RLE Sensory: Normal Course - Re-evaluation Re-evalutation: 02/10/19 14:38 pt's exam unchanged. FSBS 175. I will call hospitalist for admission - Laboratory Result Diagrams: 02/10/19 13:00 02/10/19 13:00 Laboratory results interpreted by me: 02/10/19 02/10/19 13:00 13:00 WBC 11.4 H RBC 3.28 L Hgb 10.4 L Hct 32.2 L MCV 98 H RDW 16.1 H Seg Neutrophils % 83.7 H Lymphocytes % 7.5 L Absolute Neutrophils 9.6 H Chloride 96 L BUN 52 H Creatinine 8.64 H Est GFR ( Amer) 6 L Est GFR (Non-Af Amer) 5 L Glucose 193 H Calcium 8.2 L Direct Bilirubin 1.1 H ALT < 6 L Alkaline Phosphatase 229 H Total Protein 8.4 H - Diagnostic Test Radiology reviewed: Reports reviewed - ?aspiration/early PNA - Consults olaf Ivan Time consulted: 14:39 Consulted provider: will see as inpatient - Pt to be admitted per Dr. Bojorquez. Dr. Ivan to consult for HD Discharge - Discharge Clinical Impression: Aspiration pneumonia Qualifiers: Aspiration pneumonia type: unspecified Laterality: bilateral Lung location: lower lobe of lung Qualified Code(s): J69.0 - Pneumonitis due to inhalation of food and vomit Condition: Stable Disposition: ADMITTED OBSERVATION Admitting Provider: [place] (Hospitalist) Unit Admitted: Medical Floor
[2019-02-10 13:31] LABS: ABSOLUTE BASOPHILS # (AUTO) 0.1 10^3/uL (0.0-0.2); ABSOLUTE EOSINOPHILS # (AUTO) 0.2 10^3/uL (0.0-0.6); ABSOLUTE LYMPHOCYTES (AUTO) 0.9 10^3/uL (0.5-4.7); ABSOLUTE MONOCYTES (AUTO) 0.8 10^3/uL (0.1-1.4); ABSOLUTE NEUT (AUTO) 9.6 10^3/uL (1.7-8.2); BASOPHILS % (AUTO) 0.7 % (0-2); EOSINOPHILS % (AUTO) 1.4 % (0-6); HEMATOCRIT 32.2 % (36.0-47.0); HEMOGLOBIN 10.4 g/dL (12.0-15.5); LYMPHOCYTES % (AUTO) 7.5 % (13-45); MEAN CORPUSCULAR HEMOGLOBIN 31.9 pg (27.0-33.4); MEAN CORPUSCULAR HGB CONC 32.4 g/dL (32.0-36.0); MEAN CORPUSCULAR VOLUME 98 fl (80-97); MONOCYTES % (AUTO) 6.7 % (3-13); PLATELET COUNT 155 10^3/uL (150-450); RED BLOOD COUNT 3.28 10^6/uL (3.72-5.28); RED CELL DISTRIBUTION WIDTH 16.1 % (11.5-14.0); SEGMENTED NEUTROPHILS % (AUTO) 83.7 % (42-78); TOTAL CELLS COUNTED % (AUTO) 100 %; WHITE BLOOD COUNT 11.4 10^3/uL (4.0-10.5)
[2019-02-10 13:47] LABS: ALANINE AMINOTRANSFERASE < 6 U/L (9-52); ALBUMIN 3.9 g/dL (3.5-5.0); ALKALINE PHOSPHATASE 229 U/L (38-126); ANION GAP 16 (5-19); ASPARTATE AMINO TRANSFERASE 33 U/L (14-36); BILIRUBIN,DIRECT 1.1 mg/dL (0.0-0.4); BILIRUBIN,TOTAL 1.2 mg/dL (0.2-1.3); BLOOD UREA NITROGEN 52 mg/dL (7-20); CALCIUM 8.2 mg/dL (8.4-10.2); CARBON DIOXIDE 26 mmol/L (22-30); CHLORIDE 96 mmol/L (98-107); GLUCOSE 193 mg/dL (75-110); POTASSIUM 4.8 mmol/L (3.6-5.0); SODIUM 137.5 mmol/L (137-145); TOTAL PROTEIN 8.4 g/dL (6.3-8.2)
--- NOTE | 2019-02-10 14:00 | RADIOLOGY REPORT (SQ) ---
EXAM DESCRIPTION: CHEST 2 VIEWS COMPLETED DATE/TIME: 02/10/2019 1:50 pm REASON FOR STUDY: possible aspiration COMPARISON: 10/17/2018. EXAM PARAMETERS: NUMBER OF VIEWS: two views TECHNIQUE: Digital Frontal and Lateral radiographic views of the chest acquired. RADIATION DOSE: NA LIMITATIONS: none FINDINGS: LUNGS AND PLEURA: Faint hazy densities in the lung bases. No pleural effusion. MEDIASTINUM AND HILAR STRUCTURES: No masses or contour abnormalities. HEART AND VASCULAR STRUCTURES: Cardiomegaly. BONES: No acute findings. HARDWARE: None in the chest. OTHER: No other significant finding. IMPRESSION: CARDIOMEGALY. FAINT HAZY DENSITIES IN THE LUNG BASES, POSSIBLY DUE TO ASPIRATION. POSS IBLE EARLY PNEUMONIA. TECHNICAL DOCUMENTATION: JOB ID: [id number] [employer]- All Rights Reserved Reading location - IP/workstation name: [email or web address]
--- NOTE | 2019-02-10 15:32 | PDOC PROGRESS REPORT ---
Subjective Progress Note for:: 02/10/19 Reason For Visit: Patient had just been discharged yesterday after a recent stay in the hospital. She was undergoing dialysis today at [facility] , when became hypoglycemic and choked on a sandwich. She had also a lot of fluid overload. She was then transferred to the ER where she was admitted because the x-ray showed possibility of aspiration pneumonia. She also did not have proper treatment of dialysis as an outpatient. Currently she is being seen while undergoing dialysis. She is stable. She denies any history of chest pain or shortness of breath or fever or chills. Labs and medications were reviewed. Dialysis orders were reviewed with the treating dialysis nurse. Physical Exam Vital Signs: Intake & Output 02/09/19 02/10/19 02/11/19 06:59 06:59 06:59 Weight 99.9 kg General appearance: PRESENT: no acute distress Respiratory exam: PRESENT: clear to auscultation ezequiel, crackles, decreased breath sounds Cardiovascular exam: PRESENT: +S1, +S2 GI/Abdominal exam: PRESENT: normal bowel sounds, soft. ABSENT: organomegaly, tenderness Neurological exam: PRESENT: alert, awake, oriented to person, oriented to place Psychiatric exam: PRESENT: anxious Results Laboratory Results: 02/10/19 13:00 02/10/19 13:00 02/10/19 02/10/19 13:00 13:00 WBC 11.4 H RBC 3.28 L Hgb 10.4 L Hct 32.2 L MCV 98 H MCH 31.9 MCHC 32.4 RDW 16.1 H Plt Count 155 Seg Neutrophils % 83.7 H Lymphocytes % 7.5 L Monocytes % 6.7 Eosinophils % 1.4 Basophils % 0.7 Absolute Neutrophils 9.6 H Absolute Lymphocytes 0.9 Absolute Monocytes 0.8 Absolute Eosinophils 0.2 Absolute Basophils 0.1 Sodium 137.5 Potassium 4.8 Chloride 96 L Carbon Dioxide 26 Anion Gap 16 BUN 52 H Creatinine 8.64 H Est GFR ( Amer) 6 L Est GFR (Non-Af Amer) 5 L Glucose 193 H Calcium 8.2 L Total Bilirubin 1.2 AST 33 ALT < 6 L Alkaline Phosphatase 229 H Total Protein 8.4 H Albumin 3.9 Impressions: Chest X-Ray 02/10/19 13:19 IMPRESSION: CARDIOMEGALY. FAINT HAZY DENSITIES IN THE LUNG BASES, POSSIBLY DUE TO ASPIRATION. POSSIBLE EARLY PNEUMONIA. Assessment & Plan - Diagnosis (1) Aspiration pneumonia Qualifiers: Aspiration pneumonia type: unspecified Laterality: bilateral Lung location: lower lobe of lung Qualified Code(s): J69.0 - Pneumonitis due to inhalation of food and vomit Plan: As per hospitalist. Patient need to be on antibiotics and monitored. Avoid hypoglycemia. (2) ESRD (end stage renal disease) Plan: Patient currently undergoing dialysis without any issues. Vital signs are stable. Dialysis is being supervised to ensure safe and smooth procedure. Plan to remove 3 to 4 L as tolerated today. Advised patient on low salt and fluid intake. Dialysis orders were reviewed with the treating dialysis nurse Lilian. (3) Fluid overload Plan: Plan to remove approximately 4 to 5 L as tolerated. (4) Type 2 diabetes mellitus Plan: Advised tight control but without any hypoglycemia. Unfortunately patient is not certain amount of mental retardation and has issues in grasping, comprehension and retention.
[2019-02-10] MEDS ORDERED: LEVOFLOXACIN 500 MG TABLET PO ONE (18:00)
[2019-02-10] MEDS ORDERED: DEXTROSE 40% GEL 15 GM TUBE PO PRN ×2 (19:23)
[2019-02-10] MEDS ORDERED: GLUCAGON,HUMAN RECOMB 1 MG INJ SUBCUT PRN (19:23)
[2019-02-10] MEDS ORDERED: DEXTROSE 50%-WATER 25 GM/50 ML DISP.SYRIN IV PRN ×2 (19:23)
[2019-02-10] MEDS: OXYCODONE HCL IR 5 MG TABLET PO PRN (19:46)
--- NOTE | 2019-02-10 20:21 | PDOC H&P ---
History of Present Illness Admission Date/PCP: 02/10/19 14:46 Patient complains of: Difficulty swallowing History of Present Illness: MICKIE SHARP is a 48 year old female with end-stage kidney disease on hemodialysis. She was just discharged from this facility on February 08. She had a right upper arm abscess incised and drained. She was transferred to [facility]. She was to complete her antibiotic therapy as well as participate in physical, occupational and speech therapies. She presented for her hemodialysis treatment but aspirated food. She was transferred to the emergency department. Work-up in the emergency department revealed an elevated white blood cell count as well as abnormal chest x-ray with faint densities in both bases. Since she had witnessed aspiration, and may have been aspirating for several days, she was referred to the hospital service for admission. Because today is her usual dialysis day, the hemodialysis staff graciously accepted her to the dialysis suite for treatment with subsequent evaluation and admission by this provider. She was also seen by nephrology. Of note, her blood pressures were quite low during dialysis. Discussion with the dialysis nurse suggested that very little fluid would be able to be removed at this time. Past Medical History Cardiac Medical History: Reports: Congestive Heart Failure, Hyperlipidema, Hypertension Denies: Coronary Artery Disease, Myocardial Infarction Pulmonary Medical History: Reports: Asthma Denies: Bronchitis, Chronic Obstructive Pulmonary Disease (COPD), Pneumonia Neurological Medical History: Denies: Seizures Endocrine Medical History: Reports: Diabetes Mellitus Type 2 - Most likely diabetes type 2, Obesity Denies: Diabetes Mellitus Type 1 - Supposedly type 1 diabetes but patient does not require insulin, Hyperthyroidism, Hypothyroidism Renal/ Medical History: Reports: End Stage Renal Disease - On on hemodialysis 3 days/week Malignancy Medical History: Reports: None GI Medical History: Denies: Cirrhosis, Hepatitis Musculoskeltal Medical History: Denies: Arthritis, Gout Skin Medical History: Denies: Eczema, Psoriasis Psychiatric Medical History: Reports: Other - Suspected developmental delay Denies: Depression Hematology: Reports: Anemia - Chronic anemia of end-stage renal disease Denies: Bleeding Tendencies Infectious Medical History: Denies: Clostridium Difficile, Hepatitis B, Hepatitis C, HIV Past Surgical History Past Surgical History: Reports: Cholecystectomy, Orthopedic Surgery - Right BKA, Vascular Surgery - fistula placement for hemodialysis, Other - Amputation right lower extremity Social History Information Source: Patient, [facility] Records, Outside Facility Records Lives with: Intermediate - Currently at [facility] Smoking Status: Unknown if Ever Smoked Frequency of Alcohol Use: None Hx Recreational Drug Use: No Drugs: None Hx Prescription Drug Abuse: No - Advance Directive Resuscitation Status: Full Code Surrogate healthcare decision maker:: There were no family members present. I am not sure if the patient has the capacity to completely understand decisions regarding CODE STATUS. She is a full code consistent with her previous admissions. This is also consistent with her status at the snf. Family History Family History: CAD, DM, Hypertension Parental Family History Reviewed: Yes Children Family History Reviewed: NA Sibling(s) Family History Reviewed.: Yes Medication/Allergy Home Medications: Calcium Carbonate [Tums Chewable 500 mg Tab.chew] 1,000 mg PO QHS 02/10/19 Carvedilol [Coreg 12.5 mg Tablet] 12.5 mg PO Q12 02/10/19 Folic Acid/Vitamin B Comp W-C [Alexandra-Nilesh Tablet] 0.8 mg PO DAILY 02/10/19 Gabapentin [Neurontin 100 mg Capsule] 100 mg PO Q8 02/10/19 Hydroxyzine Pamoate [Vistaril 50 mg Capsule] 50 mg PO Q6HP PRN 02/10/19 Loperamide HCl [Loperamide] 2 mg PO QIDP PRN 02/10/19 Metoclopramide HCl [Reglan] 5 mg PO QID 02/10/19 Sevelamer Carbonate [Renvela] 3,200 mg PO TID 02/10/19 Allergies/Adverse Reactions: No Known Allergies Allergy (Verified 02/01/19 13:56) Review of Systems ROS unobtainable: Due to mental status - Limited review as the patient was somnolent Constitutional: PRESENT: weakness. ABSENT: fever(s), night sweats Eyes: ABSENT: visual disturbances Ears: ABSENT: hearing changes Nose, Mouth, and Throat: ABSENT: headache(s), mouth pain, sore throat Cardiovascular: ABSENT: chest pain Respiratory: ABSENT: cough, hemoptysis Gastrointestinal: ABSENT: abdominal pain, constipation, diarrhea, nausea, vomiting Genitourinary: PRESENT: other - anuric Integumentary: PRESENT: lesions - The patient has diffuse darkly pigmented papular lesions. Supposedly these were biopsied by an outside physician. We did request records during her last admission. I do not believe those records were received., pruritus - Marked pruritus during her last admission. She is not itchy now. Neurological: PRESENT: abnormal speech - Very slow delayed speech, confusion - Poor comprehension, memory loss - Poor memory, weakness. ABSENT: vertigo Hematologic/Lymphatic: ABSENT: easy bleeding, easy bruising Physical Exam Vital Signs: Temp Pulse Resp BP Pulse Ox 12 129/51 H 97 02/10/19 14:03 02/10/19 13:07 02/10/19 14:03 Intake & Output 02/09/19 02/10/19 02/11/19 06:59 06:59 06:59 Weight 99.9 kg General appearance: PRESENT: no acute distress, cooperative - Limited cooperation as the patient was somnolent while on hemodialysis, obese, other - The patient's participation during this exam was quite limited Head exam: PRESENT: atraumatic, normocephalic Eye exam: PRESENT: conjunctiva pale. ABSENT: scleral icterus Ear exam: PRESENT: normal external ear exam Mouth exam: PRESENT: other - Unable to assess Teeth exam: PRESENT: other - Unable to assess Throat exam: PRESENT: other - Unable to assess Respiratory exam: PRESENT: rales - Bilateral rales at the bases, symmetrical, unlabored. ABSENT: rhonchi, tachypnea, wheezes Cardiovascular exam: PRESENT: RRR, +S1, +S2 GI/Abdominal exam: PRESENT: normal bowel sounds, soft. ABSENT: distended, tenderness Rectal exam: PRESENT: deferred Gentrourinary exam: ABSENT: indwelling catheter Neurological exam: PRESENT: awake - Intermittently, oriented to person, oriented to place, oriented to situation, other - Dysphagia Psychiatric exam: PRESENT: flat affect. ABSENT: agitated Focused psych exam: ABSENT: delusional, restlessness Skin exam: PRESENT: other - Multiple pigmented papular lesions diffusely over the upper extremities and trunk Results Laboratory Results: 02/10/19 13:00 02/10/19 13:00 02/10/19 02/10/19 13:00 13:00 WBC 11.4 H RBC 3.28 L Hgb 10.4 L Hct 32.2 L MCV 98 H MCH 31.9 MCHC 32.4 RDW 16.1 H Plt Count 155 Seg Neutrophils % 83.7 H Lymphocytes % 7.5 L Monocytes % 6.7 Eosinophils % 1.4 Basophils % 0.7 Absolute Neutrophils 9.6 H Absolute Lymphocytes 0.9 Absolute Monocytes 0.8 Absolute Eosinophils 0.2 Absolute Basophils 0.1 Sodium 137.5 Potassium 4.8 Chloride 96 L Carbon Dioxide 26 Anion Gap 16 BUN 52 H Creatinine 8.64 H Est GFR ( Amer) 6 L Est GFR (Non-Af Amer) 5 L Glucose 193 H Calcium 8.2 L Total Bilirubin 1.2 AST 33 ALT < 6 L Alkaline Phosphatase 229 H Total Protein 8.4 H Albumin 3.9 Impressions: Chest X-Ray 02/10/19 13:19 IMPRESSION: CARDIOMEGALY. FAINT HAZY DENSITIES IN THE LUNG BASES, POSSIBLY DUE TO ASPIRATION. POSSIBLE EARLY PNEUMONIA. Assessment and Plan - Diagnosis (1) Aspiration pneumonia Qualifiers: Aspiration pneumonia type: unspecified Laterality: bilateral Lung location: lower lobe of lung Qualified Code(s): J69.0 - Pneumonitis due to inhalation of food and vomit Is this a current diagnosis for this admission?: Yes Plan: 02/10/2019-the patient had witnessed aspiration when starting dialysis earlier today. She was taken to the emergency department. She had an abnormal chest x- ray with bibasilar infiltrates. In addition her white blood cell count was elevated. Because of vascular access issues and I have chosen to use oral levofloxacin. The compensatory dose for her renal failure will be 500 mg today and then 250 mg every other day. It was too late to instill antibiotic therapy during dialysis. Because the levofloxacin has excellent absorption with levels comparable to IV administration, the levofloxacin should be adequate to cover her pneumonia. I have chosen to stay with a single agent due to her very limited vascular access. We will continue to monitor her white blood cell count and symptoms. (2) Dysphagia Qualifiers: Dysphagia type: pharyngeal phase Qualified Code(s): R13.13 - Dysphagia, pharyngeal phase Is this a current diagnosis for this admission?: Yes Plan: 02/10/2019-aspiration was witnessed by the staff earlier today. This prompted transport to the emergency department. X-ray shows bilateral infiltrates and she is probably been aspirating for some time. Bedside swallow evaluation revealed failure with thin liquids. We did try putting and she successfully took her medications crushed in pudding. Because of this I will also order nectar thickened liquids/thickened water. We have asked speech therapy to evaluate the patient as well. We will monitor her closely. If her aspiration worsens then consideration of a PEG tube long-term but this will be based on speech therapy evaluation. (3) ESRD (end stage renal disease) Is this a current diagnosis for this admission?: Yes Plan: 02/10/2019-as noted above the patient was able to undergo dialysis this afternoon. Her net fluid loss will be limited due to hypotension during her treatment. Nephrology has seen the patient and will be following during her hospitalization. (4) Anemia in chronic kidney disease (CKD) Qualifiers: Chronic kidney disease stage: on chronic dialysis Qualified Code(s): N18.6 - End stage renal disease; D63.1 - Anemia in chronic kidney disease; Z99.2 - Dependence on renal dialysis Is this a current diagnosis for this admission?: Yes Plan: 02/10/2019-the patient's anemia appears to be stable. She does get Procrit 10,000 units at dialysis based on her hemoglobin. (5) Diabetes Qualifiers: Diabetes mellitus type: type 2 Diabetes mellitus snf insulin use: without manager terminal use Diabetes mellitus complication status: with kidney complications Diabetes mellitus complication detail: with nephropathy Qualified Code(s): E11.21 - Type 2 diabetes mellitus with diabetic nephropathy Is this a current diagnosis for this admission?: Yes Plan: 02/10/2019-type I and type 2 diabetes are mentioned in the patient's records. She does not use insulin on a regular basis so type 1 diabetes is less likely. We will check her fingersticks and utilize a sliding scale for the time being. (6) Hypertension Qualifiers: Hypertension type: unspecified Qualified Code(s): I10 - Essential (primary) hypertension Is this a current diagnosis for this admission?: Yes (7) Papular eczema Is this a current diagnosis for this admission?: Yes Plan: 02/10/2019-during her last hospitalization she had marked pruritus. This is a long-standing condition. I have ordered Atarax as needed. During her last admission we also used topical steroid cream. We will monitor her symptoms. (8) Severe obesity (BMI 35.0-39.9) with comorbidity Is this a current diagnosis for this admission?: Yes Plan: 02/10/2019-we will try and encourage strict diet however with her aspiration this may be difficult. Her exercise capacity is limited as well. No acute interventions at this time. - Time Time Spent with patient: 35 or more minutes Medications reviewed and adjusted accordingly: Yes Anticipated discharge: SNF - Inpatient Certification Based on my medical assessment, after consideration of the patient's comorbidities, presenting symptoms, or acuity I expect that the services needed warrant INPATIENT care.: Yes I certify that my determination is in accordance with my understanding of Medicare's requirements for reasonable and necessary INPATIENT services [42 CFR 412.3e].: Yes Medical Necessity: Need Close Monitoring Due to Risk of Patient Decompensation, Need For Continuous Telemetry Monitoring, Risk of Complication if Not Cared For in Hospital Post Hospital Care: D/C Stone Polisher Machine Documentation
[2019-02-10] MEDS: INSULIN LISPRO 100 UNIT/ML 3 ML VIAL SUBCUT SCH (20:50)
[2019-02-10] MEDS: GABAPENTIN 100 MG CAPSULE PO SCH (21:58)
[2019-02-10] MEDS: HEPARIN SOD (PORCINE) 5,000 UNIT/ML 1 ML SYRINGE SUBCUT SCH (21:58)
[2019-02-10] MEDS: CARVEDILOL 12.5 MG TABLET PO SCH (21:58)
[2019-02-10] MEDS: FLUTICASONE NASAL SPRAY 50 MCG/SPRY 120 SPRAY/16 GM NASL SCH (21:59)
[2019-02-10] MEDS ORDERED: CARVEDILOL 12.5 MG TABLET PO SCH (22:00)
[2019-02-11] MEDS: ACETAMINOPHEN 325 MG TABLET PO PRN ×2 (00:42→10:25)
[2019-02-11] MEDS: OXYCODONE HCL IR 5 MG TABLET PO PRN ×3 (01:47→22:47)
[2019-02-11] MEDS: HYDROXYZINE HCL 10 MG TABLET PO PRN (01:47)
[2019-02-11] MEDS: INSULIN LISPRO 100 UNIT/ML 3 ML VIAL SUBCUT SCH ×5 (02:12→21:43)
[2019-02-11 04:50] LABS: ABSOLUTE BASOPHILS # (AUTO) 0.1 10^3/uL (0.0-0.2); ABSOLUTE EOSINOPHILS # (AUTO) 0.2 10^3/uL (0.0-0.6); ABSOLUTE LYMPHOCYTES (AUTO) 0.6 10^3/uL (0.5-4.7); ABSOLUTE MONOCYTES (AUTO) 1.2 10^3/uL (0.1-1.4); ABSOLUTE NEUT (AUTO) 8.5 10^3/uL (1.7-8.2); EOSINOPHILS % (AUTO) 1.9 % (0-6); HEMATOCRIT 30.3 % (36.0-47.0); LYMPHOCYTES % (AUTO) 6.1 % (13-45); MEAN CORPUSCULAR HEMOGLOBIN 32.4 pg (27.0-33.4); MEAN CORPUSCULAR HGB CONC 32.9 g/dL (32.0-36.0); MEAN CORPUSCULAR VOLUME 99 fl (80-97); MONOCYTES % (AUTO) 11.5 % (3-13); PLATELET COUNT 128 10^3/uL (150-450); RED BLOOD COUNT 3.07 10^6/uL (3.72-5.28); RED CELL DISTRIBUTION WIDTH 15.7 % (11.5-14.0); SEGMENTED NEUTROPHILS % (AUTO) 79.5 % (42-78); TOTAL CELLS COUNTED % (AUTO) 100 %; WHITE BLOOD COUNT 10.7 10^3/uL (4.0-10.5)
[2019-02-11 05:12] LABS: ALBUMIN 3.8 g/dL (3.5-5.0); ANION GAP 14 (5-19); CALCIUM 8.2 mg/dL (8.4-10.2); CARBON DIOXIDE 29 mmol/L (22-30); CHLORIDE 96 mmol/L (98-107); GLUCOSE 102 mg/dL (75-110); PHOSPHORUS 5.5 mg/dL (2.5-4.5); POTASSIUM 4.4 mmol/L (3.6-5.0); SODIUM 138.7 mmol/L (137-145)
[2019-02-11 05:25] LABS: BLOOD UREA NITROGEN 30 mg/dL (7-20)
[2019-02-11] MEDS: HEPARIN SOD (PORCINE) 5,000 UNIT/ML 1 ML SYRINGE SUBCUT SCH ×3 (05:53→21:44)
[2019-02-11] MEDS: GABAPENTIN 100 MG CAPSULE PO SCH ×3 (05:53→21:42)
[2019-02-11] MEDS ORDERED: LOPERAMIDE HCL 2 MG CAPSULE PO PRN (08:00)
[2019-02-11] MEDS: METOCLOPRAMIDE HCL 10 MG TABLET PO SCH ×4 (08:45→21:42)
[2019-02-11] MEDS: SEVELAMER HCL 800 MG TABLET PO SCH ×3 (08:45→17:44)
[2019-02-11] MEDS: CARVEDILOL 12.5 MG TABLET PO SCH ×2 (09:02→21:42)
[2019-02-11] MEDS ORDERED: CEFEPIME 2 GM/D5W RTU 2 GM/50 ML RTUPB IV SCH (10:00)
[2019-02-11] MEDS ORDERED: (PENDING PHARMACY ID) (Folic Acid/Vitamin B Comp W-C [Rena-Vite Tablet] 0.8 MG) PO SCH (10:00)
--- NOTE | 2019-02-11 10:20 | PDOC PROGRESS REPORT ---
Subjective Progress Note for:: 02/11/19 Subjective:: 48 year old female with end-stage kidney disease on hemodialysis. She was just discharged from this facility on February 08. She had a right upper arm abscess incised and drained. She was transferred to [facility]. She was to complete her antibiotic therapy as well as participate in physical, occupational and speech therapies. She presented for her hemodialysis treatment but aspirated food. She was transferred to the emergency department. Work-up in the emergency department revealed an elevated white blood cell count as well as abnormal chest x-ray with faint densities in both bases. Since she had witnessed aspiration, and may have been aspirating for several days, she was referred to the hospital service for admission. Because today is her usual dialysis day, the hemodialysis staff graciously accepted her to the dialysis suite for treatment with subsequent evaluation and admission by this provider. She was also seen by nephrology. Of note, her blood pressures were quite low during dialysis. Discussion with the dialysis nurse suggested that very little fluid would be able to be removed at this time. [id number]-old female admitted for possible aspiration pneumonia. She is also dialysis patient she had a successful dialysis yesterday. Presently on levo floxacillin and IV cefepime was added. Pulse ox is 96% on 2 L. Chest x- ray suggestive of aspiration pneumonia plan to do the CT chest without contrast today. Afebrile. Temperature 98.9 with pulse rate of 71 blood pressure is 124/50. WBC is 10.7. Waiting for the speech evaluation prior to initiation of the renal diet. pt is able to take medication with pudding. Reason For Visit: ASPERATION PNEUMONIA Physical Exam Vital Signs: Temp Pulse Resp BP Pulse Ox 98.2 F 70 18 99/36 L 99 02/11/19 08:22 02/11/19 08:22 02/11/19 08:22 02/11/19 08:22 02/11/19 08:22 Intake & Output 02/10/19 02/11/19 02/12/19 06:59 06:59 06:59 Intake Total 120 Output Total 3200 Balance -3080 Weight 101.1 kg General appearance: PRESENT: no acute distress, morbidly obese Head exam: PRESENT: atraumatic Eye exam: PRESENT: PERRLA Ear exam: PRESENT: normal external ear exam Mouth exam: PRESENT: moist, tongue midline Teeth exam: PRESENT: poor dentation Neck exam: ABSENT: carotid bruit, JVD, lymphadenopathy, thyromegaly Respiratory exam: PRESENT: decreased breath sounds Cardiovascular exam: PRESENT: tachycardia GI/Abdominal exam: PRESENT: normal bowel sounds, soft. ABSENT: distended, g uarding, mass, organolmegaly, rebound, tenderness Rectal exam: PRESENT: deferred Extremities exam: PRESENT: full ROM. ABSENT: calf tenderness, clubbing, pedal edema Neurological exam: PRESENT: alert, awake, oriented to person, oriented to place, oriented to time, oriented to situation, CN II-XII grossly intact. ABSENT: mo tor sensory deficit Skin exam: PRESENT: other - Chronic skin changes involving the upper extremities due to dialysis. Results Laboratory Results: 02/11/19 03:46 02/11/19 03:46 02/10/19 02/10/19 02/11/19 13:00 13:00 03:46 WBC 11.4 H 10.7 H RBC 3.28 L 3.07 L Hgb 10.4 L 10.0 L Hct 32.2 L 30.3 L MCV 98 H 99 H MCH 31.9 32.4 MCHC 32.4 32.9 RDW 16.1 H 15.7 H Plt Count 155 128 L Seg Neutrophils % 83.7 H 79.5 H Lymphocytes % 7.5 L 6.1 L Monocytes % 6.7 11.5 Eosinophils % 1.4 1.9 Basophils % 0.7 1.0 Absolute Neutrophils 9.6 H 8.5 H Absolute Lymphocytes 0.9 0.6 Absolute Monocytes 0.8 1.2 Absolute Eosinophils 0.2 0.2 Absolute Basophils 0.1 0.1 Sodium 137.5 Potassium 4.8 Chloride 96 L Carbon Dioxide 26 Anion Gap 16 BUN 52 H Creatinine 8.64 H Est GFR ( Amer) 6 L Est GFR (Non-Af Amer) 5 L Glucose 193 H Calcium 8.2 L Phosphorus Total Bilirubin 1.2 AST 33 ALT < 6 L Alkaline Phosphatase 229 H Total Protein 8.4 H Albumin 3.9 02/11/19 03:46 WBC RBC Hgb Hct MCV MCH MCHC RDW Plt Count Seg Neutrophils % Lymphocytes % Monocytes % Eosinophils % Basophils % Absolute Neutrophils Absolute Lymphocytes Absolute Monocytes Absolute Eosinophils Absolute Basophils Sodium 138.7 Potassium 4.4 Chloride 96 L Carbon Dioxide 29 Anion Gap 14 BUN 30 H D Creatinine 6.16 H Est GFR ( Amer) 9 L Est GFR (Non-Af Amer) 7 L Glucose 102 Calcium 8.2 L Phosphorus 5.5 H Total Bilirubin AST ALT Alkaline Phosphatase Total Protein Albumin 3.8 Impressions: Chest X-Ray 02/10/19 13:19 IMPRESSION: CARDIOMEGALY. FAINT HAZY DENSITIES IN THE LUNG BASES, POSSIBLY DUE TO ASPIRATION. POSSIBLE EARLY PNEUMONIA. Assessment and Plan - Diagnosis (1) Aspiration pneumonia Qualifiers: Aspiration pneumonia type: unspecified Laterality: bilateral Lung location: lower lobe of lung Qualified Code(s): J69.0 - Pneumonitis due to inhalation of food and vomit Is this a current diagnosis for this admission?: Yes Plan: 02/10/2019-the patient had witnessed aspiration when starting dialysis earlier today. She was taken to the emergency department. She had an abnormal chest x-ray with bibasilar infiltrates. In addition her white blood cell count was elevated. Because of vascular access issues and I have chosen to use oral levofloxacin. The compensatory dose for her renal failure will be 500 mg today and then 250 mg every other day. It was too late to instill antibiotic therapy during dialysis. Because the levofloxacin has excellent absorption with levels comparable to IV administration, the levofloxacin should be adequate to cover her pneumonia. I have chosen to stay with a single agent due to her very limited vascular access. We will continue to monitor her white blood cell count and symptoms. 02/11/2019-patient was admitted for possible aspiration pneumonia chest x-ray indicated to have aspiration pneumonia most likely combination of gram-negative gram-positive organisms. Presently on levo floxacillin and IV cefepime was added to the medication. Patient is afebrile. Blood pressure is stable. To do the CT chest without contrast today for further information. (2) Dysphagia Qualifiers: Dysphagia type: pharyngeal phase Qualified Code(s): R13.13 - Dysphagia, pharyngeal phase Is this a current diagnosis for this admission?: Yes Plan: 02/10/2019-aspiration was witnessed by the staff earlier today. This prompted transport to the emergency department. X-ray shows bilateral infiltrates and she is probably been aspirating for some time. Bedside swallow evaluation revealed failure with thin liquids. We did try putting and she successfully took her medications crushed in pudding. Because of this I will also order ne ctar thickened liquids/thickened water. We have asked speech therapy to evaluate the patient as well. We will monitor her closely. If her aspiration worsens then consideration of a PEG tube long-term but this will be based on speech therapy evaluation. 02/11/2019-patient came in with choking on food and possible aspiration pneumonia speech therapy was requested. Chest x-ray suggestive of dense densities in the both lower bases. Plan to do the CT of the chest. (3) ESRD (end stage renal disease) Is this a current diagnosis for this admission?: Yes Plan: 02/10/2019-as noted above the patient was able to undergo dialysis this afternoon. Her net fluid loss will be limited due to hypotension during her treatment. Nephrology has seen the patient and will be following during her hospitalization. 02/11/2019-patient has a successful dialysis yesterday. Creatinine was 6.6 today. Electrodes are within normal limits. Next dialysis session most likely is on Wednesday. (4) Anemia in chronic kidney disease (CKD) Qualifiers: Chronic kidney disease stage: on chronic dialysis Qualified Code(s): N18.6 - End stage renal disease; D63.1 - Anemia in chronic kidney disease; Z99.2 - Dependence on renal dialysis Is this a current diagnosis for this admission?: Yes Plan: 02/10/2019-the patient's anemia appears to be stable. She does get Procrit 10,000 units at dialysis based on her hemoglobin. 02/11/2019-patient's hemoglobin is 10. Anemia of chronic disease most likely secondary to renal failure. (5) Type 2 diabetes mellitus Is this a current diagnosis for this admission?: No Plan: 02/11/2019-patient has history of type 2 diabetes mellitus. Blood sugar is 95. Plan is to continue insulin sliding scale. (6) Obesity (BMI 30-39.9) Is this a current diagnosis for this admission?: No Plan: 02/11/2019-patient's BMI is more than 38 diet exercise weight loss lifestyle modifications are discussed with the patient. - Time Time Spent with patient: 25-34 minutes Medications reviewed and adjusted accordingly: Yes Anticipated discharge: Home
[2019-02-11] MEDS: FOLIC ACID/VITAMIN B COMP W-C CAPSULE PO SCH (10:22)
[2019-02-11] MEDS: CEFEPIME HCL 2 GM in DEXTROSE 5%-WATER 50 ML IV SCH (10:26)
[2019-02-11] MEDS: FLUTICASONE NASAL SPRAY 50 MCG/SPRY 120 SPRAY/16 GM NASL SCH ×2 (10:26→21:43)
--- NOTE | 2019-02-11 13:01 | RADIOLOGY REPORT (SQ) ---
EXAM DESCRIPTION: CT CHEST WITHOUT COMPLETED DATE/TIME: 02/11/2019 9:46 am REASON FOR STUDY: asp pneumonia D63.1 ANEMIA IN CHRONIC KIDNEY DISEASE COMPARISON: Chest x-ray dated 02/10/2019. TECHNIQUE: CT scan performed of the chest without intravenous contrast. Images reviewed with lung, soft tissue and bone windows. Reconstructed coronal and sagittal MPR images reviewed. All images st ored on PACS. All CT scanners at this facility use dose modulation, iterative reconstruction, and/or weight based d osing when appropriate to reduce radiation dose to as low as reasonably achievable (ALARA). [facility]: Dose Right [facility]: CareDose [facility]: Dose Right [facility]: Teradose 4D [facility]: Smart NeoVista RADIATION DOSE: CT Rad equipment meets quality standard of care and radiation dose reduction techniq ues were employed. CTDIvol: 14.4 mGy. DLP: 489 mGy-cm. mGy. LIMITATIONS: No technical limitations. FINDINGS: LUNGS AND PLEURA: Hazy ground-glass opacities throughout both lungs. No lobar infiltrates . No masses or pneumothorax. No pleural effusions or pleural calcifications. HILAR AND MEDIASTINAL STRUCTURES: No identified masses or abnormal nodes. Moderately distended esoph johnson. No obvious aneurysm. HEART AND VASCULAR STRUCTURES: No aneurysm. Marked cardiomegaly. No pericardial effusion. UPPER ABDOMEN: No significant findings. Limited exam. THYROID AND OTHER SOFT TISSUES: No masses. No adenopathy. BONES: No significant finding. HARDWARE: None in the chest. OTHER: No other significant findings. IMPRESSION: 1. MARKED CARDIOMEGALY. HAZY GROUND-GLASS OPACITIES THROUGHOUT BOTH LUNGS ARE NONSPECIFIC BUT COULD BE DUE TO EARLY PULMONARY EDEMA. 2. MODERATELY DISTENDED ESOPHAGUS. THIS MAY BE DUE TO REFLUX. CANNOT EXCLUDE DISTAL ESOPHAGEAL STRI CTURE OR OTHER LESION. TECHNICAL DOCUMENTATION: JOB ID: [id number] Quality ID # [id number]: Final reports with documentation of one or more dose reduction techniques (e.g., Au tomated exposure control, adjustment of the mA and/or kV according to patient size, use of iterative reconstruction technique) 2010 [employer]- All Rights Reserved Reading location - IP/workstation name: [email or web address]
[2019-02-11] MEDS: CALCIUM CARBONATE 500 MG TAB.CHEW PO SCH (21:42)
[2019-02-12] MEDS: GABAPENTIN 100 MG CAPSULE PO SCH ×3 (05:07→22:03)
[2019-02-12] MEDS: HEPARIN SOD (PORCINE) 5,000 UNIT/ML 1 ML SYRINGE SUBCUT SCH ×3 (05:08→21:55)
[2019-02-12] MEDS: SEVELAMER HCL 800 MG TABLET PO SCH ×3 (07:35→17:01)
[2019-02-12] MEDS: INSULIN LISPRO 100 UNIT/ML 3 ML VIAL SUBCUT SCH ×4 (07:36→23:27)
[2019-02-12] MEDS: METOCLOPRAMIDE HCL 10 MG TABLET PO SCH ×4 (07:36→22:03)
--- NOTE | 2019-02-12 09:59 | PDOC PROGRESS REPORT ---
Subjective Progress Note for:: 02/12/19 Subjective:: 48 year old female with end-stage kidney disease on hemodialysis. She was just discharged from this facility on February 08. She had a right upper arm abscess incised and drained. She was transferred to [facility]. She was to complete her antibiotic therapy as well as participate in physical, occupational and speech therapies. She presented for her hemodialysis treatment but aspirated food. She was transferred to the emergency department. Work-up in the emergency department revealed an elevated white blood cell count as well as abnormal chest x-ray with faint densities in both bases. Since she had witnessed aspiration, and may have been aspirating for several days, she was referred to the hospital service for admission. Because today is her usual dialysis day, the hemodialysis staff graciously accepted her to the dialysis suite for treatment with subsequent evaluation and admission by this provider. She was also seen by nephrology. Of note, her blood pressures were quite low during dialysis. Discussion with the dialysis nurse suggested that very little fluid would be able to be removed at this time. 02/11/[id number]-cfkb-old female admitted for possible aspiration pneumonia. She is also dialysis patient she had a successful dialysis yesterday. Presently on levo floxacillin and IV cefepime was added. Pulse ox is 96% on 2 L. Chest x- ray suggestive of aspiration pneumonia plan to do the CT chest without contrast today. Afebrile. Temperature 98.9 with pulse rate of 71 blood pressure is 124/50. WBC is 10.7. Waiting for the speech evaluation prior to initiation of the renal diet. pt is able to take medication with pudding. 02/12/[id number]-icbu-old female with multiple medical problems admitted from [facility] for aspiration pneumonia CT chest was done yesterday it is suggestive of pulmonary edema and questionable aspiration pneumonia. No acute events in the last 24 hours. Afebrile. Blood pressure is 105/60 temperature is 98.5. Today's labs are pending. Reason For Visit: ASPERATION PNEUMONIA Physical Exam Vital Signs: Temp Pulse Resp BP Pulse Ox 98.8 F 62 19 105/21 L 98 02/12/19 08:00 02/12/19 08:00 02/12/19 08:00 02/12/19 08:00 02/12/19 08:00 Intake & Output 06/02/12/19 02/13/19 06:59 06:59 06:59 Intake Total 120 1418 Output Total 3200 Balance -3080 1418 Weight 101.1 kg 100.1 kg General appearance: PRESENT: no acute distress, obese Head exam: PRESENT: atraumatic Eye exam: PRESENT: PERRLA Mouth exam: PRESENT: moist, tongue midline Teeth exam: PRESENT: poor dentation Neck exam: ABSENT: carotid bruit, JVD, lymphadenopathy, thyromegaly Respiratory exam: PRESENT: decreased breath sounds Cardiovascular exam: PRESENT: RRR. ABSENT: diastolic murmur, rubs, systolic murmur GI/Abdominal exam: PRESENT: normal bowel sounds, soft. ABSENT: distended, guarding, mass, organolmegaly, rebound, tenderness Rectal exam: PRESENT: deferred Extremities exam: PRESENT: other - Patient has AV fistula on the left upper arm functioning well. Neurological exam: PRESENT: alert, awake, oriented to person, oriented to place, oriented to time, oriented to situation, CN II-XII grossly intact. ABSENT: motor sensory deficit Psychiatric exam: PRESENT: appropriate affect, normal mood. ABSENT: homicidal ideation, suicidal ideation Results Laboratory Results: 02/11/19 03:46 02/11/19 03:46 Impressions: Chest X-Ray 02/10/19 13:19 IMPRESSION: CARDIOMEGALY. FAINT HAZY DENSITIES IN THE LUNG BASES, POSSIBLY DUE TO ASPIRATION. POSSIBLE EARLY PNEUMONIA. Chest CT 02/11/19 00:00 IMPRESSION: 1. MARKED CARDIOMEGALY. HAZY GROUND-GLASS OPACITIES THROUGHOUT BOTH LUNGS ARE NONSPECIFIC BUT COULD BE DUE TO EARLY PULMONARY EDEMA. 2. MODERATELY DISTENDED ESOPHAGUS. THIS MAY BE DUE TO REFLUX. CANNOT EXCLUDE DISTAL ESOPHAGEAL STRICTURE OR OTHER LESION. Assessment and Plan - Diagnosis (1) Aspiration pneumonia Qualifiers: Aspiration pneumonia type: unspecified Laterality: bilateral Lung location: lower lobe of lung Qualified Code(s): J69.0 - Pneumonitis due to inhalation of food and vomit Is this a current diagnosis for this admission?: Yes Plan: 02/10/2019-the patient had witnessed aspiration when starting dialysis earlier today. She was taken to the emergency department. She had an abnormal chest x- ray with bibasilar infiltrates. In addition her white blood cell count was elevated. Because of vascular access issues and I have chosen to use oral levofloxacin. The compensatory dose for her renal failure will be 500 mg today and then 250 mg every other day. It was too late to instill antibiotic therapy during dialysis. Because the levofloxacin has excellent absorption with levels comparable to IV administration, the levofloxacin should be adequate to cover her pneumonia. I have chosen to stay with a single agent due to her very limited vascular access. We will continue to monitor her white blood cell count and symptoms. 02/11/2019-patient was admitted for possible aspiration pneumonia chest x-ray i ndicated to have aspiration pneumonia most likely combination of gram-negative gram-positive organisms. Presently on levo floxacillin and IV cefepime was added to the medication. Patient is afebrile. Blood pressure is stable. To do the CT chest without contrast today for further information. 02/12/2019-patient admitted with aspiration pneumonia CT of the chest is suggestive of pulmonary edema and questionable aspiration pneumonia presently on IV levo floxacillin and IV cefepime. Afebrile. Waiting for the culture reports. (2) Dysphagia Qualifiers: Dysphagia type: pharyngeal phase Qualified Code(s): R13.13 - Dysphagia, pharyngeal phase Is this a current diagnosis for this admission?: Yes Plan: 02/10/2019-aspiration was witnessed by the staff earlier today. This prompted transport to the emergency department. X-ray shows bilateral infiltrates and she is probably been aspirating for some time. Bedside swallow evaluation revealed failure with thin liquids. We did try putting and she successfully took her medications crushed in pudding. Because of this I will also order nectar thickened liquids/thickened water. We have asked speech therapy to evaluate the patient as well. We will monitor her closely. If her aspiration worsens then consideration of a PEG tube long-term but this will be based on speech therapy evaluation. 02/11/2019-patient came in with choking on food and possible aspiration pneumonia speech therapy was requested. Chest x-ray suggestive of dense densities in the both lower bases. Plan to do the CT of the chest. [id number]-patient has another episode of choking on food. Yesterday CT of the chest was done and shows pulmonary edema questionable aspiration pneumonia plan is to continue present management. (3) ESRD (end stage renal disease) Is this a current diagnosis for this admission?: Yes Plan: 02/10/2019-as noted above the patient was able to undergo dialysis this afternoon. Her net fluid loss will be limited due to hypotension during her treatment. Nephrology has seen the patient and will be following during her hospitalization. 02/11/2019-patient has a successful dialysis yesterday. Creatinine was 6.6 today. Electrodes are within normal limits. Next dialysis session most likely is on Wednesday. 02/12/2019-patient has history of end-stage renal disease on dialysis Wednesday she is due for dialysis tomorrow. (4) Anemia in chronic kidney disease (CKD) Qualifiers: Chronic kidney disease stage: on chronic dialysis Qualified Code(s): N18.6 - End stage renal disease; D63.1 - Anemia in chronic kidney disease; Z99.2 - Dependence on renal dialysis Is this a current diagnosis for this admission?: Yes Plan: 02/10/2019-the patient's anemia appears to be stable. She does get Procrit 10,000 units at dialysis based on her hemoglobin. 02/11/2019-patient's hemoglobin is 10. Anemia of chronic disease most likely secondary to renal failure. 02/12/2019-patient has history of anemia of chronic disease secondary to CKD. And is receiving Procrit at a dialysis unit as an outpatient. (5) Type 2 diabetes mellitus Is this a current diagnosis for this admission?: No (6) Obesity (BMI 30-39.9) Is this a current diagnosis for this admission?: No - Time Time Spent with patient: 25-34 minutes Medications reviewed and adjusted accordingly: Yes Anticipated discharge: Home
[2019-02-12] MEDS: CARVEDILOL 12.5 MG TABLET PO SCH ×2 (10:33→22:03)
[2019-02-12] MEDS: CEFEPIME HCL 2 GM in DEXTROSE 5%-WATER 50 ML IV SCH (10:33)
[2019-02-12] MEDS: FOLIC ACID/VITAMIN B COMP W-C CAPSULE PO SCH (10:33)
[2019-02-12] MEDS: FLUTICASONE NASAL SPRAY 50 MCG/SPRY 120 SPRAY/16 GM NASL SCH ×2 (10:33→22:04)
[2019-02-12] MEDS: LEVOFLOXACIN 250 MG TABLET PO SCH (10:33)
[2019-02-12] MEDS: OXYCODONE HCL IR 5 MG TABLET PO PRN (12:37)
[2019-02-12] MEDS: CALCIUM CARBONATE 500 MG TAB.CHEW PO SCH (22:03)
[2019-02-13] MEDS: GABAPENTIN 100 MG CAPSULE PO SCH ×3 (05:28→22:45)
[2019-02-13] MEDS: HEPARIN SOD (PORCINE) 5,000 UNIT/ML 1 ML SYRINGE SUBCUT SCH ×3 (05:28→22:25)
[2019-02-13] MEDS: INSULIN LISPRO 100 UNIT/ML 3 ML VIAL SUBCUT SCH ×4 (07:32→22:25)
[2019-02-13] MEDS: SEVELAMER HCL 800 MG TABLET PO SCH ×3 (08:18→16:03)
[2019-02-13] MEDS: METOCLOPRAMIDE HCL 10 MG TABLET PO SCH ×4 (08:19→22:45)
--- NOTE | 2019-02-13 09:06 | RADIOLOGY REPORT (SQ) ---
EXAM DESCRIPTION: CARMELITA SWALLOW COMPLETED DATE/TIME: 02/13/2019 8:57 am REASON FOR STUDY: possible aspiration pneumonia D63.1 ANEMIA IN CHRONIC KIDNEY DISEASE COMPARISON: None. TECHNIQUE: Videofluoroscopic swallowing examination was performed in conjunction with speech patholo gy. Videofluoroscopic imaging was obtained and reviewed and these are the findings: RADIATION DOSE: Fluoro time 1.22 minutes 1 images saved to PACS. LIMITATIONS: None FINDINGS: The patient was brought into the fluoro room and placed upright on a modified barium swall ow chair. The patient was then given multiple consistencies mixed with barium to swallow under live fluoroscopic video guidance. According to the Speech Pathologist there was no penetration or aspirat ion. Please refer to the speech pathology report for further details. IMPRESSION: NO EVIDENCE OF PENETRATION OR ASPIRATION. PLEASE SEE SPEECH PATHOLOGIST REPORT FOR OTHER FINDINGS AND RECOMMENDATIONS. COMMENT: None Quality ID [id number]: Final reports for procedures using fluoroscopy that document radiation exposure mariah lanette, or exposure time and number of fluorographic images (if radiation exposure indices are not avail able) TECHNICAL DOCUMENTATION: JOB ID: [id number] [employer]- All Rights Reserved Reading location - IP/workstation name: [email or web address] [id number]
--- NOTE | 2019-02-13 09:08 | ST Inp Modified Barium Swallow ---
Medical Diagnosis - Medical Diagnoses Medical Diagnosis Description & ICD-10 Code(s): aspiration pneumonia - ICD-10 Tx Diagnosis Coding (1) Dysphagia ICD-10 Code(s): R13.10 - DYSPHAGIA, UNSPECIFIED ST Inpatient [facility] [place] - General Date: 02/13/19 Date of Onset: 02/10/19 - History History Obtained From: Other - EMR -: Medical - per EMR: patient admitted on 02/10 with difficulty swallowing and observed coughing with a meal. Prior medical history includes end-stage kidney disease and asthma, patient was residing in a SNF prior to hospitalization. During bedside swallowing assessment, no swallowing deficits were seen and a regular diet was recommended as well as a MBSS to further evaluate the swallow. After this, it was reported that the patient was seen to have additional difficulty eating a meal, and the physician modified the patient's diet to nectar thick liquids and soft solids. Medications: Medications Reviewed Allergies: No known allergies - Subjective Current Nutritional Means: PO Current PO Diet: Soft, Thickened liquids - nectar Current Symptoms: Coughing Pain: Patient reports, 0/5 - Objective Assessment: Upright, Left Lateral - Food Trials Food Trials Used: Thin liquids, Pureed, Regular The Patient: Was Able to Self Feed, via cup, via spoon, via straw - Assessment Labial Function: Within Normal Limits Lingual Function: Within Functional Limits Mandibular Function: Within Functional Limits Dentition: Partial Velo-Pharyngeal Function: Unremarkable Laryngeal Function: clear voicing - Pharyngeal Stage Initiation of Pharyngeal Stage: Normal - triggered at level of valleculae, WNL Decreased Laryngeal Elevation: No Reduced Velo-Pharyngeal Closure: no Reduced Pressure Generation: No Reduced Tongue Base Retraction: No Pre-Swallowing Pooling in Valleculae: Mild Pre-Swallowing Pooling in Pyriforms: Mild - with post swallow residuals Reduced Thyro-Hyiod Approximation: No Reduced Epiglottic Excursion: No Reduced Pharyngeal Peristalsis: No Multiple Swallows With: Cleared w/ Dry Swallow Post Swallow Residuals in Valleculae: Mild Post Swallow Residuals in Pyriforms: Mild - Impression/Summary Laryngeal Penetration: No Tracheal Aspiration: no Patient Presents With: Normal swallow at eval Risk of Aspiration: Minimal Risk Due To: Patient has minimal risk of aspiration based on function of oral and pharyngeal mucsulature. However, it has been reported that the patient will eat at very fast rates. Behavioral issues resulting in unsafe eating habits may result in higher risk of aspiration not related to swallowing physiology. - Recommendations Solid Diet Recommendations: Regular Liquid Diet Recommendations: Thin - diet recommendations made based on function of the swallow seen on today's study. Physician may wish to modify diet. Dysphagia Therapy with [employer]: No Recommended Techniques: Small Bites and Sips, external pacing - reduced rate should be enforced Supervision: Distant - Time Total Time: 25 Total Timed Minutes: 25
[2019-02-13 09:41] LABS: HEMATOCRIT 29.7 % (36.0-47.0); HEMOGLOBIN 9.7 g/dL (12.0-15.5); MEAN CORPUSCULAR HGB CONC 32.6 g/dL (32.0-36.0); MEAN CORPUSCULAR VOLUME 98 fl (80-97); PLATELET COUNT 127 10^3/uL (150-450); RED BLOOD COUNT 3.02 10^6/uL (3.72-5.28); RED CELL DISTRIBUTION WIDTH 16.2 % (11.5-14.0); WHITE BLOOD COUNT 7.5 10^3/uL (4.0-10.5)
--- NOTE | 2019-02-13 09:46 | PDOC PROGRESS REPORT ---
Subjective Progress Note for:: 02/13/19 Subjective:: 48 year old female with end-stage kidney disease on hemodialysis. She was just discharged from this facility on February 08. She had a right upper arm abscess incised and drained. She was transferred to [place] [facility]. She was to complete her antibiotic therapy as well as participate in physical, occupational and speech therapies. She presented for her hemodialysis treatment but aspirated food. She was transferred to the emergency department. Work-up in the emergency department revealed an elevated white blood cell count as well as abnormal chest x-ray with faint densities in both bases. Since she had witnessed aspiration, and may have been aspirating for several days, she was referred to the hospital service for admission. Because today is her usual dialysis day, the hemodialysis staff graciously accepted her to the dialysis suite for treatment with subsequent evaluation and admission by this provider. She was also seen by nephrology. Of note, her blood pressures were quite low during dialysis. Discussion with the dialysis nurse suggested that very little fluid would be able to be removed at this time. 02/11/[id number]-hnwy-old female admitted for possible aspiration pneumonia. She is also dialysis patient she had a successful dialysis yesterday. Presently on levo floxacillin and IV cefepime was added. Pulse ox is 96% on 2 L. Chest x- ray suggestive of aspiration pneumonia plan to do the CT chest without contrast today. Afebrile. Temperature 98.9 with pulse rate of 71 blood pressure is 124/50. WBC is 10.7. Waiting for the speech evaluation prior to initiation of the renal diet. pt is able to take medication with pudding. 02/12/[id number]-wnad-old female with multiple medical problems admitted from [facility] for aspiration pneumonia CT chest was done yesterday it is suggestive of pulmonary edema and questionable aspiration pneumonia. No acute events in the last 24 hours. Afebrile. Blood pressure is 105/60 temperature is 98.5. Today's labs are pending. 02/13/2019-48 years old female admitted from the previous [facility] with complaints of possible aspiration. CT chest does not specifically indicate aspiration pneumonia. Afebrile. Speech evaluation was done and modified barium swallow was negative. But patient's still at risk for aspiration because of the behavioral issues. pt Is going for the dialysis today. Reason For Visit: ASPERATION PNEUMONIA Physical Exam Vital Signs: Temp Pulse Resp BP Pulse Ox 98.2 F 55 L 18 112/37 L 99 02/13/19 08:01 02/13/19 08:01 02/13/19 08:01 02/13/19 08:01 02/13/19 08:01 Intake & Output 02/12/19 02/13/19 02/14/19 06:59 06:59 06:59 Intake Total 1418 1430 Balance 1418 1430 Weight 100.1 kg 100.5 kg General appearance: PRESENT: no acute distress, obese Head exam: PRESENT: atraumatic Eye exam: PRESENT: PERRLA Mouth exam: PRESENT: moist, tongue midline Teeth exam: PRESENT: poor dentation Neck exam: ABSENT: carotid bruit, JVD, lymphadenopathy, thyromegaly Respiratory exam: PRESENT: decreased breath sounds Cardiovascular exam: PRESENT: RRR. ABSENT: diastolic murmur, rubs, systolic murmur GI/Abdominal exam: PRESENT: normal bowel sounds, soft. ABSENT: distended, guarding, mass, organolmegaly, rebound, tenderness Rectal exam: PRESENT: deferred Extremities exam: PRESENT: full ROM. ABSENT: calf tenderness, clubbing, pedal edema Neurological exam: PRESENT: alert, awake, oriented to person, oriented to place, oriented to time, oriented to situation, CN II-XII grossly intact. ABSENT: motor sensory deficit Psychiatric exam: PRESENT: appropriate affect, normal mood. ABSENT: homicidal ideation, suicidal ideation Results Impressions: Chest X-Ray 02/10/19 13:19 IMPRESSION: CARDIOMEGALY. FAINT HAZY DENSITIES IN THE LUNG BASES, POSSIBLY DUE TO ASPIRATION. POSSIBLE EARLY PNEUMONIA. Chest CT 02/11/19 00:00 IMPRESSION: 1. MARKED CARDIOMEGALY. HAZY GROUND-GLASS OPACITIES THROUGHOUT BOTH LUNGS ARE NONSPECIFIC BUT COULD BE DUE TO EARLY PULMONARY EDEMA. 2. MODERATELY DISTENDED ESOPHAGUS. THIS MAY BE DUE TO REFLUX. CANNOT EXCLUDE DISTAL ESOPHAGEAL STRICTURE OR OTHER LESION. Modified Barium Swallow 02/13/19 00:00 IMPRESSION: NO EVIDENCE OF PENETRATION OR ASPIRATION. PLEASE SEE SPEECH PATHOLOGIST REPORT FOR OTHER FINDINGS AND RECOMMENDATIONS. Assessment and Plan - Diagnosis (1) Aspiration pneumonia Qualifiers: Aspiration pneumonia type: unspecified Laterality: bilateral Lung location: lower lobe of lung Qualified Code(s): J69.0 - Pneumonitis due to inhalation of food and vomit Is this a current diagnosis for this admission?: Yes Plan: 02/10/2019-the patient had witnessed aspiration when starting dialysis earlier today. She was taken to the emergency department. She had an abnormal chest x- ray with bibasilar infiltrates. In addition her white blood cell count was elevated. Because of vascular access issues and I have chosen to use oral levofloxacin. The compensatory dose for her renal failure will be 500 mg today and then 250 mg every other day. It was too late to instill antibiotic therapy during dialysis. Because the levofloxacin has excellent absorption with levels comparable to IV administration, the levofloxacin should be adequate to cover her pneumonia. I have chosen to stay with a single agent due to her very limited vascular access. We will continue to monitor her white blood cell count and symptoms. 02/11/2019-patient was admitted for possible aspiration pneumonia chest x-ray indicated to have aspiration pneumonia most likely combination of gram-negative gram-positive organisms. Presently on levo floxacillin and IV cefepime was added to the medication. Patient is afebrile. Blood pressure is stable. To do the CT chest without contrast today for further information. 02/12/2019-patient admitted with aspiration pneumonia CT of the chest is suggestive of pulmonary edema and questionable aspiration pneumonia presently on IV levo floxacillin and IV cefepime. Afebrile. Waiting for the culture reports. 02/13/2019-patient was admitted with possible aspiration pneumonia CT does not specifically indicate aspiration and more of pulmonary edema may be secondary to end-stage renal disease patient is going for dialysis today. Modified barium's swallow was done as per the speech therapist no problems were noticed but the patient is at risk of aspiration because of the behavioral patterns. (2) Dysphagia Qualifiers: Dysphagia type: pharyngeal phase Qualified Code(s): R13.13 - Dysphagia, pharyngeal phase Is this a current diagnosis for this admission?: Yes Plan: 02/10/2019-aspiration was witnessed by the staff earlier today. This prompted transport to the emergency department. X-ray shows bilateral infiltrates and she is probably been aspirating for some time. Bedside swallow evaluation revealed failure with thin liquids. We did try putting and she successfully took her medications crushed in pudding. Because of this I will also order nectar thickened liquids/thickened water. We have asked speech therapy to evaluate the patient as well. We will monitor her closely. If her aspiration worsens then consideration of a PEG tube long-term but this will be based on speech therapy evaluation. 02/11/2019-patient came in with choking on food and possible aspiration pneumonia speech therapy was requested. Chest x-ray suggestive of dense densities in the both lower bases. Plan to do the CT of the chest. 02/12/2019-patient has another episode of choking on food. Yesterday CT of the chest was done and shows pulmonary edema questionable aspiration pneumonia plan is to continue present management. 02/13/2019-patient was admitted with a dysphagia modified barium swallow is negative for aspiration. (3) ESRD (end stage renal disease) Is this a current diagnosis for this admission?: Yes Plan: 02/10/2019-as noted above the patient was able to undergo dialysis this afternoon. Her net fluid loss will be limited due to hypotension during her treatment. Nephrology has seen the patient and will be following during her hospitalization. 02/11/2019-patient has a successful dialysis yesterday. Creatinine was 6.6 today. Electrodes are within normal limits. Next dialysis session most likely is on Wednesday. 02/12/2019-patient has history of end-stage renal disease on dialysis Wednesday she is due for dialysis tomorrow. 02/13/2019-patient has history of end-stage renal disease on hemodialysis last dialysis on Wednesday she is going for dialysis today. (4) Anemia in chronic kidney disease (CKD) Qualifiers: Chronic kidney disease stage: on chronic dialysis Qualified Code(s): N18.6 - End stage renal disease; D63.1 - Anemia in chronic kidney disease; Z99.2 - Dependence on renal dialysis Is this a current diagnosis for this admission?: Yes Plan: 02/10/2019-the patient's anemia appears to be stable. She does get Procrit 10,000 units at dialysis based on her hemoglobin. 02/11/2019-patient's hemoglobin is 10. Anemia of chronic disease most likely secondary to renal failure. 02/12/2019-patient has history of anemia of chronic disease secondary to CKD. And is receiving Procrit at a dialysis unit as an outpatient. 02/13/2019-patient has history of anemia of chronic disease most likely secondary to end-stage renal disease. Hemoglobin is 10 and it at his baseline. (5) Type 2 diabetes mellitus Is this a current diagnosis for this admission?: No Plan: 02/11/2019-patient has history of type 2 diabetes mellitus. Blood sugar is 95. Plan is to continue insulin sliding scale. 02/13/2019-patient has history of type 2 diabetes mellitus. Blood sugar is 104. And is to continue the present management. (6) Obesity (BMI 30-39.9) Is this a current diagnosis for this admission?: No - Time Time Spent with patient: 15-24 minutes Medications reviewed and adjusted accordingly: Yes Anticipated discharge: Home with Homehealth, SNF
[2019-02-13 10:11] LABS: CHLORIDE 97 mmol/L (98-107); POTASSIUM 5.9 mmol/L (3.6-5.0); SODIUM 137.6 mmol/L (137-145)
[2019-02-13] MEDS: FOLIC ACID/VITAMIN B COMP W-C CAPSULE PO SCH (10:19)
[2019-02-13] MEDS: CEFEPIME HCL 2 GM in DEXTROSE 5%-WATER 50 ML IV SCH (10:20)
[2019-02-13] MEDS: FLUTICASONE NASAL SPRAY 50 MCG/SPRY 120 SPRAY/16 GM NASL SCH ×2 (10:24→22:45)
[2019-02-13] MEDS: CARVEDILOL 12.5 MG TABLET PO SCH ×2 (10:27→22:45)
[2019-02-13 10:29] LABS: ANION GAP 17 (5-19); BLOOD UREA NITROGEN 68 mg/dL (7-20); CALCIUM 8.7 mg/dL (8.4-10.2); CARBON DIOXIDE 24 mmol/L (22-30); GLUCOSE 110 mg/dL (75-110)
--- NOTE | 2019-02-13 13:46 | PDOC PROGRESS REPORT ---
Subjective Progress Note for:: 02/13/19 Reason For Visit: Patient seen on dialysis. She looks comfortable and in no distress. Undergoing dialysis without any issues. She denies any history of chest pain or shortness of breath. No complaints of any fever or chills. Labs and medications were reviewed. Dialysis orders were reviewed with the treating dialysis nurse. Physical Exam Vital Signs: Temp Pulse Resp BP Pulse Ox 98.2 F 55 L 18 112/37 L 99 02/13/19 08:01 02/13/19 08:01 02/13/19 08:01 02/13/19 08:01 02/13/19 08:01 Intake & Output 02/12/19 02/13/19 02/14/19 06:59 06:59 06:59 Intake Total 1418 1430 50 Balance 1418 1430 50 Weight 100.1 kg 100.5 kg General appearance: PRESENT: no acute distress Respiratory exam: PRESENT: clear to auscultation ezequiel. ABSENT: crackles Cardiovascular exam: PRESENT: +S1, +S2 GI/Abdominal exam: PRESENT: normal bowel sounds, soft. ABSENT: organomegaly, tenderness Extremities exam: PRESENT: pedal edema Neurological exam: PRESENT: alert, awake, oriented to person, oriented to place Psychiatric exam: PRESENT: appropriate affect Results Laboratory Results: 02/13/19 09:23 02/13/19 09:23 02/13/19 02/13/19 09:23 09:23 WBC 7.5 RBC 3.02 L Hgb 9.7 L Hct 29.7 L MCV 98 H MCH 32.0 MCHC 32.6 RDW 16.2 H Plt Count 127 L Sodium 137.6 Potassium 5.9 H Chloride 97 L Carbon Dioxide 24 Anion Gap 17 BUN 68 H Creatinine 10.01 H Est GFR ( Amer) 5 L Est GFR (Non-Af Amer) 4 L Glucose 110 Calcium 8.7 Impressions: Chest X-Ray 02/10/19 13:19 IMPRESSION: CARDIOMEGALY. FAINT HAZY DENSITIES IN THE LUNG BASES, POSSIBLY DUE TO ASPIRATION. POSSIBLE EARLY PNEUMONIA. Chest CT 02/11/19 00:00 IMPRESSION: 1. MARKED CARDIOMEGALY. HAZY GROUND-GLASS OPACITIES THROUGHOUT BOTH LUNGS ARE NONSPECIFIC BUT COULD BE DUE TO EARLY PULMONARY EDEMA. 2. MODERATELY DISTENDED ESOPHAGUS. THIS MAY BE DUE TO REFLUX. CANNOT EXCLUDE DISTAL ESOPHAGEAL STRICTURE OR OTHER LESION. Modified Barium Swallow 02/13/19 00:00 IMPRESSION: NO EVIDENCE OF PENETRATION OR ASPIRATION. PLEASE SEE SPEECH PATHOLOGIST REPORT FOR OTHER FINDINGS AND RECOMMENDATIONS. Assessment & Plan - Diagnosis (1) Aspiration pneumonia Qualifiers: Aspiration pneumonia type: unspecified Laterality: bilateral Lung location: lower lobe of lung Qualified Code(s): J69.0 - Pneumonitis due to inhalation of food and vomit Is this a current diagnosis for this admission?: Yes Plan: As per hospitalist. Patient on antibiotics and monitored. Avoid hypoglycemia. (2) ESRD (end stage renal disease) Is this a current diagnosis for this admission?: Yes Plan: Patient currently undergoing dialysis without any issues. Vital signs are stable. Dialysis is being supervised to ensure safe and smooth procedure. Plan to remove 2 to 3 L as tolerated today. Advised patient on low salt and fluid intake. Dialysis orders were reviewed with the treating dialysis nurse Joie. (3) Type 2 diabetes mellitus Is this a current diagnosis for this admission?: No Plan: Advised tight control but without any hypoglycemia. Unfortunately patient has certain amount of mental retardation and has issues in grasping, comprehension and retention.
[2019-02-13] MEDS: HYDROXYZINE HCL 10 MG TABLET PO PRN (22:46)
[2019-02-13] MEDS: CALCIUM CARBONATE 500 MG TAB.CHEW PO SCH (22:46)
[2019-02-13 23:27] VITALS: BP 123/58
[2019-02-14] MEDS: HEPARIN SOD (PORCINE) 5,000 UNIT/ML 1 ML SYRINGE SUBCUT SCH ×2 (05:35→14:27)
[2019-02-14] MEDS: GABAPENTIN 100 MG CAPSULE PO SCH ×2 (05:56→14:43)
[2019-02-14] MEDS: INSULIN LISPRO 100 UNIT/ML 3 ML VIAL SUBCUT SCH ×2 (08:00→11:36)
[2019-02-14] MEDS: SEVELAMER HCL 800 MG TABLET PO SCH ×2 (08:20→11:34)
[2019-02-14] MEDS: METOCLOPRAMIDE HCL 10 MG TABLET PO SCH ×2 (08:20→11:34)
--- NOTE | 2019-02-14 10:55 | PDOC TRANSFER SUMMARY ---
General - Admit/Disc Date/PCP Admission Date/Primary Care Provider: 02/10/19 14:46 Discharge Date: 02/14/19 - Discharge Diagnosis (1) Aspiration pneumonia Is this a current diagnosis for this admission?: Yes (2) ESRD (end stage renal disease) Is this a current diagnosis for this admission?: Yes (3) Anemia in chronic kidney disease (CKD) Is this a current diagnosis for this admission?: Yes (4) Diabetes mellitus type 1 Is this a current diagnosis for this admission?: Yes - Additional Information Resuscitation Status: Full Code Prescriptions: Levofloxacin [Levaquin 250 mg Tablet] 250 mg PO Q2D@1000 #2 tablet Home Medications: Calcium Carbonate [Tums Chewable 500 mg Tab.chew] 1,000 mg PO QHS 02/10/19 Carvedilol [Coreg 12.5 mg Tablet] 12.5 mg PO Q12 02/10/19 Folic Acid/Vitamin B Comp W-C [Alexandra-Nilesh Tablet] 0.8 mg PO DAILY 02/10/19 Hydroxyzine Pamoate [Vistaril 50 mg Capsule] 50 mg PO Q6HP PRN 02/10/19 Loperamide HCl [Loperamide] 2 mg PO QIDP PRN 02/10/19 Sevelamer Carbonate [Renvela] 3,200 mg PO TID 02/10/19 Gabapentin [Neurontin 100 mg Capsule] 100 mg PO Q8 PRN #0 02/14/19 Levofloxacin [Levaquin 250 mg Tablet] 250 mg PO Q2D@1000 #2 tablet 02/14/19 Metoclopramide HCl [Reglan] 5 mg PO QID PRN #0 02/14/19 History of Present Illness Admission Date/PCP: 02/10/19 14:46 History of Present Illness: Admitting hospitalists' H&P: MICKIE SHARP is a 48 year old female with end-stage kidney disease on hemodialysis. She was just discharged from this facility on February 08. She had a right upper arm abscess incised and drained. She was transferred to [facility]. She was to complete her antibiotic therapy as well as participate in physical, occupational and speech therapies. She presented for her hemodialysis treatment but aspirated food. She was transferred to the emergency department. Work-up in the emergency department revealed an elevated white blood cell count as well as abnormal chest x-ray with faint densities in both bases. Since she had witnessed aspiration, and may have been aspirating for several days, she was referred to the hospital service for admission. Because today is her usual dialysis day, the hemodialysis staff graciously accepted her to the dialysis suite for treatment with subsequent evaluation and admission by this provider. She was also seen by nephrology. Of note, her blood pressures were quite low during dialysis. Hospital Course Hospital Course: Patient was admitted for possible aspiration pneumonia. Her initial chest x-ray did show signs concerning for aspiration pneumonia. She was started on cefepime and levofloxacin and admission. She was also evaluated by nephrology and she continued her hemodialysis during this course. Patient was also evaluated by speech therapy. She also underwent further testing including an MBS which was unremarkable. Per speech, her she did not risk of aspiration is more attributable to her dietary behavior as she tends to eat food in haste and does not take time to really chew them. She is at her baseline. On day of discharge, she is awake and oriented to person and place. She denies any acute complaints. She will be discharged back to [facility]. She will be discharged on 2 more doses of levofloxacin. She will also be referred to cardiology outpatient for possible further work-up including an outpatient echo. Physical Exam Vital Signs: Temp Pulse Resp BP Pulse Ox 97.9 F 77 17 123/58 L 95 02/13/19 23:27 02/13/19 23:27 02/13/19 23:27 02/13/19 23:27 02/13/19 23:27 Intake & Output 02/13/19 02/14/19 02/15/19 06:59 06:59 06:59 Intake Total 1430 828 Output Total 2300 Balance 1430 -1472 Weight 221 lb 9.033 oz 219 lb 9.286 oz General appearance: PRESENT: no acute distress, well-developed, well-nourished Head exam: PRESENT: atraumatic, normocephalic Eye exam: PRESENT: conjunctiva pink, EOMI, PERRLA. ABSENT: scleral icterus Ear exam: PRESENT: normal external ear exam Mouth exam: PRESENT: moist, tongue midline Neck exam: ABSENT: carotid bruit, JVD, lymphadenopathy, thyromegaly Respiratory exam: PRESENT: clear to auscultation ezequiel. ABSENT: rales, rhonchi, wheezes Cardiovascular exam: PRESENT: RRR. ABSENT: diastolic murmur, rubs, systolic murmur Pulses: PRESENT: normal dorsalis pedis pul GI/Abdominal exam: PRESENT: normal bowel sounds, soft. ABSENT: distended, guarding, mass, organolmegaly, rebound, tenderness Rectal exam: PRESENT: deferred Musculoskeletal exam: PRESENT: deformity, other - + right BKA stump Neurological exam: PRESENT: alert, awake, oriented to person, oriented to place, CN II-XII grossly intact. ABSENT: motor sensory deficit Results Laboratory Results: 02/13/19 09:23 02/13/19 09:23 Impressions: Chest X-Ray 02/10/19 13:19 IMPRESSION: CARDIOMEGALY. FAINT HAZY DENSITIES IN THE LUNG BASES, POSSIBLY DUE TO ASPIRATION. POSSIBLE EARLY PNEUMONIA. Chest CT 02/11/19 00:00 IMPRESSION: 1. MARKED CARDIOMEGALY. HAZY GROUND-GLASS OPACITIES THROUGHOUT BOTH LUNGS ARE NONSPECIFIC BUT COULD BE DUE TO EARLY PULMONARY EDEMA. 2. MODERATELY DISTENDED ESOPHAGUS. THIS MAY BE DUE TO REFLUX. CANNOT EXCLUDE DISTAL ESOPHAGEAL STRICTURE OR OTHER LESION. Modified Barium Swallow 02/13/19 00:00 IMPRESSION: NO EVIDENCE OF PENETRATION OR ASPIRATION. PLEASE SEE SPEECH PATHOLOGIST REPORT FOR OTHER FINDINGS AND RECOMMENDATIONS. Qualifiers - * PATIENT BEING DISCHARGED WITH ANY OF THE FOLLOWING DIAGNOSIS: No Acute Heart Failure - Is this a Heart Failure Patient?: No LVEF < 40%?: No- if no continue to question #3 d) Discharged on evidence-based Beta coleman(carvedilol, sustained release metoprolol succinate, or bisoprolol)?: Yes
[2019-02-14] MEDS: CARVEDILOL 12.5 MG TABLET PO SCH (11:08)
[2019-02-14] MEDS: CEFEPIME HCL 2 GM in DEXTROSE 5%-WATER 50 ML IV SCH (11:31)
[2019-02-14] MEDS: LEVOFLOXACIN 250 MG TABLET PO SCH (11:33)
[2019-02-14] MEDS: FLUTICASONE NASAL SPRAY 50 MCG/SPRY 120 SPRAY/16 GM NASL SCH (11:33)
[2019-02-14] MEDS: FOLIC ACID/VITAMIN B COMP W-C CAPSULE PO SCH (11:38)
[2019-02-14 13:38] LABS: ANION GAP 14 (5-19); BLOOD UREA NITROGEN 51 mg/dL (7-20); CALCIUM 8.7 mg/dL (8.4-10.2); CARBON DIOXIDE 26 mmol/L (22-30); CHLORIDE 97 mmol/L (98-107); GLUCOSE 151 mg/dL (75-110); POTASSIUM 5.1 mmol/L (3.6-5.0); SODIUM 136.7 mmol/L (137-145)
== END 2019-02-14 16:15 | DRG 177 ==
LOC: ER 12:44 → OBSVTOIN 14:46 → UNDOADMOB 14:46 → EH 14:46 → 4N 18:30
PROVIDERS: ADMIT Hospitalist; ATTEND Hospitalist
PROC: 5A1D70Z Performance of Urinary Filtration, Intermittent, Less than 6 Hours Per Day (ICD-10-PCS; principal; 2019-02-10)
DX: J69.0 Pneumonitis due to inhalation of food and vomit (principal); N18.6 End stage renal disease; I13.2 Hypertensive heart and chronic kidney disease with heart failure and with stage 5 chronic kidney disease, or end stage renal disease; E11.21 Type 2 diabetes mellitus with diabetic nephropathy; E11.22 Type 2 diabetes mellitus with diabetic chronic kidney disease; I50.9 Heart failure, unspecified; E78.00 Pure hypercholesterolemia, unspecified; R13.13 Dysphagia, pharyngeal phase; D63.1 Anemia in chronic kidney disease; L30.9 Dermatitis, unspecified; Z99.2 Dependence on renal dialysis; Z89.511 Acquired absence of right leg below knee
CPT/HCPCS: 36415; 71046; 71250; 74230; 80048; 80053; 82040; 82962; 83036; 84100; 85025; 85027; 96374; 99285; J0692; J1644; J1815; J1885; J3490; J7060

== ENCOUNTER 2019-02-16 15:07 | Emergency (ER) | payer MEDICARE, MEDICAID ==
--- NOTE | 2019-02-16 15:59 | ER Document Report ---
ED General - General Chief Complaint: GI Bleeding Stated Complaint: RECTAL BLEEDING Time Seen by Provider: 02/16/19 15:40 Primary Care Provider: EARLINE MCKINNEY MD [Primary Care Provider] - Follow up as needed Notes: Patient is a 48-year-old female who presents the emergency department with a chief complaint of rectal bleeding. She was at dialysis today and noticed that she continues to stool on herself. She cannot tell me what her stool looks like, but states, "I been having dukie all day today." She currently is a resident at [facility]. She has been having multiple episodes of hematochezia. She also was recently admitted here in the hospital for pneumonia. Past medical history includes chronic kidney disease on hemodialysis, hypertension, iron deficiency anemia, left BKA, and diabetes. TRAVEL OUTSIDE OF THE [place] IN LAST 30 DAYS: No - Related Data Allergies/Adverse Reactions: No Known Allergies Allergy (Verified 02/01/19 13:56) Past Medical History - General Information source: Patient - Social History Smoking Status: Unknown if Ever Smoked Family History: CAD, DM, Hypertension - Past Medical History Cardiac Medical History: Reports: Hx Congestive Heart Failure, Hx Hypercholesterolemia, Hx Hypertension Denies: Hx Coronary Artery Disease, Hx Heart Attack Pulmonary Medical History: Reports: Hx Asthma Denies: Hx Bronchitis, Hx COPD, Hx Pneumonia Neurological Medical History: Denies: Hx Cerebrovascular Accident, Hx Seizures Endocrine Medical History: Reports: Hx Diabetes Mellitus Type 1. Denies: Hx Diabetes Mellitus Type 2, Hx Hyperthyroidism, Hx Hypothyroidism Renal/ Medical History: Reports: Hx End Stage Renal Disease - On on hem odialysis 3 days/week, Hx Hemodialysis. Denies: Hx Peritoneal Dialysis GI Medical History: Denies: Hx Cirrhosis, Hx Hepatitis Musculoskeletal Medical History: Denies Hx Arthritis, Denies Hx Gout Skin Medical History: Denies Hx Eczema, Denies Hx Psoriasis Psychiatric Medical History: Denies: Hx Depression Infectious Medical History: Denies: Hx Hepatitis Past Surgical History: Reports: Hx Cholecystectomy, Hx Orthopedic Surgery - Right BKA, Hx Vascular Surgery - fistula placement for hemodialysis, Other - Amputation right lower extremity - Immunizations Hx Diphtheria, Pertussis, Tetanus Vaccination: Yes Review of Systems - Review of Systems Notes: REVIEW OF SYSTEMS: CONSTITUTIONAL : Denies recent illness. Denies recent unintentional weight loss. Denies fever, chills, or sweats. EENT: Denies eye, ear, throat, or mouth pain, discharge, or symptoms. Denies nasal or sinus congestion. CARDIOVASCULAR: Denies chest pain. RESPIRATORY: Denies shortness of breath, cough, congestion, difficulty breathing, or wheezing. GASTROINTESTINAL: See HPI GENITOURINARY: Denies difficulty urinating, burning, blood in urine, urgency or frequency. MUSCULOSKELETAL: Denies neck and back pain. Denies joint pain or swelling. SKIN: Denies rash, itchiness, or lesions HEMATOLOGIC : Denies easy bruising or bleeding. LYMPHATIC: Denies swollen, painful, enlarged glands. NEUROLOGICAL: Denies no numbness or tingling denies weakness. Denies headache. Denies altered mental status. Denies alteration in speech. PSYCHIATRIC: Denies stress, anxiety, alteration in sleep patterns, or depression. All other systems reviewed and negative. Physical Exam - Vital signs Vitals: Temp Pulse Pulse Ox 98.3 F 68 92 02/16/19 15:15 02/16/19 15:15 02/16/19 15:15 - Notes Notes: PHYSICAL EXAMINATION: GENERAL: Appears well, healthy, well-nourished, no acute distress. HEAD: Normocephalic, atraumatic. EYES: PERRL, conjunctiva normal, all extraocular movements intact, sclera nonicteric ENT: Moist mucous membranes. NECK: Supple, no noticeable swelling, redness, rash. Normal range of motion. LUNGS: Equal breath sounds bilaterally and clear to auscultation. No wheezes rales or rhonchi. CARDIOVASCULAR: S1-S2, regular rate, regular rhythm. Radial pulses 2+, normal. ABDOMEN: Normoactive bowel sounds. Soft, nontender, no guarding, no rebound tenderness, and no masses palpated. EXTREMITIES: Normal strength and range of motion, no pitting or edema. No cyanosis. NEUROLOGICAL: Moves all extremities upon command. Strength 5/5 in all extremities. Right BKA noted PSYCH: Normal mood, normal affect. SKIN: Warm, dry. Normal skin turgor. Left upper arm fistula noted. Course - Re-evaluation Re-evalutation: 02/16/19 18:00 Patient's hematology is actually since hemoglobin is 9.4. 3 days ago her hemoglobin was 9.7. She does have a mild leukocytosis of 13,000. Chemistries are consistent with her chronic kidney disease. Her total and direct bilirubin are elevated. Patient's blood pressure is low, but I suspect patient has diastolic heart failure as her previous visits show a low diastolic reading. 02/16/19 18:50 The nurse stated that the stool for guaiac results did not carryover to the medical record and the nurse reported verbally to me that the stool for guaiac was positive. I went to go assess the patient and the patient had a copious amount of hematochezia noted. I will call [facility] for transfer due to no availability of GI here at the hospital. Type and screen and another H&H will be drawn. 02/16/19 18:59 Spoke with [facility] transfer center at [facility]. Hospitalist will call back. I have also been informed by the nurse that the ross shrestha continually has hematochezia stools. 02/16/19 21:00 A central line was placed by myself, with Dr. Hassan at bedside. Labs were drawn from central line due to staff having a hard time drawing. 02/16/19 21:44 Patient's hemoglobin dropped to 6.8. I ordered 2 units of PRBCs. She will receive 1 unit of uncrossed match blood here in the emergency department. I also updated transfer center at [facility] about the patient's hemoglobin. 02/17/19 00:37 Central line was noted to be in the right atrium. It was pulled back 2 cm. X- ray will be done to verify placement. 02/17/19 01:21 Patient's x-ray shows the central line in the superior-vena cava. Transport team is at bedside. Patient is stable for transport to [facility]. Patient's blood pressure is 90/41 with a map of 48, which is been her consistent blood pressure throughout the day. She will receive a 4th unit of PRBCs. She will also receive calcium gluconate. - Vital Signs Vital signs: Temp Pulse Resp BP Pulse Ox 98.4 F 89 16 90/41 L 94 02/17/19 01:19 02/16/19 23:46 02/17/19 01:19 02/17/19 01:19 02/17/19 01:19 - Laboratory Result Diagrams: 02/16/19 20:56 02/16/19 16:58 Laboratory results interpreted by me: 02/16/19 02/16/19 02/16/19 16:31 16:58 16:58 WBC 13.4 H RBC 3.01 L Hgb 9.4 L Hct 29.5 L MCV 98 H RDW 15.9 H Plt Count 117 L Seg Neutrophils % 78.1 H Lymphocytes % 9.5 L Absolute Neutrophils 10.4 H BUN 49 H Creatinine 7.36 H Est GFR ( Amer) 7 L Est GFR (Non-Af Amer) 6 L Total Bilirubin 1.7 H Direct Bilirubin 1.3 H ALT < 6 L Alkaline Phosphatase 236 H Total Protein 8.6 H Stool for White Cells RARE H Crossmatch 02/16/19 02/16/19 20:56 20:56 WBC 11.8 H RBC 2.07 L Hgb 6.5 L D Hct 20.1 L MCV RDW 15.3 H Plt Count 111 L Seg Neutrophils % Lymphocytes % Absolute Neutrophils BUN Creatinine Est GFR ( Amer) Est GFR (Non-Af Amer) Total Bilirubin Direct Bilirubin ALT Alkaline Phosphatase Total Protein Stool for White Cells Crossmatch See Detail Procedures - Central Line Right Internal jugular Consent obtained: No - emergency placement Central line pre-insertion: Sterile PPE donned, Chloraprep applied Central line lumen type: Triple Anesthetic type: 1% Lidocaine mL's of anesthesia: 3 Ultrasound guided: Yes Line secured with sutures: Yes Central line post-insertion: Blood return from lumens, Biopatch applied, Sutured, Sterile dressing applied, Position confirmed w/ CXR Number of attempts: 1 Complications: No Critical Care Note - Critical Care Note Total time excluding time spent on procedures (mins): 60 Comments: Critical care time spent obtaining history from patient or surrogate, discussion s with consultants, development of treatment plan with patient or surrogate, evaluation of patient's response to treatment, examination of patient, ordering and performing treatments and interventions, ordering and review of laboratory studies, re-evaluation of patient's condition, ordering and review of radiographic studies and review of old charts Discharge - Discharge Clinical Impression: ESRD (end stage renal disease) GI bleed Qualifiers: GI bleed type/associated pathology: unspecified gastrointestinal hemorrhage type Qualified Code(s): K92.2 - Gastrointestinal hemorrhage, unspecified Anemia Qualifiers: Anemia type: unspecified type Qualified Code(s): D64.9 - Anemia, unspecified Condition: Critical Disposition: [facility] Referrals: EARLINE MCKINNEY MD [Primary Care Provider] - Follow up as needed
[2019-02-16 17:19] LABS: ABSOLUTE BASOPHILS # (AUTO) 0.1 10^3/uL (0.0-0.2); ABSOLUTE EOSINOPHILS # (AUTO) 0.2 10^3/uL (0.0-0.6); ABSOLUTE LYMPHOCYTES (AUTO) 1.3 10^3/uL (0.5-4.7); ABSOLUTE MONOCYTES (AUTO) 1.3 10^3/uL (0.1-1.4); ABSOLUTE NEUT (AUTO) 10.4 10^3/uL (1.7-8.2); BASOPHILS % (AUTO) 1.1 % (0-2); EOSINOPHILS % (AUTO) 1.2 % (0-6); HEMATOCRIT 29.5 % (36.0-47.0); HEMOGLOBIN 9.4 g/dL (12.0-15.5); LYMPHOCYTES % (AUTO) 9.5 % (13-45); MEAN CORPUSCULAR HEMOGLOBIN 31.4 pg (27.0-33.4); MEAN CORPUSCULAR HGB CONC 32.1 g/dL (32.0-36.0); MEAN CORPUSCULAR VOLUME 98 fl (80-97); MONOCYTES % (AUTO) 10.1 % (3-13); PLATELET COUNT 117 10^3/uL (150-450); RED BLOOD COUNT 3.01 10^6/uL (3.72-5.28); RED CELL DISTRIBUTION WIDTH 15.9 % (11.5-14.0); SEGMENTED NEUTROPHILS % (AUTO) 78.1 % (42-78); TOTAL CELLS COUNTED % (AUTO) 100 %; WHITE BLOOD COUNT 13.4 10^3/uL (4.0-10.5)
[2019-02-16 17:29] LABS: ALANINE AMINOTRANSFERASE < 6 U/L (9-52); ALKALINE PHOSPHATASE 236 U/L (38-126); ANION GAP 15 (5-19); ASPARTATE AMINO TRANSFERASE 36 U/L (14-36); BILIRUBIN,DIRECT 1.3 mg/dL (0.0-0.4); BILIRUBIN,TOTAL 1.7 mg/dL (0.2-1.3); BLOOD UREA NITROGEN 49 mg/dL (7-20); CALCIUM 8.6 mg/dL (8.4-10.2); CARBON DIOXIDE 25 mmol/L (22-30); CHLORIDE 99 mmol/L (98-107); GLUCOSE 87 mg/dL (75-110); SODIUM 139.4 mmol/L (137-145); TOTAL PROTEIN 8.6 g/dL (6.3-8.2)
[2019-02-16] MEDS ORDERED: PANTOPRAZOLE SODIUM 40 MG VIAL IV ONE (20:03)
--- NOTE | 2019-02-16 20:59 | ER Document Report ---
Doctor's Note Notes: Patient was seen and evaluated along with the nurse practitioner. Please see her note. Patient was persistently hypotensive with hematochezia so decision was made to put a central line in. Please see central line note. Patient was somnolent during the procedure. Her heart rate was 92. Blood pressure was 95/50. Sats 100%. I assisted with the procedure and was present during the whole procedure as the nurse practitioner performed the triple-lumen placement in the right IJ underneath direct ultrasound guidance. 02/16/19 20:58
[2019-02-16] MEDS ORDERED: PANTOPRAZOLE SODIUM 40 MG VIAL IV PRN (21:00)
[2019-02-16 21:19] LABS: HEMATOCRIT 20.1 % (36.0-47.0); MEAN CORPUSCULAR HEMOGLOBIN 31.7 pg (27.0-33.4); MEAN CORPUSCULAR HGB CONC 32.6 g/dL (32.0-36.0); MEAN CORPUSCULAR VOLUME 97 fl (80-97); PLATELET COUNT 111 10^3/uL (150-450); RED BLOOD COUNT 2.07 10^6/uL (3.72-5.28); RED CELL DISTRIBUTION WIDTH 15.3 % (11.5-14.0); WHITE BLOOD COUNT 11.8 10^3/uL (4.0-10.5)
[2019-02-16 21:22] LABS: HEMOGLOBIN 6.5 g/dL (12.0-15.5)
[2019-02-16] MEDS ORDERED: NORMAL SALINE 250 ML IV PRN ×2 (21:36→22:30)
--- NOTE | 2019-02-16 23:30 | RADIOLOGY REPORT (SQ) ---
EXAM DESCRIPTION: [facility]: XR CHEST 1 VIEW CLINICAL HISTORY: 48 years Female, central line placement COMPARISON: 02/10/2019 FINDINGS: Right IJ line has been placed, tip in the right atrium. Lungs are unchanged. No pneumothorax. No significant pleural effusion. Heart is enlarged as on prior exam. Bony structures are unremarkable. IMPRESSION: 1. Right IJ line, tip in the right atrium. No pneumothorax.
[2019-02-17] MEDS ORDERED: CALCIUM GLUCONATE 1000 MG/10 ML INJ IV ONE (01:22)
[2019-02-17] MEDS ORDERED: NORMAL SALINE 250 ML IV PRN (01:23)
[2019-02-17 01:33] VITALS: BP 90/41
--- NOTE | 2019-02-17 01:42 | RADIOLOGY REPORT (SQ) ---
EXAM DESCRIPTION: XR CHEST 1 VIEW COMPLETED DATE/TME: 02/17/2019 00:37 CLINICAL HISTORY: 48 years, Female, eval central line; pulled back COMPARISON: 02/16/2019 NUMBER OF VIEWS: One TECHNIQUE: AP view of the chest LIMITATIONS: None. FINDINGS: The right IJ line has been retracted and now terminates within the SVC. The lungs are clear. The heart is enlarged. There is no pneumothorax or pleural effusion. The bones are unremarkable. IMPRESSION: Retraction of the right IJ central line which now terminates within the SVC. copyright 2010 [employer]- All Rights Reserved
== END 2019-02-17 01:30 | disposition short-term general hospital (02) ==
LOC: ER 15:07
DX: K92.2 Gastrointestinal hemorrhage, unspecified (principal); E10.22 Type 1 diabetes mellitus with diabetic chronic kidney disease; I13.2 Hypertensive heart and chronic kidney disease with heart failure and with stage 5 chronic kidney disease, or end stage renal disease; I50.9 Heart failure, unspecified; N18.6 End stage renal disease; Z99.2 Dependence on renal dialysis; Z90.49 Acquired absence of other specified parts of digestive tract; Z89.511 Acquired absence of right leg below knee
CPT/HCPCS: 96376; 99291; 96365; 96366; 86900; 86901; 36415; 87045; 89055; 87205; 36430; 86850; 82962; 85025; 87077; 80053; 86920; 87493; 71045 ×2; 36556; C1751; C1769; P9016; C9113; S0164

== ENCOUNTER 2019-03-26 17:11 | Emergency (ER) | payer MEDICARE, MEDICAID ==
[2019-03-26] MEDS ORDERED: HYDROCODONE/ACETAMINOPHEN 5-325 MG TABLET PO ONE (19:12)
[2019-03-26] MEDS ORDERED: GABAPENTIN 100 MG CAPSULE PO ONE (19:12)
--- NOTE | 2019-03-26 19:12 | ER Document Report ---
ED Fall - General Chief Complaint: Fall Stated Complaint: FALL Time Seen by Provider: 03/26/19 19:05 Primary Care Provider: EARLINE MCKINNEY MD [Primary Care Provider] - Follow up as needed Notes: 48-year-old female coming [facility] after a fall. States that she fell down. Landed on her right hip. Complaining of severe pain. 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 Patient is a renal failure patient on dialysis. No loss of consciousness. She states that she does not have any pain in her back or head. Only complaining of pain in her hip and right upper femur area. TRAVEL OUTSIDE OF THE [place] IN LAST 30 DAYS: No - HPI Occurred: Just prior to arrival Context: Lost balance Associated symptoms: None Location of injury/pain: Hip Quality of pain: Throbbing - Related data Allergies/Adverse Reactions: No Known Allergies Allergy (Verified 02/01/19 13:56) Past Medical History - General Information source: Patient, [facility] Records - Social History Smoking Status: Never Smoker Frequency of alcohol use: None Drug Abuse: None Lives with: Group Home Family History: CAD, DM, Hypertension Patient has suicidal ideation: No Patient has homicidal ideation: No - Past Medical History Cardiac Medical History: Reports: Hx Congestive Heart Failure, Hx Hypercholesterolemia, Hx Hypertension Denies: Hx Coronary Artery Disease, Hx Heart Attack Pulmonary Medical History: Reports: Hx Asthma Denies: Hx Bronchitis, Hx COPD, Hx Pneumonia Neurological Medical History: Denies: Hx Cerebrovascular Accident, Hx Seizures Endocrine Medical History: Reports: Hx Diabetes Mellitus Type 1. Denies: Hx Diabetes Mellitus Type 2, Hx Hyperthyroidism, Hx Hypothyroidism Renal/ Medical History: Reports: Hx End Stage Renal Disease - On on hemodialysis 3 days/week, Hx Hemodialysis. Denies: Hx Peritoneal Dialysis GI Medical History: Denies: Hx Cirrhosis, Hx Hepatitis Musculoskeletal Medical History: Denies Hx Arthritis, Denies Hx Gout Skin Medical History: Denies Hx Eczema, Denies Hx Psoriasis Psychiatric Medical History: Denies: Hx Depression Infectious Medical History: Denies: Hx Hepatitis Past Surgical History: Reports: Hx Cholecystectomy, Hx Orthopedic Surgery - Right BKA, Hx Vascular Surgery - fistula placement for hemodialysis, Other - Amputation right lower extremity - Immunizations Hx Diphtheria, Pertussis, Tetanus Vaccination: Yes Review of Systems - Review of Systems Notes: Constitutional: denies: Chills, Diaphoresis, Fever, Malaise, Weakness EENT: denies: Eye discharge, Blurred vision, Tearing, Double vision, Nose congestion, Nose discharge, Throat swelling, Mouth pain Cardiovascular: denies: Palpitations, Heart racing, Orthopnea, Dyspnea, Chest pain Respiratory: denies: Cough, Hurts to breathe, Wheezing, Shortness of breath Gastrointestinal: denies: Abdominal pain, Diarrhea, Nausea, Vomiting, Black stools, bright red blood in stool Genitourinary: denies: Burning, Dysuria, Discharge, Frequency, Flank pain, Hematuria Musculoskeletal: Pain in the right hip, pain in the right leg, no back pain. Hematologic/Lymphatic: denies: Anemia, Easy bleeding, Easy bruising, Blood clots Neurological/Psychological: denies: Confusion, Dementia, Depression, Loss of consciousness Skin: No lesions, no masses, no skin breakdown, no abscesses Physical Exam - Vital signs Vitals: Temp Pulse Resp BP Pulse Ox 98.4 F 72 16 140/69 H 99 03/26/19 17:25 03/26/19 17:25 03/26/19 17:25 03/26/19 17:25 03/26/19 17:25 Interpretation: Normal - General General appearance: Appears well, Alert - HEENT Head: Normocephalic, Atraumatic Eyes: Normal Pupils: PERRL - Respiratory Respiratory status: No respiratory distress Chest status: Nontender Breath sounds: Normal Chest palpation: Normal - Cardiovascular Rhythm: Regular Heart sounds: Normal auscultation Murmur: No - Abdominal Inspection: Normal Distension: No distension Bowel sounds: Normal Tenderness: Nontender Organomegaly: No organomegaly - Back Back: Normal, Nontender - Extremities General upper extremity: Normal inspection, Nontender, Normal color, Normal ROM, Normal temperature, Other - There is an AV fistula site present on the right upper extremity. General lower extremity: Other - Right BKA. Left lower extremity unremarkable. Tenderness to palpation of the right lateral trochanter area. No: Clarisa's sign - Neurological Neuro grossly intact: Yes Cognition: Normal Orientation: AAOx4 [place] Coma Scale Eye Opening: Spontaneous [place] Coma Scale Verbal: Oriented [place] Coma Scale Motor: Obeys Commands [place] Coma Scale Total: 15 Speech: Normal Motor strength normal: LUE, RUE, LLE, RLE Sensory: Normal - Psychological Associated symptoms: Normal affect, Normal mood - Skin Skin Temperature: Warm Skin Moisture: Dry Skin Color: Normal Course - Re-evaluation Re-evalutation: 03/26/19 22:46 Femur X-Ray 03/26/19 19:11 IMPRESSION: Possible right lesser trochanter avulsion fracture. Hip/Pelvis X-Ray 03/26/19 19:11 IMPRESSION: Findings are concerning for acute avulsion of the right lesser trochanter. However detail is severely limited. CT would be helpful. Pelvis CT 03/26/19 21:02 IMPRESSION: No acute osseous abnormality. TECHNICAL DOCUMENTATION: Quality ID # 436: Final reports with documentation of one or more dose reduction techniques (e.g., Automated exposure control, adjustment of the mA and/or kV according to patient size, use of iterative reconstruction technique) copyright 2011 [email or web address]- All Rights Reserved X-rays are suspicious for a right lesser trochanter fracture however CT scan is negative. With these nebulous results I am recommending the patient get follow- up with Ortho. At this time find nothing further. Will DC in stable condition. - Vital Signs Vital signs: Temp Pulse Resp BP Pulse Ox 98.4 F 72 16 140/69 H 99 03/26/19 17:25 03/26/19 17:25 03/26/19 17:25 03/26/19 17:25 03/26/19 17:25 Discharge - Discharge Clinical Impression: Contusion of right hip Qualifiers: Encounter type: initial encounter Qualified Code(s): S70.01XA - Contusion of right hip, initial encounter Condition: Good Disposition: HOME, SELF-CARE Instructions: Contusion ([facility]) Additional Instructions: The x-rays were concerning for possible fracture but the CT scan does not reveal a fracture. Regardless, I am given you follow-up information for an orthopedic surgeon. If this pain continues you will need to make an appointment for repeat evaluation. Possible repeat x-rays or CT scan. Referrals: GERTRUDIS LOPEZ MD [ACTIVE STAFF] - Follow up as needed
--- NOTE | 2019-03-26 20:27 | RADIOLOGY REPORT (SQ) ---
EXAM DESCRIPTION: XR HIP 2 OR MORE VIEWS COMPLETED DATE/TME: 03/26/2019 19:11 CLINICAL HISTORY: 48 years, Female, fall EXAM DESCRIPTION: CLINICAL HISTORY: fall COMPARISON: None FINDINGS: 2 view(s) submitted. Habitus severely limits detail. There is a possible acute avulsion of the right lesser trochanter. CT would provide greater detail if desired. There are vascular calcifications. IMPRESSION: Findings are concerning for acute avulsion of the right lesser trochanter. However detail is severely limited. CT would be helpful.
--- NOTE | 2019-03-26 20:49 | RADIOLOGY REPORT (SQ) ---
EXAM DESCRIPTION: XR FEMUR 2 VIEWS COMPLETED DATE/TME: 03/26/2019 19:11 CLINICAL HISTORY: 48 years, Female, fall COMPARISON: EXAM DESCRIPTION: CLINICAL HISTORY: fall COMPARISON: None FINDINGS: 4 view(s) submitted. There is a possible right lesser trochanter avulsion fracture. Vascular calcifications are present. No other fracture or dislocation is identified. Bone marrow attenuation is unremarkable. No radiopaque foreign body is identified. IMPRESSION: Possible right lesser trochanter avulsion fracture.
--- NOTE | 2019-03-26 22:28 | RADIOLOGY REPORT (SQ) ---
EXAM DESCRIPTION: CT PELVIS WITHOUT IV CONTRAST COMPLETED DATE/TME: 03/26/2019 21:02 CLINICAL HISTORY: 48 years, Female, fracture COMPARISON: 12/14/2018 CT TECHNIQUE: 363 Images stored on PACS. All CT scanners at this facility use dose modulation, iterative reconstruction, and/or weight based dosing when appropriate to reduce radiation dose to as low as reasonably achievable (ALARA). [facility]: Dose Right [facility]: CareDose [facility]: Dose Right [facility]: Teradose 4D [facility]: [email or web address] LIMITATIONS: None. FINDINGS: Diffuse anasarca. Extensive atheromatous changes. Small amount of free fluid in the pelvis. Subjective gallbladder wall thickening. Osseous structures show no evidence for acute fracture. Degenerative changes of the hips bilaterally. Bony spur formation of the lesser trochanter may account for findings suggestive plain film. IMPRESSION: No acute osseous abnormality. TECHNICAL DOCUMENTATION: Quality ID # 436: Final reports with documentation of one or more dose reduction techniques (e.g., Automated exposure control, adjustment of the mA and/or kV according to patient size, use of iterative reconstruction technique) copyright 2011 [employer]- All Rights Reserved
[2019-03-26 22:59] VITALS: BP 136/90
== END 2019-03-26 23:29 | disposition home or self-care (01) ==
LOC: ER 17:11
DX: S70.01XA Contusion of right hip, initial encounter (principal); M25.551 Pain in right hip; M89.8X5 Other specified disorders of bone, thigh; W19.XXXA Unspecified fall, initial encounter; Y93.89 Activity, other specified; Y92.122 Bedroom in nursing home as the place of occurrence of the external cause; I12.0 Hypertensive chronic kidney disease with stage 5 chronic kidney disease or end stage renal disease; E10.22 Type 1 diabetes mellitus with diabetic chronic kidney disease; N18.6 End stage renal disease; Z99.2 Dependence on renal dialysis; Z89.511 Acquired absence of right leg below knee
CPT/HCPCS: 73552; 73502; 72192; A9270 ×2; 99284

== ENCOUNTER 2019-04-10 10:33 | Emergency (ER) | payer MEDICARE, MEDICAID ==
--- NOTE | 2019-04-10 11:20 | ER Document Report ---
Entered by HAO TORRE SCRIBE 04/10/19 1103 Acting as scribe for:LAILA LOVE MD ED General - General Chief Complaint: Altered Mental Status Stated Complaint: ALTERED MENTAL STATUS Time Seen by Provider: 04/10/19 10:47 Primary Care Provider: EARLINE MCKINNEY MD [Primary Care Provider] - Follow up as needed Mode of Arrival: Medic Information source: Friend, Emergency Med Personnel Cannot obtain history due to: Mentally challenged Notes: Patient is a 48 year old female resident of [facility] with baseline cognitive impairment that presents to the emergency department today with complaints of "yelling out stuff randomly" according to EMS. EMS reports that shelter staff reported that the patient was "not acting right" since waking up this morning, which lasted for approximately 30 minutes. EMS reports that by the time they arrived at the facility the patient was back to baseline. Patient is a MWF dialysis patient. TRAVEL OUTSIDE OF THE [place] IN LAST 30 DAYS: No - Related Data Allergies/Adverse Reactions: No Known Allergies Allergy (Verified 02/01/19 13:56) Past Medical History - General Information source: Emergency Med Personnel, [facility] Records Cannot obtain history due to: Mentally challenged - Social History Smoking Status: Never Smoker Cigarette use (# per day): No Frequency of alcohol use: None Drug Abuse: None Lives with: Family Family History: Reviewed & Not Pertinent, CAD, DM, Hypertension - Past Medical History Cardiac Medical History: Reports: Hx Congestive Heart Failure, Hx Hypercholesterolemia, Hx Hypertension Pulmonary Medical History: Reports: Hx Asthma Endocrine Medical History: Reports: Hx Diabetes Mellitus Type 1 Renal/ Medical History: Reports: Hx End Stage Renal Disease - On on hemodialysis MWF, Hx Hemodialysis Past Surgical History: Reports: Hx Cholecystectomy, Hx Orthopedic Surgery - Right BKA, Hx Vascular Surgery - fistula placement for hemodialysis - Immunizations Hx Diphtheria, Pertussis, Tetanus Vaccination: Yes Review of Systems - Review of Systems -: Yes ROS unobtainable due to patient's medical condition Physical Exam - Vital signs Vitals: Resp BP Pulse Ox 15 106/48 L 88 L 04/10/19 10:38 04/10/19 10:38 04/10/19 10:38 - Notes Notes: Physical Exam: General: Alert, at baseline according to records. HEENT: Normocephalic. Atraumatic. PERRL. Extraocular movements intact. Oropharynx clear. Neck: Supple. Non-tender. Respiratory: No respiratory distress. Clear and equal breath sounds bilaterally. Cardiovascular: Regular rate and rhythm. Abdominal: Normal Inspection. Non-tender. No distension. Normal Bowel Sounds. Back: No gross abnormalities. Extremities: Upper extremities: Normal inspection. Normal ROM. Lower extremities: Right BKA Neurological: AAOx2 which is baseline. Thoughts and speech are consistent with that of a child which is a baseline. Skin: Warm. Dry. Normal color. Course - Re-evaluation Re-evalutation: 04/10/19 11:18 The patient is alert and oriented. Her vital signs are stable. There is no obvious explanation for the altered mental status described at the shelter. The patient is a Wednesday dialysis patient, and is supposed to be at dialysis now. If she stays here and misses dialysis, she may not be able to be dialyzed here, and other surrounding facilities are on diversion type status. The patient will be transferred over to dialysis now to complete her dialysis as originally scheduled. She should return to the emergency room if there are any further episodes of the reported altered mental status which has completely cleared at this time. - Vital Signs Vital signs: Temp Pulse Resp BP Pulse Ox 10 L 110/70 96 04/10/19 11:03 04/10/19 11:03 04/10/19 11:03 - EKG Interpretation by Me EKG shows normal: Sinus rhythm, Logan, Intervals, QRS Complexes, ST-T Waves Rate: Normal - 64 Rhythm: Arrthymia Logan/QRS: Left axis deviation P Waves: LAE Discharge - Discharge Clinical Impression: ESRD (end stage renal disease) Altered mental status Qualifiers: Altered mental status type: unspecified Qualified Code(s): R41.82 - Altered mental status, unspecified Condition: Stable [facility] Additional Instructions: Go to dialysis now. RETURN TO THE EMERGENCY ROOM IF ANY NEW OR WORSENING SYMPTOMS. Referrals: EARLINE MCKINNEY MD [Primary Care Provider] - Follow up as needed Scribe Attestation: 04/10/19 11:18 I personally performed the services described in the documentation, reviewed and edited the documentation which was dictated to the scribe in my presence, and it accurately records my words and actions. I personally performed the services described in the documentation, reviewed and edited the documentation which was dictated to the scribe in my presence, and it accurately records my words and actions.
[2019-04-10 12:01] VITALS: BP 104/55
--- NOTE | 2019-04-10 13:16 | EKG REPORT ---
SEVERITY:- ABNORMAL ECG - SINUS ARRHYTHMIA, RATE 52-78 PROBABLE LEFT ATRIAL ABNORMALITY LEFT AXIS DEVIATION NONSPECIFIC ANTEROLATERAL ST-T CHANGES, UNCHANGED FROM 01/18/19 : Confirmed by: Bubba Brito MD 10-Apr-2019 13:15:28
== END 2019-04-10 11:47 | disposition home health service (06) ==
LOC: ER 10:33
DX: R41.82 Altered mental status, unspecified (principal); I13.2 Hypertensive heart and chronic kidney disease with heart failure and with stage 5 chronic kidney disease, or end stage renal disease; I50.9 Heart failure, unspecified; E10.22 Type 1 diabetes mellitus with diabetic chronic kidney disease; N18.6 End stage renal disease; Z99.2 Dependence on renal dialysis
CPT/HCPCS: 93005; 93010

== ENCOUNTER 2019-04-10 22:18 | Observation (INO) | payer MEDICARE, MEDICAID ==
--- NOTE | 2019-04-10 23:24 | ER Document Report ---
HPI - HPI Patient complains to provider of: fall, left leg and foot pain Onset: Just prior to arrival Severity: Mild Pain Level: 1 Context: This is a 48-year-old chronically debilitated, demented, bedbound, dialysis pt who gets dialysis MWF and last got it earlier today, morbidly obese female who is a very poor historian sent in by her [facility] for concern of a fall per report who complains here of left leg pain diffusely. 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 The patient is not able to give me any history whatsoever. The paperwork she was sent with says she complains of neck pain after a fall. She denies pain anywhere else or any other complaints to me and is resting quietly in bed in no sign of pain or respiratory distress until you ask her what hurts and she says her left leg hurts. I am not able to get any further history or information from the patient, EMS report, or anything that was sent with her. she is nonambulatory at baseline. - ROS ROS Unobtainable: Yes ROS unobtainable due to patient's medical condition - REPRODUCTIVE Reproductive: DENIES: : <HUBER MORRIS - Last Filed: 04/11/19 07:47> <RONNIE MARY - Last Filed: 04/11/19 19:41> - HPI Time Seen by Provider: 04/10/19 23:13 Past Medical History - General Information source: Patient, Transfer Record, Outside Facility Records Cannot obtain history due to: Dementia - Social History Smoking Status: Unknown if Ever Smoked Chew tobacco use (# tins/day): No Frequency of alcohol use: None Drug Abuse: None Lives with: [facility] Family History: CAD, DM, Hypertension Patient has suicidal ideation: No Patient has homicidal ideation: No - Past Medical History Cardiac Medical History: Reports: Hx Congestive Heart Failure, Hx Hypercholesterolemia, Hx Hypertension Denies: Hx Coronary Artery Disease, Hx Heart Attack Pulmonary Medical History: Reports: Hx Asthma Denies: Hx Bronchitis, Hx COPD, Hx Pneumonia Neurological Medical History: Denies: Hx Cerebrovascular Accident, Hx Seizures Endocrine Medical History: Reports: Hx Diabetes Mellitus Type 1, Hx Diabetes Mellitus Type 2. Denies: Hx Hyperthyroidism, Hx Hypothyroidism Renal/ Medical History: Reports: Hx End Stage Renal Disease - On on hemodialysis 3 days/week- MWF, Hx Hemodialysis. Denies: Hx Peritoneal Dialysis GI Medical History: Denies: Hx Cirrhosis, Hx Hepatitis Musculoskeletal Medical History: Denies Hx Arthritis, Denies Hx Gout Skin Medical History: Denies Hx Eczema, Denies Hx Psoriasis Psychiatric Medical History: Denies: Hx Depression Infectious Medical History: Denies: Hx Hepatitis Past Surgical History: Reports: Hx Cholecystectomy, Hx Orthopedic Surgery - Right BKA, Hx Vascular Surgery - fistula placement for hemodialysis, Other - Amputation right lower extremity - Immunizations Immunizations up to date: Yes Hx Diphtheria, Pertussis, Tetanus Vaccination: Yes <HUBER MORRIS - Last Filed: 04/11/19 07:47> Vertical Provider Document - CONSTITUTIONAL Exam Limitations: Clinical Condition, Physical Impairment General Appearance: No Apparent Distress Notes: >>>> PHYSICAL_EXAM: GENERAL_APPEARANCE: well_nourished, alert, cooperative, no_acute_distress, no_obvious_discomfort. pleasant, morbidly obese chronically debilitated, disheveled appearing middle-aged black female, smiling, speaking in full sentences, in no sign of pain or resp distress, no one is with her VITALS: reviewed, see vital signs table. HEAD: no_swelling\tenderness on the head. normocephalic. atraumatic. no reeder signs. no raccoons eyes. EYES: PERRL, EOMI, conjunctiva_clear. NOSE: no_nasal_discharge. MOUTH: (-)decreased moisture. THROAT: no_tonsilar_inflammation, no_airway_obstruction. no_lymphadenopathy NECK: supple, no_neck_tenderness, full rom. full strength. no meningeal signs. BACK: no_back_tenderness. CHEST_WALL: no_chest_tenderness. no overlying skin changes LUNGS: no_wheezing, ctab (-)accessory muscle use, good air exchange bilateral. HEART: normal_rate, normal_rhythm, ABDOMEN: normal_BS, soft, no_abd_tenderness, (-)guarding, (-)rebound, obese abdomen, exam somewhat limited secondary to patient's body habitus, no distension or peritoneal signs. no cva ttp EXTREMITIES: strength 5/5 in all_extremities, good pulses in all_extremities, no_swelling\tenderness in the extremities unless otherwise noted, no_edema. full rom. Gait not assessed secondary to patient being nonambulatory and bedbound at baseline. She does have a right BKA no sign of stump infection. She is diffusely tender across the entire left leg however exam is somewhat unreliable secondary patient's mental status at baseline. Good pulses. brisk cap refill. good hand card lacer. neg joe sign. Negative Perez squeeze. No foot drop NEURO: motor and sensation intact, SKIN: warm, dry, good_color, no_rash. MENTAL_STATUS: speech_clear, alert and oriented x 1, normal_affect, responds_ appropriately to few questions. - INFECTION CONTROL TRAVEL OUTSIDE OF THE [place] IN LAST 30 DAYS: No <HUBER MORRIS - Last Filed: 04/11/19 07:47> Course - Re-evaluation Re-evalutation: 04/11/19 03:42 Pt here for apparent fall at [facility] prior to arrival. It is unclear as to what her complaints may be secondary to her baseline mental status and no documentation sent by EMS or the fci other than some questionable left leg pain and possible neck pain. Patient is unable to give any further history. Secondary to this I did discuss case with Dr. Fajardo who advised to get lab work and CT head and neck along with imaging of the left leg. Her labs were notable for chronic findings as listed below. She did get dialysis today. Her troponin was mildly elevated however she denies any chest pain. she is again a dialysis pt. Her delta troponin is pending at the end of my shift. Patient will be signed out to oncoming SNACK BAR ATTENDANT Kathy for final dispo pending her delta troponin does not increase. She also appears to have a urinary tract infection. She was given Rocephin here. Urine Culture is pending. EKG unremarkable per Hellen Butterfield. her CT head, CT neck, chest x-ray, pelvis x-ray, left femur x-ray, left tib-fib x-ray, left foot x-ray were all negative per radiology and reviewed by myself. Patient informed of findings. She can continue to take her pain medicine she has at home for pain. I do suspect if her repeat troponin is negative she can be discharged home with antibiotics for her UTI. advised to f/u with pcp in 1-2 days. return for any worsening symptoms. vss. well appearing. satting well on ra. neurononfocal. pt understands and agrees to plan. On reexam, pt improved with tx listed. remained stable. nontoxic. well appearing. pain controlled. tolerating po. requesting to go home. serial abd exams remain benign case discussed with ER Attending, Dr. Hellen Butterfield, who directed and agrees with plan of care and advised no further workup indicated at this time and pt is stable for dc home with close f/u with pcp/specialist. Documentation achieved through voice recording which may lead to some occasional accidental typographical errors. Extensive efforts have been made to proof read documentation to make sure these are the least as possible. 04/11/19 07:02 Category Date Time Status Accucheck (ED) NOW Care 04/10/19 23:31 Active EKG Documentation STAT Care 04/10/19 23:30 Completed PCT AccuChek Documentation NOW Care 04/10/19 23:31 Active CHEST SINGLE VIEW [RAD] Stat Exams 04/10/19 23:[address] CERVICAL SPINE WITHOUT [CT] Stat Exams 04/11/19 03:[address] HEAD WITHOUT [CT] Stat Exams 04/11/19 Completed FEMUR LEFT [RAD] Stat Exams 04/10/19 23:31 Completed FOOT LEFT 2 VIEWS [RAD] Stat Exams 04/10/19 23:32 Completed PELVIS AP [RAD] Stat Exams 04/10/19 23:30 Completed TIBIA FIBULA LEFT [RAD] Stat Exams 04/10/19 23:31 Completed CBC WITH DIFF [HEME] Stat Lab 04/10/19 01:29 Completed COMPREHENSIVE METABOLIC PANEL [CHEM] Stat Lab 04/10/19 01:29 Completed CREATINE KINASE MB [CHEM] Stat Lab 04/10/19 01:29 Completed CREATINE KINASE [CHEM] Stat Lab 04/10/19 01:29 Completed HCG-QUAL, SERUM [CHEM] Routine Lab 04/11/19 01:29 Completed LACTIC ACID SEPSIS [CHEM] Stat Lab 04/10/19 01:29 Completed LIPASE [CHEM] Stat Lab 04/10/19 01:29 Completed MAGNESIUM [CHEM] Stat Lab 04/10/19 01:29 Completed TROPONIN I [CHEM] Stat Lab 04/10/19 01:29 Completed URINALYSIS [URIN] Stat Lab 04/11/19 02:19 Completed URINE CULTURE [MC] Stat Lab 04/11/19 02:19 Received 04/11/19 07:55 04/11/19 08:01 - Vital Signs Vital signs: Temp Pulse Resp BP Pulse Ox 98.8 F 70 20 135/52 H 98 04/10/19 22:33 04/10/19 22:33 04/10/19 22:33 04/10/19 22:33 04/10/19 22:33 04/11/19 07:55 Temp Pulse Resp BP BP Pulse Ox 04/11/19 06:01 17 118/63 100 04/11/19 06:00 14 100 04/11/19 05:43 13 125/50 L 99 04/11/19 05:42 14 100 04/11/19 05:18 14 04/11/19 05:01 14 04/11/19 05:00 14 04/11/19 04:01 22 H 97 04/11/19 04:00 13 96 04/11/19 03:39 23 H 98 04/11/19 03:38 24 H 04/11/19 03:01 19 150/62 H 98 04/11/19 03:00 15 97 04/11/19 02:01 20 154/80 H 97 04/11/19 02:00 22 H 93 04/11/19 01:01 15 140/60 H 98 04/11/19 01:00 15 97 04/11/19 00:01 15 100 04/11/19 00:00 15 98 04/10/19 23:01 14 138/75 H 95 04/10/19 23:00 22 H 95 04/10/19 22:45 18 135/52 H 96 04/10/19 22:44 18 94 04/10/19 22:43 18 04/10/19 22:33 98.8 F 70 20 135/52 H 98 - Laboratory Result Diagrams: 04/10/19 01:29 04/10/19 01:29 Laboratory results interpreted by me: 04/11/19 07:55 Labs- Entire Visit 04/10/19 04/10/19 04/10/19 01:29 01:29 01:29 WBC 9.0 RBC 3.14 L Hgb 10.1 L Hct 31.0 L MCV 99 H D MCH 32.1 MCHC 32.5 RDW 18.6 H Plt Count 138 L Lymph % (Auto) 9.8 L Gregg % (Auto) 10.5 Eos % (Auto) 0.8 Baso % (Auto) 0.6 Absolute Neuts (auto) 7.0 Absolute Lymphs (auto) 0.9 Absolute Monos (auto) 0.9 Absolute Eos (auto) 0.1 Absolute Basos (auto) 0.1 Seg Neutrophils % 78.3 H Sodium 138.7 Potassium 4.1 Chloride 98 Carbon Dioxide 28 Anion Gap 13 BUN 24 H Creatinine 5.09 H Est GFR ( Amer) 11 L Est GFR (MDRD) Non-Af 9 L Glucose 89 POC Glucose Lactic Acid 1.2 Calcium 9.1 Magnesium Total Bilirubin 2.8 H Direct Bilirubin 2.3 H Neonat Total Bilirubin Not Reportable Neonat Direct Bilirubin Not Reportable Neonat Indirect Bili Not Reportable AST 32 ALT 16 Alkaline Phosphatase 305 H Creatine Kinase CK-MB (CK-2) Troponin I Total Protein 8.5 H Albumin 4.0 Lipase Serum HCG, Qual Urine Color Urine Appearance Urine pH Ur Specific [place] Urine Protein Urine Glucose (UA) Urine Ketones Urine Blood Urine Nitrite Urine Bilirubin Urine Urobilinogen Ur Leukocyte Esterase Urine WBC (Auto) Urine RBC (Auto) Urine Bacteria (Auto) Urine WBC Clumps Urine Ascorbic Acid Urine HCG, Qual 04/10/19 04/10/19 04/11/19 01:29 01:29 01:23 WBC RBC Hgb Hct MCV MCH MCHC RDW Plt Count Lymph % (Auto) Gregg % (Auto) Eos % (Auto) Baso % (Auto) Absolute Neuts (auto) Absolute Lymphs (auto) Absolute Monos (auto) Absolute Eos (auto) Absolute Basos (auto) Seg Neutrophils % Sodium Potassium Chloride Carbon Dioxide Anion Gap BUN Creatinine Est GFR ( Amer) Est GFR (MDRD) Non-Af Glucose POC Glucose 80 Lactic Acid Calcium Magnesium 1.9 Total Bilirubin Direct Bilirubin Neonat Total Bilirubin Neonat Direct Bilirubin Neonat Indirect Bili AST ALT Alkaline Phosphatase Creatine Kinase 100 CK-MB (CK-2) 2.26 Troponin I 0.211 Total Protein Albumin Lipase 31.4 Serum HCG, Qual Urine Color Urine Appearance Urine pH Ur Specific [place] Urine Protein Urine Glucose (UA) Urine Ketones Urine Blood Urine Nitrite Urine Bilirubin Urine Urobilinogen Ur Leukocyte Esterase Urine WBC (Auto) Urine RBC (Auto) Urine Bacteria (Auto) Urine WBC Clumps Urine Ascorbic Acid Urine HCG, Qual 04/11/19 04/11/19 01:29 02:19 WBC RBC Hgb Hct MCV MCH MCHC RDW Plt Count Lymph % (Auto) Gregg % (Auto) Eos % (Auto) Baso % (Auto) Absolute Neuts (auto) Absolute Lymphs (auto) Absolute Monos (auto) Absolute Eos (auto) Absolute Basos (auto) Seg Neutrophils % Sodium Potassium Chloride Carbon Dioxide Anion Gap BUN Creatinine Est GFR ( Amer) Est GFR (MDRD) Non-Af Glucose POC Glucose Lactic Acid Calcium Magnesium Total Bilirubin Direct Bilirubin Neonat Total Bilirubin Neonat Direct Bilirubin Neonat Indirect Bili AST ALT Alkaline Phosphatase Creatine Kinase CK-MB (CK-2) Troponin I Total Protein Albumin Lipase Serum HCG, Qual NEGATIVE Urine Color BROWN Urine Appearance TURBID Urine pH 7.0 Ur Specific [place] 1.031 Urine Protein >=500 H Urine Glucose (UA) NEGATIVE Urine Ketones TRACE H Urine Blood LARGE H Urine Nitrite NEGATIVE Urine Bilirubin NEGATIVE Urine Urobilinogen NEGATIVE Ur Leukocyte Esterase MODERATE H Urine WBC (Auto) >182 Urine RBC (Auto) >182 Urine Bacteria (Auto) 3+ Urine WBC Clumps MANY Urine Ascorbic Acid NEGATIVE Urine HCG, Qual Cancelled - Diagnostic Test Radiology reviewed: Image reviewed, Reports reviewed Radiology results interpreted by me: 04/11/19 07:03 Chest X-Ray 04/10/19 23:29 IMPRESSION: Pulmonary vascular congestion. Mildly enlarged cardiac silhouette. Differential diagnosis includes mild/early CHF. Pelvis X-Ray 04/10/19 23:30 IMPRESSION: No acute findings. Femur X-Ray 04/10/19 23:31 IMPRESSION: No acute findings. Tibia/Fibula X-Ray 04/10/19 23:31 IMPRESSION: No acute findings. Foot X-Ray 04/10/19 23:32 IMPRESSION: No acute findings. Head CT 04/11/19 00:00 IMPRESSION: No acute intracranial abnormality. Cervical Spine CT 04/11/19 03:49 IMPRESSION: No acute findings. - EKG Interpretation by [facility] EKG shows normal: Sinus rhythm Rate: Normal - 70bpm. no stemi, reviewed by dr darby Malaga/QRS: LAHB/LAFB P Waves: LAE <HUBER MORRIS - Last Filed: 04/11/19 07:47> - Re-evaluation Re-evalutation: 04/11/19 10:41 Patient with increase in delta troponin. Consulted with Dr. Vera regarding patient presentation and diagnostic evaluation. Patient's labs reviewed as well as EKG. Patient without any dynamic changes noted on EKG. Patient denies any chest pain at this time. Patient only complains of left lower extremity pain. Dr. Arnold does not recommend any additional medications at this time does recommend repeating troponin. 04/11/19 12:07 Patient with stable vital signs awaiting repeat troponin at this time. Patient denies any chest pain shortness of breath or back pain. Patient complains of only left lower leg pain, for which she has had chronic pain. 04/11/19 12:42 pt with repeat trop resulted, consulted with dr Vera who advises consultation with cardiology. Spoke with Dr. Thompson who recommends adding on a nuclear medicine infarct avid scan for evaluation. 04/11/19 14:58 dental technician metal states that patient would not tolerate the procedure and she only got one view. States that patient became agitated stating that she was done did not want to finish the study. 04/11/19 15:[address] Victoria regarding concern about need for admission. Recommends consultation with Dr frazier Does not feel that patient is having an NSTEMI without pain at this time. 04/11/19 15:30 Dr. Russ states that we need to consult with cardiology to determine what they feel can be done for this patient if she were to be admitted. 04/11/19 16:[address] Larson again who recommends observation admission and use of nitrates given her elevated troponin and history of diabetes. Relayed this message to Dr. Hilda brown who states that he will be back to see patient. - Vital Signs Vital signs: Temp Pulse Resp BP Pulse Ox 98.8 F 70 13 104/26 L 100 04/10/19 22:33 04/10/19 22:33 04/11/19 10:01 04/11/19 10:01 04/11/19 10:01 - Laboratory Result Diagrams: 04/11/19 08:19 04/11/19 01:29 Laboratory results interpreted by me: 04/10/19 04/10/19 04/11/19 01:29 01:29 02:19 RBC 3.14 L Hgb 10.1 L Hct 31.0 L MCV 99 H D RDW 18.6 H Plt Count 138 L Lymph % (Auto) 9.8 L Seg Neutrophils % 78.3 H BUN 24 H Creatinine 5.09 H Est GFR ( Amer) 11 L Est GFR (MDRD) Non-Af 9 L Total Bilirubin 2.8 H Direct Bilirubin 2.3 H Alkaline Phosphatase 305 H Total Protein 8.5 H Urine Protein >=500 H Urine Ketones TRACE H Urine Blood LARGE H Ur Leukocyte Esterase MODERATE H <RONNIE MARY - Last Filed: 04/11/19 19:41> Discharge <HUBER MORRIS - Last Filed: 04/11/19 07:47> - Discharge Admitting Provider: Macario (Hospitalist) Unit Admitted: Telemetry <RONNIE MARY - Last Filed: 04/11/19 19:41> - Discharge Clinical Impression: Elevated troponin UTI (urinary tract infection) Qualifiers: Urinary tract infection type: site unspecified Hematuria presence: with hematuria Qualified Code(s): N39.0 - Urinary tract infection, site not specified Fall Qualifiers: Encounter type: initial encounter Qualified Code(s): W19.XXXA - Unspecified fall, initial encounter Chronic leg pain Qualifiers: Laterality: bilateral Qualified Code(s): M79.604 - Pain in right leg Condition: Fair Disposition: ADMITTED OBSERVATION
[2019-04-11 03:25] LABS: APPEARANCE,URINE TURBID; BILIRUBIN,URINE NEGATIVE (NEGATIVE); GLUCOSE, URINE NEGATIVE (NEGATIVE); KETONES,URINE TRACE mg/dL (NEGATIVE); LEUKOCYTE ESTERASE,URINE MODERATE (NEGATIVE); NITRITE,URINE NEGATIVE (NEGATIVE); PROTEIN,URINE >=500 mg/dL (NEGATIVE); URINE SPECIFIC GRAVITY 1.031; UROBILINOGEN,URINE NEGATIVE mg/dL (<2.0)
[2019-04-11 03:27] LABS: COLOR,URINE BROWN
--- NOTE | 2019-04-11 03:58 | RADIOLOGY REPORT (SQ) ---
CT head without contrast on 04/11/2019 at 3:16 AM CLINICAL INDICATION: Altered mental status TECHNIQUE: Multiple axial images are obtained throughout the head without the administration of contrast. This exam was performed according to our departmental dose-optimization program, which includes automated exposure control, adjustment of the mA and/or kV according to patient size and/or use of iterative reconstruction technique. Total DLP is 955.95 mGy*cm. COMPARISON: 10/03/2017 FINDINGS: There is no hydrocephalus. There is minimal low-density in the periventricular white matter consistent with minimal chronic small vessel ischemic changes. There is some stable thickening along the posterior aspect of the falx. There is no CT evidence of acute infarct. There is no hemorrhage. There are no abnormal extra-axial fluid collections. There is no mass, mass effect or midline shift. No acute bony abnormality is noted. IMPRESSION: No acute intracranial abnormality.
--- NOTE | 2019-04-11 04:58 | RADIOLOGY REPORT (SQ) ---
EXAM DESCRIPTION: XR TIBIA FIBULA 2 VIEWS, XR FEMUR 2 VIEWS, XR FOOT 1-2 VIEWS COMPLETED DATE/TME: 04/10/2019 23:31 (accession [id number]), 04/10/2019 23:31 (accession [id number]), 04/10/2019 23:32 (accession [id number]) CLINICAL HISTORY: Pain. 48 years Female, fall, trauma COMPARISON: None. Findings: Atherosclerotic vascular disease. Moderate calcaneal enthesophytes. Mild/moderate osteoarthritis. Bones, joints, and soft tissues of the LEFT XR TIBIA FIBULA 2 VIEWS, XR FEMUR 2 VIEWS, XR FOOT 1-2 VIEWS appear otherwise unremarkable. IMPRESSION: No acute findings.
--- NOTE | 2019-04-11 04:58 | RADIOLOGY REPORT (SQ) ---
EXAM DESCRIPTION: XR TIBIA FIBULA 2 VIEWS, XR FEMUR 2 VIEWS, XR FOOT 1-2 VIEWS COMPLETED DATE/TME: 04/10/2019 23:31 (accession [id number]), 04/10/2019 23:31 (accession [id number]), 04/10/2019 23:32 (accession [id number]) CLINICAL HISTORY: Pain. 48 years Female, fall, trauma COMPARISON: None. Findings: Atherosclerotic vascular disease. Moderate calcaneal enthesophytes. Mild/moderate osteoarthritis. Bones, joints, and soft tissues of the LEFT XR TIBIA FIBULA 2 VIEWS, XR FEMUR 2 VIEWS, XR FOOT 1-2 VIEWS appear otherwise unremarkable. IMPRESSION: No acute findings.
--- NOTE | 2019-04-11 04:58 | RADIOLOGY REPORT (SQ) ---
EXAM DESCRIPTION: XR TIBIA FIBULA 2 VIEWS, XR FEMUR 2 VIEWS, XR FOOT 1-2 VIEWS COMPLETED DATE/TME: 04/10/2019 23:31 (accession [id number]), 04/10/2019 23:31 (accession [id number]), 04/10/2019 23:32 (accession [id number]) CLINICAL HISTORY: Pain. 48 years Female, fall, trauma COMPARISON: None. Findings: Atherosclerotic vascular disease. Moderate calcaneal enthesophytes. Mild/moderate osteoarthritis. Bones, joints, and soft tissues of the LEFT XR TIBIA FIBULA 2 VIEWS, XR FEMUR 2 VIEWS, XR FOOT 1-2 VIEWS appear otherwise unremarkable. IMPRESSION: No acute findings.
--- NOTE | 2019-04-11 04:59 | RADIOLOGY REPORT (SQ) ---
EXAM DESCRIPTION: XR PELVIS 1-2 VIEWS COMPLETED DATE/TME: 04/10/2019 23:30 CLINICAL HISTORY: 48 years Female, fall COMPARISON: None. Findings: Bones, joints, and soft tissues of the XR PELVIS 1 VIEWS appear intact. Atherosclerotic vascular disease. IMPRESSION: No acute findings.
--- NOTE | 2019-04-11 05:01 | RADIOLOGY REPORT (SQ) ---
EXAM DESCRIPTION: XR CHEST 1 VIEW COMPLETED DATE/TME: 04/10/2019 23:29 CLINICAL HISTORY: 48 years Female, fall COMPARISON: 02/17/19 NUMBER OF VIEWS/TECHNIQUE: 1/AP FINDINGS: Pulmonary vascular congestion. Mildly enlarged cardiac silhouette. Adequate lung volume, and intact bony thorax. IMPRESSION: Pulmonary vascular congestion. Mildly enlarged cardiac silhouette. Differential diagnosis includes mild/early CHF.
--- NOTE | 2019-04-11 06:30 | RADIOLOGY REPORT (SQ) ---
EXAM DESCRIPTION: CT CERVICAL SPINE WITHOUT IV CONTRAST COMPLETED DATE/TME: 04/11/2019 03:49 CLINICAL HISTORY: 48 years Female, fall Comparison: None. Technique: No contrast. Coronal and sagittal reformat. This exam was performed according to our departmental dose-optimization program, which includes automated exposure control, adjustment of the mA and/or kV according to patient size and/or use of iterative reconstruction technique.[facility]: Dose Right [facility]: CareDose [facility]: Dose Right [facility]: Teradose 4D [facility]: Hickies LIMITATIONS: None Findings: Small disc bulges between the C4 and C7 levels. Atherosclerotic vascular disease. Normal alignment. Normal curvature. No fracture. Normal vertebral heights. No significant bony spinal or foraminal canal compromise. Partially imaged nuchal soft tissues, inferior cranium, and upper thorax appear otherwise grossly intact. IMPRESSION: No acute findings.
[2019-04-11] MEDS ORDERED: LIDOCAINE 1% INJ-PF (10 MG/ML) 30 ML SDV NEB ONE (07:05)
[2019-04-11] MEDS ORDERED: CEFTRIAXONE INJ 1000 MG VIAL IM ONE (07:05)
[2019-04-11 11:18] LABS: ALKALINE PHOSPHATASE 305 U/L (38-126); ANION GAP 13 (5-19); ASPARTATE AMINO TRANSFERASE 32 U/L (14-36); BILIRUBIN,DIRECT 2.3 mg/dL (0.0-0.4); BILIRUBIN,TOTAL 2.8 mg/dL (0.2-1.3); BLOOD UREA NITROGEN 24 mg/dL (7-20); CALCIUM 9.1 mg/dL (8.4-10.2); CARBON DIOXIDE 28 mmol/L (22-30); CHLORIDE 98 mmol/L (98-107); CREATINE KINASE 100 U/L (30-135); GLUCOSE 89 mg/dL (75-110); POTASSIUM 4.1 mmol/L (3.6-5.0); TOTAL PROTEIN 8.5 g/dL (6.3-8.2)
[2019-04-11 11:19] LABS: CREATINE KINASE MB 2.26 ng/mL (<4.55)
[2019-04-11 11:20] LABS: TROPONIN I 0.211 ng/mL
[2019-04-11 11:27] LABS: ABSOLUTE BASOPHILS # (AUTO) 0.1 10^3/uL (0.0-0.2); ABSOLUTE EOSINOPHILS # (AUTO) 0.1 10^3/uL (0.0-0.6); ABSOLUTE LYMPHOCYTES (AUTO) 0.9 10^3/uL (0.5-4.7); ABSOLUTE MONOCYTES (AUTO) 0.9 10^3/uL (0.1-1.4); BASOPHILS % (AUTO) 0.6 % (0-2); EOSINOPHILS % (AUTO) 0.8 % (0-6); HEMOGLOBIN 10.1 g/dL (12.0-15.5); LYMPHOCYTES % (AUTO) 9.8 % (13-45); MEAN CORPUSCULAR HEMOGLOBIN 32.1 pg (27.0-33.4); MEAN CORPUSCULAR HGB CONC 32.5 g/dL (32.0-36.0); MEAN CORPUSCULAR VOLUME 99 fl (80-97); MONOCYTES % (AUTO) 10.5 % (3-13); PLATELET COUNT 138 10^3/uL (150-450); RED BLOOD COUNT 3.14 10^6/uL (3.72-5.28); RED CELL DISTRIBUTION WIDTH 18.6 % (11.5-14.0); SEGMENTED NEUTROPHILS % (AUTO) 78.3 % (42-78); TOTAL CELLS COUNTED % (AUTO) 100 %
[2019-04-11] MEDS ORDERED: HYDROMORPHONE HCL 2 MG TABLET PO ONE (12:03)
[2019-04-11] MEDS ORDERED: ACETAMINOPHEN 325 MG TABLET PO ONE (14:05)
[2019-04-11] MEDS ORDERED: NITROGLYCERIN 2% OINTMENT 1 GM PACKET TP ONE (16:14)
[2019-04-11] MEDS ORDERED: TEMAZEPAM 15 MG CAPSULE PO PRN (17:00)
[2019-04-11] MEDS ORDERED: IPRATROPIUM/ALBUTEROL 0.5-2.5 MG/3 ML AMPUL NEB PRN (17:00)
[2019-04-11] MEDS ORDERED: ONDANSETRON HCL INJ/PF 4 MG/2 ML SDV IV PRN (17:00)
--- NOTE | 2019-04-11 17:05 | PDOC H&P ---
History of Present Illness Admission Date/PCP: EARLINE MCKINNEY MD History of Present Illness: MICKIE SHARP is a 48 year old black female patient was past medical history of hypertension, hyperlipidemia, congestive heart failure, type 2 diabetes mellitus, peripheral arterial disease status post right BKA, end-stage renal disease on hemodialysis, anemia of CKD brought from [facility] status post fall. Since patient is severely hard of hearing and underlying cognitive impairment brief history is obtained from the ER attending note. Per ER attending note "this is a 48 years old chronically debilitated, demented bedbound and who gets dialysis Wednesday and "left today, obese female who is a very poor historian and sent by her prison for concern of fall per report. She complains of left leg pain diffusely. 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 The patient is not able to give me any history whatsoever. The paperwork she was sent with states she complains of neck pain after a fall. She denies pain anywhere else or any other complaints to me and is resting quietly in bed in no sign of pain or respiratory distress until you ask her what hurts and she states her left leg hurts. I am not able to get any further history or sick information from the patient, EMS reports, or anything that was sent with her she is nonambulatory at baseline. Her CT neck and other extremity x-rays are negative. Troponin XX 13 was done and it shows that initially 0.211-second set 0.412 and surgery is 0.429. Patient does not have any chest pain. Dr. Thompson is consulted by ER attending. He recommended to admit the patient for observation. Past Medical History Cardiac Medical History: Reports: Congestive Heart Failure, Hyperlipidema, Hypertension Denies: Coronary Artery Disease, Myocardial Infarction Pulmonary Medical History: Reports: Asthma Denies: Bronchitis, Chronic Obstructive Pulmonary Disease (COPD), Pneumonia Neurological Medical History: Denies: Seizures Endocrine Medical History: Reports: Diabetes Mellitus Type 1, Diabetes Mellitus Type 2 Denies: Hyperthyroidism, Hypothyroidism Renal/ Medical History: Reports: End Stage Renal Disease - On on hemodialysis 3 days/week- MWF GI Medical History: Denies: Cirrhosis, Hepatitis Musculoskeltal Medical History: Denies: Arthritis, Gout Skin Medical History: Denies: Eczema, Psoriasis Psychiatric Medical History: Denies: Depression Hematology: Reports: Anemia Denies: Bleeding Tendencies Past Surgical History Past Surgical History: Reports: Cholecystectomy, Orthopedic Surgery - Right BKA, Vascular Surgery - fistula placement for hemodialysis, Other - Amputation right lower extremity Social History Lives with: [facility] Smoking Status: Former Smoker Frequency of Alcohol Use: None Hx Recreational Drug Use: No Drugs: None Hx Prescription Drug Abuse: No - Advance Directive Resuscitation Status: Full Code Family History Family History: CAD, DM, Hypertension Parental Family History Reviewed: Yes Children Family History Reviewed: Yes Sibling(s) Family History Reviewed.: Yes Medication/Allergy Home Medications: Calcium Carbonate [Tums Chewable 500 mg Tab.chew] 1,000 mg PO QHS 02/10/19 Carvedilol [Coreg 12.5 mg Tablet] 12.5 mg PO Q12 02/10/19 Folic Acid/Vitamin B Comp W-C [Alexandra-Nilesh Tablet] 0.8 mg PO DAILY 02/10/19 Hydroxyzine Pamoate [Vistaril 50 mg Capsule] 50 mg PO Q6HP PRN 02/10/19 Loperamide HCl [Loperamide] 2 mg PO QIDP PRN 02/10/19 Sevelamer Carbonate [Renvela] 3,200 mg PO TID 02/10/19 Gabapentin [Neurontin 100 mg Capsule] 100 mg PO Q8 PRN #0 02/14/19 Levofloxacin [Levaquin 250 mg Tablet] 250 mg PO Q2D@1000 #2 tablet 02/14/19 Metoclopramide HCl [Reglan] 5 mg PO QID PRN #0 02/14/19 Allergies/Adverse Reactions: No Known Allergies Allergy (Verified 04/10/19 22:47) Review of Systems Constitutional: ABSENT: chills, fever(s), headache(s), weight gain, weight loss Eyes: ABSENT: visual disturbances Ears: ABSENT: hearing changes Cardiovascular: ABSENT: chest pain, dyspnea on exertion, edema, orthropnea, palpitations Respiratory: ABSENT: cough, hemoptysis Gastrointestinal: ABSENT: abdominal pain, constipation, diarrhea, hematemesis, hematochezia, nausea, vomiting Genitourinary: ABSENT: dysuria, hematuria Musculoskeletal: PRESENT: back pain Integumentary: ABSENT: rash, wounds Neurological: ABSENT: abnormal gait, abnormal speech, confusion, dizziness, focal weakness, syncope Psychiatric: ABSENT: anxiety, depression, homidical ideation, suicidal ideation Endocrine: ABSENT: cold intolerance, heat intolerance, polydipsia, polyuria Hematologic/Lymphatic: ABSENT: easy bleeding, easy bruising Physical Exam Vital Signs: Temp Pulse Resp BP Pulse Ox 98.8 F 70 16 118/97 H 98 04/10/19 22:33 04/10/19 22:33 04/11/19 15:02 04/11/19 15:02 04/11/19 15:02 Intake & Output 04/10/19 04/11/19 04/12/19 06:59 06:59 06:59 Weight 90.718 kg General appearance: PRESENT: no acute distress, obese Head exam: PRESENT: atraumatic, normocephalic Eye exam: ABSENT: scleral icterus Mouth exam: PRESENT: moist Neck exam: ABSENT: carotid bruit, JVD, lymphadenopathy, thyromegaly Respiratory exam: ABSENT: rales, rhonchi, wheezes Cardiovascular exam: PRESENT: RRR. ABSENT: diastolic murmur, rubs, systolic murmur GI/Abdominal exam: PRESENT: normal bowel sounds, soft. ABSENT: distended, guarding, mass, organolmegaly, rebound, tenderness Rectal exam: PRESENT: deferred Extremities exam: PRESENT: full ROM. ABSENT: calf tenderness, clubbing, pedal edema Neurological exam: PRESENT: alert, awake Psychiatric exam: PRESENT: appropriate affect, normal mood. ABSENT: homicidal ideation, suicidal ideation Skin exam: PRESENT: warm. ABSENT: cyanosis, rash Results Laboratory Results: 04/11/19 08:19 04/11/19 01:29 04/10/19 04/10/19 04/10/19 01:29 01:29 01:29 WBC RBC Hgb Hct MCV MCH MCHC RDW Plt Count Seg Neutrophils % Sodium Potassium Chloride Carbon Dioxide Anion Gap BUN Creatinine Est GFR ( Amer) Glucose Lactic Acid Calcium Magnesium Total Bilirubin AST Alkaline Phosphatase Total Protein Albumin Lipase Serum HCG, Qual Urine Color Urine Appearance Urine pH Ur Specific Edwards Urine Protein Urine Glucose (UA) Urine Ketones Urine Blood Urine Nitrite Ur Leukocyte Esterase Urine WBC (Auto) Urine RBC (Auto) 04/10/19 04/11/19 04/11/19 01:29 01:29 01:29 WBC RBC Hgb Hct MCV MCH MCHC RDW Plt Count Seg Neutrophils % Sodium 138.7 Potassium 4.1 Chloride 98 Carbon Dioxide 28 Anion Gap 13 BUN 24 H Creatinine 5.09 H Est GFR ( Amer) 11 L Glucose 89 Lactic Acid Calcium 9.1 Magnesium 1.9 Total Bilirubin 2.8 H AST 32 Alkaline Phosphatase 305 H Total Protein 8.5 H Albumin 4.0 Lipase 31.4 Serum HCG, Qual NEGATIVE Urine Color Urine Appearance Urine pH Ur Specific Edwards Urine Protein Urine Glucose (UA) Urine Ketones Urine Blood Urine Nitrite Ur Leukocyte Esterase Urine WBC (Auto) Urine RBC (Auto) 04/11/19 04/11/19 04/11/19 01:29 01:29 02:19 WBC RBC Hgb Hct MCV MCH MCHC RDW Plt Count Seg Neutrophils % Sodium Potassium Chloride Carbon Dioxide Anion Gap BUN Creatinine Est GFR ( Amer) Glucose Lactic Acid Cancelled 1.2 Calcium Magnesium Total Bilirubin AST Alkaline Phosphatase Total Protein Albumin Lipase Serum HCG, Qual Urine Color BROWN Urine Appearance TURBID Urine pH 7.0 Ur Specific Edwards 1.031 Urine Protein >=500 H Urine Glucose (UA) NEGATIVE Urine Ketones TRACE H Urine Blood LARGE H Urine Nitrite NEGATIVE Ur Leukocyte Esterase MODERATE H Urine WBC (Auto) >182 Urine RBC (Auto) >182 04/11/19 08:19 WBC 9.0 RBC 3.14 L Hgb 10.1 L Hct 31.0 L MCV 99 H D MCH 32.1 MCHC 32.5 RDW 18.6 H Plt Count 138 L Seg Neutrophils % 78.3 H Sodium Potassium Chloride Carbon Dioxide Anion Gap BUN Creatinine Est GFR ( Amer) Glucose Lactic Acid Calcium Magnesium Total Bilirubin AST Alkaline Phosphatase Total Protein Albumin Lipase Serum HCG, Qual Urine Color Urine Appearance Urine pH Ur Specific Edwards Urine Protein Urine Glucose (UA) Urine Ketones Urine Blood Urine Nitrite Ur Leukocyte Esterase Urine WBC (Auto) Urine RBC (Auto) 04/10/19 04/10/19 04/11/19 01:29 01:29 01:29 Creatine Kinase 100 CK-MB (CK-2) Troponin I 04/11/19 04/11/19 04/11/19 01:29 08:18 11:47 Creatine Kinase CK-MB (CK-2) 2.26 Troponin I 0.211 0.412 0.429 Impressions: Chest X-Ray 04/10/19 23:29 IMPRESSION: Pulmonary vascular congestion. Mildly enlarged cardiac silhouette. Differential diagnosis includes mild/early CHF. Pelvis X-Ray 04/10/19 23:30 IMPRESSION: No acute findings. Femur X-Ray 04/10/19 23:31 IMPRESSION: No acute findings. Tibia/Fibula X-Ray 04/10/19 23:31 IMPRESSION: No acute findings. Foot X-Ray 04/10/19 23:32 IMPRESSION: No acute findings. Head CT 04/11/19 00:00 IMPRESSION: No acute intracranial abnormality. Cervical Spine CT 04/11/19 03:49 IMPRESSION: No acute findings. Assessment and Plan - Diagnosis (1) Elevated troponin Is this a current diagnosis for this admission?: Yes Plan: Patient has history of chronically elevated troponins. Her current elevation is more than her baseline. Patient refused nuclear cardiac stress test. (2) Hypertension Qualifiers: Hypertension type: essential hypertension Qualified Code(s): I10 - Essential (primary) hypertension Is this a current diagnosis for this admission?: Yes Plan: Continue her home meds (3) Type 2 diabetes mellitus Is this a current diagnosis for this admission?: Yes Plan: Continue home meds and put her on sliding scale. (4) Hyperlipidemia Qualifiers: Hyperlipidemia type: unspecified Qualified Code(s): E78.5 - Hyperlipidemia, unspecified Is this a current diagnosis for this admission?: Yes Plan: Continue home your medication (5) End stage renal disease Is this a current diagnosis for this admission?: Yes Plan: I will consult on-call predictive maintenance specialist for hemodialysis.
--- NOTE | 2019-04-11 17:07 | RADIOLOGY REPORT (SQ) ---
EXAM DESCRIPTION: NM MYOCARDIAL INFARCT AVID COMPLETED DATE/TIME: 04/11/2019 2:53 pm REASON FOR STUDY: elev trop COMPARISON: None. RADIONUCLIDE AND DOSE: 20 mCi technetium prior phosphate. ADDITIONAL DRUGS AND DOSES: None TECHNIQUE: Study was limited by patient's wish to terminate the study before adequate counts could b e obtained. AP imaging was performed. LIMITATIONS: None. FINDINGS: No abnormal cardiac uptake is demonstrated. IMPRESSION: No abnormal cardiac uptake is demonstrated on this limited study. TECHNICAL DOCUMENTATION: JOB ID: [id number] [employer]- All Rights Reserved Reading location - IP/workstation name: [email or web address]
[2019-04-11] MEDS: DOCUSATE SODIUM 100 MG CAPSULE PO SCH (18:23)
[2019-04-11] MEDS: OXYCODONE-ACETAMINOPHEN 5-325 MG TABLET PO PRN (18:23)
--- NOTE | 2019-04-11 18:53 | EKG REPORT ---
SEVERITY:- ABNORMAL ECG - SINUS ARRHYTHMIA, RATE 53-78 BORDERLINE LEFT AXIS DEVIATION ABNORMAL T, CONSIDER ISCHEMIA, LATERAL LEADS BORDERLINE PROLONGED QT INTERVAL : Confirmed by: Bubba Brito MD 11-Apr-2019 18:52:57
--- NOTE | 2019-04-11 19:06 | XCELERA REPORT ---
[address] [place] [facility] [address] Lower Extremity Venous Evaluation Procedure: Color flow and duplex imaging of the veins of the left lower extremity as well as the right Common Femoral vein. Right Sided Venous Evaluation The right common femoral vein is fully compressible. Spontaneous and phasic flow is present in the right common femoral vein. Left Sided Venous Evaluation Normal vessel filling wall to wall, compression and augmentation as well as Colour flow down to the infrageniculate veins. Interpretation Summary No duplex evidence of DVT or obstruction in the left lower extremity nor in the right Common Femoral vein. Name: MICKIE SHARP Age: 48 yrs Gender: Female : 1970 Patient Status: Emergency Patient Location: ER Study Date: 04/11/2019 03:09 PM Reason For Study: LLE pain Ordering Physician: RONNIE MARY Performed By: Cami Parra : RONNIE MARY > Jose Raul Genao
[2019-04-11] MEDS: HEPARIN SOD (PORCINE) 5,000 UNIT/ML 1 ML VIAL SUBCUT SCH (21:23)
[2019-04-11] MEDS: FAMOTIDINE 20 MG TABLET PO SCH (21:25)
[2019-04-12] MEDS ORDERED: EPOETIN ALFA INJ 20000 UNIT/1 ML VIAL (RENAL) IV PRN (05:00)
[2019-04-12] MEDS: HEPARIN SOD (PORCINE) 5,000 UNIT/ML 1 ML VIAL SUBCUT SCH ×3 (05:36→21:11)
[2019-04-12 07:16] LABS: HEMATOCRIT 28.2 % (36.0-47.0); HEMOGLOBIN 9.4 g/dL (12.0-15.5); MEAN CORPUSCULAR HEMOGLOBIN 32.8 pg (27.0-33.4); MEAN CORPUSCULAR HGB CONC 33.3 g/dL (32.0-36.0); MEAN CORPUSCULAR VOLUME 99 fl (80-97); PLATELET COUNT 128 10^3/uL (150-450); RED BLOOD COUNT 2.86 10^6/uL (3.72-5.28); RED CELL DISTRIBUTION WIDTH 18.2 % (11.5-14.0); WHITE BLOOD COUNT 8.5 10^3/uL (4.0-10.5)
[2019-04-12 07:32] LABS: ANION GAP 11 (5-19); BLOOD UREA NITROGEN 36 mg/dL (7-20); CALCIUM 8.8 mg/dL (8.4-10.2); CARBON DIOXIDE 29 mmol/L (22-30); CHLORIDE 97 mmol/L (98-107); GLUCOSE 100 mg/dL (75-110); POTASSIUM 4.5 mmol/L (3.6-5.0)
[2019-04-12] MEDS ORDERED: EPOETIN ALFA-EPBX 10,000 UNIT/ML VIAL (RENAL) IV PRN (08:19)
[2019-04-12] MEDS: OXYCODONE-ACETAMINOPHEN 5-325 MG TABLET PO PRN ×2 (09:47→17:29)
[2019-04-12] MEDS: DOCUSATE SODIUM 100 MG CAPSULE PO SCH ×2 (10:25→17:29)
[2019-04-12] MEDS: FAMOTIDINE 20 MG TABLET PO SCH ×2 (10:25→21:47)
[2019-04-12] MEDS ORDERED: MORPHINE SULFATE 10 MG/ML INJ IV ONE (12:15)
[2019-04-12] MEDS ORDERED: PROMETHAZINE HCL INJ 25 MG/1 ML VIAL IV ONE ×2 (14:00→15:00)
--- NOTE | 2019-04-12 14:30 | PDOC CONSULTATION ---
Consultation Consult Date: 04/12/19 Provider Consulted: Marjorie RAVI Consult reason:: ESRD for HD History of Present Illness Admission Date/PCP: 04/11/19 17:13 EARLINE MCKINNEY MD History of Present Illness: MICKIE SHARP is a 48 year old female patient was past medical history of ESRD in the background of diabetes mellitus, hypertension, hyperlipidemia, congestive heart failure, peripheral arterial disease status post right BKA, was brought from [facility] status post fall. This patient is severely hard of hearing and has underlying cognitive impairment Is unable to give any meaningful history. She is very vague about her symptoms and complains that she has no chest pains. She has no headaches. She is complaining of some pain around her phantom limb where she had a a mputation. She denies any history of chest pains or shortness of breath.History was gathered by review of chart and discussion with the treating nurse. She is chronically debilitated, demented bedbound and who gets dialysis Wednesday. She complained of left leg pain diffusely in the ER. She does have a right BKA. Currently the patient is not able to give any history. She denies pain anywhere else or any other complaints to me and is resting quietly in bed in no sign of pain or respiratory distress until you ask her what hurts and she states her left leg hurts. Her CT neck and other extremity x- rays are negative. Troponin was done and it shows that initially 0.211-second set 0.412 and last is 0.429. Nuclear cardiac scan was initiated by Dr. Thompson/public health social worker but patient was uncooperative and therefore the scan had to be aborted and was inconclusive. She was seen this morning and again while undergoing dialysis. She is undergoing dialysis without any issues. Past Medical History Cardiac Medical History: Reports: CHF-Diastolic, Hyperlipidemia, Hypertension- primary Denies: Coronary Artery Disease, Myocardial Infarction Pulmonary Medical History: Reports: Asthma Denies: Bronchitis, Chronic Obstructive Pulmonary Disease (COPD), Pneumonia Neurological Medical History: Denies: Seizures Endocrine Medical History: Reports: Diabetes Mellitus Type 1, Diabetes Mellitus Type 2 Denies: Hyperthyroidism, Hypothyroidism Renal/ Medical History: Reports: End Stage Renal Disease - On on hemodialysis 3 days/week- MWF, Secondary Hyperparathyroidism GI Medical History: Denies: Cirrhosis, Hepatitis Musculoskeltal Medical History: Denies: Arthritis, Gout Skin Medical History: Denies: Eczema, Psoriasis Psychiatric Medical History: Reports: Other - Mental retardation with moderate cognitive impairment. Denies: Depression Hematology Medical History: Reports Anemia of Chronic Kidney Disease Past Surgical History Past Surgical History: Reports: Cholecystectomy, Dialysis Access Surgery AVF, Orthopedic Surgery - Right BKA, Vascular Surgery - fistula placement for hemodialysis, Other - Amputation right lower extremity Social History Lives with: [facility] Smoking Status: Former Smoker Frequency of Alcohol Use: None Hx Recreational Drug Use: No Drugs: None Hx Prescription Drug Abuse: No - Advance Directive Resuscitation Status: Full Code Family History Parental Family History Reviewed: No Children Family History Reviewed: No Sibling(s) Family History Reviewed.: No Medication/Allergy Home Medications: Calcium Carbonate [Tums Chewable 500 mg Tab.chew] 100 mg PO WSUPPER 04/11/19 Epoetin Lobo-Epbx [Retacrit 10,000 Unit/ml Vial (Renal)] 10,000 unit SQ MOWEFR 04/11/19 Hydromorphone HCl [Dilaudid 2 mg Tablet] 2 mg PO Q6HP PRN 04/11/19 Hydroxyzine Pamoate [Vistaril 50 mg Capsule] 50 mg PO Q6HP PRN 04/11/19 Loperamide HCl [Imodium 2 mg Capsule] 2 mg PO QIDP PRN 04/11/19 Pantoprazole Sodium [Protonix [address] Tablet] 40 mg PO Q6AM 04/11/19 Sennosides/Docusate 8.6-50 mg [Senna Plus Tablet] 2 tab PO BID 04/11/19 Sevelamer Carbonate [Renvela] 3,200 mg PO MEALS 04/11/19 Vit B Comp No.3/Folic/C/Biotin [Alexandra-Nilesh Rx Tablet] 1 tab PO DAILY 04/11/19 Allergies/Adverse Reactions: No Known Allergies Allergy (Verified 04/10/19 22:47) Review of Systems ROS unobtainable: Due to mental status Cardiovascular: ABSENT: chest pain, dyspnea on exertion Physical Exam Vital Signs: Temp Pulse Resp BP Pulse Ox 98.8 F 68 20 110/43 L 98 04/12/19 11:03 04/12/19 11:03 04/12/19 11:03 04/12/19 11:03 04/12/19 11:03 Intake & Output 04/11/19 04/12/19 04/13/19 06:59 06:59 06:59 Weight 90.718 kg 103.1 kg General appearance: PRESENT: no acute distress Eye exam: PRESENT: EOMI, PERRLA Mouth exam: PRESENT: moist Neck exam: ABSENT: lymphadenopathy, meningismus, tenderness, tracheal deviation Respiratory exam: PRESENT: clear to auscultation ezequiel. ABSENT: crackles Cardiovascular exam: PRESENT: +S1, +S2 GI/Abdominal exam: PRESENT: normal bowel sounds, soft. ABSENT: organomegaly, tenderness Extremities exam: ABSENT: pedal edema Neurological exam: PRESENT: alert, awake, oriented to person. ABSENT: oriented to place, oriented to time Psychiatric exam: PRESENT: anxious Focused psych exam: PRESENT: other - Mental retardation that she is unable to give any meaningful history or answer questions in a consistent fashion. Skin exam: PRESENT: dry. ABSENT: erythema, mottled, rash Results Laboratory Results: 04/12/19 06:37 04/12/19 06:37 04/12/19 04/12/19 06:37 06:37 WBC 8.5 RBC 2.86 L Hgb 9.4 L Hct 28.2 L MCV 99 H MCH 32.8 MCHC 33.3 RDW 18.2 H Plt Count 128 L Sodium 137.1 Potassium 4.5 Chloride 97 L Carbon Dioxide 29 Anion Gap 11 BUN 36 H Creatinine 6.74 H Est GFR ( Amer) 8 L Glucose 100 Calcium 8.8 04/10/19 04/10/19 04/11/19 01:29 01:29 01:29 Creatine Kinase 100 CK-MB (CK-2) Troponin I 04/11/19 04/11/19 04/11/19 01:29 08:18 11:47 Creatine Kinase CK-MB (CK-2) 2.26 Troponin I 0.211 0.412 0.429 Impressions: Chest X-Ray 04/10/19 23:29 IMPRESSION: Pulmonary vascular congestion. Mildly enlarged cardiac silhouette. Differential diagnosis includes mild/early CHF. Pelvis X-Ray 04/10/19 23:30 IMPRESSION: No acute findings. Femur X-Ray 04/10/19 23:31 IMPRESSION: No acute findings. Tibia/Fibula X-Ray 04/10/19 23:31 IMPRESSION: No acute findings. Foot X-Ray 04/10/19 23:32 IMPRESSION: No acute findings. Head CT 04/11/19 00:00 IMPRESSION: No acute intracranial abnormality. Cervical Spine CT 04/11/19 03:49 IMPRESSION: No acute findings. Cardiac Imaging Nuclear Medicine 04/11/19 12:45 IMPRESSION: No abnormal cardiac uptake is demonstrated on this limited study. Assessment & Plan - Diagnosis (1) End stage renal disease Is this a current diagnosis for this admission?: Yes Plan: Patient seen on dialysis. Patient undergoing dialysis without any issues. Plan to do her at low flow rates given her troponin leaks. Plan to put on QB of 300 and daily of 800. Plan to remove at the most liter. Discussed with the treating dialysis nurse Joie that blood pressure should be maintained around 120 systolic. If her blood pressure drops any then stopultrafiltration.Patient is being monitored by telemetry. (2) Elevated troponin Is this a current diagnosis for this admission?: Yes Plan: As per hospitalist/cardiology. Patient unable to do even cardiac nuclear scan because of her mental retardation and unable to cooperate. Patient is being monitored by telemetry. Patient had no symptoms of chest pain and EKG was unremarkable for any evidences of ischemic heart disease. (3) Hypertension Qualifiers: Hypertension type: essential hypertension Qualified Code(s): I10 - Essential (primary) hypertension Is this a current diagnosis for this admission?: Yes Plan: Controlled. (4) Type 2 diabetes mellitus Is this a current diagnosis for this admission?: Yes Plan: As per hospitalist.
--- NOTE | 2019-04-12 16:18 | PDOC PROGRESS REPORT ---
Subjective Progress Note for:: 04/12/19 Subjective:: MICKIE SHARP is a 48 year old black female patient was past medical history of hypertension, hyperlipidemia, congestive heart failure, type 2 diabetes mellitus, peripheral arterial disease status post right BKA, end-stage renal disease on hemodialysis, anemia of CKD brought from [facility] status post fall. Since patient is severely hard of hearing and underlying cognitive impairment brief history is obtained from the ER attending note. Per ER atten ding note "this is a 48 years old chronically debilitated, demented bedbound and who gets dialysis Wednesday and "left today, obese female who is a very poor historian and sent by her [facility] for concern of fall per report. She complains of left leg pain diffusely. 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 The patient is not able to give me any history whatsoever. The paper work she was sent with states she complains of neck pain after a fall. She denies pain anywhere else or any other complaints to me and is resting quietly in bed in no sign of pain or respiratory distress until you ask her what hurts and she states her left leg hurts. I am not able to get any further history or sick information from the patient, EMS reports, or anything that was sent with her she is nonambulatory at baseline. Her CT neck and other extremity x-rays are negative. Troponin XX 13 was done and it shows that initially 0.211-second set 0.412 and surgery is 0.429. Patient does not have any chest pain. Dr. Thompson is consulted by ER attending. He recommended to admit the patient for observation. 04/12/2019: Patient seen while sitting at the bedside and chatting with her boyfriend. States she complains of pain of the right BKA stump. She she complains that the Percocet that she was given does not help her. Given 1 mg of IV morphine sulfate. Reason For Visit: ELEVATED TROPONIN Physical Exam Vital Signs: Temp Pulse Resp BP Pulse Ox 98.8 F 68 20 110/43 L 98 04/12/19 11:03 04/12/19 11:03 04/12/19 11:03 04/12/19 11:03 04/12/19 11:03 Intake & Output 04/11/19 04/12/19 04/13/19 06:59 06:59 06:59 Intake Total 200 Balance 200 Weight 90.718 kg 103.1 kg General appearance: PRESENT: mild distress Head exam: PRESENT: atraumatic Eye exam: PRESENT: conjunctiva pink Mouth exam: PRESENT: moist Neck exam: ABSENT: carotid bruit, JVD, lymphadenopathy, thyromegaly Respiratory exam: PRESENT: clear to auscultation ezequiel. ABSENT: rales, rhonchi, wheezes Cardiovascular exam: PRESENT: RRR. ABSENT: diastolic murmur, rubs, systolic murmur Neurological exam: PRESENT: alert, altered Skin exam: PRESENT: dry, other - Diffuse papular lesions Results Laboratory Results: 04/12/19 06:37 04/12/19 06:37 04/12/19 04/12/19 06:37 06:37 WBC 8.5 RBC 2.86 L Hgb 9.4 L Hct 28.2 L MCV 99 H MCH 32.8 MCHC 33.3 RDW 18.2 H Plt Count 128 L Sodium 137.1 Potassium 4.5 Chloride 97 L Carbon Dioxide 29 Anion Gap 11 BUN 36 H Creatinine 6.74 H Est GFR ( Amer) 8 L Glucose 100 Calcium 8.8 04/10/19 04/10/19 04/11/19 01:29 01:29 01:29 Creatine Kinase 100 CK-MB (CK-2) Troponin I 04/11/19 04/11/19 04/11/19 01:29 08:18 11:47 Creatine Kinase CK-MB (CK-2) 2.26 Troponin I 0.211 0.412 0.429 Impressions: Chest X-Ray 04/10/19 23:29 IMPRESSION: Pulmonary vascular congestion. Mildly enlarged cardiac silhouette. Differential diagnosis includes mild/early CHF. Pelvis X-Ray 04/10/19 23:30 IMPRESSION: No acute findings. Femur X-Ray 04/10/19 23:31 IMPRESSION: No acute findings. Tibia/Fibula X-Ray 04/10/19 23:31 IMPRESSION: No acute findings. Foot X-Ray 04/10/19 23:32 IMPRESSION: No acute findings. Head CT 04/11/19 00:00 IMPRESSION: No acute intracranial abnormality. Cervical Spine CT 04/11/19 03:49 IMPRESSION: No acute findings. Cardiac Imaging Nuclear Medicine 04/11/19 12:45 IMPRESSION: No abnormal cardiac uptake is demonstrated on this limited study. Assessment and Plan - Diagnosis (1) Elevated troponin Is this a current diagnosis for this admission?: Yes Plan: Patient is being managed conservatively. (2) Hypertension Qualifiers: Hypertension type: essential hypertension Qualified Code(s): I10 - Essential (primary) hypertension Is this a current diagnosis for this admission?: Yes Plan: Continue her home meds (3) Type 2 diabetes mellitus Is this a current diagnosis for this admission?: Yes Plan: Continue home meds and put her on sliding scale. (4) Hyperlipidemia Qualifiers: Hyperlipidemia type: unspecified Qualified Code(s): E78.5 - Hyperlipidemia, unspecified Is this a current diagnosis for this admission?: Yes Plan: Continue home your medication (5) End stage renal disease Is this a current diagnosis for this admission?: Yes Plan: I will consult on-call transmission technician for hemodialysis. (6) Peripheral arterial disease Is this a current diagnosis for this admission?: Yes Plan: Status post right BKA. Patient has chronic pain of the BKA stump. Which could be the phantom pain.
[2019-04-13] MEDS: HEPARIN SOD (PORCINE) 5,000 UNIT/ML 1 ML VIAL SUBCUT SCH ×2 (06:22→13:21)
[2019-04-13 08:35] VITALS: BP 114/45
[2019-04-13] MEDS: FAMOTIDINE 20 MG TABLET PO SCH (09:33)
[2019-04-13] MEDS: OXYCODONE-ACETAMINOPHEN 5-325 MG TABLET PO PRN ×2 (09:33→17:29)
[2019-04-13] MEDS: DOCUSATE SODIUM 100 MG CAPSULE PO SCH ×2 (09:33→17:30)
--- NOTE | 2019-04-13 10:40 | PDOC TRANSFER SUMMARY ---
General - Admit/Disc Date/PCP Admission Date/Primary Care Provider: 04/11/19 17:13 EARLINE MCKINNEY MD Discharge Date: 04/13/19 - Discharge Diagnosis (1) Elevated troponin Is this a current diagnosis for this admission?: Yes (2) Hypertension Is this a current diagnosis for this admission?: Yes (3) Type 2 diabetes mellitus Is this a current diagnosis for this admission?: Yes (4) Hyperlipidemia Is this a current diagnosis for this admission?: Yes (5) End stage renal disease Is this a current diagnosis for this admission?: Yes (6) Peripheral arterial disease Is this a current diagnosis for this admission?: Yes - Additional Information Resuscitation Status: Full Code Home Medications: Calcium Carbonate [Tums Chewable 500 mg Tab.chew] 100 mg PO WSUPPER 04/11/19 Epoetin Lobo-Epbx [Retacrit 10,000 Unit/ml Vial (Renal)] 10,000 unit SQ MOWEFR 04/11/19 Hydromorphone HCl [Dilaudid 2 mg Tablet] 2 mg PO Q6HP PRN 04/11/19 Hydroxyzine Pamoate [Vistaril 50 mg Capsule] 50 mg PO Q6HP PRN 04/11/19 Loperamide HCl [Imodium 2 mg Capsule] 2 mg PO QIDP PRN 04/11/19 Pantoprazole Sodium [Protonix [address] Tablet] 40 mg PO Q6AM 04/11/19 Sennosides/Docusate 8.6-50 mg [Senna Plus Tablet] 2 tab PO BID 04/11/19 Sevelamer Carbonate [Renvela] 3,200 mg PO MEALS 04/11/19 Vit B Comp No.3/Folic/C/Biotin [Aelxandra-Nilesh Rx Tablet] 1 tab PO DAILY 04/11/19 History of Present Illness Admission Date/PCP: 04/11/19 17:13 EARLINE MCKINNEY MD History of Present Illness: MICKIE SHARP is a 48 year old black female patient was past medical history of hypertension, hyperlipidemia, congestive heart failure, type 2 diabetes mellitus, peripheral arterial disease status post right BKA, end-stage renal disease on hemodialysis, anemia of CKD brought from [facility] status post fall. Since patient is severely hard of hearing and underlying cognitive impairment brief history is obtained from the ER attending note. Per ER attending note "this is a 48 years old chronically debilitated, demented bedbound and who gets dialysis Wednesday and "left today, obese female who is a very poor historian and [facility] for concern [facility] per report. She complains of left leg pain diffusely. 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 The patient is not able to give me any history whatsoever. The paperwork she was sent with states she complains of neck pain after a fall. She denies pain anywhere else or any other complaints to me and is resting quietly in bed in no sign of pain or respiratory distress until you ask her what hurts and she states her left leg hurts. I am not able to get any further history or sick information from the patient, EMS reports, or anything that was sent with her she is nonambulatory at baseline. Her CT neck and other extremity x-rays are negative. Troponin XX 13 was done and it shows that initially 0.211-second set 0.412 and surgery is 0.429. Patient does not have any chest pain. Dr. Thompson is consulted by ER attending. He recommended to admit the patient for observation. Hospital Course Hospital Course: MICKIE SHARP is a 48 year old black female patient was past medical history of hypertension, hyperlipidemia, congestive heart failure, type 2 diabetes mellitus, peripheral arterial disease status post right BKA, end-stage renal disease on hemodialysis, anemia of CKD brought from [facility] status post fall. Since patient is severely hard of hearing and underlying cognitive impairment brief history is obtained from the ER attending note. Per ER attending note "this is a 48 years old chronically debilitated, demented bedbound and who gets dialysis Wednesday and "left today, obese female who is a very poor historian and [facility] for concern of [facility] per report. She complains of left leg pain diffusely. 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 The patient is not able to give me any history whatsoever. The paperwork she was sent with states she complains of neck pain after a fall. She denies pain anywhere else or any other complaints to me and is resting quietly in bed in no sign of pain or respiratory distress until you ask her what hurts and she states her left leg hurts. I am not able to get any further history or sick information from the patient, EMS reports, or anything that was sent with her she is nonambulatory at baseline. Her CT neck and other extremity x-rays are negative. Troponin XX 13 was done and it shows that initially 0.211-second set 0.412 and surgery is 0.429. Patient does not have any chest pain. Dr. Thompson is consulted by ER attending. He recommended to admit the patient for observation. 04/12/2019: Patient seen while sitting at the bedside and chatting with her boyfriend. States she complains of pain of the right BKA stump. She she complains that the Percocet that she was given does not help her. Given 1 mg of IV morphine sulfate. 04/13/2019: Patient seen resting in bed comfortably. She is awake alert oriented. She is not in pain or distress. Her vital signs are stable. She was dialyzed yesterday. Patient does not have any chest pain. No fever, nausea or vomiting. I will continue all her home medication and she will be discharged to [facility]. Physical Exam Vital Signs: Temp Pulse Resp BP Pulse Ox 97.9 F 70 15 114/45 L 98 04/13/19 08:04 04/13/19 08:04 04/13/19 08:04 04/13/19 08:04 04/13/19 08:04 Intake & Output 04/12/19 04/13/19 04/14/19 06:59 06:59 06:59 Intake Total 538 Output Total 700 Balance -162 Weight 103.1 kg 103.1 kg General appearance: PRESENT: no acute distress Head exam: PRESENT: atraumatic Eye exam: PRESENT: conjunctiva pink Neck exam: ABSENT: carotid bruit, JVD, lymphadenopathy, thyromegaly Respiratory exam: PRESENT: clear to auscultation ezequiel. ABSENT: rales, rhonchi, wheezes Cardiovascular exam: PRESENT: RRR. ABSENT: diastolic murmur, rubs, systolic murmur Neurological exam: PRESENT: alert, awake Results Laboratory Results: 04/12/19 06:37 04/12/19 06:37 04/11/19 02:19 Catheterized Urine Urine Culture - Final Mixed Urogenital Catrachita 04/10/19 04/10/19 04/11/19 01:29 01:29 01:29 Creatine Kinase 100 CK-MB (CK-2) Troponin I 04/11/19 04/11/19 04/11/19 01:29 08:18 11:47 Creatine Kinase CK-MB (CK-2) 2.26 Troponin I 0.211 0.412 0.429 Impressions: Chest X-Ray 04/10/19 23:29 IMPRESSION: Pulmonary vascular congestion. Mildly enlarged cardiac silhouette. Differential diagnosis includes mild/early CHF. Pelvis X-Ray 04/10/19 23:30 IMPRESSION: No acute findings. Femur X-Ray 04/10/19 23:31 IMPRESSION: No acute findings. Tibia/Fibula X-Ray 04/10/19 23:31 IMPRESSION: No acute findings. Foot X-Ray 04/10/19 23:32 IMPRESSION: No acute findings. Head CT 04/11/19 00:00 IMPRESSION: No acute intracranial abnormality. Cervical Spine CT 04/11/19 03:49 IMPRESSION: No acute findings. Cardiac Imaging Nuclear Medicine 04/11/19 12:45 IMPRESSION: No abnormal cardiac uptake is demonstrated on this limited study. Qualifiers - * PATIENT BEING DISCHARGED WITH ANY OF THE FOLLOWING DIAGNOSIS: No Acute Heart Failure - Is this a Heart Failure Patient?: No LVEF < 40%?: No- if no continue to question #3 3. Anticoagulant therapy for permanect/persistent/paraoxysmal Afib or Aflutter: N/A
[2019-04-13] MEDS ORDERED: ONDANSETRON HCL INJ/PF 4 MG/2 ML SDV IV PRN (14:00)
[2019-04-14] MEDS ORDERED: FAMOTIDINE 20 MG TABLET PO SCH (10:00)
== END 2019-04-13 20:31 ==
LOC: ER 22:18 → EH 04-11 17:13 → 4N 04-11 19:24
PROVIDERS: ADMIT Internal Medicine; ATTEND Internal Medicine
PROC: 5A1D70Z Performance of Urinary Filtration, Intermittent, Less than 6 Hours Per Day (ICD-10-PCS; principal; 2019-04-10)
DX: R79.89 Other specified abnormal findings of blood chemistry (principal); M79.605 Pain in left leg; M54.2 Cervicalgia; W19.XXXA Unspecified fall, initial encounter; Y92.129 Unspecified place in nursing home as the place of occurrence of the external cause; N18.6 End stage renal disease; I13.2 Hypertensive heart and chronic kidney disease with heart failure and with stage 5 chronic kidney disease, or end stage renal disease; I50.30 Unspecified diastolic (congestive) heart failure; E11.22 Type 2 diabetes mellitus with diabetic chronic kidney disease; E11.51 Type 2 diabetes mellitus with diabetic peripheral angiopathy without gangrene; R53.81 Other malaise; F03.90 Unspecified dementia, unspecified severity, without behavioral disturbance, psychotic disturbance, mood disturbance, and anxiety; E66.01 Morbid (severe) obesity due to excess calories; E78.5 Hyperlipidemia, unspecified; F71 Moderate intellectual disabilities; H91.90 Unspecified hearing loss, unspecified ear; M54.9 Dorsalgia, unspecified; R45.1 Restlessness and agitation; Z99.2 Dependence on renal dialysis; Z74.01 Bed confinement status; D63.1 Anemia in chronic kidney disease; T87.89 Other complications of amputation stump; G89.29 Other chronic pain; Y83.8 Other surgical procedures as the cause of abnormal reaction of the patient, or of later complication, without mention of misadventure at the time of the procedure; N39.0 Urinary tract infection, site not specified; Z89.511 Acquired absence of right leg below knee; Z79.899 Other long term (current) drug therapy; Z87.891 Personal history of nicotine dependence; Z82.49 Family history of ischemic heart disease and other diseases of the circulatory system
CPT/HCPCS: 93005; 94640; 99285; 96372; 36415 ×2; 87086; 82553; 82962 ×3; 82550; 83690; 83735; 84703; 85025; 85027; 80048; 80053; 81001; 84484; 83605; 93971 ×2; 71045; 73552; 73620; 72170; 73590; 78466; 70450; 72125; 93010; G0257; G0378 ×4; A9538; A9270 ×12; J3490 ×3; J2550; J0696; Q9969; Q5105

== ENCOUNTER → 2019-04-18 | Outpatient (CLI) | payer MEDICARE, MEDICAID ==
[2019-04-18 13:12] LABS: HEMATOCRIT 29.7 % (36.0-47.0); HEMOGLOBIN 9.7 g/dL (12.0-15.5); MEAN CORPUSCULAR HEMOGLOBIN 32.4 pg (27.0-33.4); MEAN CORPUSCULAR HGB CONC 32.8 g/dL (32.0-36.0); MEAN CORPUSCULAR VOLUME 99 fl (80-97); PLATELET COUNT 150 10^3/uL (150-450); RED BLOOD COUNT 3.01 10^6/uL (3.72-5.28); RED CELL DISTRIBUTION WIDTH 17.2 % (11.5-14.0); WHITE BLOOD COUNT 7.1 10^3/uL (4.0-10.5)
[2019-04-18 13:41] LABS: ABSOLUTE LYMPHOCYTES# (MANUAL) 0.7 10^3/uL (0.5-4.7); ABSOLUTE MONOCYTES # (MANUAL) 0.7 10^3/uL (0.1-1.4); BAND NEUTROPHILS % (MANUAL) 1 % (3-5); BASOPHILS % (MANUAL) 0 % (0-2); EOSINOPHILS % (MANUAL) 1 % (0-6); LYMPHOCYTES % (MANUAL) 10 % (13-45); MONOCYTES % (MANUAL) 10 % (3-13); SEGMENTED NEUTROPHILS % (MAN) 78 % (42-78); TOTAL CELLS COUNTED 100
[2019-04-18 13:42] LABS: ANISOCYTOSIS 1+; PLATELET LARGE PRESENT; POLYCHROMASIA 1+; TOXIC GRANULATION SLIGHT; TOXIC VACUOLATION PRESENT
[2019-04-18 13:43] LABS: PLATELET COMMENT ADEQUATE
== END ==
LOC: PNR 11:55
PROVIDERS: ATTEND Family Medicine
DX: R57.1 Hypovolemic shock (principal); D63.1 Anemia in chronic kidney disease
CPT/HCPCS: 85025

== ENCOUNTER 2019-04-26 10:55 | Emergency (ER) | payer MEDICARE, MEDICAID ==
[2019-04-26 11:43] LABS: ABSOLUTE BASOPHILS # (AUTO) 0.1 10^3/uL (0.0-0.2); ABSOLUTE EOSINOPHILS # (AUTO) 0.1 10^3/uL (0.0-0.6); ABSOLUTE LYMPHOCYTES (AUTO) 1.1 10^3/uL (0.5-4.7); ABSOLUTE MONOCYTES (AUTO) 1.2 10^3/uL (0.1-1.4); ABSOLUTE NEUT (AUTO) 7.2 10^3/uL (1.7-8.2); BASOPHILS % (AUTO) 0.7 % (0-2); EOSINOPHILS % (AUTO) 0.8 % (0-6); HEMATOCRIT 30.6 % (36.0-47.0); HEMOGLOBIN 9.9 g/dL (12.0-15.5); LYMPHOCYTES % (AUTO) 11.5 % (13-45); MEAN CORPUSCULAR HEMOGLOBIN 32.2 pg (27.0-33.4); MEAN CORPUSCULAR HGB CONC 32.5 g/dL (32.0-36.0); MEAN CORPUSCULAR VOLUME 99 fl (80-97); MONOCYTES % (AUTO) 12.1 % (3-13); PLATELET COUNT 132 10^3/uL (150-450); RED BLOOD COUNT 3.08 10^6/uL (3.72-5.28); RED CELL DISTRIBUTION WIDTH 16.6 % (11.5-14.0); SEGMENTED NEUTROPHILS % (AUTO) 74.9 % (42-78); TOTAL CELLS COUNTED % (AUTO) 100 %; WHITE BLOOD COUNT 9.6 10^3/uL (4.0-10.5)
--- NOTE | 2019-04-26 11:48 | RADIOLOGY REPORT (SQ) ---
EXAM DESCRIPTION: CT HEAD WITHOUT COMPLETED DATE/TIME: 04/26/2019 11:38 am REASON FOR STUDY: bed [address] De León s/p fall COMPARISON: CT of the head without contrast from 04/11/2019. TECHNIQUE: Axial images acquired through the brain without intravenous contrast. Images reviewed wi th bone, brain and subdural windows. Additional sagittal and coronal reconstructions were generated. Images stored on PACS. All CT scanners at this facility use dose modulation, iterative reconstruction, and/or weight based d osing when appropriate to reduce radiation dose to as low as reasonably achievable (ALARA). [facility]: Dose Right [facility]: CareDose [facility]: Dose Right [facility]: Teradose 4D [facility]: Pramana RADIATION DOSE: CT Rad equipment meets quality standard of care and radiation dose reduction techniq ues were employed. CTDIvol: 53.2 mGy. DLP: 991 mGy-cm. LIMITATIONS: None. FINDINGS: There is no acute intracranial hemorrhage, vascular territorial infarct, extra-axial fluid collection, mass effect, or midline shift. There is no effacement of the cerebral sulci or basal arita barachnoid cisterns. The rm-white matter differentiation is preserved. The caliber the ventricles is concordant with the degree of sulcation; there is no ventriculomegaly. The orbits and globes are intact. The paranasal sinuses and the mastoid air cells are clear. There is no fracture of the calvarium. IMPRESSION: No acute intracranial abnormality. EVIDENCE OF ACUTE STROKE: NO. COMMENT: Quality ID # [id number]: Final reports with documentation of one or more dose reduction techniques (e.g., Automated exposure control, adjustment of the mA and/or kV according to patient size, use of iterative reconstruction technique) TECHNICAL DOCUMENTATION: JOB ID: [id number] [employer]- All Rights Reserved Reading location - IP/workstation name: [email or web address]
--- NOTE | 2019-04-26 11:53 | RADIOLOGY REPORT (SQ) ---
EXAM DESCRIPTION: CT CERVICAL SPINE WITHOUT COMPLETED DATE/TIME: 04/26/2019 11:38 am REASON FOR STUDY: bed [address] De León s/p fall COMPARISON: None. TECHNIQUE: Axial images acquired through the cervical spine without intravenous contrast. Images re viewed with lung, soft tissue and bone windows. Reconstructed coronal and sagittal MPR images review ed. Images stored on PACS. All CT scanners at this facility use dose modulation, iterative reconstruction, and/or weight based d osing when appropriate to reduce radiation dose to as low as reasonably achievable (ALARA). [facility]: Dose Right [facility]: CareDose [facility]: Dose Right [facility]: Teradose 4D [facility]: TrabajoPanel RADIATION DOSE: CT Rad equipment meets quality standard of care and radiation dose reduction techniq ues were employed. CTDIvol: 27.4 mGy. DLP: 977 mGy-cm. mGy. LIMITATIONS: Evaluation is limited due to motion artifact. FINDINGS: ALIGNMENT: Anatomic. There is no craniocervical atlantoaxial dissociation MINERALIZATION: Normal. VERTEBRAL BODIES: The cervical vertebral body heights are preserved. There is no fracture. DISCS: There anterior endplate osteophytes from C3-C4 to C6-C7. FACETS, LATERAL MASSES, POSTERIOR ELEMENTS: Intact. There is no osteophytic foraminal stenosis. HARDWARE: None in the spine. VISUALIZED RIBS: No fractures. LUNG APICES AND SOFT TISSUES: No pre or paravertebral hematoma. There is atherosclerotic calcificati on of the carotid bifurcations and vertebral arteries. The esophagus up to the thoracic inlet is dis tended and filled with debris. There i are numerous hypodense nodules in the thyroid gland that misty ure up to 12 mm in short axis diameter. OTHER: No other finding. IMPRESSION: No acute fracture malalignment of the cervical spine. TECHNICAL DOCUMENTATION: JOB ID: [id number] Quality ID # [id number]: Final reports with documentation of one or more dose reduction techniques (e.g., Au tomated exposure control, adjustment of the mA and/or kV according to patient size, use of iterative reconstruction technique) 2010 [employer]- All Rights Reserved Reading location - IP/workstation name: [email or web address]
[2019-04-26 12:11] LABS: ALBUMIN 3.7 g/dL (3.5-5.0); ALKALINE PHOSPHATASE 249 U/L (38-126); ANION GAP 13 (5-19); ASPARTATE AMINO TRANSFERASE 108 U/L (14-36); BILIRUBIN,DIRECT 1.4 mg/dL (0.0-0.4); BILIRUBIN,TOTAL 1.8 mg/dL (0.2-1.3); BLOOD UREA NITROGEN 58 mg/dL (7-20); CALCIUM 9.3 mg/dL (8.4-10.2); CARBON DIOXIDE 27 mmol/L (22-30); CHLORIDE 100 mmol/L (98-107); GLUCOSE 92 mg/dL (75-110); POTASSIUM 5.4 mmol/L (3.6-5.0); TOTAL PROTEIN 8.1 g/dL (6.3-8.2)
[2019-04-26 12:40] LABS: APPEARANCE,URINE TURBID; BILIRUBIN,URINE NEGATIVE (NEGATIVE); COLOR,URINE YELLOW; GLUCOSE, URINE NEGATIVE (NEGATIVE); KETONES,URINE NEGATIVE (NEGATIVE); LEUKOCYTE ESTERASE,URINE MODERATE (NEGATIVE); NITRITE,URINE NEGATIVE (NEGATIVE); PROTEIN,URINE 100 mg/dL (NEGATIVE); URINE SPECIFIC GRAVITY 1.009; UROBILINOGEN,URINE NEGATIVE mg/dL (<2.0)
[2019-04-26] MEDS ORDERED: CEFTRIAXONE 1 GM/D5W RTU 1 GM/50 ML RTUPB IV ONE (13:01)
[2019-04-26] MEDS ORDERED: NALOXONE HCL INJ/PF 0.4 MG/1 ML SDV IV ONE (15:14)
--- NOTE | 2019-04-26 15:16 | ER Document Report ---
ED General - General Chief Complaint: Altered Mental Status Stated Complaint: ALTERED MENTAL STATUS Time Seen by Provider: 04/26/19 11:49 Primary Care Provider: EARLINE MCKINNEY MD [Primary Care Provider] - Follow up as needed Notes: Patient is a 48-year-old female patient of [facility]. Patient does present to our emergency department with an altered mental status. Report obtained from nursing staff which obtained report from EMS. States patient was harder to arouse this morning. States she may have had a fall but it was unwitnessed. It is unknown if there was any trauma. Patient does respond to verbal stimuli but otherwise cannot answer questions. According to EMS which is also according to nursing staff patient's typical baseline is alert and oriented x4. Patient's medications which are listed in the computer to reveal Percocet and Dilaudid. Patient has no narcotic pain patches currently on her body. It is unsure of when the patient last had her medications. Nursing staff has attempted to contact [facility] for further patient records without success. TRAVEL OUTSIDE OF THE [place] IN LAST 30 DAYS: No - Related Data Allergies/Adverse Reactions: No Known Allergies Allergy (Verified 04/10/19 22:47) Past Medical History - General Information source: Emergency Med Personnel - Social History Smoking Status: Unknown if Ever Smoked Family History: CAD, DM, Hypertension Patient has suicidal ideation: No Patient has homicidal ideation: No - Past Medical History Cardiac Medical History: Reports: Hx Congestive Heart Failure, Hx Hypercholesterolemia, Hx Hypertension Denies: Hx Coronary Artery Disease, Hx Heart Attack Pulmonary Medical History: Reports: Hx Asthma Denies: Hx Bronchitis, Hx COPD, Hx Pneumonia Neurological Medical History: Denies: Hx Cerebrovascular Accident, Hx Seizures Endocrine Medical History: Reports: Hx Diabetes Mellitus Type 1, Hx Diabetes Mellitus Type 2. Denies: Hx Hyperthyroidism, Hx Hypothyroidism Renal/ Medical History: Reports: Hx End Stage Renal Disease - On on hemodialysis 3 days/week- MWF, Hx Hemodialysis. Denies: Hx Peritoneal Dialysis GI Medical History: Denies: Hx Cirrhosis, Hx Hepatitis Musculoskeletal Medical History: Denies Hx Arthritis, Denies Hx Gout Skin Medical History: Denies Hx Eczema, Denies Hx Psoriasis Psychiatric Medical History: Denies: Hx Depression Infectious Medical History: Denies: Hx Hepatitis Past Surgical History: Reports: Hx Cholecystectomy, Hx Orthopedic Surgery - Right BKA, Hx Vascular Surgery - fistula placement for hemodialysis, Other - Amputation right lower extremity - Immunizations Immunizations up to date: Yes Hx Diphtheria, Pertussis, Tetanus Vaccination: Yes Review of Systems - Review of Systems -: Yes ROS unobtainable due to patient's medical condition Neurological/Psychological: See HPI Physical Exam - Vital signs Vitals: Pulse Ox 86 L 04/26/19 11:06 - Notes Notes: GENERAL: Alert, initially appears to be sleeping, easily arousable to verbal stimuli and then only able to state her name. Patient attempts to answer questions but is not answering them correctly. HEAD: Normocephalic, atraumatic. EYES: Pupils equal, round, and reactive to light. Extraocular movements intact. ENT: Oral mucosa moist, tongue midline. NECK: Full range of motion. Supple. Trachea midline. LUNGS: Clear to auscultation bilaterally, no wheezes, rales, or rhonchi. No respiratory distress. HEART: Regular rate and rhythm. No murmur ABDOMEN: Soft, non-tender. Non-distended. Bowel sounds present in all 4 quadrants. EXTREMITIES: Moves all 4 extremities spontaneously. Capillary refill less than 2 seconds distal upper extremities, right BKA. BACK: no cervical, thoracic, lumbar midline tenderness. NEUROLOGICAL: Alert to name with normal speech. PSYCH: Normal affect, normal mood. SKIN: Warm, dry, normal turgor. Course - Re-evaluation Re-evalutation: Nursing staff currently taking care of the patient states this is not her mental baseline. States she is typically ornery asking a lot of questions and refusing to follow orders in the emergency room. Nursing staff states she is usually able to tell you about her dialysis, knows the dates and where she is. Patient is able to state her name to me upon evaluation but is unable to tell me the date or where she is. Patient voices that she has dialysis Wednesday and Wednesday. 04/26/19 15:15 Patient's urine does show signs of infection, sent for culture, started on ceftriaxone. Based on patient's altered mental status she will need to be admitted to the hospital for continued care. I discussed this case with hospitalist at [facility] Dr. Hernandez who is requesting attempting 0.2 mg IV Narcan. Should the patient not respond to Narcan he will accept the patient to their facility. Narcan ordered, discussed with nursing staff, will reevaluate. 04/26/19 15:30 Narcan was administered to the patient, no change in mental status. Patient is able to continually say her name and no voices that she is cold. Patient will not answer any other questions. A third member of the nursing staff states they are also familiar with the patient. States approximately a month ago they took care of the patient and she was conscious alert and oriented x4. Typically uses the call myrick and asks a lot of questions but "never acts like she is right now." Patient will be transferred to [facility] for altered mental status, urinary tract infection, chronic kidney failure need of dialysis. We do not have dialysis beds available at this time. - Vital Signs Vital signs: Temp Pulse Resp BP Pulse Ox 97.6 F 13 142/71 H 98 04/26/19 11:40 04/26/19 13:00 04/26/19 15:01 04/26/19 15:11 - Laboratory Result Diagrams: 04/26/19 11:19 04/26/19 11:19 Laboratory results interpreted by me: 04/26/19 04/26/19 04/26/19 11:19 11:19 11:46 RBC 3.08 L Hgb 9.9 L Hct 30.6 L MCV 99 H RDW 16.6 H Plt Count 132 L Lymph % (Auto) 11.5 L Potassium 5.4 H BUN 58 H Creatinine 7.61 H Est GFR ( Amer) 7 L Est GFR (MDRD) Non-Af 6 L Total Bilirubin 1.8 H Direct Bilirubin 1.4 H AST 108 H Alkaline Phosphatase 249 H Urine Protein 100 H Urine Blood LARGE H Ur Leukocyte Esterase MODERATE H Discharge - Discharge Clinical Impression: ESRD (end stage renal disease) Altered mental status Qualifiers: Altered mental status type: unspecified Qualified Code(s): R41.82 - Altered mental status, unspecified Urinary tract infection Qualifiers: Urinary tract infection type: site unspecified Hematuria presence: with hematuria Qualified Code(s): N39.0 - Urinary tract infection, site not specified Condition: Fair Disposition: Critical Access Hospital Admitting Provider: Dr. Hernandez Referrals: EARLINE MCKINNEY MD [Primary Care Provider] - Follow up as needed
--- NOTE | 2019-04-26 21:44 | ER Document Report ---
Doctor's Note Notes: 04/26/19 21:39 vitals stable. pt seen prior to transfer. transfer crew is here now. this was my only involvement in pt care. please refer to provider man's note for full details of the visit. BP : 131/59, pulse 68, O2 sat 100% RA, RR 20, temp 98.1F that was recycled on the monitor while i was in the room.
[2019-04-26 22:15] VITALS: BP 131/59
--- NOTE | 2019-04-26 22:18 | EKG REPORT ---
SEVERITY:- ABNORMAL ECG - SINUS TACHYCARDIA MULTIFORM VENTRICULAR PREMATURE COMPLEXES LEFT ANTERIOR FASCICULAR BLOCK ABNORMAL T, CONSIDER ISCHEMIA, ANT-LAT LEADS PROLONGED QT INTERVAL : Confirmed by: Joslyn Thompson MD 26-Apr-2019 22:17:45
--- NOTE | 2019-04-26 22:18 | EKG REPORT ---
SEVERITY:- ABNORMAL ECG - SINUS RHYTHM ATRIAL PREMATURE COMPLEX LEFT AXIS DEVIATION ABNORMAL T, CONSIDER ISCHEMIA, ANT-LAT LEADS : Confirmed by: Joslyn Thompson MD 26-Apr-2019 22:17:42
== END 2019-04-26 22:15 | disposition short-term general hospital (02) ==
LOC: ER 10:55
DX: R41.82 Altered mental status, unspecified (principal); N39.0 Urinary tract infection, site not specified; I13.2 Hypertensive heart and chronic kidney disease with heart failure and with stage 5 chronic kidney disease, or end stage renal disease; E11.22 Type 2 diabetes mellitus with diabetic chronic kidney disease; N18.6 End stage renal disease; I50.9 Heart failure, unspecified; Z99.2 Dependence on renal dialysis; J45.909 Unspecified asthma, uncomplicated; Z79.899 Other long term (current) drug therapy
CPT/HCPCS: 93005; 36415; 87040; 87086; 82962; 82550; 83605; 85025; 87077; 80053; 81001; 84484; 70450; 72125; 93010; J2310; J0696